=== PATIENT | female | born 1935 | race Caucasian/White ===

== ENCOUNTER 2018-06-06 06:37 | Inpatient (IN) | payer MEDICARE, OTHER, SELFPAY ==
[2018-06-06] VITALS (20 sets, daily range): BP systolic 93–164; BP diastolic 52–101; PULSE 87–115; RESP 10–24; TEMP 36.5–37.9; O2SAT 84–98; BMI 22.6
--- NOTE | 2018-06-06 | DI.RAD.S_ITS ---
PROCEDURE: XR PELVIS 1-2V INDICATIONS: s/p hip surgery TECHNIQUE: Single view(s) of the pelvis acquired. COMPARISON: None. FINDINGS: Bones: No fractures or dislocations. No suspicious bony lesions. Expected postoperative alignment of left hip arthroplasty. Overlying postsurgical soft tissue changes and skin ben. Pelvic ben project in the right pelvis. Mild right hip joint degeneration. IMPRESSION: Expected postoperative appearance of left hip arthroplasty. Dictated by: Gurinder Lopez M.D. on 06/07/2018 at 7:47 Approved by: Gurinder Lopez M.D. on 06/07/2018 at 7:48
--- NOTE | 2018-06-06 | DI.RAD.S_ITS ---
PROCEDURE: XR CHEST 1V INDICATIONS: Chect tube placement TECHNIQUE: One view of the chest was acquired. COMPARISON: [facility], CR, XR CHEST 1V, 06/06/2018, 21:50. FINDINGS: Surgical changes and devices: Left basilar thoracostomy tube is redemonstrated. Lungs and pleura: There is partial interval reexpansion of the left lung. A large pneumothorax persists. Mediastinum: Mediastinal contours appear normal. Heart size is normal. Bones and chest wall: No suspicious bony lesions. Overlying soft tissues appear unremarkable. IMPRESSION: Partial reexpansion of the left lung with thoracostomy tube in place. Dictated by: Adore Benz M.D. on 06/07/2018 at 8:24 Approved by: Adore Benz M.D. on 06/07/2018 at 8:25
--- NOTE | 2018-06-06 | DI.RAD.S_ITS ---
PROCEDURE: XR CHEST 1V INDICATIONS: Low O2 saturation s/p surgery TECHNIQUE: One view of the chest was acquired. COMPARISON: None. FINDINGS: Surgical changes and devices: None. Lungs and pleura: There is a normal appearance to the right lung parenchyma but there is a large left pneumothorax, deviating the left lung to the perihilar region of the left hemithorax. No pleural effusions. Mediastinum: Mediastinal contours appear normal. Heart size is normal. Bones and chest wall: No suspicious bony lesions. Overlying soft tissues appear unremarkable. IMPRESSION: Normal appearing right lung. No mediastinal shift from left to right but there is a large left pneumothorax collapsing the large majority of the left lung. Emergency room and hospitalist staff are aware of these findings. Dictated by: Tj Avendano M.D. on 06/06/2018 at 22:03 Approved by: Tj Avendano M.D. on 06/06/2018 at 22:05
--- NOTE | 2018-06-06 06:41 | DI.RAD.S_ITS ---
PROCEDURE: XR HIP W PEL IF DONE LT 2V INDICATIONS: fall, pain TECHNIQUE: 2 views of the hip were acquired. COMPARISON: None. FINDINGS: Bones: There is a transverse subcapital femoral neck fracture involving the proximal left femur with mild impaction and foreshortening of the distal fracture fragment. The femoral head appears to be well-seated in the acetabulum. The right hip appears intact. No suspicious bony lesions. The visualized pelvic ring appears intact. Soft tissues: No suspicious soft tissue calcifications or masses. Multiple surgical clips are noted in the right pelvis. IMPRESSION: Transverse subcapital left femoral neck fracture. Dictated by: Ben Riley M.D. on 06/06/2018 at 8:26 Approved by: Ben Riley M.D. on 06/06/2018 at 8:28
--- NOTE | 2018-06-06 07:00 | ED.LOWEXIN ---
HPI - Extremity Injury (Lower) General Chief Complaint: Extremity Injury, Lower Stated Complaint: GLF Time Seen by Provider: 06/06/18 06:41 Source: patient Mode of arrival: EMS Limitations: no limitations History of Present Illness HPI Narrative: Patient is an 83-year-old female not on anticoagulation here for evaluation of left hip pain. Patient states that last evening she got up out of bed to go to the bathroom when she tripped and fell. States that afterwards she had pain in her left hip. She was able to take a few steps however was extremely uncomfortable. She did take some Tylenol this morning. She did not hit her head. There was no loss of consciousness. She thinks that she hit her right arm but has no pain in her right arm now. She was unable to get back into bed after the event. Related Data Home Medications Medication Instructions Recorded Confirmed Calcium Carbonate/Vitamin D 1 cap PO AMINS #0 12/20/11 (#CALCIUM/VITAMIN D) Vit B Complex/Vit C/Vit E/Zn #0 12/20/11 (#ZINC B.E.C.) Previous Rx's Medication Instructions Recorded amoxicillin 500 mg PO TID #30 tab 05/07/17 Allergies Allergy/AdvReac Type Severity Reaction Status Date / Time No Known Drug Allergies Allergy Verified 06/06/18 06:52 Review of Systems Constitutional Denies chills, Denies fever(s), Denies lethargy and Denies weakness Cardiovascular Denies chest pain and Denies dyspnea Respiratory Denies dyspnea Gastrointestinal Gastrointestinal: Denies abdominal pain Genitourinary Denies dysuria Musculoskeletal Comments: Left hip pain Integumentary/Breasts Denies lesions and Denies rash Neurologic Denies weakness Comments: Some tingling to the left lower extremity compared to the right Hematologic/Lymphatic Comments: Not on anticoagulation PFSH Medical History Healthy adult (Acute) Surgical History No pertinent past surgical history (Acute) Social History Smoking Status: Never smoker Social History Smoking Status: Never smoker Exam Initial Vital Signs Initial Vital Signs: Vital Signs Temperature 98.5 F 06/06/18 06:43 Pulse Rate 99 H 06/06/18 06:43 Respiratory Rate 22 06/06/18 06:43 Blood Pressure 135/101 H 06/06/18 06:43 Pulse Oximetry 86 L 06/06/18 06:43 Const General: cooperative, well developed, well groomed and No acute distress Orientation: alert, awake and oriented x3 HENMT Head: normal to inspection and normocephalic Resp Effort & Inspection: normal respiratory effort Auscultation: clear to auscultation bilaterally Cardio Rate: regular rate Rhythm: regular rhythm Pulses: radial pulses present and dorsalis pedis present bilaterally GI Inspection: non-distended Palpation: soft Skin Lesions: no lesions Rashes: no rashes Neuro General: alert, awake and oriented x3 Cognition: normal cognition Speech: speech normal Motor: muscle tone normal throughout Sensory Exam: other (Some subjective decrease to sensation to the left foot compared to the righ) Extrem General: capillary refill normal Other: Patient with tenderness to palpation around the left hemipelvis. Left upper extremity right upper extremity and right lower extremity unremarkable. Psych Appearance: grossly normal and well kempt Course Orders Ordered: ED Orders 06/06/18 06:15 Basic Metabolic Panel Stat Complete Blood Count AUTO DIFF Stat Partial Thromboplastin Time Stat Prothrombin Time INR Stat 06/06/18 06:41 XR hip w pel if done LT 2V Stat 06/06/18 07:28 Type and Screen Stat Discontinued Medications Morphine Sulfate (Morphine) 2 mg IV NOW ONE Stop: 06/06/18 07:35 Vital Signs - 8 hr 06/06/18 06:43 Temperature 98.5 F Pulse Rate 99 H Respiratory Rate 22 Blood Pressure 135/101 H Pulse Oximetry 86 L MDM - Extremity Injury (Lower) Lab Data Result diagrams: 06/06/18 06:15 06/06/18 06:15 Imaging Data X-ray left hip: Attestation: I personally reviewed and interpreted this imaging study as follows: My impression: Left femoral neck fracture, minimally displaced MDM Narrative Medical decision making narrative: Healthy, not on anticoagulation, did not hit her head did not lose any consciousness. Suspect mechanical fall. Does have a left femoral neck fracture. Discussed the case with Dr. Patton with Orthopedics who states that she will require surgery and he will come and see her. Discussed the case with Dr. Canas with Internal Medicine who will admit the patient. Discussed the admission with the patient. She expressed understanding and agreement plan. Patient's labs pending at the time of admission. Discharge Plan Departure Patient Disposition: Admitted As Inpatient Clinical Impression: Fracture of femoral neck, left, closed Qualifiers: Encounter type: initial encounter Qualified Code(s): S72.002A - Fracture of unspecified part of neck of left femur, initial encounter for closed fracture
[2018-06-06 07:42] LABS: Prothrombin Time 11.1 SECONDS (10.1-12.7)
[2018-06-06 07:45] LABS: PTT Partial Thromboplastin Tim 26 SECONDS (26.4-36.2)
[2018-06-06 07:46] LABS: Blood Urea Nitrogen 26 mg/dL (7-17); Calcium 9.9 mg/dL (8.4-10.2); Carbon Dioxide 22 mmol/L (22-32); Chloride 104 mmol/L (98-107); Estimated Glomerular Filt Rate 53.1 mL/min (>60); Glucose 193 mg/dL (80-110); HEMOLYSIS < 15 (0-50); Potassium 3.7 mmol/L (3.4-5.1); Sodium 137 mmol/L (137-145)
[2018-06-06] MEDS: MORPHINE 4 MG/ML INJ 2 MG IV (07:48)
[2018-06-06 07:59] LABS: Add Manual Diff / Slide Review NO; Basophils Absolute Auto 0 /uL (0-100); Basophils Percent Auto 0.2 % (0-2); Eosinophils Absolute Auto 0 /uL (0-450); Eosinophils Percent Auto 0.2 % (2-4); Hemoglobin 11.8 g/dL (12.0-16.0); Lymphocytes Absolute Auto 700 /uL (1100-4500); Lymphocytes Percent Auto 5.3 % (25-40); Mean Corpuscular HGB Conc 32.7 % (30-36); Mean Corpuscular Hemoglobin 29.5 PG (26-34); Mean Corpuscular Volume 90.3 fL (80-100); Monocytes Absolute Auto 800 /uL (0-900); Monocytes Percent Auto 6.4 % (3-14); Neutrophils Absolute Auto 11200 /uL (1500-7000); Neutrophils Percent Auto 87.9 % (50-75); Platelet Count 347 X10^3/uL (150-400); Red Blood Cell Count 3.99 X10^6/uL (4.0-5.2); Red Cell Distribution Width 15.3 % (11.6-14.8); White Blood Cell Count 12.7 X10^3/uL (4.5-11.0)
--- NOTE | 2018-06-06 08:20 | PC.NURSE ---
Both feet are cold to the touch with pulses, left foot she states feels different than the right foot.
[2018-06-06 08:29] LABS: Bacteria Urine None Seen; WBC Urine None Seen (0-5/HPF)
[2018-06-06 08:34] LABS: Appearance Urine UA CLEAR; Bilirubin Urine UA NEGATIVE (NEGATIVE); Color Urine UA YELLOW; Glucose Urine UA NEGATIVE (Negative); Ketones Urine UA NEGATIVE (NEGATIVE); Leukocyte Esterase Urine UA NEGATIVE (NEGATIVE); Nitrite Urine UA NEGATIVE (Negative); Occult Blood Urine UA 2+ (Negative); Protein Urine UA 1+ (Negative); Specific Gravity Urine UA 1.025 (1.000-1.035); Urobilinogen Urine UA 0.2 E.U./dL (0.2)
[2018-06-06] MEDS: MORPHINE 2 MG/ML INJ IV ×3 (08:50→14:10)
[2018-06-06 08:55] LABS: Amorphous Sediment Urine 2+; RBC Urine 10-30/HPF (0-5/HPF)
[2018-06-06 08:56] LABS: Culture Indicated Urine Cult Not Indicated; Hyaline Casts Urine 5-10/LPF
--- NOTE | 2018-06-06 11:09 | PM.CN ---
History of Present Illness Date Patient Seen: 06/06/18 Time Patient Seen: 11:09 Chief complaint: GLF Reason for consult: L hip fx Requesting provider: Serge Canas Narrative: 83-year-old female with a left hip fracture. She tripped and stumbled and fell down at home. She took a few steps but the pain was too much. She came in this morning because it was getting better. When she fell she had no prodromal shortness of breath, chest pain, dizziness. When she fell she did not lose consciousness or hit her head. She did scrape her left elbow. It is not bothering her now. The left hip is sharp and stabbing with any movement although not too bad more of an ache just laying in bed. Since the fall she has had a little numbness in her left foot. [facility] Medical History Healthy adult (Acute) History of hysterectomy (Acute) Surgical History History of cholecystectomy (Acute) Social History household members: spouse Smoking Status: Never smoker alcohol intake: never Social History household members: spouse Smoking Status: Never smoker alcohol intake: never Meds Home Medications Medication Instructions Recorded Confirmed Type No Known Home Medications 06/06/18 06/06/18 History Allergies Allergy/AdvReac Type Severity Reaction Status Date / Time No Known Drug Allergies Allergy Verified 06/06/18 06:52 Review of Systems Constitutional Constitutional: Denies chills and Denies fever(s) ENT Ears, Nose, Mouth, and Throat: No dizziness Cardiovascular Cardiovascular: Denies chest pain Respiratory Respiratory: Denies cough and Denies wheezing Gastrointestinal Gastrointestinal: Denies abdominal pain Integumentary/Breasts Skin/Breast: Denies bleeding lesions Neurologic Neurologic: Denies behavioral changes and Denies dizziness Psychiatric Psychiatric: Denies behavioral changes Hematologic/Lymphatic Hematologic/Lymphatic: Denies easy bleeding Allergic/Immunologic Allergic/Immunologic: Denies wheezing Exam Vital Signs (past 8 hours): - 06/06/18 06:43 06/06/18 08:13 06/06/18 08:34 Temperature 98.5 F Pulse Rate 99 H 98 H 91 H Respiratory Rate 22 16 15 Blood Pressure 135/101 H 140/74 Blood Pressure [Left Arm] 140/74 Pulse Oximetry 86 L 94 93 06/06/18 08:58 Temperature 97.7 F Pulse Rate 104 H Respiratory Rate 18 Blood Pressure 164/90 H Blood Pressure [Left Arm] Pulse Oximetry 93 Oxygen Delivery Method Nasal Cannula Oxygen Flow Rate 3 Const Orientation: alert and oriented x3 Resp Auscultation: clear to auscultation bilaterally Cardio Rate: regular rate Rhythm: regular rhythm Extrem Other: LLE - Intact integument over the hip. Slight internal rotation. 2+ distal pulses. Slight decrease in sensation from the toes to the ankle. Easily moves ankle up and down with full strength. Objective Imaging Left hip x-ray: My impression: Displaced femoral neck fracture on the left hip Labs Result Diagrams: 06/06/18 06:43 06/06/18 06:43 Labs: Laboratory Results - last 24 hr 06/06/18 06/06/18 06/06/18 06:43 06:43 06:43 WBC 12.7 H RBC 3.99 L Hgb 11.8 L Hct 36.0 MCV 90.3 MCH 29.5 MCHC 32.7 RDW 15.3 H Plt Count 347 Neut % (Auto) 87.9 H Lymph % (Auto) 5.3 L [place] % (Auto) 6.4 Eos % (Auto) 0.2 L Baso % (Auto) 0.2 Neut # (Auto) 08222 H Lymph # (Auto) 700 L [place] # (Auto) 800 Eos # (Auto) 0 Baso # (Auto) 0 PT 11.1 INR 1.0 APTT 26 L Sodium 137 Potassium 3.7 Chloride 104 Carbon Dioxide 22 BUN 26 H Creatinine 1.00 Estimated GFR 53.1 L BUN/Creatinine Ratio 26.0 H Glucose 193 H Calcium 9.9 Urine Color Urine Appearance Urine pH Ur Specific [place] Urine Protein Urine Glucose (UA) Urine Ketones Urine Occult Blood Urine Nitrate Urine Bilirubin Urine Urobilinogen Ur Leukocyte Esterase Urine RBC Urine WBC Amorphous Sediment Urine Bacteria Hyaline Casts Ur Culture Indicated? Blood Type Antibody Screen 06/06/18 06/06/18 06:43 08:28 WBC RBC Hgb Hct MCV MCH MCHC RDW Plt Count Neut % (Auto) Lymph % (Auto) [place] % (Auto) Eos % (Auto) Baso % (Auto) Neut # (Auto) Lymph # (Auto) [place] # (Auto) Eos # (Auto) Baso # (Auto) PT INR APTT Sodium Potassium Chloride Carbon Dioxide BUN Creatinine Estimated GFR BUN/Creatinine Ratio Glucose Calcium Urine Color Yellow Urine Appearance Clear Urine pH 5.0 Ur Specific [place] 1.025 Urine Protein 1+ H Urine Glucose (UA) Negative Urine Ketones Negative Urine Occult Blood 2+ H Urine Nitrate Negative Urine Bilirubin Negative Urine Urobilinogen 0.2 Ur Leukocyte Esterase Negative Urine RBC 10-30/hpf H Urine WBC None seen Amorphous Sediment 2+ Urine Bacteria None seen Hyaline Casts 5-10/lpf Ur Culture Indicated? Cult not indicated Blood Type A Positive Antibody Screen Negative Assessment & Plan Assessment Narrative: Left hip fracture - explained the patient that this is a displaced hip fracture which requires a hemiarthroplasty for fixation as these usually do not heal with just screws. Risks and benefits of surgery discussed including but not limited to medical risks with heart attack, stroke, DVT, PE, , infection, bleeding, scarring, nerve injury with pain numbness weakness, limp, stiffness, decrease in ambulatory status, dislocation, need for further surgery. She understands and appropriate consents were obtained. We also discussed expected postoperative course and probable need for rehab afterwards. I also discussed her care with Dr. Canas. We will plan on taking her to the operating room this afternoon once in operating Room opens up.
--- NOTE | 2018-06-06 11:17 | PM.HP.1 ---
History of Present Illness Date Patient Seen: 06/06/18 Time Patient Seen: 11:00 Chief complaint: GLF Narrative: Patient is an 83-year-old female with history of osteoporosis, otherwise in good health, lives at home with , transported to ED after ground level fall. She fell this morning after she had gotten out of bed. She states that she was in a begum to get to the bathroom and fell at the doorway exit to the hallway. She was not dizzy and did not pass out. Denies hitting her head. She was unable to move after the fall due to pain in the left hip. X-ray showed a transverse subcapital left femoral neck fracture. Dr. Leonel Patton was consulted for orthopedic surgery. Patient states she has had mild cold symptoms last few days but no cough or fever or diarrhea. She has previously been diagnosed with osteoporosis. Patient History Medical History Healthy adult (Acute) History of hysterectomy (Chronic) Osteoporosis (Chronic) Surgical History History of cholecystectomy (Chronic) Social History household members: spouse Smoking Status: Never smoker alcohol intake: never Family & Social History Social History: household members spouse Prior Living Arrangements House Safety & Behavioral: Feels Safe in Current Yes Environment Been Physically Hurt or No Threatened By a Person Suicidal Ideation Description None Suicide Plan Description No Plan Tobacco & Substance use: Smoking Status Never smoker alcohol intake never Substance Use Type does not use Meds Home Medications Medication Instructions Recorded Confirmed Type No Known Home Medications 06/06/18 06/06/18 History Allergies Allergy/AdvReac Type Severity Reaction Status Date / Time No Known Drug Allergies Allergy Verified 06/06/18 06:52 Review of Systems Review of Systems All systems reviewed & are unremarkable except as noted in HPI and below Exam Vital Signs (past 8 hours): - 06/06/18 06:43 06/06/18 08:13 06/06/18 08:34 Temperature 98.5 F Pulse Rate 99 H 98 H 91 H Respiratory Rate 22 16 15 Blood Pressure 135/101 H 140/74 Blood Pressure [Left Arm] 140/74 Pulse Oximetry 86 L 94 93 06/06/18 08:58 Temperature 97.7 F Pulse Rate 104 H Respiratory Rate 18 Blood Pressure 164/90 H Blood Pressure [Left Arm] Pulse Oximetry 93 Oxygen Delivery Method Nasal Cannula Oxygen Flow Rate 3 Narrative Exam Narrative: GENERAL: Alert very pleasant elderly female in mild discomfort. HEAD: Atraumatic. Normocephalic. EYES: Pupils equal, round and reactive. Extraocular motions intact. No scleral icterus. No injection or drainage. OROPHARYNX: moist mucosa NECK: Trachea midline. No JVD or lymphadenopathy. CARDIOVASCULAR: Normal S1 and S2, tachycardic with regular rhythm, no murmurs RESPIRATORY: Clear to auscultation bilaterally. GASTROINTESTINAL: Abdomen nondistended, soft, non-tender. No hepato-splenomegaly, or palpable masses. EXTREMITIES: No pretibial edema. Tenderness at the left anterior hip noted. Dorsalis pedis 2+ bilaterally. Light touch sensation intact bilaterally. NEUROLOGICAL: Alert, well oriented, speech is intact, normal bilateral upper and lower extremity strength SKIN: warm, dry, no bruising Objective Labs Result Diagrams: 06/06/18 06:43 06/06/18 06:43 Labs: Laboratory Results - last 24 hr 06/06/18 06/06/18 06/06/18 06:43 06:43 06:43 WBC 12.7 H RBC 3.99 L Hgb 11.8 L Hct 36.0 MCV 90.3 MCH 29.5 MCHC 32.7 RDW 15.3 H Plt Count 347 Neut % (Auto) 87.9 H Lymph % (Auto) 5.3 L [place] % (Auto) 6.4 Eos % (Auto) 0.2 L Baso % (Auto) 0.2 Neut # (Auto) 13270 H Lymph # (Auto) 700 L [place] # (Auto) 800 Eos # (Auto) 0 Baso # (Auto) 0 PT 11.1 INR 1.0 APTT 26 L Sodium 137 Potassium 3.7 Chloride 104 Carbon Dioxide 22 BUN 26 H Creatinine 1.00 Estimated GFR 53.1 L BUN/Creatinine Ratio 26.0 H Glucose 193 H Calcium 9.9 Urine Color Urine Appearance Urine pH Ur Specific [place] Urine Protein Urine Glucose (UA) Urine Ketones Urine Occult Blood Urine Nitrate Urine Bilirubin Urine Urobilinogen Ur Leukocyte Esterase Urine RBC Urine WBC Amorphous Sediment Urine Bacteria Hyaline Casts Ur Culture Indicated? Blood Type Antibody Screen 06/06/18 06/06/18 06:43 08:28 WBC RBC Hgb Hct MCV MCH MCHC RDW Plt Count Neut % (Auto) Lymph % (Auto) [place] % (Auto) Eos % (Auto) Baso % (Auto) Neut # (Auto) Lymph # (Auto) [place] # (Auto) Eos # (Auto) Baso # (Auto) PT INR APTT Sodium Potassium Chloride Carbon Dioxide BUN Creatinine Estimated GFR BUN/Creatinine Ratio Glucose Calcium Urine Color Yellow Urine Appearance Clear Urine pH 5.0 Ur Specific [place] 1.025 Urine Protein 1+ H Urine Glucose (UA) Negative Urine Ketones Negative Urine Occult Blood 2+ H Urine Nitrate Negative Urine Bilirubin Negative Urine Urobilinogen 0.2 Ur Leukocyte Esterase Negative Urine RBC 10-30/hpf H Urine WBC None seen Amorphous Sediment 2+ Urine Bacteria None seen Hyaline Casts 5-10/lpf Ur Culture Indicated? Cult not indicated Blood Type A Positive Antibody Screen Negative Assessment & Plan Plan: This is an 83-year-old female with osteoporosis admitted due to left hip fracture after ground level fall. 1. Left hip fracture, secondary to osteoporosis, occurring after ground level fall. -patient otherwise healthy and low risk for surgical repair. -normal saline 100 cc/hour -sequential compression stocking -morphine 1-2 mg IV q.2 hours as needed -Elizabeth catheter placed in ED 2. Osteoporosis, chronic. -check vitamin-D 25 hydroxy level -patient agreeable to starting on weekly Fosamax at time of discharge Quality VTE Deep Vein Thrombosis/Pulmonary Embolism Present on Admission: No
--- NOTE | 2018-06-06 11:24 | P.HP_ITS ---
History of Present Illness Date Patient Seen: 06/06/18 Time Patient Seen: 11:00 Chief complaint: GLF Narrative: Patient is an 83-year-old female with history of osteoporosis, otherwise in good health, lives at home with , transported to ED after ground level fall. She fell this morning after she had gotten out of bed. She states that she was in a begum to get to the bathroom and fell at the doorway exit to the hallway. She was not dizzy and did not pass out. Denies hitting her head. She was unable to move after the fall due to pain in the left hip. X-ray showed a transverse subcapital left femoral neck fracture. Dr. Leonel Patton was consulted for orthopedic surgery. Patient states she has had mild cold symptoms last few days but no cough or fever or diarrhea. She has previously been diagnosed with osteoporosis. Patient History Medical History Healthy adult (Acute) History of hysterectomy (Chronic) Osteoporosis (Chronic) Surgical History History of cholecystectomy (Chronic) Social History household members: spouse Smoking Status: Never smoker alcohol intake: never Family & Social History Social History: household members spouse Prior Living Arrangements House Safety & Behavioral: Feels Safe in Current Yes Environment Been Physically Hurt or No Threatened By a Person Suicidal Ideation Description None Suicide Plan Description No Plan Tobacco & Substance use: Smoking Status Never smoker alcohol intake never Substance Use Type does not use Meds Home Medications Medication Instructions Recorded Confirmed Type No Known Home Medications 06/06/18 06/06/18 History Allergies Allergy/AdvReac Type Severity Reaction Status Date / Time No Known Drug Allergies Allergy Verified 06/06/18 06:52 Review of Systems Review of Systems All systems reviewed & are unremarkable except as noted in HPI and below Exam Vital Signs (past 8 hours): - 06/06/18 06:43 06/06/18 08:13 06/06/18 08:34 Temperature 98.5 F Pulse Rate 99 H 98 H 91 H Respiratory Rate 22 16 15 Blood Pressure 135/101 H 140/74 Blood Pressure [Left Arm] 140/74 Pulse Oximetry 86 L 94 93 06/06/18 08:58 Temperature 97.7 F Pulse Rate 104 H Respiratory Rate 18 Blood Pressure 164/90 H Blood Pressure [Left Arm] Pulse Oximetry 93 Oxygen Delivery Method Nasal Cannula Oxygen Flow Rate 3 Narrative Exam Narrative: GENERAL: Alert very pleasant elderly female in mild discomfort. HEAD: Atraumatic. Normocephalic. EYES: Pupils equal, round and reactive. Extraocular motions intact. No scleral icterus. No injection or drainage. OROPHARYNX: moist mucosa NECK: Trachea midline. No JVD or lymphadenopathy. CARDIOVASCULAR: Normal S1 and S2, tachycardic with regular rhythm, no murmurs RESPIRATORY: Clear to auscultation bilaterally. GASTROINTESTINAL: Abdomen nondistended, soft, non-tender. No hepato- splenomegaly, or palpable masses. EXTREMITIES: No pretibial edema. Tenderness at the left anterior hip noted. Dorsalis pedis 2+ bilaterally. Light touch sensation intact bilaterally. NEUROLOGICAL: Alert, well oriented, speech is intact, normal bilateral upper and lower extremity strength SKIN: warm, dry, no bruising Objective Labs Result Diagrams: 06/06/18 06:43 06/06/18 06:43 Labs: Laboratory Results - last 24 hr 06/06/18 06/06/18 06/06/18 06:43 06:43 06:43 WBC 12.7 H RBC 3.99 L Hgb 11.8 L Hct 36.0 MCV 90.3 MCH 29.5 MCHC 32.7 RDW 15.3 H Plt Count 347 Neut % (Auto) 87.9 H Lymph % (Auto) 5.[address] [place] % (Auto) 6.4 Eos % (Auto) 0.2 L Baso % (Auto) 0.2 Neut # (Auto) 59252 H Lymph # (Auto) [address] [place] [place] # (Auto) 800 Eos # (Auto) 0 Baso # (Auto) 0 PT 11.1 INR 1.0 APTT 26 L Sodium 137 Potassium 3.7 Chloride 104 Carbon Dioxide 22 BUN 26 H Creatinine 1.00 Estimated GFR 53.1 L BUN/Creatinine Ratio 26.0 H Glucose 193 H Calcium 9.9 Urine Color Urine Appearance Urine pH Ur Specific [place] Urine Protein Urine Glucose (UA) Urine Ketones Urine Occult Blood Urine Nitrate Urine Bilirubin Urine Urobilinogen Ur Leukocyte Esterase Urine RBC Urine WBC Amorphous Sediment Urine Bacteria Hyaline Casts Ur Culture Indicated? Blood Type Antibody Screen 06/06/18 06/06/18 06:43 08:28 WBC RBC Hgb Hct MCV MCH MCHC RDW Plt Count Neut % (Auto) Lymph % (Auto) [place] % (Auto) Eos % (Auto) Baso % (Auto) Neut # (Auto) Lymph # (Auto) [place] # (Auto) Eos # (Auto) Baso # (Auto) PT INR APTT Sodium Potassium Chloride Carbon Dioxide BUN Creatinine Estimated GFR BUN/Creatinine Ratio Glucose Calcium Urine Color Yellow Urine Appearance Clear Urine pH 5.0 Ur Specific [place] 1.025 Urine Protein 1+ H Urine Glucose (UA) Negative Urine Ketones Negative Urine Occult Blood 2+ H Urine Nitrate Negative Urine Bilirubin Negative Urine Urobilinogen 0.2 Ur Leukocyte Esterase Negative Urine RBC 10-30/hpf H Urine WBC None seen Amorphous Sediment 2+ Urine Bacteria None seen Hyaline Casts 5-10/lpf Ur Culture Indicated? Cult not indicated Blood Type A Positive Antibody Screen Negative Assessment & Plan Plan: This is an 83-year-old female with osteoporosis admitted due to left hip fracture after ground level fall. 1. Left hip fracture, secondary to osteoporosis, occurring after ground level fall. -patient otherwise healthy and low risk for surgical repair. -normal saline 100 cc/hour -sequential compression stocking -morphine 1-2 mg IV q.2 hours as needed -Elizabeth catheter placed in ED 2. Osteoporosis, chronic. -check vitamin-D 25 hydroxy level -patient agreeable to starting on weekly Fosamax at time of discharge Quality VTE Deep Vein Thrombosis/Pulmonary Embolism Present on Admission: No
[2018-06-06] MEDS: SODIUM CHLORIDE 0.9% 1,000 ML 100 ML IV (11:34)
[2018-06-06 12:14] LABS: Vitamin D 25 Hydroxy (D3) 41.6 ng/mL (30.0-100.0)
[2018-06-06 12:55] LABS: Hemoglobin A1C% w Est Avg Glu 5.7 % (4.0-6.0)
--- NOTE | 2018-06-06 13:15 | PC.ADMIT ---
Admission Note: Patient arrived from ER via stretcher at 0840. Transferred via slider board 3 person assist. Reporting pain 7/10 to left hip - notified Dr. Canas and orders received for morphine which was administered with good effect. On 3L oxygen NC with oxygen sats 93-94%. Pulses intact to BLEs, pt does report mild tingling to left foot. NPO for surgery this afternoon. , Edgard, and son, Vickie, at bedside and updated on pt plan. Pt oriented to room and to call light/bed/tv controls. Bed alarm on for safety and call light within reach. The patient,Melissa Aleman,83 y/o, was given written information regarding hospital policies, unit procedures and contact persons. Patient's smoking status: Never smoker. Vital Signs - 8 hr 06/06/18 06:43 06/06/18 08:13 06/06/18 08:34 Temperature 98.5 F Pulse Rate 99 H 98 H 91 H Respiratory Rate 22 16 15 Blood Pressure 135/101 H 140/74 Blood Pressure [Left Arm] 140/74 Pulse Oximetry 86 L 94 93 06/06/18 08:58 06/06/18 11:54 06/06/18 12:52 Temperature 97.7 F 99.3 F Pulse Rate 104 H 107 H Respiratory Rate 18 16 Blood Pressure 164/90 H 138/82 Blood Pressure [Left Arm] Pulse Oximetry 93 94 94
--- NOTE | 2018-06-06 19:12 | PM.PREOP ---
Pre-operative Note Interval Note History & Physical reviewed/Exam performed by Physician: Yes Changes to H&P: No
[2018-06-06] MEDS: LACTATED RINGERS 1,000 ML 42 ML IV (19:13)
--- NOTE | 2018-06-06 19:14 | P.OP_ITS ---
Operative Date/Time/Diagnoses Date of procedure: 06/06/18 Time of procedure: 21:23 Pre-op diagnosis: Left displaced femoral neck fracture Post-op diagnosis: same Procedure & Clinicians Procedure: Left hip hemiarthroplasty Same procedure as scheduled: Yes Indications: [age] year old female with a displaced left femoral neck fracture it was felt that she would benefit from surgical intervention. Risks and benefits of surgery were discussed and appropriate consents were obtained. Surgeon: Leonel Patton Quality Control Technician: Zoe Sarkar Anesthesia Type: General Operative Notes Findings: none Closure Type: primary Specimen(s): none sent Prosthetic devices, grafts, tissues, transplants, or devices: [employer] Synergy size 11 stem, +0 sleeve, 45mm head Applied: catheter Estimated Blood Loss (mL): 30 Procedure in detail: Patient brought to the operating room and intubated on the table. They were then rolled over to the lateral decubitus position with the well marked left hip up. Time-out was performed. Preoperative antibiotics were given. The left leg and hip were prepped and draped in standard sterile fashion. A 20 cm incision was made just posterior to the greater trochanter along the pro ximal femur and then curving posteriorly to the buttocks. We used Bovie to come down to the fascia. The fascia was nicked and elevated up and split proximally and distally. We bluntly spread through the gluteal muscles until we had good exposure. The leg was internally rotated and the fragments of the external rotators were identified. These were tagged and cut and retracted. The hip capsule was then exposed. This was already torn through but we extended this as a H shaped incision. The fracture and the neck and head and acetabulum were exposed. The femoral guide was used to make the 1st neck cut 1 cm proximal to the lesser trochanter. A corkscrew was then placed into the femoral head and the head was removed. The head was measured. The acetabulum was cleared out and the head was trialed. A lap was placed into the acetabulum. We then used a box osteotome with 20? of version to make our starting cut into the femur. The lateralizer was used and then we used sequentially larger broache s. When there was a good fit we trialed our components. A distal femoral plug was placed. The femur was then copiously irrigated. Cement was injected under pressure and then our stem was placed. Once the cement was hardened we again trialed. The acetabulum was washed out.The neck and head were impacted on and then the hip was reduced. This was placed through range of motion with 90 degrees of flexion, 20 degrees of abduction, and 30 degrees of internal rotation with no subluxation. The wound was then again irrigated. The capsule was closed. The external rotators were reapproximated. A drain was placed. The fascia was closed. The superficial and skin were closed. The patient was then rolled over into the supine position. An abduction brace was placed. They were transferred to the stretcher and brought to the recovery room with no complications. Complications: none Condition: stable Disposition: PACU Plan for aftercare: Inpatient. Up with physical therapy. Posterior hip precautions. Weight bear as tolerated.
--- NOTE | 2018-06-06 19:24 | SUR.HOLD ---
Pt brought over from [facility] by chelo Ghotra, Sotero Danielle and Pooja spoke with pt, son at bedside, awaiting surgery.
[2018-06-06] MEDS: CEFAZOLIN 2 GM/100 ML FROZ.PIGGY IV (19:33)
--- NOTE | 2018-06-06 19:43 | PC.NURSE ---
jace note pt able to wiggle toes of left foot. Pulses strong to feet. Pt reports some tingling to left foot. Pt to OR at 19:00.
--- NOTE | 2018-06-06 20:24 | SUR.OPER ---
Lateral on padded OR bed. Gel axillary roll. Arms secured on padded armboard with pillow supporting top arm. Padded hip positioner braces x4 - anterior and posterior chest and pelvis. Additional gel pad used anterior pelvis. Gel pad under bottom leg from knee to foot and secured with tape over sheet.
[2018-06-06] MEDS: BUPIVACAINE 0.25% W/ EPI VIAL 50 ML INJ (20:35)
[2018-06-06] MEDS: BUPIVACAINE LIPOSOME 266 MG/20 ML VIAL INJ (20:38)
[2018-06-06] MEDS: SODIUM CHLORIDE 0.9% 1,000 ML, GENTAMICIN 80 MG IRR (20:39)
[2018-06-06] MEDS: SODIUM CHLORIDE IRRIG SOLUTION 250 ML, EPINEPHrine 1 MG IRR (20:40)
[2018-06-06] MEDS: HYDROMORPHONE 2 MG INJ IV (21:50)
--- NOTE | 2018-06-06 22:35 | P.PN_ITS ---
Subjective Date Patient Seen: 06/06/18 Time Patient Seen: 22:31 Interval history: The patient had low oxygen saturation on arrival to the recovery room at 78%. A chest x-ray was obtained which showed a pneumothorax. Unclear etiology as she only had an LMA and never had positive pressure. A chest tube was placed by Dr. Stahl from the emergency room and saturation restored to the high 90s. Exam Vital Signs (past 8 hours): - 06/06/18 16:00 06/06/18 19:15 06/06/18 21:38 Temperature 100.2 F H 98.9 F 98.8 F Pulse Rate 108 H 111 H 100 H Respiratory Rate 20 20 24 Blood Pressure 160/86 H 158/92 H 93/52 L Pulse Oximetry 94 91 87 L 06/06/18 21:43 06/06/18 21:48 06/06/18 21:58 Temperature 98 F 98.8 F 99 F Pulse Rate 87 105 H 114 H Respiratory Rate 24 24 23 Blood Pressure 104/52 L 105/52 L 121/65 Pulse Oximetry 87 L 88 L 84 L Oxygen Delivery Method Non -Rebreather Oxygen Flow Rate 15 Objective Imaging AP pelvis: My impression: Stable placement of the left hip hemiarthroplasty Labs Result Diagrams: 06/06/18 06:43 06/06/18 06:43 Labs: Laboratory Results - last 24 hr 06/06/18 06/06/18 06/06/18 06:43 06:43 06:43 WBC 12.7 H RBC 3.99 L Hgb 11.8 L Hct 36.0 MCV 90.3 MCH 29.5 MCHC 32.7 RDW 15.3 H Plt Count 347 Neut % (Auto) 87.9 H Lymph % (Auto) 5.3 L [place] % (Auto) 6.4 Eos % (Auto) 0.2 L Baso % (Auto) 0.2 Neut # (Auto) 07699 H Lymph # (Auto) 700 L [place] # (Auto) 800 Eos # (Auto) 0 Baso # (Auto) 0 PT 11.1 INR 1.0 APTT 26 L Sodium 137 Potassium 3.7 Chloride 104 Carbon Dioxide 22 BUN 26 H Creatinine 1.00 Estimated GFR 53.1 L BUN/Creatinine Ratio 26.0 H Glucose 193 H Hemoglobin A1c Calcium 9.9 25-OH Vitamin D Total Urine Color Urine Appearance Urine pH Ur Specific [place] Urine Protein Urine Glucose (UA) Urine Ketones Urine Occult Blood Urine Nitrate Urine Bilirubin Urine Urobilinogen Ur Leukocyte Esterase Urine RBC Urine WBC Amorphous Sediment Urine Bacteria Hyaline Casts Ur Culture Indicated? Nasal Screen MRSA (PCR) Blood Type Antibody Screen 06/06/18 06/06/18 06/06/18 06:43 06:43 06:43 WBC RBC Hgb Hct MCV MCH MCHC RDW Plt Count Neut % (Auto) Lymph % (Auto) [place] % (Auto) Eos % (Auto) Baso % (Auto) Neut # (Auto) Lymph # (Auto) [place] # (Auto) Eos # (Auto) Baso # (Auto) PT INR APTT Sodium Potassium Chloride Carbon Dioxide BUN Creatinine Estimated GFR BUN/Creatinine Ratio Glucose Hemoglobin A1c 5.7 Calcium 25-OH Vitamin D Total 41.6 Urine Color Urine Appearance Urine pH Ur Specific [place] Urine Protein Urine Glucose (UA) Urine Ketones Urine Occult Blood Urine Nitrate Urine Bilirubin Urine Urobilinogen Ur Leukocyte Esterase Urine RBC Urine WBC Amorphous Sediment Urine Bacteria Hyaline Casts Ur Culture Indicated? Nasal Screen MRSA (PCR) Blood Type A Positive Antibody Screen Negative 06/06/18 06/06/18 08:28 10:15 WBC RBC Hgb Hct MCV MCH MCHC RDW Plt Count Neut % (Auto) Lymph % (Auto) [place] % (Auto) Eos % (Auto) Baso % (Auto) Neut # (Auto) Lymph # (Auto) [place] # (Auto) Eos # (Auto) Baso # (Auto) PT INR APTT Sodium Potassium Chloride Carbon Dioxide BUN Creatinine Estimated GFR BUN/Creatinine Ratio Glucose Hemoglobin A1c Calcium 25-OH Vitamin D Total Urine Color Yellow Urine Appearance Clear Urine pH 5.0 Ur Specific [place] 1.025 Urine Protein 1+ H Urine Glucose (UA) Negative Urine Ketones Negative Urine Occult Blood 2+ H Urine Nitrate Negative Urine Bilirubin Negative Urine Urobilinogen 0.2 Ur Leukocyte Esterase Negative Urine RBC 10-30/hpf H Urine WBC None seen Amorphous Sediment 2+ Urine Bacteria None seen Hyaline Casts 5-10/lpf Ur Culture Indicated? Cult not indicated Nasal Screen MRSA (PCR) Negative for mrsa Blood Type Antibody Screen Assessment & Plan Post-op Postoperative Procedures Operation Date: 06/06/18 17:30 Actual Procedures Side Surgeon p Hip Hemiarthroplasty Left Leonel Patton MD She will be transferred back to the ICU tonight. Hospitalist and Dr Donaldson both informed. Attempts have been made to contact family but no one answered. Quality VTE Deep Vein Thrombosis/Pulmonary Embolism Present on Admission: No
--- NOTE | 2018-06-06 22:52 | SUR.PHASEI ---
left PACU and will continue carte in ICU until next shift
--- NOTE | 2018-06-06 23:11 | SUR.PHASEI ---
9201 pt in icu rm 101 continue phase II until staff arive to care for pt in ICU. son at bedside. Dr Danielle anesthesia explained pt status to son
[2018-06-06] MEDS: LACTATED RINGERS 1,000 ML 125 ML IV (23:30)
--- NOTE | 2018-06-06 23:30 | PM.EVENT ---
Date Patient Seen: 06/06/18 Time Patient Seen: 23:30 Patient is an 83-year-old female s/p GLF. Radiography showed displaced left femoral neck fracture. Patient was taken to the OR for hemiarthroplasty. Intraoperative blood loss of 30 mils. In PACU developed hypoxia with SpO2 of 78%.. Chest x-ray revealed a large left pneumothorax. Etiology unclear. Chest tube was placed by ED physician. To ICU postop Developed postop complications of pneumothorax, chest tube placed in the PACU with improved SpO2 Patient seen in the ICU SpO2 89-91% on 3L of O2, will place her on a simple mask for the remainder of the night, goal SpO2 > 95% Chest tube to water seal, will place to LIS -20 cm Patient is somnolent, however she does awaken, follows commands Oriented to year, place, not able to tell me reason for hospital admission Reports tolerable pain level, a time evaluation notes 5/10 No dyspnea or tachypnea, no crepitus at CT site, Right lung field clear Left lung field diminished Will add IS Minimize use of ALTERATIONS MANAGER depressing medications, consider analgesics for pain control Monitor neuro status
[2018-06-07] VITALS (12 sets, daily range): BP systolic 87–136; BP diastolic 43–68; PULSE 83–103; RESP 13–24; TEMP 36.7–37.7; O2SAT 93–100
[2018-06-07] MEDS: CEFAZOLIN 2 GM/100 ML FROZ.PIGGY IV ×2 (00:20→07:57)
--- NOTE | 2018-06-07 05:16 | ED.CONSULT ---
ED Provider Consult/Code Note General Date Patient Seen: 06/06/18 Time Patient Seen: 21:55 Reason for Admission: GLF Events leading to Consult/Code: Anesthesia requested my presence in the PACU concerned for probable spontaneous pneumothorax. Patient is just got out of surgery for left hip operation. She is noted to be hypoxic 86% on a non-rebreather and tachycardic 120's-130's. X-ray reviewed by myself does confirm a complete pneumothorax on left side. Cardiac Rhythm: Sinus tachycardia Respiratory Auscultation: diminished lung sounds Care Provided Description of care provided: Insertion of Test Tube: A time-out was completed verifying correct patient, procedure and site. Patient was positioned, prepped and draped in usual sterile fashion. The skin was prepped in the usual fashion with ChloraPrep. 1% Lidocaine was used to anesthetize the area. After local anesthesia was achieved, a skin incision was made 2-3 cm below the fifth intercostal space in the mid axillary line. A Vickie clamp was inserted to spread the subcutaneous tissue, and passed over the superior aspect of the fifth rib into the pleural space. A 28 [place] chest tube was inserted. The chest tube was inserted through the created tract, and threaded into the pleural space. The tube was secured to the chest wall with sutures and connected to the pleura-vac device. The patient tolerated the procedure well. There were no complications. Estimated blood loss was 5 cc. A chest x-ray was ordered to determine tube placement and lung expansion. Are reviewed chest x-ray myself. There does seem to be some lung expansion though persistent pneumothorax. Outcome Outcome: Surgery was consulted by anesthesia and will be managing chest tube on the floor. Chest tube was placed emergently for hypoxia and tachycardia. Patient tolerated procedure well. There were no signs of tension pneumothorax patient's blood pressure was stable. She did receive some Versed and Dilaudid for pain control.
--- NOTE | 2018-06-07 05:22 | ER_ITS ---
ED Provider Consult/Code Note General Date Patient Seen: 06/06/18 Time Patient Seen: 21:55 Reason for Admission: GLF Events leading to Consult/Code: Anesthesia requested my presence in the PACU concerned for probable spontaneous pneumothorax. Patient is just got out of surgery for left hip operation. She is noted to be hypoxic 86% on a non- rebreather and tachycardic 120's-130's. X-ray reviewed by myself does confirm a complete pneumothorax on left side. Cardiac Rhythm: Sinus tachycardia Respiratory Auscultation: diminished lung sounds Care Provided Description of care provided: Insertion of Test Tube: A time-out was completed verifying correct patient, procedure and site. Patient was positioned, prepped and draped in usual sterile fashion. The skin was prepped in the usual fashion with ChloraPrep. 1% Lidocaine was used to anesthetize the area. After local anesthesia was achieved, a skin incision was made 2-3 cm below the fifth intercostal space in the mid axillary line. A Vickie clamp was inserted to spread the subcutaneous tissue, and passed over the superior aspect of the fifth rib into the pleural space. A 28 [place] chest tube was inserted. The chest tube was inserted through the created tract, and threaded into the pleural space. The tube was secured to the chest wall with sutures and connected to the pleura-vac device. The patient tolerated the procedure well. There were no complications. Estimated blood loss was 5 cc. A chest x-ray was ordered to determine tube placement and lung expansion. Are reviewed chest x-ray myself. There does seem to be some lung expansion though persistent pneumothorax. Outcome Outcome: Surgery was consulted by anesthesia and will be managing chest tube on the floor. Chest tube was placed emergently for hypoxia and tachycardia. Patient tolerated procedure well. There were no signs of tension pneumothorax patient's blood pressure was stable. She did receive some Versed and Dilaudid for pain control.
[2018-06-07] MEDS: hydrOXYzine pamoate 25 MG CAPSULE PO (05:24)
[2018-06-07] MEDS: OXYCODONE IR 5 MG TABLET PO ×3 (05:25→22:42)
--- NOTE | 2018-06-07 06:00 | DI.RAD.S_ITS ---
PROCEDURE: XR CHEST 1V INDICATIONS: pneumothorax TECHNIQUE: One view of the chest was acquired. COMPARISON: [facility], CR, XR CHEST 1V, 06/06/2018, 22:23. FINDINGS: Surgical changes and devices: A left basilar thoracostomy tube is redemonstrated. Lungs and pleura: There is increased interval reexpansion of the left lung with a small pneumothorax now remaining. Mediastinum: Mediastinal contours appear normal. Heart size is normal. Bones and chest wall: No suspicious bony lesions. Overlying soft tissues appear unremarkable. IMPRESSION: Continued reexpansion of the left lung with small residual pneumothorax. Dictated by: Adore Benz M.D. on 06/07/2018 at 8:25 Approved by: Adore Benz M.D. on 06/07/2018 at 8:25
[2018-06-07 06:09] LABS: Hemoglobin 9.9 g/dL (12.0-16.0)
--- NOTE | 2018-06-07 06:54 | PC.NURSE ---
Pt was placed on 2L NC initially after simple mask and could not maintain O2 sat >90% place back on mask at 5L with sats up to 100% and weaned to 5L then 4L NC now at 3L NC with sat holding 96% when asleep. Left lung decreased, right clear, c/o pain Left chest not left leg. Some nausea after H2O this am, med with vistaril and 5mg oxycodone for fair pain relief as she was again sleeping soundly until family arrived and started talking to her. CT had 60ml of serosang drainage, and 100ml out of hemovac.
--- NOTE | 2018-06-07 07:27 | P.PN_ITS ---
Subjective Date Patient Seen: 06/07/18 Time Patient Seen: 07:27 Interval history: Her hip is not bothering her much. Most of her pain is in her chest wall. Exam Vital Signs (past 8 hours): - 06/06/18 23:30 06/07/18 00:04 06/07/18 01:00 Temperature 98.5 F 98.5 F 98.5 F Pulse Rate 105 H 103 H 98 H Respiratory Rate 10 L 13 13 Blood Pressure 117/60 114/60 109/61 Pulse Oximetry 94 96 98 06/07/18 02:00 06/07/18 04:00 Temperature 98.6 F 98.9 F Pulse Rate 97 H 95 H Respiratory Rate 14 14 Blood Pressure 115/64 136/64 Pulse Oximetry 99 100 Oxygen Delivery Method Simple Mask Oxygen Flow Rate 3 Const Orientation: alert and oriented x3 Extrem Other: Dressing clean dry intact. 100 mL output in drain. Easily wiggles toes. 2+ distal pulses 60 mL output from chest tube Objective Labs Result Diagrams: 06/07/18 05:10 06/06/18 06:43 Labs: Laboratory Results - last 24 hr 06/06/18 06/06/18 06/06/18 06:43 06:43 06:43 WBC 12.7 H RBC 3.99 L Hgb 11.8 L Hct 36.0 MCV 90.3 MCH 29.5 MCHC 32.7 RDW 15.3 H Plt Count 347 Neut % (Auto) 87.9 H Lymph % (Auto) 5.3 L [place] % (Auto) 6.4 Eos % (Auto) 0.2 L Baso % (Auto) 0.2 Neut # (Auto) 22553 H Lymph # (Auto) 700 L [place] # (Auto) 800 Eos # (Auto) 0 Baso # (Auto) 0 PT 11.1 INR 1.0 APTT 26 L Sodium 137 Potassium 3.7 Chloride 104 Carbon Dioxide 22 BUN 26 H Creatinine 1.00 Estimated GFR 53.1 L BUN/Creatinine Ratio 26.0 H Glucose 193 H Hemoglobin A1c Calcium 9.9 25-OH Vitamin D Total Urine Color Urine Appearance Urine pH Ur Specific [place] Urine Protein Urine Glucose (UA) Urine Ketones Urine Occult Blood Urine Nitrate Urine Bilirubin Urine Urobilinogen Ur Leukocyte Esterase Urine RBC Urine WBC Amorphous Sediment Urine Bacteria Hyaline Casts Ur Culture Indicated? Nasal Screen MRSA (PCR) Blood Type Antibody Screen 06/06/18 06/06/18 06/06/18 06:43 06:43 06:43 WBC RBC Hgb Hct MCV MCH MCHC RDW Plt Count Neut % (Auto) Lymph % (Auto) [place] % (Auto) Eos % (Auto) Baso % (Auto) Neut # (Auto) Lymph # (Auto) [place] # (Auto) Eos # (Auto) Baso # (Auto) PT INR APTT Sodium Potassium Chloride Carbon Dioxide BUN Creatinine Estimated GFR BUN/Creatinine Ratio Glucose Hemoglobin A1c 5.7 Calcium 25-OH Vitamin D Total 41.6 Urine Color Urine Appearance Urine pH Ur Specific Morrill Urine Protein Urine Glucose (UA) Urine Ketones Urine Occult Blood Urine Nitrate Urine Bilirubin Urine Urobilinogen Ur Leukocyte Esterase Urine RBC Urine WBC Amorphous Sediment Urine Bacteria Hyaline Casts Ur Culture Indicated? Nasal Screen MRSA (PCR) Blood Type A Positive Antibody Screen Negative 06/06/18 06/06/18 06/07/18 08:28 10:15 05:10 WBC RBC Hgb 9.9 L Hct 29.0 L MCV MCH MCHC RDW Plt Count Neut % (Auto) Lymph % (Auto) [place] % (Auto) Eos % (Auto) Baso % (Auto) Neut # (Auto) Lymph # (Auto) [place] # (Auto) Eos # (Auto) Baso # (Auto) PT INR APTT Sodium Potassium Chloride Carbon Dioxide BUN Creatinine Estimated GFR BUN/Creatinine Ratio Glucose Hemoglobin A1c Calcium 25-OH Vitamin D Total Urine Color Yellow Urine Appearance Clear Urine pH 5.0 Ur Specific [place]rill 1.025 Urine Protein 1+ H Urine Glucose (UA) Negative Urine Ketones Negative Urine Occult Blood 2+ H Urine Nitrate Negative Urine Bilirubin Negative Urine Urobilinogen 0.2 Ur Leukocyte Esterase Negative Urine RBC 10-30/hpf H Urine WBC None seen Amorphous Sediment 2+ Urine Bacteria None seen Hyaline Casts 5-10/lpf Ur Culture Indicated? Cult not indicated Nasal Screen MRSA (PCR) Negative for mrsa Blood Type Antibody Screen Assessment & Plan Post-op Postoperative Procedures Operation Date: 06/06/18 17:30 Actual Procedures Side Surgeon p Hip Hemiarthroplasty Left Leonel Patton MD She is doing well from the perspective of her hip. Mobilize with therapy. Can get up to a chair today but can't do much more therapy until the chest tube is out. Defer further treatment on that to Dr Donaldson. Quality VTE Deep Vein Thrombosis/Pulmonary Embolism Present on Admission: No
[2018-06-07] MEDS: LACTATED RINGERS 1,000 ML 125 ML IV ×2 (07:58→14:45)
[2018-06-07] MEDS: DOCUSATE 100 MG CAPSULE PO ×2 (08:58→22:27)
[2018-06-07] MEDS: ACETAMINOPHEN 325 MG TABLET 975 MG PO ×3 (08:58→22:27)
[2018-06-07] MEDS: ENOXAPARIN 30 MG/0.3 ML SYRINGE SUBCUT (08:59)
[2018-06-07] MEDS: ASPIRIN EC 81 MG TABLET PO ×2 (08:59→22:27)
--- NOTE | 2018-06-07 11:09 | PM.PN.1 ---
Subjective Date Patient Seen: 06/07/18 Interval history: Patient is status post chest tube placement on 06/06/2018 due to large left pneumothorax following left hip fracture hemiarthroplasty repair. Etiology of pneumothorax is unclear, probably due to a bleb, and not directly related to the surgery or fracture. Anesthesia was performed with LMA and patient was not intubated. There is no rib fracture from the fall. Follow-up chest x-ray this a.m. shows continued re-expansion of the left lung with small residual pneumothorax. Patient is reporting 8/10 pain in the chest tube site and 2/10 pain in the left hip. Denies nausea or vomiting. Exam Vital Signs (past 8 hours): - 06/07/18 04:00 06/07/18 08:00 06/07/18 10:28 Temperature 98.9 F 98.1 F 99.8 F H Pulse Rate 95 H 101 H Respiratory Rate 14 21 Blood Pressure 136/64 132/68 105/58 L Pulse Oximetry 100 96 Oxygen Delivery Method Nasal Cannula Oxygen Flow Rate 2 Narrative Exam Narrative: GENERAL: Alert pleasant female, breathing nonlabored, cooperative and talking HEENT: Head normocephalic, atraumatic. Mucous membranes moist. CHEST: Clear to auscultation bilaterally. Left chest tube noted. CARDIAC: Mildly tachycardic with regular rhythm ABDOMEN: Nondistended, soft, nontender EXTREMITIES: no edema except moderate edema left thigh status post hip fracture. No difficulty wiggling toes and distal sensation intact. NEUROLOGICAL: Appears well oriented, nonfocal SKIN: Warm, dry, no petechiae, no rash Objective Labs Result Diagrams: 06/07/18 05:10 06/06/18 06:43 Labs: Laboratory Results - last 24 hr 06/06/18 06/06/18 06/06/18 06:43 06:43 10:15 Hgb Hct Hemoglobin A1c 5.7 25-OH Vitamin D Total 41.6 Nasal Screen MRSA (PCR) Negative for mrsa 06/07/18 05:10 Hgb 9.9 L Hct 29.0 L Hemoglobin A1c 25-OH Vitamin D Total Nasal Screen MRSA (PCR) Assessment & Plan Plan Narrative: This is an 83-year-old female with osteoporosis admitted status post ground level fall resulting in left hip fracture. Developed likely unrelated spontaneous large left pneumothorax postop. 1. Left hip fracture, secondary to osteoporosis, occurring after ground level fall. -status post left hemiarthroplasty on 06/06/[address] Leonel Patton -continue oxycodone 5-10 mg q.3 hours as needed -enoxaparin 30 mg subcu daily ordered by Ortho for DVT prophylaxis -PT evaluate and treat 2. Left lung pneumothorax -likely spontaneous pneumothorax associated with bleb, was noted postop in the PACU -status post chest tube placement 06/06/2018 -chest x-ray to 8:19 a.m. shows continued re-expansion of left lung with a small residual pneumothorax -Dr. Donaldson managing the chest tube -oxycodone 5-10 mg q.3 hours as needed for chest tube discomfort 3. Osteoporosis, chronic -vitamin D 25 hydroxy level 41.6, normal -patient agreeable to starting on weekly Fosamax at time of discharge 4. Blood loss anemia due to hip fracture -postop hemoglobin 9.9, hematocrit 29.0 on 06/07/2018 -transfusion not indicated at this time Quality VTE Deep Vein Thrombosis/Pulmonary Embolism Present on Admission: No
[2018-06-07] MEDS: OXYCODONE IR 5 MG TABLET 10 MG PO (12:00)
--- NOTE | 2018-06-07 12:35 | CM.DANOTE ---
Discharge Planning/Care Management DCP: assessment: Case received, EMR reviewed and met with pt, her Guero, her son Vickie/Gabriela Corey: [phone] and Vickie's partner Daisy/Deepika: [phone]. Introduced self and role. Pt is an 83 year old female who admitted yesterday to care of hospitalist team. Payer: Medicare. Family report there is a Medicare supplement and Daisy will bring is the card and present it to Admitting. ([facility] will need this information by d/c) Pt had a fall at home and had surgery yesterday to repair same. Has a chest tube now for a pneumothorax noted post surgery. PLF: independent in community and provided supportive care for spouse Guero. Conversation focused on 1: pt's rehab need when she is ready for a d/c from the hospital: Plan now: [facility], pending acceptance. (anticipated. April is reviewing.) Pt readily agrees she will need this. 2: concerns about Guero. plan now is for Vickie to stay with him to provide prn assist and to set up home caregiver agency staff to stay with pt. (Resources provided). Guero is still driving according to family although his PCP Dr. Huerta had advised him not to. Guero is at this point not certain he will accept help at home but Vickie and Daisy will continue to coax him to that and pt herself is encouraging this. Encouraged Guero to consider how important it is for him to be healthy and well when his returns home and to accept help to that end. Update: [facility]/April has reviewed. [facility] can accept pt Sunday or Sunday of next week. If not ready by then it will be on a day to day basis, [facility] caseload dependent. CM Discharge Assessment Start: 06/07/18 12:19 Freq: Status: Active Protocol: Document 06/07/18 12:19 ITV (Rec: 06/07/18 12:35 ITV [email or web address]) Discharge Planning Assessment Advance Directives? Yes Advance Directives on File No History Provided By Patient Family Member Medical Record Prior Living Arrangements House Household Members spouse Independent with ADL's Yes Is patient alert and oriented? Yes Caregiver for Another Yes: supportive care of Guero/family working on options for care Patient/Family Preference [facility] Facility Barriers to Discharge No Discharge Plan [facility] Facility Transportation Arrangement anticipate w/c van Referrals Initiated [facility] Additional Comment [facility] is reviewing/ anticipates acceptance but not finalized yet If patient plan is SNF: Has [facility]SR been will be before d/c completed? Inpatient Status as of 06/06/18 Comment confirmed by FLY Cameron Medicare Choice List Provided Yes SNF/ Preference [facility] Has Agency SNF been contacted Yes Whiteboard Updated in Patient Room with Yes name and ext. # of Welfare Case Worker Review Status In Process Next Review Type Continued Stay Review
--- NOTE | 2018-06-07 12:37 | PT.IIE ---
Current Diagnoses Age-related osteoporosis with current pathological fracture, left femur, initial encounter for fracture (06/06/18) Surgery Performed Operation Date: 06/06/18 17:30 Actual Procedures p Hip Hemiarthroplasty(Left) - Leonel Patton MD Surgical History (Last Updated 06/06/18 @ 11:20 by Serge Canas MD) History of cholecystectomy (Chronic) Medical History (Last Updated 06/06/18 @ 11:21 by Serge Canas MD) Healthy adult (Acute) History of hysterectomy (Chronic) Osteoporosis (Chronic) Physical Therapy Inpatient Evaluation/Re-Eval M1 PT/OT-IP Prior Functional Status Start: 06/07/18 12:01 Freq: NEEDED Status: Active Protocol: Document 06/07/18 11:00 (Rec: 06/07/18 12:36 [email or web address]) Medical Review Prior Functional Status Medical History Reviewed Yes Diet/Fluid Consistency Regular Communication No communication deficits noted Mobility and Gait Pt was independent at home and community without using AD. Pt rode her recumbent bike 30 mins a day and went for a mile walk with her dog after. Pt states she needed support from railing during stair climbing . Pt also drives. Activities of Daily Living and IADL's Pt was independent for all ADLs and IADLs without using AD. Pt sometimes took care of her when he needed assistance. Social History Household Members spouse Living Arrangements House Number of Floors (Floors) Two Floors Number of Stairs To Enter/Railing? 1 MITALI without rails, 7steps with R rail to landing and another 6 steps with L rail. Home Environment Walk in Shower Home Equipment Grab Bars In Shower Employment Status Retired Additional Social History Comment Pt lives with her in a 2 story home with daylight basement in [place]. Pt and her family states pt was very independent for all ADLs and IADLs and able to be a CG as needed for her . Pt does not have any AD and house safety measures. Pt's son at bedside today states that they will get whatever her mom needs such as walker and home safety features. Patient is status post chest tube placement on 06/06/2018 due to large left pneumothorax following left hip fracture hemiarthroplasty repair. Etiology of pneumothorax is unclear. M2 PT-IP Current Condition Start: 06/07/18 12:01 Freq: NEEDED Status: Active Protocol: Document 06/07/18 11:00 (Rec: 06/07/18 12:36 [email or web address]) Physical Therapy Current Condition Current Condition Evaluation Date 06/07/18 Treatment Diagnosis L pneumothroax, left hip fracture hemiarthroplasty repair, muscle weakness Onset Date 06/06/18 Precautions Posterior Hip Precautions No Hip Flexion > 90 degrees No Hip Internal Rotation No Hip Adduction Weight Bearing Status Weight Bearing Status Weight Bear as Tolerated M3 PT-IP Subjective Start: 06/07/18 12:01 Freq: NEEDED Status: Active Protocol: Document 06/07/18 11:00 (Rec: 06/07/18 12:36 [email or web address]) Subjective Physical Therapy Visit Type Type Initial Evaluation Visit Start Time 11:00 Visit Stop Time 11:50 Total Visit Minutes 50 Notes Pt's , son and daughter at bedside today. Pt had chest tube and hip abduction pillow in place, 2L O2 NC, L hip hemovac. IE with assist from RN and SOLE POLISHER. MD requested to get pt to bedside chair. Number of AQUARIUM TANK ATTENDANT Visits 0 Physical Therapy Visit Comments Patient Comments I feel very weak and im not sure if i could get up. Patient is reporting 8/10 pain in the chest tube site and 2/ 10 pain in the left hip. Patient Goals To return home with her Therapy Pain Assessment Pain When Pain Assessed During Mobility Pain Present Pain Present Pain Reported Location L chest tube region Intensity 8 Scale Used Numeric (1 - 10) Description Acute Pain Management Techniques Re-positioning Left Hip Intensity 2 Scale Used Numeric (1 - 10) Description Acute Pain Management Techniques Apply Cold Modification of Treatment Timing of Activity with Medications M4 PT-IP Mobility and Gait Start: 06/07/18 12:01 Freq: NEEDED Status: Active Protocol: Document 06/07/18 11:00 (Rec: 06/07/18 12:36 [email or web address]) PT-Bed Mobility Assessment Supine to Sit Supine to Sit Maximum Assistance 2 Person Assistance Head of Bed Elevated Bedrails Scooting Scooting to Edge of Bed Maximum Assistance PT-Transfer Assessment Comments Mobility Comments Pt's BP in supine = 90/45 HR95 96% 2L O2 NC BP sitting EOB = 104/54 SpO2 93% 4L O2 NC Pt was supine in bed upon asssessment. Pillow is placed under her armpit for pain compression during mobility. Pt required to break down supine to sit EOB into 3 times due to severe pain from her L chest tube region. Pt required max A x 2 for supine to sit from elevated head of bed, followed by pivoting toward EOB and scooting toward EOB. [address] underneath her feet to maintain contact due to elevated bed. Did not attempt to stand up due to significant weakness on B LE L>R. 4 pillows were placed behind pt' s back for back support after. Recommended nursing staff and family to sit EOB until pt finishes her lunch. Pt BP increased to 122/54 HR 110 RR 28 after sitting EOB possibly due to increase in pain. Gait Assessment Comments Gait Comments did not attempt due to weakness Stair Climbing Assessment Comments Stair Climbing Comments did not attempt due to weakness PT-Balance Assessment Sitting Balance and Reactions Static Sitting Balance Ability Fair Dynamic Sitting Balance Ability Poor M5 PT-IP Objective Assessments Start: 06/07/18 12:01 Freq: NEEDED Status: Active Protocol: Document 06/07/18 11:00 (Rec: 06/07/18 12:36 [email or web address]) Orientation Orientation/Cognition Level of Alertness Alert Orientation Name Age Birthday Month Date Year Day of Week Place Situation Language Function Ability No Deficits Noted Safety Awareness Decreased Safety Awareness Memory Description No Deficits Noted Gross Range of Motion Upper Extremity ROM Assessment Within Functional Limits Lower Extremity ROM Assessment Left Impaired Strength Upper Extremity Strength Assessment Within Functional Limits Lower Extremity Strength Assessment Bilaterally Impaired Comments Strength Comments L LE 2/5 grossly R LE 3+/5 grossly Coordination Assessment Gross Coordination Gross Coordination WNL Sensation Assessment Sensation Gross Sensation WNL Muscle Tone Muscle Tone WNL Yes M6 PT-IP Treatment Start: 06/07/18 12:01 Freq: NEEDED Status: Active Protocol: Document 06/07/18 11:00 (Rec: 06/07/18 12:36 [email or web address]) Physical Therapy Treatment Exercises Exercises Ankle Pumps Gluteal Sets Quad Sets Heel Slides Education Education Provided Precautions Weight Bearing Status Post-Op Packet Safety M7 PT-IP Assessment and Plan Start: 06/07/18 12:01 Freq: NEEDED Status: Active Protocol: Document 06/07/18 11:00 (Rec: 06/07/18 12:36 [email or web address]) PT Summary Assessment and Plan Potential Rehabilitation Potential Good Status of Condition at Evaluation Evolving Summary Impairments Pain ROM Strength Balance Bed Mobility Transfers Gait Activity Tolerance Assessment Summary Pt is a very pleasant 83yo female admitted to due to GLF, which resulting a transverse subcapital L femoral neck fx. Patient is status post chest tube placement on 06/06/2018 due to large left pneumothorax following left hip fracture hemiarthroplasty repair. Etiology of pneumothorax is unclear per EMR. Pt demonstrated significant weakness and c/o severe pain from her chest tube during mobility upon assessment. Pt required max A x 2 for bed mobility and lines & tubes management. Pt did not get to bedside chair due to B LE weakness and respiratory distress. She was helped to sit EOB with towels under her feet and pillows behind her back to maintain sitting position for an hour or two. At this point, pt's major limitation is her condition of chest tube placement, pneumothorax which gives pt's severe during mobility. Pt will not be able to tolerate therapy service twice a day until this medical condition to be resolved. Recommend d/c SNF at this point due to her significant decline in mobility and strength for ADLs and IADLs. Goals Bed Mobility Goal Standby Assistance Transfer Goal Standby Assistance Gait Goal Standby Assistance Gait Distance 50 Days to Meet Goals 10 Frequency of Treatment Frequency Of Treatment Once a Day Treatment Plan Physical Therapy Treatment Plan Bed Mobility Training Transfer Training Gait Training Therapeutic Exercise Post Op Education Discharge Planning Hot or Cold Pack Other Recommendations and Next Treatment review precautions Focus check VSS Recommendations To Nursing Amount of Assist Needed 3 or More Person Assist Discharge Recommendations PT Discharge Recommendations SNF Rehab Equipment Needed for Home Before FWW, w/c ,BSC, shower chair, Discharge raised toilet seat, grab bar in toilet
--- NOTE | 2018-06-07 15:00 | PC.NURSE ---
uop 225ml. Ortho office called and message left with parachute/combatant diver officer.
[2018-06-07] MEDS: SODIUM CHLORIDE 0.9% 1,000 ML 500 ML IV (15:49)
--- NOTE | 2018-06-07 18:29 | P.CONS_ITS ---
History of Present Illness Date Patient Seen: 06/07/18 Time Patient Seen: 13:40 Chief complaint: GLF Reason for consult: Pneumothorax Requesting provider: Benji Danielle Narrative: The patient is woman who had a fractured hip that was treated s urgically. In the recovery room she was noted to be hypoxic and with decreased breath sounds. X-rays were performed and she was found to have a large pneumothorax which was treated by the ER physician with placement of a chest tube. I was asked to follow her during her hospitalization. Patient complains of pain in the area of the chest tube site. [facility] Medical History Healthy adult (Acute) History of hysterectomy (Chronic) Osteoporosis (Chronic) Surgical History History of cholecystectomy (Chronic) Social History household members: spouse Smoking Status: Never smoker alcohol intake: never Social History household members: spouse Smoking Status: Never smoker alcohol intake: never Meds Home Medications Medication Instructions Recorded Confirmed Type No Known Home Medications 06/06/18 06/06/18 History Allergies Allergy/AdvReac Type Severity Reaction Status Date / Time No Known Drug Allergies Allergy Verified 06/06/18 06:52 Review of Systems Review of Systems It is hard to take a breath right now. It causes her to cough and she has pain when she coughs. She is resisting coughing. No mid sternal chest pain. Shortness of breath improved after placement of the chest tube. Did not have a cough preop. Exam Vital Signs (past 8 hours): - 06/07/18 10:28 06/07/18 12:25 06/07/18 14:00 Temperature 99.8 F H 99.9 F H Blood Pressure 105/58 L Pulse Oximetry 98 Oxygen Delivery Method Nasal Cannula Oxygen Flow Rate 5 Narrative Exam Narrative: No apparent distress. Her lungs are clear anteriorly. Decreased air movement in the bases. Really could stand to take deeper breaths. Dressings are dry and intact. Heart regular rate and rhythm no murmur gallop. Abdomen is soft nontender without mass. There is no air fluctuation with breathing. There is no air leak. Objective Imaging Chest x-ray: My impression: Recovery room x-ray shows lung collapse. Upload. Placement of left-sided chest tube lung is nearly re-expanded. Early it the holes may be fairly close to the chest wall. It is difficult to tell from the x-ray how much tube is actually in. X-ray from today reveals there is still small pneumothorax. Labs Result Diagrams: 06/07/18 05:10 06/06/18 06:43 Labs: Laboratory Results - last 24 hr 06/07/18 05:10 Hgb 9.9 L Hct 29.0 L Assessment & Plan Assessment Narrative: Patient postop with a spontaneous pneumothorax. It does not appear to be related to positive pressure ventilation as the patient was not on the ventilator. She may have Valsalva had postop with a cough which triggered a collapse due to a bleb in a week and part of the lung. Plan Narrative: Will place to water seal.. The suction. Chest x-ray will be ordered for the morning. If lung is re-expanded and no air leak consider pulling the tube or at least clamping it. Family was informed of the nature of lung collapses and what normally happens. I explained that this is a day-to-day decision making process. In my experience it is unlikely that she would need an operation but if she did it often is a very limited 1 to remove blebs on the surface of the lung.
--- NOTE | 2018-06-07 18:58 | PC.NURSE ---
Addendum to chart: At 0800 on 06/06/[address] Elias regarding the patient's low O2 saturation. I explained that when I removed her from the 3LNC of O2, her oxygen saturation would dip to the mid 80's. I explained that her lung sounds were clear when I auscultated and that she had recently had a cold but did not have fevers or a cough. Patient denies any rib pain from fall. I asked the doctor if he would like a chest xray on the patient. He reports he will defer this to the admitting hospitalist if they would like a chest xray. I reported all of this to the RN in Acute Care to whom I gave report.
[2018-06-08] VITALS (11 sets, daily range): BP systolic 107–128; BP diastolic 47–68; PULSE 82–103; RESP 16–22; TEMP 36.9–37.7; O2SAT 94–99
[2018-06-08] MEDS: LACTATED RINGERS 1,000 ML 125 ML IV (00:52)
[2018-06-08] MEDS: OXYCODONE IR 5 MG TABLET PO (03:27)
--- NOTE | 2018-06-08 06:00 | DI.RAD.S_ITS ---
PROCEDURE: XR CHEST 1V INDICATIONS: pneumothorax TECHNIQUE: One view of the chest was acquired. COMPARISON: [facility], CR, XR CHEST 1V, 06/07/2018, 5:39. FINDINGS: Surgical changes and devices: Left chest tube is present at the left base. It is noted that it is overlying the pleural edge with likely partially external to the lung. Lungs and pleura: Retrocardiac opacity and minimal left effusion is present. Previous pneumothorax is not clearly identified. Increased vascularity consistent with edema is noted. Mediastinum: Mediastinal contours appear normal. Heart size is normal. Bones and chest wall: No suspicious bony lesions. Overlying soft tissues appear unremarkable. IMPRESSION: Left chest tube as above, felt to be at likely at least partially outside the pleural space. No visualized residual pneumothorax. Dictated by: Yoon Curiel M.D. on 06/08/2018 at 16:10 Approved by: Yoon Curiel M.D. on 06/08/2018 at 16:12
--- NOTE | 2018-06-08 07:40 | P.PN_ITS ---
Subjective Interval history: This morning when seen she has some ongoing pain secondary to chest tube. Patient is status post chest tube placement on 06/06/2018 due to large left pneumothorax following left hip fracture hemiarthroplasty repair. Etiology of pneumothorax is unclear, probably due to a bleb, and not directly related to the surgery or fracture. Anesthesia was performed with LMA and patient was not intubated. There is no rib fracture from the fall. . Exam Vital Signs (past 8 hours): - 06/08/18 00:11 06/08/18 04:00 06/08/18 07:29 Temperature 99.1 F 99.0 F 99.8 F H Pulse Rate 103 H 93 H 95 H Respiratory Rate 22 18 20 Blood Pressure 107/47 L 128/58 L 124/64 Pulse Oximetry 94 95 96 Oxygen Delivery Method Nasal Cannula Oxygen Flow Rate 2 Narrative Exam Narrative: GENERAL: Alert pleasant female, breathing nonlabored, cooperati ve and talking HEENT: Head normocephalic, atraumatic. Mucous membranes moist. CHEST: Clear to auscultation bilaterally. Left chest tube noted. CARDIAC: Mildly tachycardic with regular rhythm ABDOMEN: Nondistended, soft, nontender EXTREMITIES: no edema except moderate edema left thigh status post hip fracture. Drainage present on dressing. No difficulty wiggling toes and distal sensation intact. NEUROLOGICAL: Appears well oriented, nonfocal SKIN: Warm, dry, no petechiae, no rash Objective Labs Result Diagrams: 06/07/18 05:10 06/06/18 06:43 Assessment & Plan Assessment Narrative: This is an 83-year-old female with osteoporosis admitted status post ground level fall resulting in left hip fracture. Developed likely unrelated spontaneous large left pneumothorax postop. 1. Left hip fracture, secondary to osteoporosis, occurring after ground level fall. -status post left hemiarthroplasty on 06/06/[address] Leonel Patton -continue oxycodone 5-10 mg q.3 hours as needed -enoxaparin 30 mg subcu daily ordered by Ortho for DVT prophylaxis -PT evaluate and treat 2. Left lung pneumothorax -likely spontaneous pneumothorax associated with bleb, was noted postop in the PACU -status post chest tube placement 06/06/2018 -chest x-ray done this morning and report pending -Dr. Donaldson managing the chest tube -oxycodone 5-10 mg q.3 hours as needed for chest tube discomfort 3. Osteoporosis, chronic -vitamin D 25 hydroxy level 41.6, normal -patient agreeable to starting on weekly Fosamax at time of discharge 4. Blood loss anemia due to hip fracture -postop hemoglobin 9.9, hematocrit 29.0 on 06/07/2018. No CBC today -CBC in a.m. -transfusion not indicated at this time Quality VTE Deep Vein Thrombosis/Pulmonary Embolism Present on Admission: No
--- NOTE | 2018-06-08 07:45 | PM.PNPO.1 ---
Subjective Date Patient Seen: 06/08/18 Time Patient Seen: 07:45 Interval history: She is doing well. Still very uncomfortable from the chest tube. Exam Vital Signs (past 8 hours): - 06/08/18 00:11 06/08/18 04:00 06/08/18 07:29 Temperature 99.1 F 99.0 F 99.8 F H Pulse Rate 103 H 93 H 95 H Respiratory Rate 22 18 20 Blood Pressure 107/47 L 128/58 L 124/64 Pulse Oximetry 94 95 96 Oxygen Delivery Method Nasal Cannula Oxygen Flow Rate 2 Const Orientation: alert and oriented x3 Extrem Other: Mild drainage on dressing. Soft calf, easily wiggles toes 2+ distal pulse. Drain output 50/30/25 Objective Labs Result Diagrams: 06/07/18 05:10 06/06/18 06:43 Assessment & Plan Post-op Postoperative Procedures Operation Date: 06/06/18 17:30 Actual Procedures Side Surgeon p Hip Hemiarthroplasty Left Leonel Patton MD Stable from an orthopedic standpoint with respect to her hip. The drain can be removed today. Mobilize at least up to a chair while she still has the chest tube. When the chest tube was removed, she can do more active physical therapy. Quality VTE Deep Vein Thrombosis/Pulmonary Embolism Present on Admission: No
[2018-06-08] MEDS: OXYCODONE IR 5 MG TABLET 10 MG PO ×2 (07:58→11:52)
[2018-06-08] MEDS: ACETAMINOPHEN 325 MG TABLET 975 MG PO ×3 (09:14→20:52)
[2018-06-08] MEDS: ASPIRIN EC 81 MG TABLET PO ×2 (09:14→20:52)
[2018-06-08] MEDS: ENOXAPARIN 30 MG/0.3 ML SYRINGE SUBCUT (09:14)
[2018-06-08] MEDS: DOCUSATE 100 MG CAPSULE PO ×2 (09:15→20:52)
--- NOTE | 2018-06-08 10:07 | PT.IPTN ---
Current Diagnoses Age-related osteoporosis with current pathological fracture, left femur, initial encounter for fracture (06/06/18) Surgery Performed Operation Date: 06/06/18 17:30 Actual Procedures p Hip Hemiarthroplasty(Left) - Leonel Patton MD Physical Therapy Treatment Note M2 PT-IP Current Condition Start: 06/07/18 12:01 Freq: NEEDED Status: Active Protocol: Document 06/07/18 11:00 (Rec: 06/07/18 12:36 [id number]) Physical Therapy Current Condition Current Condition Evaluation Date 06/07/18 Treatment Diagnosis L pneumothroax, left hip fracture hemiarthroplasty repair, muscle weakness Onset Date 06/06/18 Precautions Posterior Hip Precautions No Hip Flexion > 90 degrees No Hip Internal Rotation No Hip Adduction Weight Bearing Status Weight Bearing Status Weight Bear as Tolerated M3 PT-IP Subjective Start: 06/07/18 12:01 Freq: NEEDED Status: Active Protocol: Document 06/08/18 10:07 RCC (Rec: 06/08/18 12:04 [facility] [id number]) Subjective Physical Therapy Visit Type Type Treatment Note Visit Start Time 10:07 Visit Stop Time 10:39 Total Visit Minutes 32 Notes family present during session Number of ENTERPRISE MOBILITY ARCHITECT Visits 0 Physical Therapy Visit Comments Patient Comments pt apprehensive about standing , but willing to try. Therapy Pain Assessment Pain When Pain Assessed During Mobility Pain Present Pain Present Pain Reported M4 PT-IP Mobility and Gait Start: 06/07/18 12:01 Freq: NEEDED Status: Active Protocol: Document 06/08/18 10:07 RCC (Rec: 06/08/18 12:04 RCC [id number]) PT-Bed Mobility Assessment Sit to Supine Sit to Supine Maximum Assistance 2 Person Assistance Scooting Scooting to Edge of Bed Maximum Assistance PT-Transfer Assessment Sit to and From Stand Sit to and from Stand Moderate Assistance 2 Person Assistance Equipment Transfer Assistive Device Gait Belt Orthotic/Prosthetic Devices or Brace: Yes Comments Mobility Comments pt sitting on EOB with pillow support. Scooted forward toward EOB slowly, assistance with sitting up from posterior with PARACHUTE PANEL JOINER. Blocking BLEs, pt stood for ~30 sec, max VC/ coaxing to remain standing d/t L chest tube region pain (RN and PT on each side of pt). Returned to supine in bed with student RN and PARACHUTE PANEL JOINER assisting pt BP 119/58 prior to standing M5 PT-IP Objective Assessments Start: 06/07/18 12:01 Freq: NEEDED Status: Active Protocol: Document 06/07/18 11:00 HH (Rec: 06/07/18 12:36 [email or web address]) Orientation Orientation/Cognition Level of Alertness Alert Orientation Name Age Birthday Month Date Year Day of Week Place Situation Language Function Ability No Deficits Noted Safety Awareness Decreased Safety Awareness Memory Description No Deficits Noted Gross Range of Motion Upper Extremity ROM Assessment Within Functional Limits Lower Extremity ROM Assessment Left Impaired Strength Upper Extremity Strength Assessment Within Functional Limits Lower Extremity Strength Assessment Bilaterally Impaired Comments Strength Comments L LE 2/5 grossly R LE 3+/5 grossly Coordination Assessment Gross Coordination Gross Coordination WNL Sensation Assessment Sensation Gross Sensation WNL Muscle Tone Muscle Tone WNL Yes M6 PT-IP Treatment Start: 06/07/18 12:01 Freq: NEEDED Status: Active Protocol: Document 06/08/18 10:07 RCC (Rec: 06/08/18 12:04 [facility] [id number]) Physical Therapy Treatment Education Education Provided Precautions Post-Op Packet Safety Other Treatments Other Treatment Performed taped L hip precautions to wall in room. M7 PT-IP Assessment and Plan Start: 06/07/18 12:01 Freq: NEEDED Status: Active Protocol: Document 06/08/18 10:07 RCC (Rec: 06/08/18 12:04 [facility] [id number]) PT Summary Assessment and Plan Summary Assessment Summary Pt able to stand for ~30 sec with Mod A x2 and max cuing/ coaxing to remain standing. L chest tube region most limiting factor with mobility at this point, and requires continuous cuing for precautions of the L hip. No dizziness or lightheadedness with standing, but not safe for forward or lateral stepping as of this date. Pt will greatly benefit from SNF rehabilitation upon d/c. Goals Bed Mobility Goal Standby Assistance Transfer Goal Standby Assistance Gait Goal Standby Assistance Gait Distance 50 Days to Meet Goals 10 Frequency of Treatment Frequency Of Treatment Once a Day Treatment Plan Other Recommendations and Next Treatment progress standing, transfers Focus if able. L hip posterior precautions, post op exercises . Recommendations To Nursing Amount of Assist Needed 3 or More Person Assist Discharge Recommendations PT Discharge Recommendations SNF Rehab Equipment Needed for Home Before FWW, w/c ,BSC, shower chair, Discharge raised toilet seat, grab bar in toilet
--- NOTE | 2018-06-08 11:09 | PC.NURSE ---
Addendum entered by Lilli Enciso R.N. 06/08/18 14:16: chest tube drsg reinforcement saturated and all removed to tube site. new adaptic applied with 4x4 and abd pads. tube secured. pt tolerated well. pt up to bed side with multiple pillows supporting her back. left lateral foot puffy and bruised. with sitting and on 2L/NC O2, sat 89-91%. O2 increased to 4L with sat 93% Original Note: pt sat at side of bed for breakfast. reports left chest/side pain more than hip. B/L TEDS on. left hip drsg marked with shadow drainage. left chest tube drsg saturated with pink tinged serous drainage. Dr. Sim notified. Lungs diminished. pt desats to 76% when going from laying position to sitting position in bed with legs dangling. recovers within few minutes when O2 increased to 5L/NC. pt states extreme pain at left chest when attempting to stand with PT. Dr. Sim notified of this too.
--- NOTE | 2018-06-08 17:43 | PC.NURSE ---
1700 - Pt awakened for meal time. Assist to sit in high rodriguez's. Discussed pain, activity, deep breath and bowel medications. Pt verbalized understanding. Supportive family at bedside. Call light in reach.
[2018-06-09] VITALS (12 sets, daily range): BP systolic 114–137; BP diastolic 51–69; PULSE 84–110; RESP 14–18; TEMP 36.8–37.9; O2SAT 85–97
--- NOTE | 2018-06-09 | DI.RAD.S_ITS ---
PROCEDURE: XR CHEST 1V INDICATIONS: removed chest tube TECHNIQUE: One view of the chest was acquired. COMPARISON: [facility], CR, XR CHEST 1V, 06/09/2018, 5:18. [facility], CR, XR CHEST 1V, 06/08/2018, 5:00. FINDINGS: Surgical changes and devices: None. Lungs and pleura: Lungs are clear on the right and shows continued improvement in appearance on the left after left pleural drain removal.. No pleural effusions or pneumothorax. Mediastinum: Mediastinal contours appear normal. Heart size is normal. Bones and chest wall: No suspicious bony lesions. Overlying soft tissues appear unremarkable. IMPRESSION: No pneumothorax after left chest tube removal. Minimal linear stranding remains at the left lower lobe. Dictated by: Tj Avendano M.D. on 06/09/2018 at 12:28 Approved by: Tj Avendano M.D. on 06/09/2018 at 12:30
[2018-06-09] MEDS: OXYCODONE IR 5 MG TABLET PO ×3 (02:41→12:26)
[2018-06-09 04:33] LABS: Add Manual Diff / Slide Review NO; Basophils Absolute Auto 0 /uL (0-100); Basophils Percent Auto 0.4 % (0-2); Eosinophils Absolute Auto 200 /uL (0-450); Hematocrit 25.4 % (36-46); Hemoglobin 8.5 g/dL (12.0-16.0); Lymphocytes Absolute Auto 1300 /uL (1100-4500); Lymphocytes Percent Auto 22.6 % (25-40); Mean Corpuscular HGB Conc 33.5 % (30-36); Mean Corpuscular Hemoglobin 30.1 PG (26-34); Mean Corpuscular Volume 89.7 fL (80-100); Monocytes Absolute Auto 600 /uL (0-900); Monocytes Percent Auto 9.2 % (3-14); Neutrophils Absolute Auto 3900 /uL (1500-7000); Neutrophils Percent Auto 64.8 % (50-75); Platelet Count 203 X10^3/uL (150-400); Red Blood Cell Count 2.83 X10^6/uL (4.0-5.2); Red Cell Distribution Width 15.6 % (11.6-14.8)
[2018-06-09 04:42] LABS: BUN Creatinine Ratio 13.8 (6-22); Blood Urea Nitrogen 11 mg/dL (7-17); Calcium 7.7 mg/dL (8.4-10.2); Carbon Dioxide 26 mmol/L (22-32); Chloride 103 mmol/L (98-107); Estimated Glomerular Filt Rate > 60.0 mL/min (>60); Glucose 88 mg/dL (80-110); HEMOLYSIS < 15 (0-50); Potassium 3.4 mmol/L (3.4-5.1); Sodium 135 mmol/L (137-145)
--- NOTE | 2018-06-09 06:00 | DI.RAD.S_ITS ---
PROCEDURE: XR CHEST 1V INDICATIONS: pneumothorax TECHNIQUE: One view of the chest was acquired. COMPARISON: [facility], CR, XR CHEST 1V, 06/08/2018, 5:00. FINDINGS: Surgical changes and devices: Unchanged position of the left chest tube, which may be at least partially outside the pleural space as previously discussed. No residual pneumothorax identified. There is minimal left chest wall gas Lungs and pleura: No new focal consolidation. Retrocardiac mild scarring/atelectasis No acute consolidation. Scattered subsegmental atelectasis and/or scarring Mediastinum: Mediastinal contours appear normal. Heart size is normal. Bones and chest wall: No suspicious bony lesions. Overlying soft tissues appear unremarkable. IMPRESSION: Overall, stable examination since yesterday As detailed above Dictated by: Gurinder Lopez M.D. on 06/09/2018 at 8:23 Approved by: Gurinder Lopez M.D. on 06/09/2018 at 8:25
--- NOTE | 2018-06-09 07:11 | P.PN_ITS ---
Subjective Interval history: Patient is an 83-year-old female with history of osteoporosis, otherwise in good health presented to ED after ground level fall. She fell after she had gotten out of bed rushing to the bathroom. Denied palpitations, lightheadedness, presyncope or syncope or hitting her head. She was unable to move after the fall due to pain in the left hip. X-ray showed a transverse subcapital left femoral neck fracture. Dr. Leonel Patton was consulted and she was taken to the OR 06/06/2018 and had a left hip bari arthroplasty. Immediate postop in the PACU she had decreased O2 sat of 70% and chest x-ray was done. It revealed a large left pneumothorax. Chest tube was placed by ED physician. Dr. Sonny Donaldson of surgery consulted for management of chest tube Etiology of pneumothorax is unclear, probably due to a bleb, and not directly related to the surgery or fracture. Anesthesia was performed with LMA and patient was not intubated. There is no rib fracture from the fall. Her chest x-rays revealed re-expansion of her lung and drainage from her chest to decreased significantly to the point where it was felt her chest tube could be removed today. Surgery will see and removed chest tube Exam Vital Signs (past 8 hours): - 06/09/18 00:10 06/09/18 04:09 Temperature 98.3 F 99.1 F Pulse Rate 88 88 Respiratory Rate 16 16 Blood Pressure 136/63 114/51 L Pulse Oximetry 97 95 Oxygen Delivery Method Nasal Cannula Oxygen Flow Rate 4 Narrative Exam Narrative: GENERAL: Alert pleasant female, breathing nonlabored, cooperative and talking HEENT: Head normocephalic, atraumatic. Mucous membranes moist. CHEST: Clear to auscultation bilaterally. Left chest tube in place. CARDIAC: Regular rhythm S1-S2 normal no murmurs rubs ABDOMEN: Nondistended, soft, nontender EXTREMITIES: no edema except moderate edema left thigh status post hip fracture. . NEUROLOGICAL: Appears well oriented, nonfocal SKIN: Warm, dry, no petechiae, no rash Objective Labs Result Diagrams: 06/09/18 04:04 06/09/18 04:04 Labs: Laboratory Results - last 24 hr 06/09/18 06/09/18 04:04 04:04 WBC 6.0 RBC 2.83 L Hgb 8.5 L Hct 25.4 L MCV 89.7 MCH 30.1 MCHC 33.5 RDW 15.6 H Plt Count 203 Neut % (Auto) 64.8 Lymph % (Auto) 22.6 L [place] % (Auto) 9.2 Eos % (Auto) 3.0 Baso % (Auto) 0.4 Neut # (Auto) 3900 Lymph # (Auto) 1300 [place] # (Auto) 600 Eos # (Auto) 200 Baso # (Auto) 0 Sodium 135 L Potassium 3.4 Chloride 103 Carbon Dioxide 26 BUN 11 Creatinine 0.80 Estimated GFR > 60.0 BUN/Creatinine Ratio 13.8 Glucose 88 D Calcium 7.7 L Quality VTE Deep Vein Thrombosis/Pulmonary Embolism Present on Admission: No
[2018-06-09] MEDS: ACETAMINOPHEN 325 MG TABLET 975 MG PO ×2 (07:53→21:50)
[2018-06-09] MEDS: ASPIRIN EC 81 MG TABLET PO (09:41)
[2018-06-09] MEDS: DOCUSATE 100 MG CAPSULE PO (09:41)
[2018-06-09] MEDS: ENOXAPARIN 30 MG/0.3 ML SYRINGE SUBCUT (12:27)
--- NOTE | 2018-06-09 13:27 | PC.NURSE ---
chest tube dc'd per Dr. taylor. pt tolerated well. up in chair with 2 person SBA with pt using walker. pt transfered to room 205. posterior lungs coarse rhonchi b/L
--- NOTE | 2018-06-09 13:35 | PT.IPTN ---
Current Diagnoses Age-related osteoporosis with current pathological fracture, left femur, initial encounter for fracture (06/06/18) Surgery Performed Operation Date: 06/06/18 17:30 Actual Procedures p Hip Hemiarthroplasty(Left) - Leonel Patton MD Physical Therapy Treatment Note M2 PT-IP Current Condition Start: 06/07/18 12:01 Freq: NEEDED Status: Active Protocol: Document 06/07/18 11:00 HH (Rec: 06/07/18 12:36 [id number]) Physical Therapy Current Condition Current Condition Evaluation Date 06/07/18 Treatment Diagnosis L pneumothroax, left hip fracture hemiarthroplasty repair, muscle weakness Onset Date 06/06/18 Precautions Posterior Hip Precautions No Hip Flexion > 90 degrees No Hip Internal Rotation No Hip Adduction Weight Bearing Status Weight Bearing Status Weight Bear as Tolerated M3 PT-IP Subjective Start: 06/07/18 12:01 Freq: NEEDED Status: Active Protocol: Document 06/09/18 13:35 GGD (Rec: 06/09/18 15:28 GGD [email or web address]) Subjective Physical Therapy Visit Type Type Treatment Note Visit Start Time 12:55 Visit Stop Time 13:35 Total Visit Minutes 40 Number of GOLF CLUB WEIGHER Visits 1 Physical Therapy Visit Comments Patient Comments PT willing to work with therapy. Therapy Pain Assessment Pain When Pain Assessed During Mobility Pain Present Pain Present Pain Reported M4 PT-IP Mobility and Gait Start: 06/07/18 12:01 Freq: NEEDED Status: Active Protocol: Document 06/09/18 13:35 GGD (Rec: 06/09/18 15:28 GGD [id number]) PT-Transfer Assessment Sit to and From Stand Sit to and from Stand Minimal Assistance 1 Person Assistance Use of Upper Extremities Equipment Transfer Assistive Device Gait Belt Front Wheeled Walker Orthotic/Prosthetic Devices or Brace: Yes Transfers Transfer Destination Chair Wheelchair Transfer Ability Level of Assist Minimal Assistance 1 Person Assistance Use of Upper Extremities Gait Assessment Gait Gait Assistance Required: Minimum Assistance 1 Person Assist Distance (Feet) 12 Able to Maintain Weight Bearing Status Yes During Gait Assistive Devices Assistive Device Gait Belt Front Wheeled Walker Orthotic/Prosthetic Devices or Brace: No Gait Deviations General Gait Pattern Antalgic Decreased Stride Length Decreased Feet Clearance Step-to Gait Factors Limiting Gait Function Factors Limiting Gait Function Decreased Activity Tolerance Decreased Strength Limited Range of Motion Pain Poor Balance Comments Gait Comments Pt needed min t. cues for left LE advancement. M5 PT-IP Objective Assessments Start: 06/07/18 12:01 Freq: NEEDED Status: Active Protocol: Document 06/07/18 11:00 HH (Rec: 06/07/18 12:36 [id number]) Orientation Orientation/Cognition Level of Alertness Alert Orientation Name Age Birthday Month Date Year Day of Week Place Situation Language Function Ability No Deficits Noted Safety Awareness Decreased Safety Awareness Memory Description No Deficits Noted Gross Range of Motion Upper Extremity ROM Assessment Within Functional Limits Lower Extremity ROM Assessment Left Impaired Strength Upper Extremity Strength Assessment Within Functional Limits Lower Extremity Strength Assessment Bilaterally Impaired Comments Strength Comments L LE 2/5 grossly R LE 3+/5 grossly Coordination Assessment Gross Coordination Gross Coordination WNL Sensation Assessment Sensation Gross Sensation WNL Muscle Tone Muscle Tone WNL Yes M6 PT-IP Treatment Start: 06/07/18 12:01 Freq: NEEDED Status: Active Protocol: Document 06/09/18 13:35 GGD (Rec: 06/09/18 15:28 GGD [email or web address]) Physical Therapy Treatment Exercises Exercises Ankle Pumps Gluteal Sets Seated Knee Flexion/Extension Education Education Provided Precautions M7 PT-IP Assessment and Plan Start: 06/07/18 12:01 Freq: NEEDED Status: Active Protocol: Document 06/09/18 13:35 GGD (Rec: 06/09/18 15:28 GGD [email or web address]) PT Summary Assessment and Plan Summary Assessment Summary Pt able to progress mobility. She was able to ambulate with FWW and min a and cues. She need min A for sit to stand. Pt would benefit from SNF before return home. Frequency of Treatment Frequency Of Treatment Once a Day Treatment Plan Physical Therapy Treatment Plan Bed Mobility Training Transfer Training Gait Training Therapeutic Exercise Post Op Education Discharge Planning Hot or Cold Pack Other Recommendations and Next Treatment bed mobility and gait. Focus Recommendations To Nursing Amount of Assist Needed 2 Person Assist Discharge Recommendations PT Discharge Recommendations SNF Rehab
--- NOTE | 2018-06-09 15:29 | P.PN_ITS ---
Subjective Date Patient Seen: 06/09/18 Time Patient Seen: 14:00 Interval history: Patient is doing well she is actually up with physical therapy as I see her today walking with a walker. States her hip is sore around the incision site but otherwise feels well. She is getting ready to move up stairs to the regular floor out of the ICU today. Exam Vital Signs (past 8 hours): - 06/09/18 07:36 06/09/18 07:59 06/09/18 10:15 Temperature 98.5 F Pulse Rate 85 Respiratory Rate 16 Blood Pressure 124/62 Pulse Oximetry 96 94 92 06/09/18 12:02 06/09/18 13:30 Temperature 98.6 F Pulse Rate 84 95 H Respiratory Rate 14 18 Blood Pressure 118/57 L 120/58 L Pulse Oximetry 96 92 Oxygen Delivery Method Room Air Oxygen Flow Rate 0 Narrative Exam Narrative: General: Alert oriented female in no acute distress walking with physical therapy using a walker Respiratory exam: Unlabored Cardiovascular exam: Regular rate and rhythm Musculoskeletal exam: Currently ambulating with the walker. A dressing on the hip does demonstrate some drainage on the Aquacel dressing this may be changed as needed. Demonstrates active dorsiflexion plantar flexion. Mild tenderness around the incision site as can be expected. Compartments soft. Calf is soft. Objective Labs Result Diagrams: 06/09/18 04:04 06/09/18 04:04 Labs: Laboratory Results - last 24 hr 06/09/18 06/09/18 04:04 04:04 WBC 6.0 RBC 2.83 L Hgb 8.5 L Hct 25.4 L MCV 89.7 MCH 30.1 MCHC 33.5 RDW 15.6 H Plt Count 203 Neut % (Auto) 64.8 Lymph % (Auto) 22.6 L [place] % (Auto) 9.2 Eos % (Auto) 3.0 Baso % (Auto) 0.4 Neut # (Auto) 3900 Lymph # (Auto) 1300 [place] # (Auto) 600 Eos # (Auto) 200 Baso # (Auto) 0 Sodium 135 L Potassium 3.4 Chloride 103 Carbon Dioxide 26 BUN 11 Creatinine 0.80 Estimated GFR > 60.0 BUN/Creatinine Ratio 13.8 Glucose 88 D Calcium 7.7 L Assessment & Plan Post-op Postoperative Procedures Operation Date: 06/06/18 17:30 Actual Procedures Side Surgeon p Hip Hemiarthroplasty Left Leonel Patton MD Continue to mobilize as tolerated. Weightbear as tolerated. Continue to work with physical therapy. Nursing team mentions some bruising on the patient's foot. patient is ambulating now, and denies foot pain to me, but if this continues to be a concern, will evaluate further on the floor as appropriate. Lovenox for DVT prophylaxis. Quality VTE Deep Vein Thrombosis/Pulmonary Embolism Present on Admission: No
--- NOTE | 2018-06-09 15:41 | CM.DPC ---
DCP: continued: pt moving this afternoon to room 205. Plan: remains [facility] in next couple of days. (see prior DCP note. ) DCP team will continue to follow
--- NOTE | 2018-06-09 17:43 | PC.NURSE ---
Addendum entered by Brea Frank R.N. 06/09/18 20:59: Pt has had relatively uneventful evening. Tele shows NSR per ICU staff. Denies discomfort, Resting quietly throughout evening. Stable post op course. Call light w/in reach, bed alarm on for pt safety. Continue w/plan of care. Original Note: Pt sitting in chair. Denies discomfort at this time. Assisted to BSC Dsg on left hip w/large amount old shadow drainage noted Dsg to chest tube site CDI. Lungs course, SpO2 95% RA. HL to LFA intact/patent. Call light w/in reach, chair alarm on for pt safety.
[2018-06-10] VITALS (11 sets, daily range): BP systolic 127–134; BP diastolic 61–71; PULSE 79–100; RESP 18–20; TEMP 36.3–37.5; O2SAT 85–97
[2018-06-10] MEDS: OXYCODONE IR 5 MG TABLET PO ×4 (05:26→16:41)
--- NOTE | 2018-06-10 07:33 | PM.PNPO.1 ---
Subjective Date Patient Seen: 06/10/18 Time Patient Seen: 07:33 Interval history: POD #4 left hip hemiarthroplasty with Dr. Patton for a displaced left femoral neck fracture. Patient's pain is well controlled. Her dressing has shadow drainage and will be changed today. She has been ambulating with PT. She is aware of her posterior hip precautions. Following surgery, the patient had low oxygen saturation on arrival to the recovery room at 78%. A chest x-ray was obtained which showed a pneumothorax. A chest tube was placed by Dr. Stahl from the emergency room and saturation restored to the high 90s. Exam Vital Signs (past 8 hours): - 06/09/18 23:55 06/10/18 00:00 06/10/18 05:20 Temperature 99.5 F 98.0 F Pulse Rate 100 H 96 H Respiratory Rate 18 20 Blood Pressure 131/66 129/61 Pulse Oximetry 93 93 95 06/10/18 07:00 Temperature 98.7 F Pulse Rate 92 H Respiratory Rate 18 Blood Pressure 129/71 Pulse Oximetry 94 Oxygen Delivery Method Nasal Cannula Oxygen Flow Rate 2 Narrative Exam Narrative: Patient lying in bed in NAD. She is alert and oriented X3. Left hip dressing has shadow drainage and will need to be changed today. Calves are soft, compressible, and nontender bilaterally. She is able to actively dorsiflex and plantarflex. Objective Labs Result Diagrams: 06/09/18 04:04 06/09/18 04:04 Assessment & Plan Post-op (1) Fracture of femoral neck, left, closed: Qualifiers: Encounter type: initial encounter Fracture healing: Qualified Code(s): S72.002A - Fracture of unspecified part of neck of left femur, initial encounter for closed fracture Current Visit: Yes Status: Acute (2) S/P hip hemiarthroplasty: Current Visit: Yes Status: Acute Postoperative Procedures Operation Date: 06/06/18 17:30 Actual Procedures Side Surgeon p Hip Hemiarthroplasty Left Leonel Patton MD POD #4 left hip hemiarthroplasty with Dr. Patton. Continue PT and posterior hip precautions. Lovenox for DVT prophylaxis. Nursing changed dressing and reports no active drainage or incision concerns. Discharge by hospitalist team once medically stable. Quality VTE Deep Vein Thrombosis/Pulmonary Embolism Present on Admission: No
[2018-06-10] MEDS: ACETAMINOPHEN 325 MG TABLET 975 MG PO ×3 (08:25→20:45)
[2018-06-10] MEDS: ENOXAPARIN 30 MG/0.3 ML SYRINGE SUBCUT (08:26)
[2018-06-10] MEDS: DOCUSATE 100 MG CAPSULE PO ×2 (08:26→20:46)
[2018-06-10] MEDS: POLYETHYLENE GLYCOL 3350 17 GM POWD.PACK PO (08:26)
[2018-06-10] MEDS: ASPIRIN EC 81 MG TABLET PO ×2 (08:26→20:45)
[2018-06-10] MEDS: SODIUM CHLORIDE 0.9% FLUSH 10 ML IV ×2 (09:55→20:46)
--- NOTE | 2018-06-10 10:00 | PT.IPTN ---
Current Diagnoses Age-related osteoporosis with current pathological fracture, left femur, initial encounter for fracture (06/06/18) Surgery Performed Operation Date: 06/06/18 17:30 Actual Procedures p Hip Hemiarthroplasty(Left) - Leonel Patton MD Physical Therapy Treatment Note M2 PT-IP Current Condition Start: 06/07/18 12:01 Freq: NEEDED Status: Active Protocol: Document 06/07/18 11:00 HH (Rec: 06/07/18 12:36 [id number]) Physical Therapy Current Condition Current Condition Evaluation Date 06/07/18 Treatment Diagnosis L pneumothroax, left hip fracture hemiarthroplasty repair, muscle weakness Onset Date 06/06/18 Precautions Posterior Hip Precautions No Hip Flexion > 90 degrees No Hip Internal Rotation No Hip Adduction Weight Bearing Status Weight Bearing Status Weight Bear as Tolerated M3 PT-IP Subjective Start: 06/07/18 12:01 Freq: NEEDED Status: Active Protocol: Document 06/10/18 10:00 RS (Rec: 06/10/18 11:01 RS [id number]) Subjective Physical Therapy Visit Type Type Treatment Note Visit Start Time 09:10 Visit Stop Time 10:00 Total Visit Minutes 50 Physical Therapy Visit Comments Patient Comments Pt reports having difficulty moving LLE, wants to improve on it. Therapy Pain Assessment Pain When Pain Assessed During Mobility Pain Present Pain Present Pain Reported M4 PT-IP Mobility and Gait Start: 06/07/18 12:01 Freq: NEEDED Status: Active Protocol: Document 06/10/18 10:00 RS (Rec: 06/10/18 11:01 RS [id number]) PT-Bed Mobility Assessment Sit to Supine Sit to Supine Maximum Assistance 2 Person Assistance PT-Transfer Assessment Sit to and From Stand Sit to and from Stand Contact Guard Assistance Minimal Assistance 1 Person Assistance Use of Upper Extremities Equipment Transfer Assistive Device Gait Belt Front Wheeled Walker Transfers Transfer Destination Bed Bedside Commode Transfer Technique Stand Step Pivot Transfer Ability Level of Assist Contact Guard Assistance 1 Person Assistance Use of Upper Extremities Comments Mobility Comments Pt began session already sitting on BSC, able to stand up with min A and sit back down with CGA, cues for LLE position. Gait Assessment Gait Gait Assistance Required: Contact Guard Assist 1 Person Assist Distance (Feet) 15 Able to Maintain Weight Bearing Status Yes During Gait Assistive Devices Assistive Device Gait Belt Front Wheeled Walker Gait Deviations General Gait Pattern Antalgic Decreased Stride Length Decreased Feet Clearance Flexed Trunk Step-to Gait Factors Limiting Gait Function Factors Limiting Gait Function Decreased Activity Tolerance Decreased Strength Limited Range of Motion Pain Poor Balance Comments Gait Comments Pt needing initial verbal cues and demonstration for each step of gait cycle but ended walking activity without any additional cues. Pt steady on feet but quite slow, taking at least 7 minutes to walk the 15 feet. Stair Climbing Assessment Comments Stair Climbing Comments did not attempt due to weakness PT-Balance Assessment Sitting Balance and Reactions Static Sitting Balance Ability Good Dynamic Sitting Balance Ability Fair Standing Balance and Reactions Static Standing Balance Ability Fair Dynamic Standing Balance Ability Poor M5 PT-IP Objective Assessments Start: 06/07/18 12:01 Freq: NEEDED Status: Active Protocol: Document 06/07/18 11:00 HH (Rec: 06/07/18 12:36 [id number]) Orientation Orientation/Cognition Level of Alertness Alert Orientation Name Age Birthday Month Date Year Day of Week Place Situation Language Function Ability No Deficits Noted Safety Awareness Decreased Safety Awareness Memory Description No Deficits Noted Gross Range of Motion Upper Extremity ROM Assessment Within Functional Limits Lower Extremity ROM Assessment Left Impaired Strength Upper Extremity Strength Assessment Within Functional Limits Lower Extremity Strength Assessment Bilaterally Impaired Comments Strength Comments L LE 2/5 grossly R LE 3+/5 grossly Coordination Assessment Gross Coordination Gross Coordination WNL Sensation Assessment Sensation Gross Sensation WNL Muscle Tone Muscle Tone WNL Yes M6 PT-IP Treatment Start: 06/07/18 12:01 Freq: NEEDED Status: Active Protocol: Document 06/09/18 13:35 GGD (Rec: 06/09/18 15:28 GGD [id number]) Physical Therapy Treatment Exercises Exercises Ankle Pumps Gluteal Sets Seated Knee Flexion/Extension Education Education Provided Precautions M7 PT-IP Assessment and Plan Start: 06/07/18 12:01 Freq: NEEDED Status: Active Protocol: Document 06/10/18 10:00 RS (Rec: 06/10/18 11:01 RS [id number]) PT Summary Assessment and Plan Potential Rehabilitation Potential Good Status of Condition at Evaluation Evolving Summary Impairments Pain ROM Strength Balance Bed Mobility Transfers Gait Activity Tolerance Progress Towards Goals Progressing Toward Goals Assessment Summary Pt able to mobilize with less assist and walk slightly further than previous session, however, pt still far below reported functional baseline. Continue to recommend pt transition to SNF rehab once medically ready. Goals Bed Mobility Goal Standby Assistance Transfer Goal Standby Assistance Gait Goal Standby Assistance Gait Distance 50 Days to Meet Goals 7 Frequency of Treatment Frequency Of Treatment Once a Day Treatment Plan Physical Therapy Treatment Plan Bed Mobility Training Transfer Training Gait Training Therapeutic Exercise Post Op Education Discharge Planning Hot or Cold Pack Other Recommendations and Next Treatment bed mobility and gait. Focus Recommendations To Nursing Amount of Assist Needed 2 Person Assist Discharge Recommendations PT Discharge Recommendations SNF Rehab
--- NOTE | 2018-06-10 10:53 | CM.DPC ---
Addendum entered by Destinee Shoemaker R.N. 06/10/18 14:59: Patient's son, Vickie just called. Stated that he had just came back from visiting [facility], stated, it looked pretty rough. Asked to have referral sent to another facility in [facility], was ok with [facility]. He also asked about bringing patient home. Stated that home health may be an option, but would need to discuss with physical therapy team as well. He stated, he may want home health for her, but to go ahead and send information to [facility]. Went ahead and updated Adebayo at [facility], and faxed clinical notes. Let son know that we would discuss case tomorrow at rounds, to see if home health may be an option. Also, would depend on care needs in the home. Let him know that they would only come in a couple times a week. Original Note: DCP Cont: Checked in with patient, , Guero at bedside, as well as son, Vickie. Answered some questions for patient, for she was concerned about her belongings going over to [facility] upon discharge. Let her know that the facility would also pick her up, son was pleased about this. Plan is for [facility], for short term before going home. There has been discussion looking at previous note, about having caregivers come in to assist , which he has been reluctant to do. Called April and [facility] to confirm that they did receive information on patient, which they have. Will continue to update her on status. P: Patient is to go to [facility] when she is ready to be discharged. Destinee Shoemaker RN/[employer] Defense Control Officer
--- NOTE | 2018-06-10 12:10 | PN_ITS ---
DATE OF SERVICE: 06/09/2018 SUBJECTIVE: Patient is resting comfortably. She had a spontaneous left pneumothorax after hip replacement during surgery. She's had a left tube thoracostomy in place. Now this is day 4. Serial x-rays have shown immediate expansion of her left lung to full expansion. Yesterday's x-ray was fully expanded as well as today. There is no air leak. There is minimal fluid drainage, 10-12 cc the last 24 hours. IMPRESSION: I removed the chest tube today and put an air-tight dressing in place, ordered another chest x-ray to be done in a few hours. The patient is very comfortable and she has excellent breath sounds. She will now be able to ambulate as part of her physical therapy for her hip replacement. AshBritneyMelissa - Nel/stephanie doc#: [id number]/job#: [id number] dd: 06/09/2018 10:56:00 dt: 06/10/2018 12:06:00 DICTATING /COPIES TO: Sal Sim MD COPIES MNE: EDNA
[2018-06-10] MEDS: IBUPROFEN 600 MG TABLET PO (14:50)
--- NOTE | 2018-06-10 16:48 | PM.PN.1 ---
Subjective Date Patient Seen: 06/10/18 Interval history: Chart reviewed patient seen and examined. She reports some constipation. She also has pain at the site where the chest tube was removed. She is somewhat concerned about whether she is ready to move to the senior living. Her IV narcotics have since been discontinued. The patient has no other complaints. Exam Vital Signs (past 8 hours): - 06/10/18 11:08 06/10/18 15:56 Temperature 97.6 F 97.6 F Pulse Rate 80 79 Respiratory Rate 18 18 Blood Pressure 127/61 134/70 Pulse Oximetry 97 97 Oxygen Delivery Method Nasal Cannula Oxygen Flow Rate 2 Narrative Exam Narrative: Pleasant female resting comfortably in no obvious distress Lungs: Decreased breath left basilar crackles Cardiac exam: Regular rate rhythm normal S1 and S2 with a 2/6 systolic ejection murmur Abdomen: Soft nontender nondistended without hepatosplenomegaly Extremities: The left hip has a bandage in place, no erythema or warmth left chest wall with bandage in place at the site of chest tube placement. Objective Labs Result Diagrams: 06/09/18 04:04 06/09/18 04:04 Assessment & Plan Assessment Narrative: Postop day 3 status post left hip hemiarthroplasty Ground level fall, resulting in a left hip fracture, present on admission, acute Osteoporosis, chronic Constipation, acute Blood loss anemia, acute Pneumothorax, not present on admission, now resolved Plan Narrative: Will place the patient on an aggressive bowel program. Will continue treatment for osteoporosis. Patient's hemoglobin hematocrit is stable and will monitor this closely. Anticipate discharge to the senior care facility tomorrow. Quality VTE Deep Vein Thrombosis/Pulmonary Embolism Present on Admission: No
--- NOTE | 2018-06-10 16:51 | P.PN_ITS ---
Subjective Date Patient Seen: 06/10/18 Interval history: Chart reviewed patient seen and examined. She reports some constipation. She also has pain at the site where the chest tube was removed. She is somewhat concerned about whether she is ready to move to the snf. Her IV narcotics have since been discontinued. The patient has no other complaints. Exam Vital Signs (past 8 hours): - 06/10/18 11:08 06/10/18 15:56 Temperature 97.6 F 97.6 F Pulse Rate 80 79 Respiratory Rate 18 18 Blood Pressure 127/61 134/70 Pulse Oximetry 97 97 Oxygen Delivery Method Nasal Cannula Oxygen Flow Rate 2 Narrative Exam Narrative: Pleasant female resting comfortably in no obvious distress Lungs: Decreased breath left basilar crackles Cardiac exam: Regular rate rhythm normal S1 and S2 with a 2/6 systolic ejection murmur Abdomen: Soft nontender nondistended without hepatosplenomegaly Extremities: The left hip has a bandage in place, no erythema or warmth left chest wall with bandage in place at the site of chest tube placement. Objective Labs Result Diagrams: 06/09/18 04:04 06/09/18 04:04 Assessment & Plan Assessment Narrative: Postop day 3 status post left hip hemiarthroplasty Ground level fall, resulting in a left hip fracture, present on admission, acute Osteoporosis, chronic Constipation, acute Blood loss anemia, acute Pneumothorax, not present on admission, now resolved Plan Narrative: Will place the patient on an aggressive bowel program. Will continue treatment for osteoporosis. Patient's hemoglobin hematocrit is stable and will monitor this closely. Anticipate discharge to the retirement facility tomorrow. Quality VTE Deep Vein Thrombosis/Pulmonary Embolism Present on Admission: No
--- NOTE | 2018-06-10 18:40 | PC.NURSE ---
Addendum entered by Brea Frank R.N. 06/10/18 22:10: Pt condition remains essentially unchanged. Denies discomfort at this time. Suppository given this evening, thus far no results. Call light w/in reach, bed alarm on for pt safety. Continue w/plan of care. Original Note: Pt resting quietly. Med at 1630 w/oxycodone w/good relief. MD in to see, order to D/C tele and HL received Dsg left hip w/ small amount shadow drainage Old chest tube site dsg CDI. Refuses any intervention to encourage BM. Assisted to BSC w/o incidence. Call light w/in reach, bed alarm on for pt safety.
[2018-06-10] MEDS: BISACODYL 10 MG SUPP PR (20:49)
[2018-06-11] VITALS (16 sets, daily range): BP systolic 127–147; BP diastolic 61–83; PULSE 80–96; RESP 15–18; TEMP 36.5–37.2; O2SAT 91–98
--- NOTE | 2018-06-11 07:29 | PM.PNPO.1 ---
Subjective Date Patient Seen: 06/11/18 Time Patient Seen: 07:29 Interval history: Pain [id number]. No fever chills. Exam Vital Signs (past 8 hours): - 06/11/18 01:15 06/11/18 04:38 Temperature 97.8 F 97.7 F Pulse Rate 80 81 Respiratory Rate 18 18 Blood Pressure 144/74 H 139/72 Pulse Oximetry 98 97 Oxygen Delivery Method Nasal Cannula Oxygen Flow Rate 2 Narrative Exam Narrative: Pleasant 83-year-old female resting comfortably in bed in no apparent distress. Left hip dressing is moist and intact. Left leg is warm and dry. Motor function is intact distally. Sensation grossly intact to light touch. Objective Labs Result Diagrams: 06/09/18 04:04 06/09/18 04:04 Assessment & Plan Post-op Postoperative Procedures Operation Date: 06/06/18 17:30 Actual Procedures Side Surgeon p Hip Hemiarthroplasty Left Leonel Patton MD Postop day 5 status post left hip hemiarthroplasty by Dr. Patton. Mobilize with physical therapy. Weightbearing as tolerated. Posterior hip precautions. Lovenox for DVT prophylaxis. Follow up in [facility] in 10-14 days. Discharge per hospitalist once patient medically stable. Quality VTE Deep Vein Thrombosis/Pulmonary Embolism Present on Admission: No
--- NOTE | 2018-06-11 07:33 | P.PN_ITS ---
Subjective Date Patient Seen: 06/11/18 Time Patient Seen: 07:29 Interval history: Pain [id number]. No fever chills. Exam Vital Signs (past 8 hours): - 06/11/18 01:15 06/11/18 04:38 Temperature 97.8 F 97.7 F Pulse Rate 80 81 Respiratory Rate 18 18 Blood Pressure 144/74 H 139/72 Pulse Oximetry 98 97 Oxygen Delivery Method Nasal Cannula Oxygen Flow Rate 2 Narrative Exam Narrative: Pleasant 83-year-old female resting comfortably in bed in no apparent distress. Left hip dressing is moist and intact. Left leg is warm and dry. Motor function is intact distally. Sensation grossly intact to light touch. Objective Labs Result Diagrams: 06/09/18 04:04 06/09/18 04:04 Assessment & Plan Post-op Postoperative Procedures Operation Date: 06/06/18 17:30 Actual Procedures Side Surgeon p Hip Hemiarthroplasty Left Leonel Patton MD Postop day 5 status post left hip hemiarthroplasty by Dr. Patton. Mobilize with physical therapy. Weightbearing as tolerated. Posterior hip precautions. Lovenox for DVT prophylaxis. Follow up in [facility] in 10-14 days. Discharge per hospitalist once patient medically stable. Quality VTE Deep Vein Thrombosis/Pulmonary Embolism Present on Admission: No
--- NOTE | 2018-06-11 08:02 | PN_ITS ---
DATE OF SERVICE: 06/08/2018 SUBJECTIVE: The patient has had a total knee, developed spontaneous pneumothorax, and had a left tube thoracostomy placed, I believe on 06/06/2018. Looking at her x-rays, in series, she had about a 30% or 40% pneumothorax, which has completely resolved on today's x-ray. Chest tube remains n place. It is barely, in the chest, but it is within the pleural space. She is comfortable. There is no air leaking. Her lung appears to be sealed, but we will let that sit 1 more day. She is 83, and we will let her chest tube stay on water seal. She is fairly comfortable with this. OBJECTIVE: On exam, she does have some diminished sounds on the left, but her x- ray shows the lung is fully expanded. There is minimal chest tube drainage, just a few milliliters overnight, but no bleeding. PLAN: We will see her x-ray again tomorrow, and perhaps remove her chest tube tomorrow. Tomorrow will be day 4. Other issues are addressed by the hospitalist and Orthopedic Surgery. Melissa Aleman - /mary/javier doc#: [id number]/job#: [id number] dd: 06/08/2018 07:33:00 dt: 06/10/2018 11:50:00 DICTATING /COPIES TO: Sal Sim MD COPIES MNE: EDNA
--- NOTE | 2018-06-11 08:06 | P.PN_ITS ---
Subjective Date Patient Seen: 06/11/18 Time Patient Seen: 08:05 Interval history: Patient is doing better. Now it is just too doubt it is much easier to breathe. She has been up and moving with physical therapy. Hip only hurts when she is up and walking on it Exam Vital Signs (past 8 hours): - 06/11/18 01:15 06/11/18 04:38 Temperature 97.8 F 97.7 F Pulse Rate 80 81 Respiratory Rate 18 18 Blood Pressure 144/74 H 139/72 Pulse Oximetry 98 97 Oxygen Delivery Method Nasal Cannula Oxygen Flow Rate 2 Const Orientation: alert and oriented x3 Extrem Other: Mild drainage on dressing. Soft calf 1+ distal pulse. Objective Labs Result Diagrams: 06/09/18 04:04 06/09/18 04:04 Assessment & Plan Post-op Postoperative Procedures Operation Date: 06/06/18 17:30 Actual Procedures Side Surgeon p Hip Hemiarthroplasty Left Leonel Patton MD mobilizing with physical therapy. Transfer to retirement when katelyn ropriate. Quality VTE Deep Vein Thrombosis/Pulmonary Embolism Present on Admission: No
--- NOTE | 2018-06-11 09:40 | PT.IPTN ---
Current Diagnoses Age-related osteoporosis with current pathological fracture, left femur, initial encounter for fracture (06/06/18) Fracture of unspecified part of neck of left femur, initial encounter for closed fracture (06/06/18) Presence of unspecified artificial hip joint (06/06/18) Surgery Performed Operation Date: 06/06/18 17:30 Actual Procedures p Hip Hemiarthroplasty(Left) - Leonel Patton MD Physical Therapy Treatment Note M2 PT-IP Current Condition Start: 06/07/18 12:01 Freq: NEEDED Status: Active Protocol: Document 06/07/18 11:00 HH (Rec: 06/07/18 12:36 [email or web address]) Physical Therapy Current Condition Current Condition Evaluation Date 06/07/18 Treatment Diagnosis L pneumothroax, left hip fracture hemiarthroplasty repair, muscle weakness Onset Date 06/06/18 Precautions Posterior Hip Precautions No Hip Flexion > 90 degrees No Hip Internal Rotation No Hip Adduction Weight Bearing Status Weight Bearing Status Weight Bear as Tolerated M3 PT-IP Subjective Start: 06/07/18 12:01 Freq: NEEDED Status: Active Protocol: Document 06/11/18 09:40 AB (Rec: 06/11/18 12:15 AB [id number]) Subjective Physical Therapy Visit Type Type Treatment Note Visit Start Time 09:40 Visit Stop Time 10:02 Total Visit Minutes 22 Number of CUSTOMS VERIFIER Visits 0 Physical Therapy Visit Comments Patient Comments pt agreeable to do PT Therapy Pain Assessment Pain When Pain Assessed At Rest Pain Present Pain Present Pain Reported Location L chest tube region Pain Behaviors Guarding Pain Management Techniques Apply Cold Re-positioning Timing of Activity with Medications Left Hip Intensity 2 Scale Used increased to 4/10 with mobility M4 PT-IP Mobility and Gait Start: 06/07/18 12:01 Freq: NEEDED Status: Active Protocol: Document 06/11/18 09:40 AB (Rec: 06/11/18 12:15 AB [id number]) PT-Transfer Assessment Sit to and From Stand Sit to and from Stand Minimal Assistance 1 Person Assistance Use of Upper Extremities Equipment Transfer Assistive Device Gait Belt Front Wheeled Walker Orthotic/Prosthetic Devices or Brace: No Transfers Transfer Destination Chair Transfer Technique pt ambulated to the chair using FWW Transfer Ability Level of Assist Moderate Assistance 1 Person Assistance Use of Upper Extremities Comments Mobility Comments pt found sitting on EOB with son and spouse present. pt agreed to do PT. pt completed sit to stand min A and cues to maintain hip precautions. attempted ambulation but pt was only able to walk ~ 5 ft and has to sit down. instructed with backing up and for safety for descending to chair. positioned pt on chair . call light and table placed within reach. M5 PT-IP Objective Assessments Start: 06/07/18 12:01 Freq: NEEDED Status: Active Protocol: Document 06/07/18 11:00 (Rec: 06/07/18 12:36 [email or web address]) Orientation Orientation/Cognition Level of Alertness Alert Orientation Name Age Birthday Month Date Year Day of Week Place Situation Language Function Ability No Deficits Noted Safety Awareness Decreased Safety Awareness Memory Description No Deficits Noted Gross Range of Motion Upper Extremity ROM Assessment Within Functional Limits Lower Extremity ROM Assessment Left Impaired Strength Upper Extremity Strength Assessment Within Functional Limits Lower Extremity Strength Assessment Bilaterally Impaired Comments Strength Comments L LE 2/5 grossly R LE 3+/5 grossly Coordination Assessment Gross Coordination Gross Coordination WNL Sensation Assessment Sensation Gross Sensation WNL Muscle Tone Muscle Tone WNL Yes M6 PT-IP Treatment Start: 06/07/18 12:01 Freq: NEEDED Status: Active Protocol: Document 06/11/18 09:40 AB (Rec: 06/11/18 12:15 AB [id number]) Physical Therapy Treatment Education Education Provided Precautions Safety Other Treatments Other Treatment Performed reviewed hip precautions with pt and pt can only recall 2/3 precautions and needs cues during mobility to maintain hip precautions M7 PT-IP Assessment and Plan Start: 06/07/18 12:01 Freq: NEEDED Status: Active Protocol: Document 06/11/18 09:40 AB (Rec: 06/11/18 12:15 AB [id number]) PT Summary Assessment and Plan Summary Impairments Pain ROM Strength Balance Coordination Sensation Tone Cognition Bed Mobility Transfers Gait Activity Tolerance Progress Towards Goals Slow Progress due to Pain Slow Progress due to Activity Tolerance Assessment Summary pt requiring one person assist with mobility and unable to tolerate much activity today. pt was only able to ambulate ~ 5 ft. pt will require SNF rehab to improve strength and mobility prior to d/c home. Goals Bed Mobility Goal Standby Assistance Transfer Goal Standby Assistance Gait Goal Standby Assistance Gait Distance 50 Days to Meet Goals 10 Frequency of Treatment Frequency Of Treatment Twice a Day Treatment Plan Physical Therapy Treatment Plan Bed Mobility Training Transfer Training Gait Training Therapeutic Exercise Post Op Education Discharge Planning Hot or Cold Pack Other Recommendations and Next Treatment bed mobility and gait. Focus Recommendations To Nursing Amount of Assist Needed 1 Person Assist Discharge Recommendations PT Discharge Recommendations SNF Rehab Equipment Needed for Home Before FWW, w/c ,BSC, shower chair, Discharge raised toilet seat, grab bar in toilet
[2018-06-11] MEDS: OXYCODONE IR 5 MG TABLET PO (09:59)
[2018-06-11] MEDS: SODIUM CHLORIDE 0.9% FLUSH 10 ML IV (10:00)
[2018-06-11] MEDS: ACETAMINOPHEN 325 MG TABLET 975 MG PO ×3 (10:00→20:21)
[2018-06-11] MEDS: ASPIRIN EC 81 MG TABLET PO ×2 (10:00→20:16)
[2018-06-11] MEDS: ENOXAPARIN 30 MG/0.3 ML SYRINGE SUBCUT (10:01)
[2018-06-11] MEDS: IBUPROFEN 600 MG TABLET PO (10:01)
--- NOTE | 2018-06-11 12:33 | CM.DPC ---
Addendum entered by Destinee Shoemaker R.N. 06/11/18 12:57: Son stated that he made a decision for his [facility] to [facility]. He stated that he wants to dispute discharge tomorrow, and wants her to be here for a couple more days. Let him know that he may need to pay for services, if she is medically ready, and he stated, he understands. Left April at [facility] a message, and will refax face sheet, for originally, he did not want her to go to [facility] Original Note: DCP Cont: Had lengthy conversation with patient's son, Vickie, including patient and . Originally, son did not want [facility], she stated, it appeared dirty. Had already sent [facility] referral notes, and now son states, he read the reviews of [facility], and does not want them. He stated that he is pondering two choices. One is [facility], and the other is home with private caregivers. Son had multiple questions. He wanted to know if she did go to [facility], how long she would be there, and if she went, who would set her up with home health. Let son know that her length of stay would depend upon how she does with the physical therapy team. Also let him know that there are social workers for discharge planning there, and would help with the process of ordering home health if she needed it. Discussed home health and private caregivers. Let him know that the cost can be a minimum of 20.00 per hour. He is also seeking caregiver for patient's , Guero. Encouraged him to call agencies and let him know that he is seeking caregiving needs for patient and as well. Have already consulted with physical therapy who stated that long term may be in her best benefit, for she is a one to two person transfer, and she needs someone at home to assist her. Had discussed patient in rounds, and hospitalist was planning on discharging her today, depending on where she was going. Let son Vickie know that patient is medically ready for discharge, and son stated, I will dispute this. He stated, I haven't decided where she is going to go, and have not gotten in touch with any agencies to find out about caregiving. Notified Dr. Neumann of son's request. She stated that she would put off discharge today, but will plan on tomorrow, so this can give son time to do research. If son and patient refuse discharge tomorrow, will have to repeal. P: DCP to continue to follow, plan is for either [facility] or home with home health and caregivers. Destinee Shoemaker RN/Retort Setter
--- NOTE | 2018-06-11 14:35 | PT.IPTN ---
Current Diagnoses Age-related osteoporosis with current pathological fracture, left femur, initial encounter for fracture (06/06/18) Fracture of unspecified part of neck of left femur, initial encounter for closed fracture (06/06/18) Presence of unspecified artificial hip joint (06/06/18) Surgery Performed Operation Date: 06/06/18 17:30 Actual Procedures p Hip Hemiarthroplasty(Left) - Leonel Patton MD Physical Therapy Treatment Note M2 PT-IP Current Condition Start: 06/07/18 12:01 Freq: NEEDED Status: Active Protocol: Document 06/07/18 11:00 HH (Rec: 06/07/18 12:36 [email or web address]) Physical Therapy Current Condition Current Condition Evaluation Date 06/07/18 Treatment Diagnosis L pneumothroax, left hip fracture hemiarthroplasty repair, muscle weakness Onset Date 06/06/18 Precautions Posterior Hip Precautions No Hip Flexion > 90 degrees No Hip Internal Rotation No Hip Adduction Weight Bearing Status Weight Bearing Status Weight Bear as Tolerated M3 PT-IP Subjective Start: 06/07/18 12:01 Freq: NEEDED Status: Active Protocol: Document 06/11/18 14:35 AB (Rec: 06/11/18 16:20 AB [id number]) Subjective Physical Therapy Visit Type Type Treatment Note Visit Start Time 14:35 Visit Stop Time 15:10 Total Visit Minutes 35 Number of [employer] Visits 0 Physical Therapy Visit Comments Patient Comments pt agreeable to do PT Therapy Pain Assessment Pain When Pain Assessed At Rest Pain Present Pain Present Pain Reported Location L chest tube region Intensity 3 Scale Used Numeric (1 - 10) Pain Management Techniques Apply Cold Re-positioning Timing of Activity with Medications M4 PT-IP Mobility and Gait Start: 06/07/18 12:01 Freq: NEEDED Status: Active Protocol: Document 06/11/18 14:35 AB (Rec: 06/11/18 16:20 AB [id number]) PT-Bed Mobility Assessment Sit to Supine Sit to Supine Moderate Assistance 1 Person Assistance PT-Transfer Assessment Sit to and From Stand Sit to and from Stand Minimal Assistance Equipment Transfer Assistive Device Gait Belt Front Wheeled Walker Gait Assessment Gait Gait Assistance Required: Minimum Assistance Distance (Feet) 20 Able to Maintain Weight Bearing Status Yes During Gait Assistive Devices Assistive Device Gait Belt Front Wheeled Walker Orthotic/Prosthetic Devices or Brace: No Gait Deviations General Gait Pattern Antalgic Decreased Feet Clearance Factors Limiting Gait Function Factors Limiting Gait Function Decreased Activity Tolerance Decreased Strength Limited Range of Motion Pain Poor Balance Poor Safety Awareness Comments Gait Comments pt ambulated in room ~ 20 ft using FWW min A and then requested to use the bedside commode. positioned bedside commode and pt was able to maintain standing bal/kelly using FWW for support min A while assisted with hygiene care and pants management. pt completed sit <>stand x 3 reps min A for toileting with seated rest breaks. pt then transferred from bedside commode to the tbed min A and cues. M5 PT-IP Objective Assessments Start: 06/07/18 12:01 Freq: NEEDED Status: Active Protocol: Document 06/07/18 11:00 HH (Rec: 06/07/18 12:36 HH [id number]) Orientation Orientation/Cognition Level of Alertness Alert Orientation Name Age Birthday Month Date Year Day of Week Place Situation Language Function Ability No Deficits Noted Safety Awareness Decreased Safety Awareness Memory Description No Deficits Noted Gross Range of Motion Upper Extremity ROM Assessment Within Functional Limits Lower Extremity ROM Assessment Left Impaired Strength Upper Extremity Strength Assessment Within Functional Limits Lower Extremity Strength Assessment Bilaterally Impaired Comments Strength Comments L LE 2/5 grossly R LE 3+/5 grossly Coordination Assessment Gross Coordination Gross Coordination WNL Sensation Assessment Sensation Gross Sensation WNL Muscle Tone Muscle Tone WNL Yes M6 PT-IP Treatment Start: 06/07/18 12:01 Freq: NEEDED Status: Active Protocol: Document 06/11/18 14:35 AB (Rec: 06/11/18 16:20 AB [id number]) Physical Therapy Treatment Education Education Provided Precautions Weight Bearing Status Safety M7 PT-IP Assessment and Plan Start: 06/07/18 12:01 Freq: NEEDED Status: Active Protocol: Document 06/11/18 14:35 AB (Rec: 06/11/18 16:20 AB [id number]) PT Summary Assessment and Plan Potential Rehabilitation Potential Good Summary Impairments Pain ROM Strength Balance Coordination Sensation Tone Cognition Bed Mobility Transfers Gait Activity Tolerance Progress Towards Goals Slow Progress due to Activity Tolerance Assessment Summary pt progressing slowly with mobility. requiring one person assist with transfers and ambulation using FWW. pt will benefit from SNF rehab to improve strength and mobility . Goals Bed Mobility Goal Standby Assistance Transfer Goal Standby Assistance Gait Goal Standby Assistance Gait Distance 50 Days to Meet Goals 10 Frequency of Treatment Frequency Of Treatment Twice a Day Treatment Plan Physical Therapy Treatment Plan Bed Mobility Training Transfer Training Gait Training Therapeutic Exercise Post Op Education Discharge Planning Hot or Cold Pack Other Recommendations and Next Treatment bed mobility and gait. Focus Recommendations To Nursing Amount of Assist Needed 1 Person Assist Discharge Recommendations PT Discharge Recommendations SNF Rehab Equipment Needed for Home Before FWW, w/c ,BSC, shower chair, Discharge raised toilet seat, grab bar in toilet
--- NOTE | 2018-06-11 17:31 | PM.PN.1 ---
Subjective Date Patient Seen: 06/11/18 Interval history: Patient reports pain at 5/7 in intensity with movement. However at rest her pain is well controlled. She has had a BM today. She has no further shortness of breath. Chest tube has been out and oxygenation has improved. Patient reports she will be going to [facility] at discharge. Exam Vital Signs (past 8 hours): - 06/11/18 10:56 06/11/18 11:04 06/11/18 11:19 Temperature Pulse Rate Respiratory Rate Blood Pressure Pulse Oximetry 96 93 94 06/11/18 12:02 06/11/18 13:10 06/11/18 13:32 Temperature 97.9 F Pulse Rate 95 H Respiratory Rate 18 Blood Pressure 147/83 H Pulse Oximetry 94 93 93 06/11/18 14:37 06/11/18 17:05 Temperature 98.5 F Pulse Rate 84 Respiratory Rate 16 Blood Pressure 129/65 Pulse Oximetry 91 97 Oxygen Delivery Method Room Air Oxygen Flow Rate 0 Narrative Exam Narrative: Ill appearing female resting comfortably Lungs: Decreased breath sounds on the crackles noted on the left base Cardiac exam: Regular rate and rhythm normal S1-S2 Abdomen: Soft Nontender nondistended Extremities: Left hip dressing in Objective Labs Result Diagrams: 06/09/18 04:04 06/09/18 04:04 Assessment & Plan Assessment Narrative: 1. Postop day 4. Left hip hemiarthroplasty 2. Ground level fall 3. Osteoporosis 4. Constipation, resolved 5. Blood loss anemia 6. Pneumothorax now resolved Plan Narrative: [facility] Quality VTE Deep Vein Thrombosis/Pulmonary Embolism Present on Admission: No
--- NOTE | 2018-06-11 17:34 | P.PN_ITS ---
Subjective Date Patient Seen: 06/11/18 Interval history: Patient reports pain at 5/7 in intensity with movement. H owever at rest her pain is well controlled. She has had a BM today. She has no further shortness of breath. Chest tube has been out and oxygenation has improved. Patient reports she will be going to [facility] at discharge. Exam Vital Signs (past 8 hours): - 06/11/18 10:56 06/11/18 11:04 06/11/18 11:19 Temperature Pulse Rate Respiratory Rate Blood Pressure Pulse Oximetry 96 93 94 06/11/18 12:02 06/11/18 13:10 06/11/18 13:32 Temperature 97.9 F Pulse Rate 95 H Respiratory Rate 18 Blood Pressure 147/83 H Pulse Oximetry 94 93 93 06/11/18 14:37 06/11/18 17:05 Temperature 98.5 F Pulse Rate 84 Respiratory Rate 16 Blood Pressure 129/65 Pulse Oximetry 91 97 Oxygen Delivery Method Room Air Oxygen Flow Rate 0 Narrative Exam Narrative: Ill appearing female resting comfortably Lungs: Decreased breath sounds on the crackles noted on the left base Cardiac exam: Regular rate and rhythm normal S1-S2 Abdomen: Soft Nontender nondistended Extremities: Left hip dressing in Objective Labs Result Diagrams: 06/09/18 04:04 06/09/18 04:04 Assessment & Plan Assessment Narrative: 1. Postop day 4. Left hip hemiarthroplasty 2. Ground level fall 3. Osteoporosis 4. Constipation, resolved 5. Blood loss anemia 6. Pneumothorax now resolved Plan Narrative: [facility]. Quality VTE Deep Vein Thrombosis/Pulmonary Embolism Present on Admission: No
--- NOTE | 2018-06-11 18:23 | PC.NURSE ---
Addendum entered by Brea Frank R.N. 06/11/18 21:37: Pt resting quietly throughout evening. Denies any discomfort. SpO2 94% RA while awake, after resting x 30 minutes decreases to 89% Placed on 1L )@ for noc. Relatively uneventful evening. Call light w/in reach, bwed alrm on for pt safety. Continue w/plan of care. Original Note: Pt resting at intervals this afternoon. Lungs slightly course at based. SpO1 94% RA. Dsg on left side CDI, left hip aquacell CDI. Two person assist to BSC Denies discomfort at this tie. Call light w/in reach, bed alarm on for pt safety.
--- NOTE | 2018-06-12 | DI.RAD.S_ITS ---
PROCEDURE: XR CHEST 1V INDICATIONS: cough, pneumonia TECHNIQUE: One view of the chest was acquired. COMPARISON: [facility], CR, XR CHEST 1V, 06/09/2018, 12:02. FINDINGS: Surgical changes and devices: None. Lungs and pleura: Mild atelectasis is identified at the right lung base. Blunting of left costophrenic angle is similar to the previous exam with mild irregularity at the left diaphragm. Mediastinum: Mediastinal contours appear normal. Heart size is normal. There is aortic atherosclerosis. Bones and chest wall: No suspicious bony lesions. Overlying soft tissues appear unremarkable. IMPRESSION: Mild basilar atelectasis and/or scarring. No definite pneumonia. Dictated by: Rangel Ayoub M.D. on 06/12/2018 at 15:07 Approved by: Rangel Ayoub M.D. on 06/12/2018 at 15:08
[2018-06-12] MEDS: IBUPROFEN 600 MG TABLET PO ×4 (00:56→21:42)
[2018-06-12 04:00] VITALS: BP 121/77; PULSE 84; RESP 18; TEMP 36.5; O2SAT 96
[2018-06-12 07:59] VITALS: O2SAT 96
[2018-06-12 08:00] VITALS: BP 136/76; PULSE 93; RESP 18; TEMP 36.5; O2SAT 92
[2018-06-12 08:03] VITALS: O2SAT 93
--- NOTE | 2018-06-12 08:05 | P.PN_ITS ---
Subjective Date Patient Seen: 06/12/18 Time Patient Seen: 08:03 Interval history: Hospital day 7, postop day 6 following left femoral neck fracture with hemiarthroplasty by Dr. Patton and a left chest tube placement for pneumothorax. Patient is recovering well. Breathing doing well. Does have some discomfort to her left chest wall from the chest tube placement. Has been working with physical therapy. Patient scheduled go to [facility] for further care. Exam Vital Signs (past 8 hours): - 06/12/18 04:00 06/12/18 07:59 Temperature 97.7 F Pulse Rate 84 Respiratory Rate 18 Blood Pressure 121/77 Pulse Oximetry 96 96 Fraction of Inspired Oxygen 24 Oxygen Delivery Method Room Air Oxygen Flow Rate 1 Narrative Exam Narrative: Alert, oriented no acute distress resting in bed. Legs. Aquacel dressing to left hip is dry without drainage or inflammation. No calf pain or swelling. Pulses symmetrical. Objective Labs Result Diagrams: 06/09/18 04:04 06/09/18 04:04 Assessment & Plan Post-op Postoperative Procedures Operation Date: 06/06/18 17:30 Actual Procedures Side Surgeon p Hip Hemiarthroplasty Left Leonel Patton MD Plan: Patient is orthopedically stable. May be discharged to [facility] when cleared by hospitalist. Patient will need postop visit at [facility] office 2 weeks postop for dressing change and x-ray. Quality VTE Deep Vein Thrombosis/Pulmonary Embolism Present on Admission: No
[2018-06-12] MEDS: ACETAMINOPHEN 325 MG TABLET 975 MG PO ×3 (08:41→21:41)
[2018-06-12] MEDS: ASPIRIN EC 81 MG TABLET PO ×2 (08:41→21:41)
--- NOTE | 2018-06-12 09:49 | PC.NURSE ---
Day Shift- Left flank old chest tube site dressing removed for saturation with sero-sang drainage and leaking under dressing. Area cleansed with NS, Bulky Sterile gauze applied and secured with tape. Pt tolerated well, tender when removing tape. OOB with 1PA slowly, pt using walker, needs assist getting LLE back into bed, able to indep shift hips in bed. Precautions in place, Pillow between legs. Family, both Son teddy and Edgard stated they want pt to be discharged on Sunday, not today, Teddy states having a meeting with CM at 0900 today. Pt's pain management plan is to have scheduled Tylenol and prn Ibuprofen and ice pain. Pain 7/10 to left flank with ice pack per pt request and 1/10 upon rest to left hip. High fall risk precautions in place, bed alarm on. Pt able to make needs known using call light.
[2018-06-12] MEDS: ENOXAPARIN 30 MG/0.3 ML SYRINGE SUBCUT (09:56)
--- NOTE | 2018-06-12 11:00 | PT.IPTN ---
Current Diagnoses Age-related osteoporosis with current pathological fracture, left femur, initial encounter for fracture (06/06/18) Fracture of unspecified part of neck of left femur, initial encounter for closed fracture (06/06/18) Presence of unspecified artificial hip joint (06/06/18) Surgery Performed Operation Date: 06/06/18 17:30 Actual Procedures p Hip Hemiarthroplasty(Left) - Leonel Patton MD Physical Therapy Treatment Note M2 PT-IP Current Condition Start: 06/07/18 12:01 Freq: NEEDED Status: Active Protocol: Document 06/07/18 11:00 HH (Rec: 06/07/18 12:36 [email or web address]) Physical Therapy Current Condition Current Condition Evaluation Date 06/07/18 Treatment Diagnosis L pneumothroax, left hip fracture hemiarthroplasty repair, muscle weakness Onset Date 06/06/18 Precautions Posterior Hip Precautions No Hip Flexion > 90 degrees No Hip Internal Rotation No Hip Adduction Weight Bearing Status Weight Bearing Status Weight Bear as Tolerated M3 PT-IP Subjective Start: 06/07/18 12:01 Freq: NEEDED Status: Active Protocol: Document 06/12/18 11:00 GGD (Rec: 06/12/18 12:38 [email or web address] [id number]) Subjective Physical Therapy Visit Type Type Treatment Note Visit Start Time 10:35 Visit Stop Time 11:00 Total Visit Minutes 25 Number of PROCUREMENT COST COORDINATOR Visits 1 Physical Therapy Visit Comments Patient Comments Pt willing to work with therapy. Therapy Pain Assessment Pain When Pain Assessed At Rest Pain Present Pain Present Pain Reported M4 PT-IP Mobility and Gait Start: 06/07/18 12:01 Freq: NEEDED Status: Active Protocol: Document 06/12/18 11:00 GGD (Rec: 06/12/18 12:38 GGD [id number]) PT-Bed Mobility Assessment Supine to Sit Supine to Sit Minimal Assistance 1 Person Assistance PT-Transfer Assessment Sit to and From Stand Sit to and from Stand Contact Guard Assistance Use of Upper Extremities Equipment Transfer Assistive Device Gait Belt Front Wheeled Walker Transfers Transfer Destination Chair Transfer Ability Level of Assist Contact Guard Assistance 1 Person Assistance Use of Upper Extremities Gait Assessment Gait Gait Assistance Required: Contact Guard Assist Distance (Feet) 30 Able to Maintain Weight Bearing Status Yes During Gait Assistive Devices Assistive Device Gait Belt Front Wheeled Walker Orthotic/Prosthetic Devices or Brace: No Gait Deviations General Gait Pattern Antalgic Decreased Feet Clearance Factors Limiting Gait Function Factors Limiting Gait Function Decreased Activity Tolerance Decreased Strength Limited Range of Motion Pain Poor Balance Poor Safety Awareness M5 PT-IP Objective Assessments Start: 06/07/18 12:01 Freq: NEEDED Status: Active Protocol: Document 06/07/18 11:00 HH (Rec: 06/07/18 12:36 HH [email or web address]) Orientation Orientation/Cognition Level of Alertness Alert Orientation Name Age Birthday Month Date Year Day of Week Place Situation Language Function Ability No Deficits Noted Safety Awareness Decreased Safety Awareness Memory Description No Deficits Noted Gross Range of Motion Upper Extremity ROM Assessment Within Functional Limits Lower Extremity ROM Assessment Left Impaired Strength Upper Extremity Strength Assessment Within Functional Limits Lower Extremity Strength Assessment Bilaterally Impaired Comments Strength Comments L LE 2/5 grossly R LE 3+/5 grossly Coordination Assessment Gross Coordination Gross Coordination WNL Sensation Assessment Sensation Gross Sensation WNL Muscle Tone Muscle Tone WNL Yes M6 PT-IP Treatment Start: 06/07/18 12:01 Freq: NEEDED Status: Active Protocol: Document 06/12/18 11:00 GGD (Rec: 06/12/18 12:38 GGD [id number]) Physical Therapy Treatment Education Education Provided Precautions M7 PT-IP Assessment and Plan Start: 06/07/18 12:01 Freq: NEEDED Status: Active Protocol: Document 06/12/18 11:00 GGD (Rec: 06/12/18 12:38 GGD [id number]) PT Summary Assessment and Plan Summary Assessment Summary Pt is progressing slowly with mobility. She need assist with bed mobility and cues for hip precautions. She was able to progress gait distance. She would benefit from SNF for improvement in functional mobility. Frequency of Treatment Frequency Of Treatment Twice a Day Treatment Plan Physical Therapy Treatment Plan Bed Mobility Training Transfer Training Gait Training Therapeutic Exercise Post Op Education Discharge Planning Hot or Cold Pack Other Recommendations and Next Treatment bed mobility and gait. Focus Recommendations To Nursing Amount of Assist Needed 1 Person Assist Discharge Recommendations PT Discharge Recommendations SNF Rehab
--- NOTE | 2018-06-12 14:48 | PT.IPTN ---
Current Diagnoses Age-related osteoporosis with current pathological fracture, left femur, initial encounter for fracture (06/06/18) Fracture of unspecified part of neck of left femur, initial encounter for closed fracture (06/06/18) Presence of unspecified artificial hip joint (06/06/18) Surgery Performed Operation Date: 06/06/18 17:30 Actual Procedures p Hip Hemiarthroplasty(Left) - Leonel Patton MD Physical Therapy Treatment Note M2 PT-IP Current Condition Start: 06/07/18 12:01 Freq: NEEDED Status: Active Protocol: Document 06/07/18 11:00 HH (Rec: 06/07/18 12:36 [email or web address]) Physical Therapy Current Condition Current Condition Evaluation Date 06/07/18 Treatment Diagnosis L pneumothroax, left hip fracture hemiarthroplasty repair, muscle weakness Onset Date 06/06/18 Precautions Posterior Hip Precautions No Hip Flexion > 90 degrees No Hip Internal Rotation No Hip Adduction Weight Bearing Status Weight Bearing Status Weight Bear as Tolerated M3 PT-IP Subjective Start: 06/07/18 12:01 Freq: NEEDED Status: Active Protocol: Document 06/12/18 14:42 GGD (Rec: 06/12/18 14:48 GGD [email or web address]) Subjective Physical Therapy Visit Type Type Treatment Note Visit Start Time 14:15 Visit Stop Time 14:40 Total Visit Minutes 25 Number of DOLL WIGS HACKLER Visits 2 Physical Therapy Visit Comments Patient Comments Pt states she would like to go back to bed. Therapy Pain Assessment Pain When Pain Assessed At Rest Pain Present Pain Present Pain Reported M4 PT-IP Mobility and Gait Start: 06/07/18 12:01 Freq: NEEDED Status: Active Protocol: Document 06/12/18 14:42 GGD (Rec: 06/12/18 14:48 GGD [email or web address]) PT-Transfer Assessment Sit to and From Stand Sit to and from Stand Contact Guard Assistance Use of Upper Extremities Equipment Transfer Assistive Device Gait Belt Front Wheeled Walker Transfers Transfer Destination Bedside Commode Transfer Ability Level of Assist Contact Guard Assistance 1 Person Assistance Use of Upper Extremities Gait Assessment Gait Gait Assistance Required: Contact Guard Assist Distance (Feet) 50 Able to Maintain Weight Bearing Status Yes During Gait Assistive Devices Assistive Device Gait Belt Front Wheeled Walker Orthotic/Prosthetic Devices or Brace: No Gait Deviations General Gait Pattern Antalgic Decreased Feet Clearance Factors Limiting Gait Function Factors Limiting Gait Function Decreased Activity Tolerance Decreased Strength Limited Range of Motion Pain Poor Balance Poor Safety Awareness M5 PT-IP Objective Assessments Start: 06/07/18 12:01 Freq: NEEDED Status: Active Protocol: Document 06/07/18 11:00 HH (Rec: 06/07/18 12:36 [email or web address]) Orientation Orientation/Cognition Level of Alertness Alert Orientation Name Age Birthday Month Date Year Day of Week Place Situation Language Function Ability No Deficits Noted Safety Awareness Decreased Safety Awareness Memory Description No Deficits Noted Gross Range of Motion Upper Extremity ROM Assessment Within Functional Limits Lower Extremity ROM Assessment Left Impaired Strength Upper Extremity Strength Assessment Within Functional Limits Lower Extremity Strength Assessment Bilaterally Impaired Comments Strength Comments L LE 2/5 grossly R LE 3+/5 grossly Coordination Assessment Gross Coordination Gross Coordination WNL Sensation Assessment Sensation Gross Sensation WNL Muscle Tone Muscle Tone WNL Yes M6 PT-IP Treatment Start: 06/07/18 12:01 Freq: NEEDED Status: Active Protocol: Document 06/12/18 14:42 GGD (Rec: 06/12/18 14:48 GGD [email or web address]) Physical Therapy Treatment Education Education Provided Precautions M7 PT-IP Assessment and Plan Start: 06/07/18 12:01 Freq: NEEDED Status: Active Protocol: Document 06/12/18 14:42 GGD (Rec: 06/12/18 14:48 GGD [email or web address]) PT Summary Assessment and Plan Summary Assessment Summary Pt improving slowly. She able to gait distance. She needed min cues for gait pattern. Pt would benefit from SNF for improvement in functional mobility. Frequency of Treatment Frequency Of Treatment Twice a Day Treatment Plan Physical Therapy Treatment Plan Bed Mobility Training Transfer Training Gait Training Therapeutic Exercise Post Op Education Discharge Planning Hot or Cold Pack Other Recommendations and Next Treatment bed mobility and gait. Focus Recommendations To Nursing Amount of Assist Needed 1 Person Assist Discharge Recommendations PT Discharge Recommendations SNF Rehab
--- NOTE | 2018-06-12 15:38 | PM.PN.1 ---
Subjective Date Patient Seen: 06/12/18 Interval history: Patient reports hip pain has improved. She complains of pain over the left chest wall where her chest tube was placed. She has a thick wet cough today. She previously has been unable to cough anything up. She has no shortness of breath she has no other complaints. Exam Vital Signs (past 8 hours): - 06/12/18 07:59 06/12/18 08:00 06/12/18 08:03 Temperature 97.7 F Pulse Rate 93 H Respiratory Rate 18 Blood Pressure 136/76 Pulse Oximetry 96 92 93 Fraction of Inspired Oxygen 21 Oxygen Delivery Method Room Air Oxygen Flow Rate 0 Narrative Exam Narrative: Elderly ill-appearing female Lungs: Decreased breath sounds with scattered crackles in the left base Cardiac exam: Regular rate rhythm normal S1 and S2 with a 2/6 systolic ejection Abdomen: Soft nontender nondistended without hepatosplenomegaly Extremities: 2+ edema Objective Labs Result Diagrams: 06/09/18 04:04 06/09/18 04:04 Assessment & Plan Assessment & Plan narrative: 1. Ground level fall 2. Left femoral neck fracture status post hemiarthroplasty 3. Osteoporosis 4. Blood-loss anemia 5. Pneumothorax Plan given patient's cough and prevalence influenza here in the hospital will obtain a sputum culture and respiratory panel. Will repeat chest x-ray to rule out pneumonia. Will follow up on CBC and laboratory studies. Will check iron studies as well. Will start the patient on vitamin D calcium and bisphosphonate. [facility] Quality VTE Deep Vein Thrombosis/Pulmonary Embolism Present on Admission: No
[2018-06-12 16:29] VITALS: BP 148/76; PULSE 79; RESP 16; TEMP 36.4; O2SAT 96
[2018-06-12] MEDS: CALCIUM CARBONATE 500 MG TAB PO ×2 (17:36→21:40)
[2018-06-12] MEDS: CHOLECALCIFEROL (VITAMIN D3) 1,000 UNIT TABLET 1000 UNIT PO (17:36)
[2018-06-12 18:11] LABS: HEMOLYSIS 19 (0-50); Iron 46 ug/dL (37-170)
[2018-06-12 18:21] LABS: Percent Iron Saturation 32 % (15-50); Total Iron Binding Capacity 146 ug/dL (265-497); Transferrin 88 mg/dL (206-381)
[2018-06-12 20:23] LABS: Adenovirus Not Detected (Not Detect); Bordetella pertussis Not Detected (Not Detect); Chlamydophila pneumoniae Not Detected (Not Detect); Coronavirus 229E Not Detected (Not Detect); Coronavirus HKU1 Not Detected (Not Detect); Coronavirus NL 63 Not Detected (Not Detect); Coronavirus OC43 Not Detected (Not Detect); Human Metapneumovirus Not Detected (Not Detect); Human Rhinovirus/Enterovirus Not Detected (Not Detect); Influenza A Not Detected (Not Detect); Influenza B Not Detected (Not Detect); Mycoplasma pneumoniae Not Detected (Not Detect); Parainfluenza Virus 1 Not Detected (Not Detect); Parainfluenza Virus 2 Not Detected (Not Detect); Parainfluenza Virus 3 Not Detected (Not Detect); Parainfluenza Virus 4 Not Detected (Not Detect); Respiratory Syncytial Virus Detected (Not Detect)
[2018-06-12 20:37] VITALS: BP 132/71; PULSE 85; RESP 16; TEMP 36.7; O2SAT 93
[2018-06-12] MEDS: DOCUSATE 100 MG CAPSULE PO (21:41)
--- NOTE | 2018-06-12 21:53 | PC.NURSE ---
initiate droplet precautions for RSV and patient education Let patient know about positive results for RSV from respiratory swab. Educated patient on the signs and symptoms of the virus, how it is spread, and how to prevent the spread. Let the patient know that she will be in isolation precautions and that visitors will be wearing masks and possibly gloves or gowns. Patient asked how this will affect discharge planning and we informed her that it will need to be re-evaluated 06/13.
[2018-06-13] MEDS: OXYCODONE IR 5 MG TABLET PO (00:17)
[2018-06-13 00:28] VITALS: BP 142/68; PULSE 79; RESP 18; TEMP 36.5; O2SAT 94
[2018-06-13 06:12] VITALS: BP 138/59; PULSE 81; RESP 14; TEMP 36.6; O2SAT 94
[2018-06-13 06:24] LABS: Alanine Aminotransferase 134 IU/L (9-52); Albumin 2.9 g/dL (3.5-5.0); Albumin Globulin Ratio 0.9 (1.0-2.8); Alkaline Phosphatase 102 U/L (38-126); Aspartate Aminotransferase 154 IU/L (14-36); BUN Creatinine Ratio 18.6 (6-22); Bilirubin Total 0.4 mg/dL (0.2-1.3); Blood Urea Nitrogen 13 mg/dL (7-17); Calcium 8.4 mg/dL (8.4-10.2); Carbon Dioxide 29 mmol/L (22-32); Chloride 99 mmol/L (98-107); Estimated Glomerular Filt Rate > 60.0 mL/min (>60); Globulin 3.1 g/dL (1.7-4.1); Glucose 111 mg/dL (80-110); HEMOLYSIS < 15 (0-50); Potassium 3.6 mmol/L (3.4-5.1); Sodium 135 mmol/L (137-145)
[2018-06-13 06:25] LABS: Hemoglobin 9.4 g/dL (12.0-16.0); Mean Corpuscular HGB Conc 34.6 % (30-36); Mean Corpuscular Hemoglobin 30.4 PG (26-34); Mean Corpuscular Volume 87.8 fL (80-100); Platelet Count 482 X10^3/uL (150-400); Red Blood Cell Count 3.08 X10^6/uL (4.0-5.2); Red Cell Distribution Width 15.3 % (11.6-14.8); White Blood Cell Count 8.1 X10^3/uL (4.5-11.0)
[2018-06-13 06:34] LABS: B Type Natriuretic Peptide < 100 (<100)
[2018-06-13 06:35] LABS: Add Manual Diff / Slide Review YES
[2018-06-13 06:38] LABS: Neutrophils Absolute Manual 4293 /uL (3000-5900); Poikilocytosis 1+; Total Cells Counted 100
--- NOTE | 2018-06-13 08:52 | CM.DPC ---
Addendum entered by Anna Marie Jha LPN 06/13/18 14:49: Dr. Neumann agrees to see pt and Vickie but says it may be much later this afternoon. Vickie is updated, will remain in room. Continues to say I would think she could stay in the hospital until she is recovered from this RSV as she probably got the virus here. P: check in again tomorrow and continue to follow. Original Note: Addendum entered by Anna Marie Jha LPN 06/13/18 14:31: Juliet has called back. She states that they could only accommodate pt if she had a private room and they do not have one nor do they anticipate being able to provide one. She confirms that pt is no longer accepted at [facility] and another option for d/c will be needed. Dr. Neumann was updated andd requested that Vickie be updated. Called his cell and found that he had just arrived to pt's room. Went over above. Vickie says he needs further information from Dr. Neumann as she told us she should recover from this in about a week and we do not wish to have my mother out of town. Discussed need for a snf option that can provide a pvt room but he wishes first to discuss the medical issues with Dr. Neumann. Vickie says at this time they do not wish to consider any other option except snf rehab...Dr. Neumann is alerted and hope to have her speak with pt and family, gathered in the room, when she is available. She will not be on as hospitalist tomorrow. Original Note: Addendum entered by Anna Marie Jha LPN 06/13/18 11:37: Received a call just now from Juliet/ [facility] (non clinical). She said they had no further information re ? acceptance and needed to know more. She was unsure if DNS Johana was aware and said she would find out. Requested that Johana call Dr. Neumann to discuss and questions or concerns re the diagnosis and gave her Dr. Neumann's direct line. uJliet ageed to same and said she would get back to us as soon as she had more information. Original Note: DCP: continued: Pt now with RSV and on droplet precautions. Spoke with her son and her ,both were aware and son notes my mother is getting discouraged. Called [facility] and spoke with Riki/on admission cell phone. Updated him and he will discuss this morning with DNS Johana to see how this may impact their ability to accept pt. P: discuss in Team Rounds
[2018-06-13 09:00] VITALS: BP 150/82; PULSE 98; RESP 18; TEMP 36.5; O2SAT 94
--- NOTE | 2018-06-13 09:24 | PM.PNPO.1 ---
Subjective Date Patient Seen: 06/13/18 Time Patient Seen: 09:24 Interval history: Hospital day 8, postop day 7 following left femoral neck fracture with hemiarthroplasty and postoperative pneumothorax. Complaining of pain mostly to her left chest wall where the chest tube was at. She was seen by Dr. Neumann, hospitalist yesterday noted have cough. She did have chest x-ray done and respiratory panel which was positive for RSV. She is currently on isolation mask. Hip pain has been improving. She has been up out of bed and ambulating. Plan is for her to go to [facility] for further rehab possibly today. Exam Vital Signs (past 8 hours): - 06/13/18 06:12 Temperature 98 F Pulse Rate 81 Respiratory Rate 14 Blood Pressure 138/59 L Pulse Oximetry 94 Fraction of Inspired Oxygen 21 Oxygen Delivery Method Room Air Oxygen Flow Rate 0 Narrative Exam Narrative: Alert, oriented no acute distress resting in bed. Legs. Aquacel dressing to left hip is dry without drainage or inflammation. No calf pain or swelling. Pulses symmetrical. Objective Labs Result Diagrams: 06/13/18 05:56 06/13/18 05:56 Labs: Laboratory Results - last 24 hr 06/12/18 06/12/18 06/13/18 17:20 18:30 05:56 WBC 8.1 RBC 3.08 L Hgb 9.4 L Hct 27.0 L MCV 87.8 MCH 30.4 MCHC 34.6 RDW 15.3 H Plt Count 482 H Neut % (Auto) Not Reportable Lymph % (Auto) Not Reportable [place] % (Auto) Not Reportable Eos % (Auto) Not Reportable Baso % (Auto) Not Reportable Lymph # (Auto) Not Reportable [place] # (Auto) Not Reportable Baso # (Auto) Not Reportable Total Counted 100 Seg Neutrophils % 50.0 Band Neutrophils % 3.0 Lymphocytes % (Manual) 33.0 Monocytes % (Manual) 12.0 H Eosinophils % (Manual) 2.0 Neutrophils # (Manual) 4293 RBC Morphology See below Poikilocytosis 1+ H Sodium Potassium Chloride Carbon Dioxide BUN Creatinine Estimated GFR BUN/Creatinine Ratio Glucose Calcium Iron 46 TIBC 146 L % Saturation 32 Transferrin 88 L Total Bilirubin AST ALT Alkaline Phosphatase B-Natriuretic Peptide < 100 Total Protein Albumin Globulin Albumin/Globulin Ratio Chlamy pneumoniae PCR Not detected Adenovirus (PCR) Not detected B.parapertussis DNA PCR Not detected Coronavirus OC43 (PCR) Not detected Coronavirus HKU1 (PCR) Not detected Coronavirus 229E (PCR) Not detected Coronavirus NL63 (PCR) Not detected Human Metapneumovir PCR Not detected Influenza Type A (PCR) Not detected Influenza Type B (PCR) Not detected M. pneumoniae (PCR) Not detected Parainfluenza 1 (PCR) Not detected Parainfluenza 2 (PCR) Not detected Parainfluenza 3 (PCR) Not detected Parainfluenza 4 (PCR) Not detected RSV (PCR) Detected H Entero/Rhino (PCR) Not detected 06/13/18 05:56 WBC RBC Hgb Hct MCV MCH MCHC RDW Plt Count Neut % (Auto) Lymph % (Auto) [place] % (Auto) Eos % (Auto) Baso % (Auto) Lymph # (Auto) [place] # (Auto) Baso # (Auto) Total Counted Seg Neutrophils % Band Neutrophils % Lymphocytes % (Manual) Monocytes % (Manual) Eosinophils % (Manual) Neutrophils # (Manual) RBC Morphology Poikilocytosis Sodium 135 L Potassium 3.6 Chloride 99 Carbon Dioxide 29 BUN 13 Creatinine 0.70 Estimated GFR > 60.0 BUN/Creatinine Ratio 18.6 Glucose 111 H Calcium 8.4 Iron TIBC % Saturation Transferrin Total Bilirubin 0.4 AST 154 H ALT 134 H Alkaline Phosphatase 102 B-Natriuretic Peptide Total Protein 6.0 L Albumin 2.9 L Globulin 3.1 Albumin/Globulin Ratio 0.9 L Chlamy pneumoniae PCR Adenovirus (PCR) B.parapertussis DNA PCR Coronavirus OC43 (PCR) Coronavirus HKU1 (PCR) Coronavirus 229E (PCR) Coronavirus NL63 (PCR) Human Metapneumovir PCR Influenza Type A (PCR) Influenza Type B (PCR) M. pneumoniae (PCR) Parainfluenza 1 (PCR) Parainfluenza 2 (PCR) Parainfluenza 3 (PCR) Parainfluenza 4 (PCR) RSV (PCR) Entero/Rhino (PCR) Assessment & Plan Post-op Postoperative Procedures Operation Date: 06/06/18 17:30 Actual Procedures Side Surgeon p Hip Hemiarthroplasty Left Leonel Patton MD Plan: Patient is orthopedically stable. May be discharged to [facility] when cleared by hospitalist. Patient will need postop visit at [facility], office in [place] at 14 days postop. Quality VTE Deep Vein Thrombosis/Pulmonary Embolism Present on Admission: No
[2018-06-13] MEDS: ALENDRONATE 70 MG TABLET PO (10:41)
[2018-06-13] MEDS: ACETAMINOPHEN 325 MG TABLET 975 MG PO ×3 (10:41→21:08)
[2018-06-13] MEDS: ASPIRIN EC 81 MG TABLET PO ×2 (10:41→21:09)
[2018-06-13] MEDS: DOCUSATE 100 MG CAPSULE PO (10:42)
[2018-06-13] MEDS: CHOLECALCIFEROL (VITAMIN D3) 1,000 UNIT TABLET 1000 UNIT PO (10:42)
[2018-06-13] MEDS: ENOXAPARIN 30 MG/0.3 ML SYRINGE SUBCUT (10:43)
[2018-06-13] MEDS: IBUPROFEN 600 MG TABLET PO ×2 (10:43→21:09)
--- NOTE | 2018-06-13 11:37 | PC.NURSE ---
Addendum entered by Azalea Barrientos R.N. 06/13/18 16:03: Dressing performed by KEE Tony and reported to this RN. Left hip aquacel dressing removed for saturated amount of sero-sang drainage. Incision had no S/S of infection with no active drainage. New aquacel dressing applied. pt had small soft BM on BSC. Original Note: Addendum entered by Azalea Barrientos R.N. 06/13/18 12:19: 4 PIV attempts made with no success, Spoke with jesus Mena to not give Iron infusion at this time. Original Note: Day Shift- Pt had small soft brown BM on BSC. Pt did take her scheduled Colace this AM. OOB with 1PA using gait belt and FWW, slow movements. Left flank dressing of old chest tube site removed for saturated serous fluid. Incision pink/flesh, no S/S of infection. No active drainage. Dressing change performed by Abbi Villafana administrative nursing supervisor with this RN's supervision. Area cleansed with, sterile gauze applied with Telfa dressing over, pt tolerated fair/good. Pt had tenderness with the tape removal. High fall risk precautions in place, pt uses call light appropriately, bed/chair alarm used. Pt in droplet precautions for RSV, educated pt's Edgard and Son Vickie on Isolation precautions, wearing mask and hand hygiene.
--- NOTE | 2018-06-13 11:50 | PT.IPTN ---
Current Diagnoses Age-related osteoporosis with current pathological fracture, left femur, initial encounter for fracture (06/06/18) Fracture of unspecified part of neck of left femur, initial encounter for closed fracture (06/06/18) Presence of unspecified artificial hip joint (06/06/18) Surgery Performed Operation Date: 06/06/18 17:30 Actual Procedures p Hip Hemiarthroplasty(Left) - Leonel Patton MD Physical Therapy Treatment Note M2 PT-IP Current Condition Start: 06/07/18 12:01 Freq: NEEDED Status: Active Protocol: Document 06/07/18 11:00 HH (Rec: 06/07/18 12:36 [id number]) Physical Therapy Current Condition Current Condition Evaluation Date 06/07/18 Treatment Diagnosis L pneumothroax, left hip fracture hemiarthroplasty repair, muscle weakness Onset Date 06/06/18 Precautions Posterior Hip Precautions No Hip Flexion > 90 degrees No Hip Internal Rotation No Hip Adduction Weight Bearing Status Weight Bearing Status Weight Bear as Tolerated M3 PT-IP Subjective Start: 06/07/18 12:01 Freq: NEEDED Status: Active Protocol: Document 06/13/18 11:50 GGD (Rec: 06/13/18 12:05 GGD [email or web address]) Subjective Physical Therapy Visit Type Type Treatment Note Visit Start Time 11:50 Visit Stop Time 11:25 Total Visit Minutes 25 Number of VP STRATEGIC PLANNING Visits 3 Physical Therapy Visit Comments Patient Comments Pt states she would like to go back to bed. Therapy Pain Assessment Pain When Pain Assessed At Rest Pain Present Pain Present Pain Reported M4 PT-IP Mobility and Gait Start: 06/07/18 12:01 Freq: NEEDED Status: Active Protocol: Document 06/13/18 11:50 GGD (Rec: 06/13/18 12:05 GGD [email or web address]) PT-Bed Mobility Assessment Sit to Supine Sit to Supine Minimal Assistance 1 Person Assistance Bedrails Scooting Scooting to Edge of Bed Standby Assistance PT-Transfer Assessment Sit to and From Stand Sit to and from Stand Contact Guard Assistance Use of Upper Extremities Equipment Transfer Assistive Device Gait Belt Front Wheeled Walker Transfers Transfer Destination Bed Transfer Ability Level of Assist Contact Guard Assistance 1 Person Assistance Use of Upper Extremities Gait Assessment Gait Gait Assistance Required: Contact Guard Assist Distance (Feet) 75 Able to Maintain Weight Bearing Status Yes During Gait Assistive Devices Assistive Device Gait Belt Front Wheeled Walker Orthotic/Prosthetic Devices or Brace: No Gait Deviations General Gait Pattern Antalgic Decreased Feet Clearance Factors Limiting Gait Function Factors Limiting Gait Function Decreased Activity Tolerance Decreased Strength Limited Range of Motion Pain Poor Balance Poor Safety Awareness M5 PT-IP Objective Assessments Start: 06/07/18 12:01 Freq: NEEDED Status: Active Protocol: Document 06/07/18 11:00 HH (Rec: 06/07/18 12:36 [email or web address]) Orientation Orientation/Cognition Level of Alertness Alert Orientation Name Age Birthday Month Date Year Day of Week Place Situation Language Function Ability No Deficits Noted Safety Awareness Decreased Safety Awareness Memory Description No Deficits Noted Gross Range of Motion Upper Extremity ROM Assessment Within Functional Limits Lower Extremity ROM Assessment Left Impaired Strength Upper Extremity Strength Assessment Within Functional Limits Lower Extremity Strength Assessment Bilaterally Impaired Comments Strength Comments L LE 2/5 grossly R LE 3+/5 grossly Coordination Assessment Gross Coordination Gross Coordination WNL Sensation Assessment Sensation Gross Sensation WNL Muscle Tone Muscle Tone WNL Yes M6 PT-IP Treatment Start: 06/07/18 12:01 Freq: NEEDED Status: Active Protocol: Document 06/13/18 11:50 GGD (Rec: 06/13/18 12:05 GGD [email or web address]) Physical Therapy Treatment Education Education Provided Precautions M7 PT-IP Assessment and Plan Start: 06/07/18 12:01 Freq: NEEDED Status: Active Protocol: Document 06/13/18 11:50 GGD (Rec: 06/13/18 12:05 GGD [email or web address]) PT Summary Assessment and Plan Summary Assessment Summary Pt improving with mobility. She was able to progress her gait distance. She needed less assist with bed mobility. She would benefit from SNF to improved functional mobility. Frequency of Treatment Frequency Of Treatment Twice a Day Treatment Plan Physical Therapy Treatment Plan Bed Mobility Training Transfer Training Gait Training Therapeutic Exercise Post Op Education Discharge Planning Hot or Cold Pack Other Recommendations and Next Treatment bed mobility and gait. Focus Recommendations To Nursing Amount of Assist Needed 1 Person Assist Discharge Recommendations PT Discharge Recommendations SNF Rehab
--- NOTE | 2018-06-13 13:05 | PM.PN.1 ---
Subjective Date Patient Seen: 06/13/18 Interval history: The patient continues to have pain over her pneumothorax site with movement. She also has left hip pain with movement. Yesterday she had significant cough. Respiratory panel was obtained and was positive for RSV. She has had no fever chills. It she denies any shortness of breath. Plans were in place for the patient to be transferred to a long-term facility however given diagnosis of RSV bronchitis they are unable to put her in isolation. Exam Vital Signs (past 8 hours): - 06/13/18 06:12 06/13/18 09:00 Temperature 98 F 97.7 F Pulse Rate 81 98 H Respiratory Rate 14 18 Blood Pressure 138/59 L 150/82 H Pulse Oximetry 94 94 Fraction of Inspired Oxygen 21 Oxygen Delivery Method Room Air Oxygen Flow Rate 0 Narrative Exam Narrative: Pleasant elderly female in no obvious distress Lungs: Decreased breath sounds with crackles in the left base. Chest wall with wound in place Cardiac exam: Regular rate and rhythm normal S1-S2 with a 2/6 Systolic ejection murmur Abdomen soft nontender nondistended Extremities: On left hip with bandage in place, and a mild 1 to 2+ edema in the left lower ext a no edema on the right Objective Labs Result Diagrams: 06/13/18 05:56 06/13/18 05:56 Labs: Laboratory Results - last 24 hr 06/12/18 06/12/18 06/13/18 17:20 18:30 05:56 WBC 8.1 RBC 3.08 L Hgb 9.4 L Hct 27.0 L MCV 87.8 MCH 30.4 MCHC 34.6 RDW 15.3 H Plt Count 482 H Neut % (Auto) Not Reportable Lymph % (Auto) Not Reportable Mccreary % (Auto) Not Reportable Eos % (Auto) Not Reportable Baso % (Auto) Not Reportable Lymph # (Auto) Not Reportable Mccreary # (Auto) Not Reportable Baso # (Auto) Not Reportable Total Counted 100 Seg Neutrophils % 50.0 Band Neutrophils % 3.0 Lymphocytes % (Manual) 33.0 Monocytes % (Manual) 12.0 H Eosinophils % (Manual) 2.0 Neutrophils # (Manual) 4293 RBC Morphology See below Poikilocytosis 1+ H Sodium Potassium Chloride Carbon Dioxide BUN Creatinine Estimated GFR BUN/Creatinine Ratio Glucose Calcium Iron 46 TIBC 146 L % Saturation 32 Transferrin 88 L Total Bilirubin AST ALT Alkaline Phosphatase B-Natriuretic Peptide < 100 Total Protein Albumin Globulin Albumin/Globulin Ratio Chlamy pneumoniae PCR Not detected Adenovirus (PCR) Not detected B.parapertussis DNA PCR Not detected Coronavirus OC43 (PCR) Not detected Coronavirus HKU1 (PCR) Not detected Coronavirus 229E (PCR) Not detected Coronavirus NL63 (PCR) Not detected Human Metapneumovir PCR Not detected Influenza Type A (PCR) Not detected Influenza Type B (PCR) Not detected M. pneumoniae (PCR) Not detected Parainfluenza 1 (PCR) Not detected Parainfluenza 2 (PCR) Not detected Parainfluenza 3 (PCR) Not detected Parainfluenza 4 (PCR) Not detected RSV (PCR) Detected H Entero/Rhino (PCR) Not detected 06/13/18 05:56 WBC RBC Hgb Hct MCV MCH MCHC RDW Plt Count Neut % (Auto) Lymph % (Auto) Mccreary % (Auto) Eos % (Auto) Baso % (Auto) Lymph # (Auto) Mccreary # (Auto) Baso # (Auto) Total Counted Seg Neutrophils % Band Neutrophils % Lymphocytes % (Manual) Monocytes % (Manual) Eosinophils % (Manual) Neutrophils # (Manual) RBC Morphology Poikilocytosis Sodium 135 L Potassium 3.6 Chloride 99 Carbon Dioxide 29 BUN 13 Creatinine 0.70 Estimated GFR > 60.0 BUN/Creatinine Ratio 18.6 Glucose 111 H Calcium 8.4 Iron TIBC % Saturation Transferrin Total Bilirubin 0.4 AST 154 H ALT 134 H Alkaline Phosphatase 102 B-Natriuretic Peptide Total Protein 6.0 L Albumin 2.9 L Globulin 3.1 Albumin/Globulin Ratio 0.9 L Chlamy pneumoniae PCR Adenovirus (PCR) B.parapertussis DNA PCR Coronavirus OC43 (PCR) Coronavirus HKU1 (PCR) Coronavirus 229E (PCR) Coronavirus NL63 (PCR) Human Metapneumovir PCR Influenza Type A (PCR) Influenza Type B (PCR) M. pneumoniae (PCR) Parainfluenza 1 (PCR) Parainfluenza 2 (PCR) Parainfluenza 3 (PCR) Parainfluenza 4 (PCR) RSV (PCR) Entero/Rhino (PCR) Assessment & Plan Assessment & Plan narrative: 1. Ground level fall 2. Left femoral neck fracture status post hemiarthroplasty 3. Osteoporosis 4. Acute blood loss anemia 5. Pneumothorax 6. RSV bronchitis Plan will start oral iron given the anemia. Will continue her on her osteoporosis treatment. Will await placement at a long-term unit for ongoing rehabilitation. Quality VTE Deep Vein Thrombosis/Pulmonary Embolism Present on Admission: No
[2018-06-13] MEDS: FERROUS SULFATE 325 MG TABLET PO (14:22)
--- NOTE | 2018-06-13 14:32 | PT.IPTN ---
Current Diagnoses Age-related osteoporosis with current pathological fracture, left femur, initial encounter for fracture (06/06/18) Fracture of unspecified part of neck of left femur, initial encounter for closed fracture (06/06/18) Presence of unspecified artificial hip joint (06/06/18) Surgery Performed Operation Date: 06/06/18 17:30 Actual Procedures p Hip Hemiarthroplasty(Left) - Leonel Patton MD Physical Therapy Treatment Note M2 PT-IP Current Condition Start: 06/07/18 12:01 Freq: NEEDED Status: Active Protocol: Document 06/07/18 11:00 HH (Rec: 06/07/18 12:36 [email or web address]) Physical Therapy Current Condition Current Condition Evaluation Date 06/07/18 Treatment Diagnosis L pneumothroax, left hip fracture hemiarthroplasty repair, muscle weakness Onset Date 06/06/18 Precautions Posterior Hip Precautions No Hip Flexion > 90 degrees No Hip Internal Rotation No Hip Adduction Weight Bearing Status Weight Bearing Status Weight Bear as Tolerated M3 PT-IP Subjective Start: 06/07/18 12:01 Freq: NEEDED Status: Active Protocol: Document 06/13/18 14:27 GGD (Rec: 06/13/18 14:32 GGD [email or web address]) Subjective Physical Therapy Visit Type Type Treatment Note Visit Start Time 13:40 Visit Stop Time 14:20 Total Visit Minutes 40 Number of SHIPPING TECHNICIAN Visits 4 Physical Therapy Visit Comments Patient Comments Pt willing to work with therapy. Therapy Pain Assessment Pain When Pain Assessed At Rest Pain Present Pain Present Pain Reported M4 PT-IP Mobility and Gait Start: 06/07/18 12:01 Freq: NEEDED Status: Active Protocol: Document 06/13/18 14:27 GGD (Rec: 06/13/18 14:32 GGD [email or web address]) PT-Bed Mobility Assessment Rolling Type of Rolling Roll to Left Supine to Sit Supine to Sit Contact Guard Assistance 1 Person Assistance Sit to Supine Sit to Supine Contact Guard Assistance 1 Person Assistance Scooting Scooting to Edge of Bed Standby Assistance PT-Transfer Assessment Sit to and From Stand Sit to and from Stand Contact Guard Assistance Use of Upper Extremities Equipment Transfer Assistive Device Gait Belt Front Wheeled Walker Transfers Transfer Destination Bed Bedside Commode Transfer Ability Level of Assist Contact Guard Assistance 1 Person Assistance Use of Upper Extremities Gait Assessment Gait Gait Assistance Required: Contact Guard Assist Distance (Feet) 160 Able to Maintain Weight Bearing Status Yes During Gait Assistive Devices Assistive Device Gait Belt Front Wheeled Walker Orthotic/Prosthetic Devices or Brace: No Gait Deviations General Gait Pattern Antalgic Decreased Feet Clearance Factors Limiting Gait Function Factors Limiting Gait Function Decreased Activity Tolerance Decreased Strength Limited Range of Motion Pain Poor Balance Poor Safety Awareness Comments Gait Comments Pt min cues for step through gait pattern. M5 PT-IP Objective Assessments Start: 06/07/18 12:01 Freq: NEEDED Status: Active Protocol: Document 06/07/18 11:00 HH (Rec: 06/07/18 12:36 HH [email or web address]) Orientation Orientation/Cognition Level of Alertness Alert Orientation Name Age Birthday Month Date Year Day of Week Place Situation Language Function Ability No Deficits Noted Safety Awareness Decreased Safety Awareness Memory Description No Deficits Noted Gross Range of Motion Upper Extremity ROM Assessment Within Functional Limits Lower Extremity ROM Assessment Left Impaired Strength Upper Extremity Strength Assessment Within Functional Limits Lower Extremity Strength Assessment Bilaterally Impaired Comments Strength Comments L LE 2/5 grossly R LE 3+/5 grossly Coordination Assessment Gross Coordination Gross Coordination WNL Sensation Assessment Sensation Gross Sensation WNL Muscle Tone Muscle Tone WNL Yes M6 PT-IP Treatment Start: 06/07/18 12:01 Freq: NEEDED Status: Active Protocol: Document 06/13/18 14:27 GGD (Rec: 06/13/18 14:32 GGD [email or web address]) Physical Therapy Treatment Education Education Provided Precautions M7 PT-IP Assessment and Plan Start: 06/07/18 12:01 Freq: NEEDED Status: Active Protocol: Document 06/13/18 14:27 GGD (Rec: 06/13/18 14:32 GGD [email or web address]) PT Summary Assessment and Plan Summary Assessment Summary Pt improving with gait distance and pattern. She need less assist for bed mobility to the left. She did need cues with all mobility. Frequency of Treatment Frequency Of Treatment Twice a Day Treatment Plan Physical Therapy Treatment Plan Bed Mobility Training Transfer Training Gait Training Therapeutic Exercise Post Op Education Discharge Planning Hot or Cold Pack Other Recommendations and Next Treatment bed mobility and gait. Focus Recommendations To Nursing Amount of Assist Needed 1 Person Assist Discharge Recommendations PT Discharge Recommendations SNF Rehab Other Discharge Recommendations Home with HH if pt continues to progress.
--- NOTE | 2018-06-13 15:02 | PM.CHAP ---
visit with patient at her request. she said I thought you could listen to some family dynamics, but we got it straightened out. Spoke briefly with her Edgard and their adult son. She requested prayer. Patient expressed anxiety and said the prayer helped. WYATT
[2018-06-13 16:41] VITALS: BP 149/83; PULSE 84; RESP 19; TEMP 36.4; O2SAT 95
[2018-06-13 20:15] VITALS: BP 126/52; PULSE 95; RESP 16; TEMP 36.6; O2SAT 93
[2018-06-13 22:21] LABS: Respiratory Syncytial Virus Positive
--- NOTE | 2018-06-14 | DI.US.S_ITS ---
PROCEDURE: US ABDOMEN COMPLETE INDICATIONS: ELEVATED LFT TECHNIQUE: Real-time scanning was performed of the abdominal and retroperitoneal organs, with image documentation. COMPARISON: [facility], CT, ABDOMEN/PELVIS WITH CONTRAST, 12/20/2011, 14:33. FINDINGS: Liver: Liver is normal in size and homogeneous in echotexture. Multiple small hepatic cysts are noted. Largest cyst is in the inferior aspect of the right lobe liver measuring 1.2 x 0.8 x 1.3 cm. Gallbladder: Gallbladder is surgically absent. Biliary ducts: Intrahepatic bile ducts are non-dilated. Extrahepatic bile duct caliber measures 6.0 mm. Normal is 6-7 mm or less in diameter, or 10 mm or less post-cholecystectomy. Pancreas: Visualized portions of the pancreas are sonographically normal. Spleen: Spleen is normal in size and homogeneous in echotexture. Kidneys: Kidneys are normal in size and echotexture. Right kidney measures 10.1 cm long; left kidney measures 10.4 cm long. 1.6 cm in diameter cyst noted in the superior the right kidney. 4.4 cm cyst in the super pole of the left kidney. No hydronephrosis or nephrolithiasis. There is a 1.5 x 1.1 x 1.5 cm hypoechoic solid-appearing lesion in superior pole of the right kidney. Aorta: Visualized aorta is normal in caliber at less than 3 cm. Iliacs: Obscured by bowel gas and cannot be evaluated. IVC: Intrahepatic inferior vena cava is patent. Miscellaneous: No free abdominal fluid. IMPRESSION: 1. Hepatic cysts. Liver otherwise has a normal sonographic appearance. 2. Bilateral renal cysts. 3. 1.5 x 1.1 x 1.5 cm hypoechoic, solid-appearing lesion in the superior pole the right kidney. Recommend dedicated renal protocol CT scan with and without contrast for definitive characterization and to exclude malignancy such as renal cell carcinoma. Dictated by: Jaclyn Conklin MD, PhD on 06/14/2018 at 15:20 Approved by: Jaclyn Conklin MD, PhD on 06/14/2018 at 15:27
[2018-06-14 04:00] VITALS: BP 154/81; PULSE 93; RESP 18; TEMP 36.8; O2SAT 93
[2018-06-14 08:00] VITALS: BP 144/81; PULSE 86; RESP 18; TEMP 36.6; O2SAT 95
[2018-06-14] MEDS: OXYCODONE IR 5 MG TABLET PO (08:42)
[2018-06-14] MEDS: ENOXAPARIN 30 MG/0.3 ML SYRINGE SUBCUT (08:45)
[2018-06-14] MEDS: DOCUSATE 100 MG CAPSULE PO ×2 (08:46→22:05)
[2018-06-14] MEDS: FERROUS SULFATE 325 MG TABLET PO (08:46)
[2018-06-14] MEDS: CHOLECALCIFEROL (VITAMIN D3) 1,000 UNIT TABLET 1000 UNIT PO (08:46)
[2018-06-14] MEDS: CALCIUM CARBONATE 500 MG TAB PO ×2 (08:46→22:06)
[2018-06-14] MEDS: ASPIRIN EC 81 MG TABLET PO ×2 (08:46→22:06)
[2018-06-14] MEDS: ACETAMINOPHEN 325 MG TABLET 975 MG PO (08:46)
--- NOTE | 2018-06-14 09:38 | PT.IPTN ---
Current Diagnoses Age-related osteoporosis with current pathological fracture, left femur, initial encounter for fracture (06/06/18) Fracture of unspecified part of neck of left femur, initial encounter for closed fracture (06/06/18) Presence of unspecified artificial hip joint (06/06/18) Surgery Performed Operation Date: 06/06/18 17:30 Actual Procedures p Hip Hemiarthroplasty(Left) - Leonel Patton MD Physical Therapy Treatment Note M2 PT-IP Current Condition Start: 06/07/18 12:01 Freq: NEEDED Status: Active Protocol: Document 06/07/18 11:00 HH (Rec: 06/07/18 12:36 HH [email or web address]) Physical Therapy Current Condition Current Condition Evaluation Date 06/07/18 Treatment Diagnosis L pneumothroax, left hip fracture hemiarthroplasty repair, muscle weakness Onset Date 06/06/18 Precautions Posterior Hip Precautions No Hip Flexion > 90 degrees No Hip Internal Rotation No Hip Adduction Weight Bearing Status Weight Bearing Status Weight Bear as Tolerated M3 PT-IP Subjective Start: 06/07/18 12:01 Freq: NEEDED Status: Active Protocol: Document 06/14/18 09:38 AB (Rec: 06/14/18 12:07 AB [email or web address]) Subjective Physical Therapy Visit Type Type Treatment Note Visit Start Time 09:38 Visit Stop Time 10:12 Total Visit Minutes 30 Number of PHYSICIAN ASSISTANT CERTIFIED Visits 0 Physical Therapy Visit Comments Patient Comments pt agreeable to do PT Therapy Pain Assessment Pain When Pain Assessed At Rest Pain Present Pain Present Pain Reported Location L chest tube region Scale Used pain scale not stated M4 PT-IP Mobility and Gait Start: 06/07/18 12:01 Freq: NEEDED Status: Active Protocol: Document 06/14/18 09:38 AB (Rec: 06/14/18 12:07 AB [email or web address]) PT-Bed Mobility Assessment Supine to Sit Supine to Sit Minimal Assistance Sit to Supine Sit to Supine Minimal Assistance PT-Transfer Assessment Sit to and From Stand Sit to and from Stand Contact Guard Assistance Use of Upper Extremities Equipment Transfer Assistive Device Gait Belt Front Wheeled Walker Orthotic/Prosthetic Devices or Brace: No Transfers Transfer Technique pt ambulated to the bed using FWW Transfer Ability Level of Assist Contact Guard Assistance Comments Mobility Comments pt completed sit <>stand x 3 reps with cues for techniques and safety to maintain L hip precautions. pt ambulated towards the bed using FWW ~ 12 ft CGA. presents with antalgic gait and increase use of UE for assist. completed bed mobility sit<>supine x 2 sets requiring min A and max cues for techniques. pt with difficulty moving LLE out of bed and elevating up into the bed. pt agreed to sit on chair and ambulated back to chair using FWW ~ 12 ft CGA. set pt on chair. alarm on. call light and table placed within reach. Gait Assessment Comments Gait Comments pls refer to mobility section for details M5 PT-IP Objective Assessments Start: 06/07/18 12:01 Freq: NEEDED Status: Active Protocol: Document 06/07/18 11:00 HH (Rec: 06/07/18 12:36 HH [email or web address]) Orientation Orientation/Cognition Level of Alertness Alert Orientation Name Age Birthday Month Date Year Day of Week Place Situation Language Function Ability No Deficits Noted Safety Awareness Decreased Safety Awareness Memory Description No Deficits Noted Gross Range of Motion Upper Extremity ROM Assessment Within Functional Limits Lower Extremity ROM Assessment Left Impaired Strength Upper Extremity Strength Assessment Within Functional Limits Lower Extremity Strength Assessment Bilaterally Impaired Comments Strength Comments L LE 2/5 grossly R LE 3+/5 grossly Coordination Assessment Gross Coordination Gross Coordination WNL Sensation Assessment Sensation Gross Sensation WNL Muscle Tone Muscle Tone WNL Yes M6 PT-IP Treatment Start: 06/07/18 12:01 Freq: NEEDED Status: Active Protocol: Document 06/14/18 09:38 AB (Rec: 06/14/18 12:07 AB [email or web address]) Physical Therapy Treatment Education Education Provided Precautions Weight Bearing Status Safety M7 PT-IP Assessment and Plan Start: 06/07/18 12:01 Freq: NEEDED Status: Active Protocol: Document 06/14/18 09:38 AB (Rec: 06/14/18 12:07 AB [email or web address]) PT Summary Assessment and Plan Potential Rehabilitation Potential Good Summary Impairments Pain ROM Strength Balance Coordination Sensation Tone Cognition Bed Mobility Transfers Gait Activity Tolerance Progress Towards Goals Progressing Toward Goals Assessment Summary pt requiring CGA to min A with mobility and continues to present with decrease activity tolerance affecting independence. pt will require SNF rehab to improve overall strength and independence prior to d/c home. Goals Bed Mobility Goal Standby Assistance Transfer Goal Standby Assistance Gait Goal Standby Assistance Gait Distance 50 Days to Meet Goals 10 Frequency of Treatment Frequency Of Treatment Twice a Day Recommendations To Nursing Amount of Assist Needed 1 Person Assist Discharge Recommendations PT Discharge Recommendations SNF Rehab Other Discharge Recommendations Home with if pt continues to progress.
--- NOTE | 2018-06-14 11:13 | P.PN_ITS ---
Subjective Date Patient Seen: 06/14/18 Time Patient Seen: 11:12 Interval history: Hospital day 9, postop day 8 following left femoral neck fracture with hemiarthroplasty by Dr. Patton. Patient also had a postoperative pneumothorax. She was diagnosed with RSV 2 days ago. She is weight-bearing as tolerated to the left leg. Patient was to have been transferred to [facility] yesterday. My understanding is that because of her RSV they did not have a single bedroom available for isolation and therefore would not accept the patient. She does complain of pain mostly to her left chest wall where her chest tube was placed. Exam Vital Signs (past 8 hours): - 06/14/18 04:00 06/14/18 08:00 Temperature 98.2 F 97.8 F Pulse Rate 93 H 86 Respiratory Rate 18 18 Blood Pressure 154/81 H 144/81 H Pulse Oximetry 93 95 Fraction of Inspired Oxygen 21 Oxygen Delivery Method Room Air Oxygen Flow Rate 0 Narrative Exam Narrative: Alert, oriented no acute distress resting in bed. Legs. Aquacel dressing to the left hip is dry without drainage or inflammation. No calf pain or swelling. Pulses symmetrical. Objective Labs Result Diagrams: 06/13/18 05:56 06/13/18 05:56 Labs: Laboratory Results - last 24 hr 06/13/18 21:00 RSV (PCR) Positive H Assessment & Plan Post-op Postoperative Procedures Operation Date: 06/06/18 17:30 Actual Procedures Side Surgeon p Hip Hemiarthroplasty Left Leonel Patton MD plan: Status post left hip fracture with hemiarthroplasty orthopedically stable. Patient is awaiting transfer to SNF pending bed available. Discharge pending clearance by hospitalist. Quality VTE Deep Vein Thrombosis/Pulmonary Embolism Present on Admission: No
[2018-06-14 11:24] LABS: Alanine Aminotransferase 108 IU/L (9-52); Albumin 2.9 g/dL (3.5-5.0); Albumin Globulin Ratio 1.1 (1.0-2.8); Alkaline Phosphatase 97 U/L (38-126); Aspartate Aminotransferase 79 IU/L (14-36); Bilirubin Total 0.3 mg/dL (0.2-1.3); Bilirubin Unconjugated 0.2 mg/dL (0.0-1.1); Globulin 2.7 g/dL (1.7-4.1); HEMOLYSIS < 15 (0-50); Total Protein 5.6 g/dL (6.3-8.2)
--- NOTE | 2018-06-14 13:18 | PM.PN.1 ---
Subjective Date Patient Seen: 06/14/18 Interval history: She is seen today to follow up her RS the respiratory infection, newly elevated liver enzymes and left hip fracture rehab. She has no history of alcohol use, prior hepatitis or known liver disease. Exam Vital Signs (past 8 hours): - 06/14/18 08:00 Temperature 97.8 F Pulse Rate 86 Respiratory Rate 18 Blood Pressure 144/81 H Pulse Oximetry 95 Fraction of Inspired Oxygen 21 Oxygen Delivery Method Room Air Oxygen Flow Rate 0 Narrative Exam Narrative: She is alert and oriented x3. Her son is visiting and their interactions are very supportive. Heart is regular rate and rhythm without murmur Lungs are clear to auscultation bilaterally Abdomen is soft, bowel sounds positive, nontender, no organomegaly. Extremities have no ankle edema. Objective Labs Result Diagrams: 06/13/18 05:56 06/13/18 05:56 Labs: Laboratory Results - last 24 hr 06/13/18 06/14/18 21:00 11:05 Total Bilirubin 0.3 Conjugated Bilirubin 0.0 Unconjugated Bilirubin 0.2 AST 79 H ALT 108 H Alkaline Phosphatase 97 Total Protein 5.6 L Albumin 2.9 L Globulin 2.7 Albumin/Globulin Ratio 1.1 RSV (PCR) Positive H Assessment & Plan Assessment & Plan narrative: 1. Ground level fall -now receiving physical therapy. 2. Left femoral neck fracture status post hemiarthroplasty -being followed by Orthopedics. 3. Osteoporosis -continue Fosamax 4. Acute blood loss anemia -she received IV iron, and is now on oral iron. Vitamin-C will be added. -the last hemoglobin was 9.4 yesterday. 5. Pneumothorax - resolved 6. RSV bronchitis - a special room, by herself at the retirement facility has been arranged for tomorrow. 7. Elevated Liver Enzymes -these are repeated today and have fallen. An ultrasound of the liver will be ordered. Liver function tests will be repeated in the morning. -no cause is immediately evident. This is discussed with the patient and her son. Continue oral iron given the anemia. Will continue her on her osteoporosis treatment. Will await placement at a retirement unit for ongoing rehabilitation tomorrow. Quality VTE Deep Vein Thrombosis/Pulmonary Embolism Present on Admission: No
[2018-06-14] MEDS: IBUPROFEN 600 MG TABLET PO (14:45)
--- NOTE | 2018-06-14 15:24 | PT.IPTN ---
Current Diagnoses Age-related osteoporosis with current pathological fracture, left femur, initial encounter for fracture (06/06/18) Fracture of unspecified part of neck of left femur, initial encounter for closed fracture (06/06/18) Presence of unspecified artificial hip joint (06/06/18) Surgery Performed Operation Date: 06/06/18 17:30 Actual Procedures p Hip Hemiarthroplasty(Left) - Leonel Patton MD Physical Therapy Treatment Note M2 PT-IP Current Condition Start: 06/07/18 12:01 Freq: NEEDED Status: Active Protocol: Document 06/07/18 11:00 (Rec: 06/07/18 12:36 [id number]) Physical Therapy Current Condition Current Condition Evaluation Date 06/07/18 Treatment Diagnosis L pneumothroax, left hip fracture hemiarthroplasty repair, muscle weakness Onset Date 06/06/18 Precautions Posterior Hip Precautions No Hip Flexion > 90 degrees No Hip Internal Rotation No Hip Adduction Weight Bearing Status Weight Bearing Status Weight Bear as Tolerated M3 PT-IP Subjective Start: 06/07/18 12:01 Freq: NEEDED Status: Active Protocol: Document 06/14/18 15:11 SA (Rec: 06/14/18 15:24 [id number]) Subjective Physical Therapy Visit Type Type Treatment Note Visit Start Time 14:43 Visit Stop Time 15:08 Total Visit Minutes 25 Number of FAMILY SOCIOLOGIST Visits 1 Physical Therapy Visit Comments Patient Comments Pt was napping but agreeable to PT. Therapy Pain Assessment Pain When Pain Assessed At Rest Pain Present Pain Present Pain Reported Location Left Hip Intensity 3 Scale Used Numeric (1 - 10) Pain Management Techniques Apply Cold Modification of Treatment Timing of Activity with Medications M4 PT-IP Mobility and Gait Start: 06/07/18 12:01 Freq: NEEDED Status: Active Protocol: Document 06/14/18 15:11 SA (Rec: 06/14/18 15:24 [id number]) PT-Bed Mobility Assessment Rolling Type of Rolling Roll to Right Level of Assist Contact Guard Assistance 1 Person Assistance Supine to Sit Supine to Sit Contact Guard Assistance Sit to Supine Sit to Supine Minimal Assistance Scooting Scooting to Edge of Bed Standby Assistance Scooting Up and Down in Bed Minimal Assistance PT-Transfer Assessment Sit to and From Stand Sit to and from Stand Contact Guard Assistance Use of Upper Extremities Equipment Transfer Assistive Device Gait Belt Front Wheeled Walker Orthotic/Prosthetic Devices or Brace: No Transfers Transfer Destination Bed Toilet Transfer Technique Stand Step Pivot Transfer Ability Level of Assist Contact Guard Assistance Use of Upper Extremities Comments Mobility Comments Pt completed stand pivot tx on /off toilet with FWW/grab bar, able to stand at sink to wash hands and able to move from supine>sit with CGA but required Min A to clear LLE over EOB for sit to supine. Gait Assessment Gait Gait Assistance Required: Contact Guard Assist Distance (Feet) 50 Able to Maintain Weight Bearing Status Yes During Gait Assistive Devices Assistive Device Gait Belt Front Wheeled Walker Orthotic/Prosthetic Devices or Brace: No Gait Deviations General Gait Pattern Antalgic Decreased Feet Clearance Factors Limiting Gait Function Factors Limiting Gait Function Decreased Activity Tolerance Decreased Strength Limited Range of Motion Pain Poor Balance Poor Safety Awareness Comments Gait Comments Pt with slow, gaurded, antalgic gait. VCs for upright posture and step through gait pattern. Completed ambulation in room in tight spaces and with frequent turns. M5 PT-IP Objective Assessments Start: 06/07/18 12:01 Freq: NEEDED Status: Active Protocol: Document 06/07/18 11:00 (Rec: 06/07/18 12:36 [id number]) Orientation Orientation/Cognition Level of Alertness Alert Orientation Name Age Birthday Month Date Year Day of Week Place Situation Language Function Ability No Deficits Noted Safety Awareness Decreased Safety Awareness Memory Description No Deficits Noted Gross Range of Motion Upper Extremity ROM Assessment Within Functional Limits Lower Extremity ROM Assessment Left Impaired Strength Upper Extremity Strength Assessment Within Functional Limits Lower Extremity Strength Assessment Bilaterally Impaired Comments Strength Comments L LE 2/5 grossly R LE 3+/5 grossly Coordination Assessment Gross Coordination Gross Coordination WNL Sensation Assessment Sensation Gross Sensation WNL Muscle Tone Muscle Tone WNL Yes M6 PT-IP Treatment Start: 06/07/18 12:01 Freq: NEEDED Status: Active Protocol: Document 06/14/18 15:11 SA (Rec: 06/14/18 15:24 [id number]) Physical Therapy Treatment Exercises Exercises Ankle Pumps Gluteal Sets Heel Slides Education Education Provided Precautions Weight Bearing Status Safety M7 PT-IP Assessment and Plan Start: 06/07/18 12:01 Freq: NEEDED Status: Active Protocol: Document 06/14/18 15:11 SA (Rec: 06/14/18 15:24 [id number]) PT Summary Assessment and Plan Summary Assessment Summary Pt with decreased activity tolerance and CGA-min A with most mobilities, needs reminders for hip precautions. 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 Frequency of Treatment Frequency Of Treatment Twice a Day Recommendations To Nursing Amount of Assist Needed 1 Person Assist Discharge Recommendations PT Discharge Recommendations SNF Rehab
[2018-06-14 16:04] VITALS: BP 138/74; PULSE 82; RESP 15; TEMP 36.9; O2SAT 94
[2018-06-14 19:54] VITALS: BP 142/65; PULSE 74; RESP 18; TEMP 37; O2SAT 93
--- NOTE | 2018-06-15 | DI.RAD.S_ITS ---
PROCEDURE: XR CHEST 2V INDICATIONS: empyema TECHNIQUE: 2 views of the chest were acquired. COMPARISON: [facility], CR, XR CHEST 1V, 06/12/2018, 15:47. FINDINGS: Surgical changes and devices: Lungs and pleura: Mild persistent bibasilar atelectatic changes.Lungs are otherwise none clear. Very small bilateral effusions versus posterior pleural tethering. Mediastinum: Mediastinal contours are normal. Heart size is normal. Bones and chest wall: No suspicious bony abnormalities. Soft tissues appear unremarkable. IMPRESSION: Persistent bibasilar atelectatic changes and very small effusions, less apparent compared to the prior study. Dictated by: Heather Stephenson M.D. on 06/15/2018 at 13:59 Approved by: Heather Stephenson M.D. on 06/15/2018 at 14:09
[2018-06-15 00:41] VITALS: BP 135/64; PULSE 86; RESP 16; TEMP 36.7; O2SAT 96
[2018-06-15 05:42] VITALS: BP 150/72; PULSE 84; RESP 18; TEMP 36.7; O2SAT 95
[2018-06-15 06:26] LABS: Alanine Aminotransferase 110 IU/L (9-52); Albumin 2.8 g/dL (3.5-5.0); Alkaline Phosphatase 103 U/L (38-126); Aspartate Aminotransferase 80 IU/L (14-36); BUN Creatinine Ratio 14.3 (6-22); Bilirubin Total 0.4 mg/dL (0.2-1.3); Blood Urea Nitrogen 10 mg/dL (7-17); Calcium 8.3 mg/dL (8.4-10.2); Carbon Dioxide 27 mmol/L (22-32); Chloride 103 mmol/L (98-107); Estimated Glomerular Filt Rate > 60.0 mL/min (>60); Globulin 2.8 g/dL (1.7-4.1); Glucose 106 mg/dL (80-110); HEMOLYSIS < 15 (0-50); Potassium 3.4 mmol/L (3.4-5.1); Sodium 137 mmol/L (137-145); Total Protein 5.6 g/dL (6.3-8.2)
[2018-06-15 08:00] VITALS: BP 144/77; PULSE 87; RESP 18; TEMP 36.9; O2SAT 94
--- NOTE | 2018-06-15 08:52 | P.DS_ITS ---
History of Present Illness Date Patient Seen: 06/15/18 Time Patient Seen: 08:48 Chief complaint: GLF Narrative: The history and physical are contained in the chart previously completed note. Please refer to that note for this information. Discharge Providers Date of admission: 06/06/18 08:49 Consults: 06/06/18 23:16 Consult to Discharge Planning Routine Comment: Consult to Physical Therapy Evaluate & Treat Comment: Physician Instructions: post op ANGELO protocol Consult to Respiratory Therapy Evaluate & Treat Comment: Physician Instructions: Evaluate and treat 06/07/18 11:21 Consult to Physician Routine Comment: Consulting Provider: Sonny Donaldson Reason for consultation: pneumothorax Has provider been notified: Yes Discharge provider: Zach Whitney MD Discharge Date: 06/15/18 Summary Discharge Diagnosis: 1. Left hip femoral neck fracture 2. Postoperative pneumothorax 3. Acute post hemorrhagic anemia 4. RSV pneumonia Hospital Course: The patient was admitted to the hospital on June 06, 2018 with a left femoral neck fracture. She underwent a left hip hemiarthroplasty by Dr. Leonel Patton. Her postoperative course was quite complicated with a postoperative pneumothorax requiring the placement of a chest tube and eventually the development of RSV pneumonia. These complications slowed her response to physical therapy. On postoperative day 9 and she is felt to be stable for transfer to [facility] facility provided a private room can be obtained due to her droplet isolation. Status at Discharge Cognitive/behavioral status at discharge: Baseline Functional status at discharge: uses cane/walker Overall status at discharge: patient is progressing back to baseline Time Spent with Patient Less than 30 minutes Exam Vital Signs (past 8 hours): - 06/15/18 05:42 Temperature 98.0 F Pulse Rate 84 Respiratory Rate 18 Blood Pressure 150/72 H Pulse Oximetry 95 Fraction of Inspired Oxygen 21 Oxygen Delivery Method Room Air Oxygen Flow Rate 0 Narrative Exam Narrative: Left hip wound is dressed with minimal drainage on the bandage. Calf is soft. Length and rotation of the left lower extremity appear appropriate. Light touch and motion are intact in the left lower extremity. Objective Labs Result Diagrams: 06/13/18 05:56 06/15/18 05:47 Labs: Laboratory Results - last 24 hr 06/14/18 06/15/18 11:05 05:47 Sodium 137 Potassium 3.4 Chloride 103 Carbon Dioxide 27 BUN 10 Creatinine 0.70 Estimated GFR > 60.0 BUN/Creatinine Ratio 14.3 Glucose 106 Calcium 8.3 L Total Bilirubin 0.3 0.4 Conjugated Bilirubin 0.0 Unconjugated Bilirubin 0.2 AST 79 H 80 H ALT 108 H 110 H Alkaline Phosphatase 97 103 Total Protein 5.6 L 5.6 L Albumin 2.9 L 2.8 L Globulin 2.7 2.8 Albumin/Globulin Ratio 1.1 1.0 Discharge Plan Discharge Plan Patient Disposition: SNF Transfer to: [facility] Under care of provider: Mourning Transportation: Wheelchair I certify the postop hospital [facility] care is medically necessary on a continuing basis for any conditions for which he/ she received care during this hospitalization.: Yes The receiving facility has agreed to accept transfer and provide medical treatment.: Yes Discharge Med Rec/Prescriptions Prescriptions: New acetaminophen 325 mg Tablet 975 mg PO TID Qty: 60 RF: 0 polyethylene glycol 3350 17 gram Powder In Packet 17 gm PO DAILY PRN (Reason: Constipation) Qty: 30 RF: 0 hydrocodone-acetaminophen 5-325 mg Tablet 2 tab PO Q4HR PRN (Reason: Pain, Severe (7-10)) Qty: 40 RF: 0 alendronate 70 mg Tablet 70 mg PO Th@0730 Qty: 10 RF: 0 aspirin 81 mg Tablet,Delayed Release (Dr/Ec) 81 mg PO BID Qty: 90 RF: 0 ascorbic acid (vitamin C) [Vitamin C] 500 mg Tablet 500 mg PO DAILY Qty: 30 RF: 0 bisacodyl 10 mg Suppository 10 mg [place] DAILY PRN (Reason: Constipation) Qty: 30 RF: 0 calcium carbonate 200 mg calcium (500 mg) Tablet,Chewable 500 mg PO BID Qty: 60 RF: 0 docusate sodium 100 mg Capsule 100 mg PO BID Qty: 30 RF: 0 ibuprofen 600 mg Tablet 600 mg PO Q6HR PRN (Reason: Pain, Mild (1-3)) Qty: 60 RF: 0 hydroxyzine pamoate 25 mg Capsule 25 mg PO Q6HR PRN (Reason: Spasms) Qty: 30 RF: 0 enoxaparin [Lovenox] 30 mg/0.3 mL Syringe 30 mg subcut DAILY Qty: 2 RF: 0 cholecalciferol (vitamin D3) [Vitamin D3] 1,000 unit Tablet 1,000 unit PO DAILY Qty: 30 RF: 0 Follow up/Referrals: Zach Whitney MD [Physician] - 1 Week (Follow up with Dr. Leonel Patton at my office) Discharge Health Status Brief summary of current health status: Healthy at baseline. Developed RSV pneumonia in postoperative period. Multidrug resistant organism: No MDRO Precautions: Droplet Provider Discharge Instructions Diet: Diet as Tolerated and Regular Liquid consistency: Normal/Thin Food texture: Regular Activity: Posterior hip precautions for the left hip. She may weight bear as tolerated. Cold/Heat Therapy: Ice to the left hip for 15 min every hour as needed for pain relief. Skin/Wound/Dressing Care Report to your healthcare provider any signs of infection, such as:: chills, fever, night sweats, increased pain, unusual drainage and unusual redness Dressing: Leave the dressing intact until her follow-up at [facility]. Special Rehabilitation Services Reason for rehabilitation: Post-operative therapy Rehab type: Physical therapy and Occupational therapy Restrictions to mobility: Posterior hip precautions. Visit Report/Discharge Packet Instructions: DI for Respiratory Syncytial Virus -- Adults, DI for Hip Replacement, How to Prevent Falls, DI for Open Reduction Internal Fixation Surgery, DI for Postoperative Pain Stand Alone Forms: Surgery Discharge Visit Report Forms: Stroke Signs & Symptoms Discharge Data Attending Provider: Serge Canas Admit Date/Time: 06/06/18 08:49 Quality VTE Deep Vein Thrombosis/Pulmonary Embolism Present on Admission: No
--- NOTE | 2018-06-15 10:28 | P.PN_ITS ---
Subjective Date Patient Seen: 06/15/18 Time Patient Seen: 10:46 Interval history: She was seen today to follow-up the left hip fracture, a left pneumothorax, the elevated liver enzymes, the RSV bronchitis and a newly noted right renal mass. Please refer to her discharge summary prepared by Orthopedics today. She will be going to the local care home facility for further rehabilitation. The liver ultrasound shows hepatic cysts. On the ultrasound there is a 1.5 x 1.5 cm right renal mass. This is discussed with her and with her son with recommendations to follow-up ultrasound in a month or so for interval assessment. The liver enzymes are stable from yesterday with the AST dropping from 154 down to 80 and ALT dropping from 134 down to 110. The etiology for this elevation remains unclear. Just before discharge she was noted to have a copious amount of serous drainage from the left chest tube incision site. When I evaluated it was now dry and there was no fluid draining or signs of seroma/abscess. A chest x-ray was done ruling out any empyema as the source. Exam Vital Signs (past 8 hours): - 06/15/18 05:42 06/15/18 08:00 Temperature 98.0 F 98.4 F Pulse Rate 84 87 Respiratory Rate 18 18 Blood Pressure 150/72 H 144/77 H Pulse Oximetry 95 94 Fraction of Inspired Oxygen 21 Oxygen Delivery Method Room Air Oxygen Flow Rate 0 Narrative Exam Narrative: She is alert and oriented x3. She is in no apparent distress. She remains somewhat weak. Heart is regular rate and rhythm without murmur. Lungs are clear to auscultation bilaterally. Extremities no ankle edema. Left chest wall chest tube site is almost closed/healing without further serous drainage or signs of abscess/redness/tenderness. Objective Labs Result Diagrams: 06/13/18 05:56 06/15/18 05:47 Labs: Laboratory Results - last 24 hr 06/14/18 06/15/18 11:05 05:47 Sodium 137 Potassium 3.4 Chloride 103 Carbon Dioxide 27 BUN 10 Creatinine 0.70 Estimated GFR > 60.0 BUN/Creatinine Ratio 14.3 Glucose 106 Calcium 8.3 L Total Bilirubin 0.3 0.4 Conjugated Bilirubin 0.0 Unconjugated Bilirubin 0.2 AST 79 H 80 H ALT 108 H 110 H Alkaline Phosphatase 97 103 Total Protein 5.6 L 5.6 L Albumin 2.9 L 2.8 L Globulin 2.7 2.8 Albumin/Globulin Ratio 1.1 1.0 Assessment & Plan Assessment & Plan narrative: 1. Ground level fall -now transitioning to physical therapy and occupational therapy at the [facility]. 2. Left femoral neck fracture status post hemiarthroplasty -being followed by Orthopedics, now as an outpatient. 3. Osteoporosis -continue Fosamax 4. Acute blood loss anemia -she received IV iron, and is now on oral iron. Vitamin-C has been added. -the last hemoglobin was 9.4. That will need to be followed at the [facility]. 5. Pneumothorax - resolved, with events noted above, of a probable seroma spontaneously draining into the dressing, now on exam with no residual and with a chest x-ray showing no signs of empyema or other lung abscess/infection. 6. RSV bronchitis - a special room, by herself at the [facility] has been arranged until symptoms resolve. 7. Elevated Liver Enzymes -these are repeated today and have fallen. An ultrasound of the liver shows hepatic cysts. Liver function tests will need to be followed at the [facility] soon. -no cause is immediately evident. This is discussed with the patient and her son. 8. Right Renal Mass - discussed with the patient and with her son. Advised that follow-up with Dr. Huerta or with Dr. Wolfe at the [facility] for interval ultrasound re-evaluation would be in her best interest. Quality VTE Deep Vein Thrombosis/Pulmonary Embolism Present on Admission: No
[2018-06-15] MEDS: IBUPROFEN 600 MG TABLET PO (10:32)
[2018-06-15] MEDS: ENOXAPARIN 30 MG/0.3 ML SYRINGE SUBCUT (10:32)
[2018-06-15] MEDS: ASCORBIC ACID 500 MG TABLET PO (10:33)
[2018-06-15] MEDS: CALCIUM CARBONATE 500 MG TAB PO (10:33)
[2018-06-15] MEDS: CHOLECALCIFEROL (VITAMIN D3) 1,000 UNIT TABLET 1000 UNIT PO (10:34)
[2018-06-15] MEDS: ASPIRIN EC 81 MG TABLET PO (10:34)
[2018-06-15] MEDS: FERROUS SULFATE 325 MG TABLET PO (10:34)
[2018-06-15] MEDS: ACETAMINOPHEN 325 MG TABLET 975 MG PO (10:35)
[2018-06-15] MEDS: DOCUSATE 100 MG CAPSULE PO (10:35)
--- NOTE | 2018-06-15 12:11 | PM.CHAP ---
spoke with Melissa today. She is very concerned about her , Edgard's pneumonia. He comes to visit her. visit.
--- NOTE | 2018-06-15 13:04 | PT.IPTN ---
Current Diagnoses Age-related osteoporosis with current pathological fracture, left femur, initial encounter for fracture (06/06/18) Fracture of unspecified part of neck of left femur, initial encounter for closed fracture (06/06/18) Presence of unspecified artificial hip joint (06/06/18) Surgery Performed Operation Date: 06/06/18 17:30 Actual Procedures p Hip Hemiarthroplasty(Left) - Leonel Patton MD Physical Therapy Treatment Note M2 PT-IP Current Condition Start: 06/07/18 12:01 Freq: NEEDED Status: Active Protocol: Document 06/07/18 11:00 HH (Rec: 06/07/18 12:36 [id number]) Physical Therapy Current Condition Current Condition Evaluation Date 06/07/18 Treatment Diagnosis L pneumothroax, left hip fracture hemiarthroplasty repair, muscle weakness Onset Date 06/06/18 Precautions Posterior Hip Precautions No Hip Flexion > 90 degrees No Hip Internal Rotation No Hip Adduction Weight Bearing Status Weight Bearing Status Weight Bear as Tolerated M3 PT-IP Subjective Start: 06/07/18 12:01 Freq: NEEDED Status: Active Protocol: Document 06/15/18 10:50 CLB (Rec: 06/15/18 13:04 CLB [id number]) Subjective Physical Therapy Visit Type Type Treatment Note Visit Start Time 10:50 Visit Stop Time 11:20 Total Visit Minutes 30 Number of HOT PATCHER Visits 2 Physical Therapy Visit Comments Patient Comments Pt agreeable to do PT. Therapy Pain Assessment Pain When Pain Assessed During Mobility Pain Present Pain Present Pain Reported Location Left Hip Intensity 3 Scale Used Numeric (1 - 10) Pain Management Techniques Apply Cold Modification of Treatment Timing of Activity with Medications M4 PT-IP Mobility and Gait Start: 06/07/18 12:01 Freq: NEEDED Status: Active Protocol: Document 06/15/18 10:50 CLB (Rec: 06/15/18 13:04 CLB [id number]) PT-Bed Mobility Assessment Scooting Scooting to Edge of Bed Standby Assistance PT-Transfer Assessment Sit to and From Stand Sit to and from Stand Contact Guard Assistance Use of Upper Extremities Equipment Transfer Assistive Device Gait Belt Front Wheeled Walker Orthotic/Prosthetic Devices or Brace: No Transfers Transfer Destination Chair Toilet Transfer Technique Stand Step Pivot Transfer Ability Level of Assist Contact Guard Assistance Use of Upper Extremities Comments Mobility Comments Pt requires CGA during sit<> stand from chair and toilet. Gait Assessment Gait Gait Assistance Required: Contact Guard Assist Distance (Feet) 50 Able to Maintain Weight Bearing Status Yes During Gait Assistive Devices Assistive Device Gait Belt Front Wheeled Walker Orthotic/Prosthetic Devices or Brace: No Gait Deviations General Gait Pattern Antalgic Decreased Feet Clearance Factors Limiting Gait Function Factors Limiting Gait Function Decreased Activity Tolerance Decreased Strength Limited Range of Motion Pain Poor Balance Poor Safety Awareness Comments Gait Comments Pt reports increased pain with mobility. Pt continues to ambulate slowly needing increased time. M5 PT-IP Objective Assessments Start: 06/07/18 12:01 Freq: NEEDED Status: Active Protocol: Document 06/07/18 11:00 HH (Rec: 06/07/18 12:36 HH [id number]) Orientation Orientation/Cognition Level of Alertness Alert Orientation Name Age Birthday Month Date Year Day of Week Place Situation Language Function Ability No Deficits Noted Safety Awareness Decreased Safety Awareness Memory Description No Deficits Noted Gross Range of Motion Upper Extremity ROM Assessment Within Functional Limits Lower Extremity ROM Assessment Left Impaired Strength Upper Extremity Strength Assessment Within Functional Limits Lower Extremity Strength Assessment Bilaterally Impaired Comments Strength Comments L LE 2/5 grossly R LE 3+/5 grossly Coordination Assessment Gross Coordination Gross Coordination WNL Sensation Assessment Sensation Gross Sensation WNL Muscle Tone Muscle Tone WNL Yes M6 PT-IP Treatment Start: 06/07/18 12:01 Freq: NEEDED Status: Active Protocol: Document 06/15/18 10:50 CLB (Rec: 06/15/18 13:04 CLB [id number]) Physical Therapy Treatment Exercises Exercises Ankle Pumps Gluteal Sets Quad Sets Education Education Provided Precautions Weight Bearing Status Safety M7 PT-IP Assessment and Plan Start: 06/07/18 12:01 Freq: NEEDED Status: Active Protocol: Document 06/15/18 10:50 CLB (Rec: 06/15/18 13:04 CLB [id number]) PT Summary Assessment and Plan Summary Assessment Summary Pt continues to have decreased activity tolerance ambulating in room, pt then sat during bandage change then ambulated to toilet. Pts bedding on chair and gown was damp due to moisture coming from bandage on upper left back area. RN notified and bandage was changed. Assisted with bedding and gown change as well as breif donning/doffing. Goals Bed Mobility Goal Standby Assistance Transfer Goal Standby Assistance Gait Goal Standby Assistance Gait Distance 50 Days to Meet Goals 10 Frequency of Treatment Frequency Of Treatment Twice a Day Treatment Plan Other Recommendations and Next Treatment bed mobility and gait. Focus Recommendations To Nursing Amount of Assist Needed 1 Person Assist Discharge Recommendations PT Discharge Recommendations SNF Rehab
--- NOTE | 2018-06-15 16:28 | PC.NURSE ---
Discharge: Saturated dressing to lt chest, Dr. Angelo made aware and he came and saw pt prior to d/c. Pt feels ready to d/c to facility today. She is following her precautions for hip. Understands sxs she should call for with post pneumothorax. Dressing to old pneumothorax site changed x2. Aquacel was replaced to hip and is now intact. Report called to Pamela at [facility] and we reviewed hospital course and different areas pt has been through. Questions answered. Pt d/c to [facility].
== END 2018-06-15 14:15 | DRG 470 ==
LOC: ED 08:48 → ICU 09:58 → AC 06-09 13:45 → ICU 04-28 15:45
PROVIDERS: Family Medicine; Internal Medicine; Orthopaedic Surgery; Admitting Provider Internal Medicine; Emergency Provider Emergency Medicine; Visit Provider Internal Medicine
PROC: 0SRS0JZ Replacement of Left Hip Joint, Femoral Surface with Synthetic Substitute, Open Approach (ICD-10-PCS; CPT 27125; principal; 2018-06-06 17:30)
DX: M80.052A Age-related osteoporosis with current pathological fracture, left femur, initial encounter for fracture (principal); J95.811 Postprocedural pneumothorax; D62 Acute posthemorrhagic anemia; J20.5 Acute bronchitis due to respiratory syncytial virus; W18.30XA Fall on same level, unspecified, initial encounter; Y92.009 Unspecified place in unspecified non-institutional (private) residence as the place of occurrence of the external cause; R00.0 Tachycardia, unspecified
CPT/HCPCS: 36415; 51701; 71045; 71046; 72170; 73502; 76700; 80048; 80053; 80076; 81001; 81015; 82306; 83036; 83540; 83550; 83880; 85014; 85018; 85025; 85610; 85730; 86850; 86900; 86901; 87633; 87634; 87797; 94760; 94762; 96374; 97116; 97163; 97530; 99231; 99232; 99283; 99284; C1776; C9290; J0171; J0690; J1170; J1650; J2270; J2405; J2704; J3010

== ENCOUNTER → 2018-06-19 08:21 | Outpatient (REF) | payer SELFPAY ==
[2018-06-06 08:55] VITALS: BMI 22.6
[2018-06-19 17:03] LABS: Respiratory Syncytial Virus Negative
== END ==
LOC: LAB 08:21
PROVIDERS: Visit Provider Hospitalist
DX: J21.0 Acute bronchiolitis due to respiratory syncytial virus (principal)
CPT/HCPCS: 87634

== ENCOUNTER → 2018-07-03 10:01 | Outpatient (CLI) | payer MEDICARE, OTHER, SELFPAY ==
[2018-06-06 08:55] VITALS: BMI 22.6
--- NOTE | 2018-07-03 | DI.US.S_ITS ---
PROCEDURE: US RENAL COMPLETE INDICATIONS: FOLLOW-UP SOLID MASS ON RIGHT KIDNEY TECHNIQUE: Real-time scanning was performed of the kidneys and bladder, with image documentation. COMPARISON: [facility], US, US ABDOMEN COMPLETE, 06/14/2018, 11:16. FINDINGS: Kidneys: Kidneys are normal in size. Right kidney measures 10.2 cm long; left kidney measures 9.7 cm long. Right renal cortical thickness is 1.6 cm; left renal cortical thickness is 1.5 cm. Renal cortical echotexture is normal. No hydronephrosis or nephrolithiasis. Again seen is a cyst at the upper right anterior cortex without significant [employer] time. Again noted at the upper cortex of the right kidney also is a subtle masslike structure measuring 1.4 x 0.9 x 1.3 cm, and more inferiorly no cystic or solid mass is found. At the left kidney there is a 4.4 cm maximal dimension renal cortical cyst.. Bladder: Pre-void bladder volume is 377 mL. Post-void residual is 35 mL. Pre-void images demonstrate no intraluminal masses or stones. On pre-void images, neither ureteral jets are noted with color Doppler interrogation. (Of note, ureteral jets may not be detectable in up to 25% of cases due to insufficient differences in specific gravity between ureteral and bladder urine). Miscellaneous: No free pelvic fluid. IMPRESSION: The prior ultrasound from 06/14/[address] scan without and with contrast 4 more accurate assessment of the upper pole ovoid structure that possibly could represent a solid mass. This also could represent a proteinaceous cyst. If sonographic followup is chosen for this patient in the suspicious structure at the upper cortex of the right kidney should be assessed initially by six-month followup and a subsequent 6 month followup study. If no change then yearly followup for 3 additional years is recommended. As noted above the suspicious structure process and has not grown over the prior month. Dictated by: Tj Avendano M.D. on 07/03/2018 at 12:03 Approved by: Tj Avendano M.D. on 07/03/2018 at 12:12
== END ==
PROVIDERS: Visit Provider Student in an Organized Health Care Education/Training Program
DX: N28.89 Other specified disorders of kidney and ureter (principal); N28.1 Cyst of kidney, acquired
CPT/HCPCS: 76770

== ENCOUNTER → 2018-07-10 10:49 | Outpatient (CLI) | payer MEDICARE, OTHER, SELFPAY ==
[2018-06-06 08:55] VITALS: BMI 22.6
[2018-07-10 12:19] LABS: BUN Creatinine Ratio 18.8 (6-22); Blood Urea Nitrogen 15 mg/dL (7-17); Calcium 10.1 mg/dL (8.4-10.2); Carbon Dioxide 27 mmol/L (22-32); Chloride 100 mmol/L (98-107); Estimated Glomerular Filt Rate > 60.0 mL/min (>60); Glucose 98 mg/dL (80-110); HEMOLYSIS < 15 (0-50); Potassium 4.8 mmol/L (3.4-5.1); Sodium 136 mmol/L (137-145)
== END ==
PROVIDERS: Visit Provider Internal Medicine
DX: N28.89 Other specified disorders of kidney and ureter (principal)
CPT/HCPCS: 36415; 80048

== ENCOUNTER → 2018-07-12 12:56 | Outpatient (CLI) | payer MEDICARE, OTHER, SELFPAY ==
[2018-06-06 08:55] VITALS: BMI 22.6
--- NOTE | 2018-07-12 | DI.CT.S_ITS ---
PROCEDURE: CT ABDOMEN WO/W CON INDICATIONS: Renal mass found on US TECHNIQUE: Optional 5 mm thick noncontrast images acquired from the diaphragm to the iliac crests. After the administration of intravenous contrast, 5 mm thick images again acquired from the diaphragm to the iliac crests in the arterial and urographic phases. 5 mm thick coronal and sagittal reformats were then acquired. For radiation dose reduction, the following was used: automated exposure control, adjustment of mA and/or kV according to patient size. COMPARISON: [facility], CT, ABDOMEN/PELVIS WITH CONTRAST, 12/20/2011, 14:33. [facility], US, US ABDOMEN COMPLETE, 06/14/2018, 11:16. [facility], US, US RENAL COMPLETE, 07/03/2018, 10:33. FINDINGS: Image quality: Excellent. Lung bases: Lung bases are clear. Heart size is normal. Genitourinary: There is a 1.3 cm diameter round hypodense nodule in the superior pole of the right kidney consistent with a simple renal cyst. This correlates with the ultrasound finding of a hypoechoic, non-vascular lesion. There multiple other low density nodules in the kidneys bilaterally, also compatible with cysts. Other solid organs: Liver is normal in size and enhancement. A couple of indeterminate hepatic hypodensities are present in the posterior segment of the right hepatic lobe, most likely cysts. Gallbladder is surgically absent. Biliary system is non dilated. Pancreas enhances normally. Spleen is normal in size and enhancement. No adrenal nodules. Peritoneum and bowel: Unenhanced bowel loops are normal in wall thickness and caliber. No free fluid or air. Nodes and vessels: No retroperitoneal or mesenteric adenopathy by size criteria. Aorta and inferior vena cava are normal in caliber. Bones: No suspicious bony lesions. Moderate vertebral body compression fracture at T11. Mild scoliosis. Degenerative changes noted in lumbar spine. Miscellaneous: No ventral hernias. IMPRESSION: 1. A 1.3 cm diameter round hypodense nodule in the superior pole the right kidney is compatible with a cyst. This correlates with the hypoechoic non-vascular disease seen on ultrasound. 2. Multiple renal cysts bilaterally and possibly hepatic cysts. 3. Moderate compression fracture of T11. Dictated by: Bindu Quinteros M.D. on 07/12/2018 at 16:28 Approved by: Bindu Quinteros M.D. on 07/12/2018 at 17:47
== END ==
PROVIDERS: Visit Provider Student in an Organized Health Care Education/Training Program
DX: N28.89 Other specified disorders of kidney and ureter (principal); N28.1 Cyst of kidney, acquired; M48.54XA Collapsed vertebra, not elsewhere classified, thoracic region, initial encounter for fracture; Z90.49 Acquired absence of other specified parts of digestive tract
CPT/HCPCS: 74170; Q9967

== ENCOUNTER → 2018-07-19 10:25 | Outpatient (CLI) | payer MEDICARE, OTHER, SELFPAY ==
[2018-06-06 08:55] VITALS: BMI 22.6
[2018-07-19 11:15] LABS: Add Manual Diff / Slide Review NO; Basophils Absolute Auto 100 /uL (0-100); Basophils Percent Auto 1.1 % (0-2); Eosinophils Absolute Auto 300 /uL (0-450); Eosinophils Percent Auto 3.6 % (2-4); Hematocrit 34.8 % (36-46); Hemoglobin 11.4 g/dL (12.0-16.0); Lymphocytes Absolute Auto 2000 /uL (1100-4500); Lymphocytes Percent Auto 27.9 % (25-40); Mean Corpuscular HGB Conc 32.8 % (30-36); Mean Corpuscular Hemoglobin 29.7 PG (26-34); Mean Corpuscular Volume 90.5 fL (80-100); Monocytes Absolute Auto 600 /uL (0-900); Monocytes Percent Auto 8.9 % (3-14); Neutrophils Absolute Auto 4100 /uL (1500-7000); Neutrophils Percent Auto 58.5 % (50-75); Platelet Count 487 X10^3/uL (150-400); Red Blood Cell Count 3.84 X10^6/uL (4.0-5.2); Red Cell Distribution Width 16.4 % (11.6-14.8); White Blood Cell Count 7.1 X10^3/uL (4.5-11.0)
[2018-07-19 11:28] LABS: Alanine Aminotransferase 22 IU/L (9-52); Albumin 4.2 g/dL (3.5-5.0); Albumin Globulin Ratio 1.3 (1.0-2.8); Alkaline Phosphatase 97 U/L (38-126); Aspartate Aminotransferase 17 IU/L (14-36); BUN Creatinine Ratio 18.6 (6-22); Bilirubin Total 0.4 mg/dL (0.2-1.3); Blood Urea Nitrogen 13 mg/dL (7-17); Calcium 9.5 mg/dL (8.4-10.2); Carbon Dioxide 26 mmol/L (22-32); Chloride 102 mmol/L (98-107); Estimated Glomerular Filt Rate > 60.0 mL/min (>60); Globulin 3.2 g/dL (1.7-4.1); Glucose 94 mg/dL (80-110); HEMOLYSIS < 15 (0-50); Potassium 4.7 mmol/L (3.4-5.1); Sodium 138 mmol/L (137-145); Total Protein 7.4 g/dL (6.3-8.2)
[2018-07-19 12:34] LABS: HEMOLYSIS < 15 (0-50); Iron 81 ug/dL (37-170)
[2018-07-19 12:45] LABS: Percent Iron Saturation 39 % (15-50); Total Iron Binding Capacity 208 ug/dL (265-497); Transferrin 158 mg/dL (206-381)
== END ==
PROVIDERS: PCP Internal Medicine; Visit Provider Internal Medicine
DX: N28.89 Other specified disorders of kidney and ureter (principal); D64.9 Anemia, unspecified; R74.0 Nonspecific elevation of levels of transaminase and lactic acid dehydrogenase [LDH]
CPT/HCPCS: 36415; 80053; 83540; 83550; 85025

== ENCOUNTER → 2018-07-26 09:33 | Outpatient (CLI) | payer MEDICARE, OTHER, SELFPAY ==
[2018-06-06 08:55] VITALS: BMI 22.6
--- NOTE | 2018-07-26 | DI.RAD.S_ITS ---
This blank DEXA report has been sent in error by the PACS system. The correct and complete report will be forthcoming in 1-2 days. Thank you for your patience and understanding. Dictated by: Corey Jain M.D. on 07/26/2018 at 12:35 Approved by: Corey Jain M.D. on 07/26/2018 at 12:38
== END ==
PROVIDERS: PCP Internal Medicine; Visit Provider Internal Medicine
DX: M81.0 Age-related osteoporosis without current pathological fracture (principal); Z78.0 Asymptomatic menopausal state; Z90.722 Acquired absence of ovaries, bilateral
CPT/HCPCS: 77080

== ENCOUNTER → 2018-10-15 07:54 | Outpatient (CLI) | payer MEDICARE, OTHER, SELFPAY ==
[2018-06-06 08:55] VITALS: BMI 22.6
[2018-10-15 08:45] LABS: Add Manual Diff / Slide Review NO; Basophils Absolute Auto 100 /uL (0-100); Basophils Percent Auto 1.1 % (0-2); Eosinophils Absolute Auto 400 /uL (0-450); Hematocrit 36.9 % (36-46); Hemoglobin 12.3 g/dL (12.0-16.0); Lymphocytes Absolute Auto 2100 /uL (1100-4500); Lymphocytes Percent Auto 35.9 % (25-40); Mean Corpuscular HGB Conc 33.4 % (30-36); Mean Corpuscular Hemoglobin 29.2 PG (26-34); Mean Corpuscular Volume 87.6 fL (80-100); Monocytes Absolute Auto 400 /uL (0-900); Monocytes Percent Auto 7.5 % (3-14); Neutrophils Absolute Auto 2800 /uL (1500-7000); Neutrophils Percent Auto 48.5 % (50-75); Platelet Count 405 X10^3/uL (150-400); Red Blood Cell Count 4.21 X10^6/uL (4.0-5.2); Red Cell Distribution Width 15.7 % (11.6-14.8); White Blood Cell Count 5.8 X10^3/uL (4.5-11.0)
[2018-10-15 09:36] LABS: Alanine Aminotransferase 9 IU/L (9-52); Albumin 3.9 g/dL (3.5-5.0); Albumin Globulin Ratio 1.3 (1.0-2.8); Alkaline Phosphatase 66 U/L (38-126); Aspartate Aminotransferase 18 IU/L (14-36); BUN Creatinine Ratio 16.3 (6-22); Bilirubin Total 0.4 mg/dL (0.2-1.3); Blood Urea Nitrogen 13 mg/dL (7-17); Calcium 9.7 mg/dL (8.4-10.2); Carbon Dioxide 28 mmol/L (22-32); Chloride 102 mmol/L (98-107); Estimated Glomerular Filt Rate > 60.0 mL/min (>60); Glucose 94 mg/dL (80-110); HEMOLYSIS < 15 (0-50); Potassium 4.3 mmol/L (3.4-5.1); Sodium 136 mmol/L (137-145); Total Protein 6.9 g/dL (6.3-8.2)
== END ==
PROVIDERS: PCP Internal Medicine; Visit Provider Internal Medicine
DX: M15.0 Primary generalized (osteo)arthritis (principal); D64.9 Anemia, unspecified; R74.0 Nonspecific elevation of levels of transaminase and lactic acid dehydrogenase [LDH]; E64.9 Sequelae of unspecified nutritional deficiency
CPT/HCPCS: 36415; 80053; 85025

== ENCOUNTER 2018-12-03 10:30 | Outpatient (RCR) | payer MEDICARE, OTHER, SELFPAY ==
[2018-06-06 08:55] VITALS: BMI 22.6
--- NOTE | 2018-07-30 15:40 | PT.OIE ---
Current Diagnoses Pain in left hip (08/02/18) Muscle weakness (generalized) (08/02/18) Other abnormalities of gait and mobility (08/02/18) Presence of unspecified artificial hip joint (08/02/18) Past Medical History (Last Reviewed 06/07/18 @ 18:23 by Sonny Donaldson MD) Healthy adult (Acute) History of hysterectomy (Chronic) Osteoporosis (Chronic) Past Surgical History (Last Reviewed 06/07/18 @ 18:23 by Sonny Donaldson MD) History of cholecystectomy (Chronic) Provider Visit Care Team Role Provider Type Nacho Huerta MD Primary Care Provider Physician Specialty: Internal Medicine Address: [address] [place] [address], [id number] Email: Leonel Patton MD Attending Provider Physician Specialty: Orthopedic Surgery Address: [address] [place] [address], [id number] Email: [email or web address] [facility] Initial Evaluation PT-OP-A Visit Information Start: 07/30/18 08:10 Freq: Status: Active Protocol: Document 07/30/18 12:49 LRN (Rec: 07/30/18 17:34 LRN [id number]) Out-Patient Physical Therapy Visit Information Visit Information Visit Type Initial Evaluation Visit Start Time 12:49 Visit Stop Time 13:38 Total Visit Minutes 49 Visit Number 1 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 Osteoporosis PT-OP-B Current Condition Start: 07/30/18 08:10 Freq: Status: Active Protocol: Document 07/30/18 12:49 LRN (Rec: 07/30/18 17:34 LRN [id number]) Current Condition History of Current Condition Onset Date Partial L posterior hip replacement 06/06/18 Current Complaints Difficulty walking level and stairs, using 4WW, not able to exercise. History of Current Condition Pt reports falling suffering a fractured hip, with partial replacement on 06/06/18. States she was in the hospital 9.5 days due to a collapsed lung. She then developed a viral pneumonia. She spent 5 days in rehab at [facility] and had Home Health for 1 month until 07/25/18. She will be having assist from [employer] [place] for her transportation, personal hygiene and laundry needs. She states she has been cleared of any hip precautions following her 6 week follow up MD visit. She is currently being monitored for a cyst on the R kidney. Treatment Goals Patient/Caregiver Goals Pt goal is to be able to walk without her 4WW and ambulate stairs with a normal gait. She would like to be able to garden this year but understands this might be a difficult and somewhat unrealistic goal to achieve. Prior Functional Status Baseline Function- ADL's Independent Baseline Function- Mobility Independent Baseline Function- Gait Walked 1/2 hour daily. Able to ambulate stairs with a normal gait. Baseline Function- Recreation/Hobbies Gardening Baseline Function- Other Could exercised 1/2 hour on stationary bike or treadmill. Current Functional Impairments (Reported) Functional Limitations- ADL's SBA for showers. Moves very slow and cautiously with transfers due to fear of falling. Functional Limitations- Mobility/Gait Walks with a 4WW or sometimes in the home with SPC because of fear of falling. Stairs: step to gait with 2 railings. Functional Limitations- Recreation/ Not able to garden Hobbies Personal Factors Other Personal Factors That May Effect > 65 yrs old Therapy/Recovery Has 92 year old . Osteoporosis Has 2 flights of stairs in home. Has need of [employer] for transportation and home needs. PT-OP-C Subjective Start: 07/30/18 08:10 Freq: Status: Active Protocol: Document 07/30/18 12:49 LRN (Rec: 07/30/18 17:34 LRN [id number]) OP-PT Subjective Patient Comments Patient Comments States at her last MD (6 wk follow up) her hip precautions were lifted. Patient Questionnaires Lower Extremity Functional Scale LEFS Score 24 LEFS Impairment 60 to 79% Impaired (Score 17- 31) OP-PT Pain Assessment Pain Assessment Grid Paper Pain Assessment Grid Completed Yes Location Left Hip Pain Location Details Anterior L hip Intensity 2 Scale Used Numeric (1 - 10) PT-OP-D Balance Start: 07/30/18 12:50 Freq: Status: Active Protocol: Document 07/30/18 12:49 LRN (Rec: 07/30/18 17:34 LRN [id number]) OP-PT Balance Assessment Sitting Balance Static Sitting Balance Ability Normal Dynamic Sitting Balance Ability Good Standing Balance Static Standing Balance Ability Good Dynamic Standing Balance Ability Poor Balance Tests Single Limb Standing Single Limb- Right 0 Single Limb- Left 0 Tinetti Balance Assessment Sitting Balance Sitting Balance Steady, safe Arising from Chair Ability to Arise Able, uses arms to help Standing Balance Immediate Standing Balance Steady with support Standing Balance Steady, wide stance Nudged Response Begins to fall Standing with Eyes Closed Unsteady Turning Step Pattern Turning 360 Degrees Discontinuous steps Stability Turning 360 Degrees Unsteady, grabs/staggers Sitting Down Sitting Down Uses arms or unsteady Gait and Step Initiation of Gait No hesitancy Right Foot Step Length Does not pass stance ft. Right Foot Step Height Does not clear floor Left Foot Step Length Does not pass stance foot Left Foot Step Height Does not clear floor Step Description Step Symmetry Step length appears equal Gait Description Path Description Straight Trunk Description Marked sway or uses aide Walking Stance Heels apart Scoring and Interpretation Tinetti Composite Score (points) 9 Lopez Fall Scale Copyright Permission Jessica WILHELM, Jessica RM, Francia SJ. Development of a scale to identify the fall- prone patient. Can J Aging 1989;8;366-7. Ramo Lopez (2009). Preventing patient falls. (2nd ed). [place]: St. PT-OP-F Manual Assessment Start: 07/30/18 08:10 Freq: Status: Active Protocol: Document 07/30/18 12:49 LRN (Rec: 07/30/18 17:34 LRN [id number]) Manual Assessments Soft Tissue Assessment Soft Tissue Mobility Assessment Anterior L hip: No palpable pain. Pain with active hip flex, AB. PT-OP-G Mobility & Gait Start: 07/30/18 08:10 Freq: Status: Active Protocol: Document 07/30/18 12:49 LRN (Rec: 07/30/18 17:34 LRN [id number]) OP Mobility Evaluation Transfers Sit to Stand SBA Bed to Chair Transfers Pt able to independently transfer onto plinth table moving slowly and with difficulty. OP Gait Assessment Gait Gait Assistance Required: Independent Able to Maintain Weight Bearing Status Yes During Gait Assistive Devices Assistive Device 4 Wheeled Walker Orthotic/Prosthetic Devices or Brace: No Gait Deviations General Gait Pattern Decreased Stride Length Decreased Feet Clearance Flexed Trunk Narrow Based Gait Factors Limiting Gait Function Factors Limiting Gait Function Decreased Strength Pain Poor Balance PT-OP-H Neuro Start: 07/30/18 12:50 Freq: Status: Active Protocol: Document 07/30/18 12:49 LRN (Rec: 07/30/18 17:34 LRN [id number]) Sensation Evaluation Location Details Right Lower Extremity Light Touch Intact/Normal Left Lower Extremity Light Touch Intact/Normal PT-OP-K Range of Motion Start: 07/30/18 08:10 Freq: Status: Active Protocol: Document 07/30/18 12:49 LRN (Rec: 07/30/18 17:34 LRN [id number]) Hip Goniometric Range of Motion Hip Measured in Degrees Left Testing Position Supine Hip ROM Limitations Hip ROM Limitations Soft Tissue Tightness Muscle Weakness Pain Comments Pt had minimal to no active mobility of L hip for flex, AB , ext. in supine Knee Goniometric Range of Motion Knee Measured in Degrees Right Knee ROM WFL Yes Left Knee ROM WFL Yes Ankle and Foot Goniometric Range of Motion Ankle and Foot Measured in Degrees Right Active Dorsiflexion with Knee Extended 2 Plantarflexion 45 Left Active Plantarflexion 18 Ankle and Foot ROM Limitations ROM Limitations Soft Tissue Tightness Muscle Weakness Comments L ankle active DF: Lacks 3 deg's to neutral. PT-OP-M Strength Start: 07/30/18 08:10 Freq: Status: Active Protocol: Document 07/30/18 12:49 LRN (Rec: 07/30/18 17:34 LRN [id number]) Hip Strength Hip Manual Muscle Testing Right Flexion (L2) 4+ Good+ Extension (S1) 3- Fair- Abduction 3 Fair Left Flexion (L2) 1 Trace Extension (S1) 1 Trace Abduction 1 Trace Knee Strength Knee Manual Muscle Testing Right Flexion (S2) 5 Normal Extension (L3) 5 Normal Left Flexion (S2) 5 Normal Extension (L3) 5 Normal Ankle/Foot Strength Ankle and Foot Manual Muscle Testing Right Reason Not Measured WFL Left Plantarflexion (S1) 5 Normal Inversion 4 Good Eversion (S1) 3+ Fair+ Comments Ankle PF is 5/5 within available range. PT-OP-Q Treatments Start: 07/30/18 08:10 Freq: Status: Active Protocol: Document 07/30/18 12:49 LRN (Rec: 07/30/18 17:34 LRN [id number]) Therapeutic Exercises Supine Exercises Heel slides Supine Exercise Name Assisted with belt Side left Reps/Minutes 8x Comments Pt to push with straightening and assist with flexing the knee Bridging Supine Exercise Name Indep Bridging Reps/Minutes 3x Hip AB Supine Exercise Name Assisted AB Side left Reps/Minutes 5x SLR Supine Exercise Name Assisted SLR Side left Reps/Minutes 10x Self-Care/Home Management Treatment Education Patient Education Home Exercise Program Activities Self-Care/Home Management Activities Reviewed ex's issued at [facility]. Pt I/S to begin ex's given while in the hospital and to continue HEP issued from [facility]. PT-OP-T Assessment and Plan Start: 07/30/18 08:10 Freq: Status: Active Protocol: Document 07/30/18 12:49 LRN (Rec: 07/30/18 17:34 LRN [id number]) Physical Therapy Assessment Rehab Potential Rehabilitation Potential Good Evaluation Complexity Number of Personal Factors/Comorbidities 3 or More Number of Body Systems Impaired 4 or More Clinical Presentation at Evaluation Evolving Impairments Impairments Balance Functional Mobility Gait Pain Posture ROM Strength Other Concerns Fall Risk Yes Age Related Concerns Impact on family Barriers to Rehabilitation > 65 yrs old Pt has extreme fear of falling Osteoporosis Pt has [employer] helping with transportation Goals Decreased balance Impairment Tinetti Balance score of 7/16 indicating pt at risk of falling. Snf Goal (LTG) Pt will achieve a Tinetti Balance score of at least 12 of 16 with a gait score of 12 indicating pt is at low risk of falling. LTG Duration 10/22/18 Decreased L hip strength Impairment Pt unable to lift L leg independently making transfers difficult Short Term Goal (STG) Pt will be able to lift her L LE independently to be able to transfer off/on the plinth table without assist. STG Duration 08/16/18 Decreased active L hip mobility Impairment Pt lacks L hip AB mobility for painfree transfers Short Term Goal (STG) Pt will improve active L hip AB mobility for painfree transfers off/on plinth tables . STG Duration 08/23/18 Decreased ankle mobility Impairment Pt lacks functional ankle DF mobility for gait Short Term Goal (STG) Improve ankle active DF with pt able to demonstrate normal gait mechanics without the use of an assistive device. STG Duration 08/23/18 Gait Impairment Pt requires use of assistive device for gait [employer] Specialist Goal (LTG) Pt will be independent with a normal gait without an assistive device. LTG Duration 10/22/18 HEP Impairment Pt lacks appropriate self care HEP [employer]ist Goal (LTG) Pt will be independent with a self care HEP. LTG Duration 10/22/18 Assessment Summary Assessment Pt is s/p partial L posterior hip replacement on 06/06/18. She has limited active hip mobility and strength as expected. She has weakness in the ankles and decreased standing balance ability, putting the pt at a higher risk of falling. She is using a 4WW at this time for safety with gait and can navigate stairs with a step to gait using 2 railings. The pt is extremely fearful of falling and is very cautious with mobility. She is having anterior hip pain with supine ex's probably due to poor joint mechanics from muscle imbalance. The pt will benefit from skilled physical therapy for her L partial hip replacement rehabilitation to improve strength, mobility, and safety with gait. She will have an independent HEP at the time of discharge to help her achieve at a later date the ability to garden if not this year, then next year. Physical Therapy Plan Frequency and Duration Frequency of Treatment 2x/Week Plan of Care Start Date 07/30/18 Plan of Care End Date 10/22/18 Therapeutic Interventions Therapeutic Interventions Balance Training Gait Training Home Exercise Program Manual Therapy Neuromuscular Re-education Patient/Caregiver Education Self-Care/Home Management Soft Tissue Mobilization Taping Therapeutic Activities Therapeutic Exercises Modalities Cold Pack/Ice Massage Hot Packs Next Visit Focus/Plan Next Note Type Treatment Note Next Visit Plan Continue with L partial hip replacement rehab. Although pt has had her hip precautions lifted we will continue to follow until the pt can make greater gains in hip strength for stability at the hip. Start with review of HEP issued from hospital and progress as pt tolerates. Further assessment of the L anterior hip pain may be needed to minimize pain with exercise. Assess TUG and ADKINS, collect ABC score. Standing L hip strengthening ex's if pt unable to tolerate supine ex's. End with cryotherapy to the L hip.
--- NOTE | 2018-08-02 16:04 | PT.OTN ---
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 Osteoporosis PT-OP-B Current Condition Start: 07/30/18 08:10 Freq: Status: Active Protocol: Document 07/30/18 12:49 LRN (Rec: 07/30/18 17:34 LRN [id number]) Current Condition History of Current Condition Onset Date Partial L posterior hip replacement 06/06/18 Current Complaints Difficulty walking level and stairs, using 4WW, not able to exercise. History of Current Condition Pt reports falling suffering a fractured hip, with partial replacement on 06/06/18. States she was in the hospital 9.5 days due to a collapsed lung. She then developed a viral pneumonia. She spent 5 days in rehab at [facility] and had Home Health for 1 month until 07/25/18. She will be having assist from [facility] [place] for her transportation, personal hygiene and laundry needs. She states she has been cleared of any hip precautions following her 6 week follow up MD visit. She is currently being monitored for a cyst on the R kidney. Treatment Goals Patient/Caregiver Goals Pt goal is to be able to walk without her 4WW and ambulate stairs with a normal gait. She would like to be able to garden this year but understands this might be a difficult and somewhat unrealistic goal to achieve. Prior Functional Status Baseline Function- ADL's Independent Baseline Function- Mobility Independent Baseline Function- Gait Walked 1/2 hour daily. Able to ambulate stairs with a normal gait. Baseline Function- Recreation/Hobbies Gardening Baseline Function- Other Could exercised 1/2 hour on stationary bike or treadmill. Current Functional Impairments (Reported) Functional Limitations- ADL's SBA for showers. Moves very slow and cautiously with transfers due to fear of falling. Functional Limitations- Mobility/Gait Walks with a 4WW or sometimes in the home with SPC because of fear of falling. Stairs: step to gait with 2 railings. Functional Limitations- Recreation/ Not able to garden Hobbies Personal Factors Other Personal Factors That May Effect > 65 yrs old Therapy/Recovery Has 92 year old . Osteoporosis Has 2 flights of stairs in home. Has need of [facility] [place] for transportation and home needs. PT-OP-C Subjective Start: 07/30/18 08:10 Freq: Status: Active Protocol: Document 08/02/18 12:50 LRN (Rec: 08/02/18 16:03 LRN [id number]) OP-PT Subjective Patient Comments Patient Comments States she has been doing her HEP given in hospital. States she is not having the L groin pain that she did while at PT last session.s PT-OP-D Balance Start: 07/30/18 12:50 Freq: Status: Active Protocol: Document 07/30/18 12:49 LRN (Rec: 07/30/18 17:34 LRN [id number]) OP-PT Balance Assessment Sitting Balance Static Sitting Balance Ability Normal Dynamic Sitting Balance Ability Good Standing Balance Static Standing Balance Ability Good Dynamic Standing Balance Ability Poor Balance Tests Single Limb Standing Single Limb- Right 0 Single Limb- Left 0 Tinetti Balance Assessment Sitting Balance Sitting Balance Steady, safe Arising from Chair Ability to Arise Able, uses arms to help Standing Balance Immediate Standing Balance Steady with support Standing Balance Steady, wide stance Nudged Response Begins to fall Standing with Eyes Closed Unsteady Turning Step Pattern Turning 360 Degrees Discontinuous steps Stability Turning 360 Degrees Unsteady, grabs/staggers Sitting Down Sitting Down Uses arms or unsteady Gait and Step Initiation of Gait No hesitancy Right Foot Step Length Does not pass stance ft. Right Foot Step Height Does not clear floor Left Foot Step Length Does not pass stance foot Left Foot Step Height Does not clear floor Step Description Step Symmetry Step length appears equal Gait Description Path Description Straight Trunk Description Marked sway or uses aide Walking Stance Heels apart Scoring and Interpretation Tinetti Composite Score (points) 9 Lopez Fall Scale Copyright Permission Jessica WILHELM, Jessica RM, Francia SJ. Development of a scale to identify the fall- prone patient. Can J Aging 1989;8;366-7. Ramo Lopez (2009). Preventing patient falls. (2nd ed). [place]: St. PT-OP-F Manual Assessment Start: 07/30/18 08:10 Freq: Status: Active Protocol: Document 07/30/18 12:49 LRN (Rec: 07/30/18 17:34 LRN [id number]) Manual Assessments Soft Tissue Assessment Soft Tissue Mobility Assessment Anterior L hip: No palpable pain. Pain with active hip flex, AB. PT-OP-G Mobility & Gait Start: 07/30/18 08:10 Freq: Status: Active Protocol: Document 07/30/18 12:49 LRN (Rec: 07/30/18 17:34 LRN [id number]) OP Mobility Evaluation Transfers Sit to Stand SBA Bed to Chair Transfers Pt able to independently transfer onto plinth table moving slowly and with difficulty. OP Gait Assessment Gait Gait Assistance Required: Independent Able to Maintain Weight Bearing Status Yes During Gait Assistive Devices Assistive Device 4 Wheeled Walker Orthotic/Prosthetic Devices or Brace: No Gait Deviations General Gait Pattern Decreased Stride Length Decreased Feet Clearance Flexed Trunk Narrow Based Gait Factors Limiting Gait Function Factors Limiting Gait Function Decreased Strength Pain Poor Balance PT-OP-H Neuro Start: 07/30/18 12:50 Freq: Status: Active Protocol: Document 07/30/18 12:49 LRN (Rec: 07/30/18 17:34 LRN [id number]) Sensation Evaluation Location Details Right Lower Extremity Light Touch Intact/Normal Left Lower Extremity Light Touch Intact/Normal PT-OP-K Range of Motion Start: 07/30/18 08:10 Freq: Status: Active Protocol: Document 07/30/18 12:49 LRN (Rec: 07/30/18 17:34 LRN [id number]) Hip Goniometric Range of Motion Hip Measured in Degrees Left Testing Position Supine Hip ROM Limitations Hip ROM Limitations Soft Tissue Tightness Muscle Weakness Pain Comments Pt had minimal to no active mobility of L hip for flex, AB , ext. in supine Knee Goniometric Range of Motion Knee Measured in Degrees Right Knee ROM WFL Yes Left Knee ROM WFL Yes Ankle and Foot Goniometric Range of Motion Ankle and Foot Measured in Degrees Right Active Dorsiflexion with Knee Extended 2 Plantarflexion 45 Left Active Plantarflexion 18 Ankle and Foot ROM Limitations ROM Limitations Soft Tissue Tightness Muscle Weakness Comments L ankle active DF: Lacks 3 deg's to neutral. PT-OP-M Strength Start: 07/30/18 08:10 Freq: Status: Active Protocol: Document 07/30/18 12:49 LRN (Rec: 07/30/18 17:34 LRN [id number]) Hip Strength Hip Manual Muscle Testing Right Flexion (L2) 4+ Good+ Extension (S1) 3- Fair- Abduction 3 Fair Left Flexion (L2) 1 Trace Extension (S1) 1 Trace Abduction 1 Trace Knee Strength Knee Manual Muscle Testing Right Flexion (S2) 5 Normal Extension (L3) 5 Normal Left Flexion (S2) 5 Normal Extension (L3) 5 Normal Ankle/Foot Strength Ankle and Foot Manual Muscle Testing Right Reason Not Measured WFL Left Plantarflexion (S1) 5 Normal Inversion 4 Good Eversion (S1) 3+ Fair+ Comments Ankle PF is 5/5 within available range. PT-OP-Q Treatments Start: 07/30/18 08:10 Freq: Status: Active Protocol: Document 08/02/18 12:50 LRN (Rec: 08/02/18 16:03 LRN [id number]) Therapeutic Exercises Supine Exercises Quad strengthening Supine Exercise Name Srinivasan SAQ over bolster Side bilateral Reps/Minutes 15x Heel slides Supine Exercise Name With and without assist Side left Reps/Minutes 10 x each Bridging Supine Exercise Name Indep Bridging Reps/Minutes 30 x 2 Hip AB Supine Exercise Name Assisted AB Side left Reps/Minutes 15x SLR Supine Exercise Name Self assisted SLR with belt Side left Reps/Minutes 10x Sidelying Exercises Clamshell Side left Reps/Minutes 10x Sitting Exercises Sit to Stand Sitting Exercise Name Sit to Stand from high surface Reps/Minutes 10x Gait Training Gait Activity Gait mechanics Description Weight shifting and equal step length training Device Used 4WW & Cane Level of Assistance CGA Surface Level Comments TU sec's. Self-Care/Home Management Treatment Education Patient Education Home Exercise Program Activities Self-Care/Home Management Activities Pt issued and reviewed HEP: Hip AB in supine & sidelie, SLR, & sit to stand. PT-OP-R Modalities Start: 07/30/18 08:10 Freq: Status: Active Protocol: Document 08/02/18 12:50 LRN (Rec: 08/02/18 16:03 LRN [id number]) Hot Pack/Cold Pack Treatment Cold Pack Location L anterior & lateral hip. Patient Position Supine Treatment Duration (minutes) 10 Patient Tolerance Good PT-OP-T Assessment and Plan Start: 07/30/18 08:10 Freq: Status: Active Protocol: Document 08/02/18 12:50 LRN (Rec: 08/02/18 16:03 LRN [id number]) Physical Therapy Assessment Progress Towards Goals Progress Towards Goals Progressing Toward Goals Progress Comments Pt able to perform an independent heels slide with pain after 10 reps. Assessment Summary Assessment Pt is s/p partial L posterior hip replacement on 06/06/18. Her active L hip AB & flexion mobility is limited by pain and weakness. Strengthening of the ankles was not addressed. Pt has much fear of falling. She is using a 4WW but was able to walk with a SPC as long as she could be held onto due to her fear of falling. Physical Therapy Plan Frequency and Duration Frequency of Treatment 2x/Week Plan of Care Start Date 07/30/18 Plan of Care End Date 10/22/18 Next Visit Focus/Plan Next Note Type Treatment Note Next Visit Plan Assess ADKINS. Start standing L hip strengthening ex's if pt tolerates. Continue with L partial hip replacement rehab. Maintain posterior hip precautions until the pt can make greater gains in hip strength for stability at the hip. End with cryotherapy to the L hip.
--- NOTE | 2018-08-06 15:57 | PT.OTN ---
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 Osteoporosis PT-OP-B Current Condition Start: 07/30/18 08:10 Freq: Status: Active Protocol: Document 07/30/18 12:49 LRN (Rec: 07/30/18 17:34 LRN [id number]) Current Condition History of Current Condition Onset Date Partial L posterior hip replacement 06/06/18 Current Complaints Difficulty walking level and stairs, using 4WW, not able to exercise. History of Current Condition Pt reports falling suffering a fractured hip, with partial replacement on 06/06/18. States she was in the hospital 9.5 days due to a collapsed lung. She then developed a viral pneumonia. She spent 5 days in rehab at [facility] [place] and had Home Health for 1 month until 07/25/18. She will be having assist from [facility] [place] for her transportation, personal hygiene and laundry needs. She states she has been cleared of any hip precautions following her 6 week follow up MD visit. She is currently being monitored for a cyst on the R kidney. Treatment Goals Patient/Caregiver Goals Pt goal is to be able to walk without her 4WW and ambulate stairs with a normal gait. She would like to be able to garden this year but understands this might be a difficult and somewhat unrealistic goal to achieve. Prior Functional Status Baseline Function- ADL's Independent Baseline Function- Mobility Independent Baseline Function- Gait Walked 1/2 hour daily. Able to ambulate stairs with a normal gait. Baseline Function- Recreation/Hobbies Gardening Baseline Function- Other Could exercised 1/2 hour on stationary bike or treadmill. Current Functional Impairments (Reported) Functional Limitations- ADL's SBA for showers. Moves very slow and cautiously with transfers due to fear of falling. Functional Limitations- Mobility/Gait Walks with a 4WW or sometimes in the home with SPC because of fear of falling. Stairs: step to gait with 2 railings. Functional Limitations- Recreation/ Not able to garden Hobbies Personal Factors Other Personal Factors That May Effect > 66 yrs old Therapy/Recovery Has 92 year old . Osteoporosis Has 2 flights of stairs in home. Has need of [facility] [place] for transportation and home needs. PT-OP-C Subjective Start: 07/30/18 08:10 Freq: Status: Active Protocol: Document 08/06/18 15:15 DCW (Rec: 08/06/18 15:57 DCW [id number]) OP-PT Subjective Patient Comments Patient Comments Pt reports she has been having difficulty with her supine hip abduction, but admits she has been trying to do it with her leg lifted up in the air. PT-OP-D Balance Start: 07/30/18 12:50 Freq: Status: Active Protocol: Document 07/30/18 12:49 LRN (Rec: 07/30/18 17:34 LRN [id number]) OP-PT Balance Assessment Sitting Balance Static Sitting Balance Ability Normal Dynamic Sitting Balance Ability Good Standing Balance Static Standing Balance Ability Good Dynamic Standing Balance Ability Poor Balance Tests Single Limb Standing Single Limb- Right 0 Single Limb- Left 0 Tinetti Balance Assessment Sitting Balance Sitting Balance Steady, safe Arising from Chair Ability to Arise Able, uses arms to help Standing Balance Immediate Standing Balance Steady with support Standing Balance Steady, wide stance Nudged Response Begins to fall Standing with Eyes Closed Unsteady Turning Step Pattern Turning 360 Degrees Discontinuous steps Stability Turning 360 Degrees Unsteady, grabs/staggers Sitting Down Sitting Down Uses arms or unsteady Gait and Step Initiation of Gait No hesitancy Right Foot Step Length Does not pass stance ft. Right Foot Step Height Does not clear floor Left Foot Step Length Does not pass stance foot Left Foot Step Height Does not clear floor Step Description Step Symmetry Step length appears equal Gait Description Path Description Straight Trunk Description Marked sway or uses aide Walking Stance Heels apart Scoring and Interpretation Tinetti Composite Score (points) 9 Lopez Fall Scale Copyright Permission Jessica JM, Jessica RM, Francia SJ. Development of a scale to identify the fall- prone patient. Can J Aging 1989;8;366-7. Ramo Lopez (2009). Preventing patient falls. (2nd ed). [place]: St. PT-OP-F Manual Assessment Start: 07/30/18 08:10 Freq: Status: Active Protocol: Document 07/30/18 12:49 LRN (Rec: 07/30/18 17:34 LRN [id number]) Manual Assessments Soft Tissue Assessment Soft Tissue Mobility Assessment Anterior L hip: No palpable pain. Pain with active hip flex, AB. PT-OP-G Mobility & Gait Start: 07/30/18 08:10 Freq: Status: Active Protocol: Document 07/30/18 12:49 LRN (Rec: 07/30/18 17:34 LRN [id number]) OP Mobility Evaluation Transfers Sit to Stand SBA Bed to Chair Transfers Pt able to independently transfer onto plinth table moving slowly and with difficulty. OP Gait Assessment Gait Gait Assistance Required: Independent Able to Maintain Weight Bearing Status Yes During Gait Assistive Devices Assistive Device 4 Wheeled Walker Orthotic/Prosthetic Devices or Brace: No Gait Deviations General Gait Pattern Decreased Stride Length Decreased Feet Clearance Flexed Trunk Narrow Based Gait Factors Limiting Gait Function Factors Limiting Gait Function Decreased Strength Pain Poor Balance PT-OP-H Neuro Start: 07/30/18 12:50 Freq: Status: Active Protocol: Document 07/30/18 12:49 LRN (Rec: 07/30/18 17:34 LRN [id number]) Sensation Evaluation Location Details Right Lower Extremity Light Touch Intact/Normal Left Lower Extremity Light Touch Intact/Normal PT-OP-K Range of Motion Start: 07/30/18 08:10 Freq: Status: Active Protocol: Document 07/30/18 12:49 LRN (Rec: 07/30/18 17:34 LRN [id number]) Hip Goniometric Range of Motion Hip Measured in Degrees Left Testing Position Supine Hip ROM Limitations Hip ROM Limitations Soft Tissue Tightness Muscle Weakness Pain Comments Pt had minimal to no active mobility of L hip for flex, AB , ext. in supine Knee Goniometric Range of Motion Knee Measured in Degrees Right Knee ROM WFL Yes Left Knee ROM WFL Yes Ankle and Foot Goniometric Range of Motion Ankle and Foot Measured in Degrees Right Active Dorsiflexion with Knee Extended 2 Plantarflexion 45 Left Active Plantarflexion 18 Ankle and Foot ROM Limitations ROM Limitations Soft Tissue Tightness Muscle Weakness Comments L ankle active DF: Lacks 3 deg's to neutral. PT-OP-M Strength Start: 07/30/18 08:10 Freq: Status: Active Protocol: Document 07/30/18 12:49 LRN (Rec: 07/30/18 17:34 LRN [id number]) Hip Strength Hip Manual Muscle Testing Right Flexion (L2) 4+ Good+ Extension (S1) 3- Fair- Abduction 3 Fair Left Flexion (L2) 1 Trace Extension (S1) 1 Trace Abduction 1 Trace Knee Strength Knee Manual Muscle Testing Right Flexion (S2) 5 Normal Extension (L3) 5 Normal Left Flexion (S2) 5 Normal Extension (L3) 5 Normal Ankle/Foot Strength Ankle and Foot Manual Muscle Testing Right Reason Not Measured WFL Left Plantarflexion (S1) 5 Normal Inversion 4 Good Eversion (S1) 3+ Fair+ Comments Ankle PF is 5/5 within available range. PT-OP-Q Treatments Start: 07/30/18 08:10 Freq: Status: Active Protocol: Document 08/06/18 15:15 DCW (Rec: 08/06/18 15:57 DCW [id number]) Therapeutic Exercises Supine Exercises Quad strengthening Supine Exercise Name Srinivasan SAQ over bolster Side bilateral Reps/Minutes 15x Heel slides Supine Exercise Name Heel Slides Side left Reps/Minutes 10x Bridging Supine Exercise Name Indep Bridging Reps/Minutes 30 x 2 Hip AB Supine Exercise Name Abduction Side left Reps/Minutes 15x SLR Supine Exercise Name Self assisted SLR with belt Side left Reps/Minutes 10x Sidelying Exercises Hip Abduction Sidelying Exercise Name AAROM Hip Abd Comments PT assist Clamshell Side left Reps/Minutes 10x Standing Exercises Hip Adduction Standing Exercise Name Adduction Side bilateral Resistance Lv 1 Equipment Used T-band Hip Extension Standing Exercise Name Extension to neutral Side bilateral Resistance Lv 1 Equipment Used T-band PT-OP-R Modalities Start: 07/30/18 08:10 Freq: Status: Active Protocol: Document 08/02/18 12:50 LRN (Rec: 08/02/18 16:03 LRN [id number]) Hot Pack/Cold Pack Treatment Cold Pack Location L anterior & lateral hip. Patient Position Supine Treatment Duration (minutes) 10 Patient Tolerance Good PT-OP-T Assessment and Plan Start: 07/30/18 08:10 Freq: Status: Active Protocol: Document 08/06/18 15:15 DCW (Rec: 08/06/18 15:57 DCW [id number]) Physical Therapy Assessment Assessment Summary Assessment Pt required more instruction for proper performance of HEP, however was able to properly demonstrate activities by the end of her session. Pt's abduction continues to be limited by weakness and pain, however pt was willing to work through soreness. Will test pt with [place] next visit to determine falls risk. Physical Therapy Plan Frequency and Duration Frequency of Treatment 2x/Week Plan of Care Start Date 07/30/18 Plan of Care End Date 10/22/18 Therapeutic Interventions Therapeutic Interventions Balance Training Gait Training Home Exercise Program Manual Therapy Neuromuscular Re-education Patient/Caregiver Education Self-Care/Home Management Soft Tissue Mobilization Taping Therapeutic Activities Therapeutic Exercises Modalities Cold Pack/Ice Massage Hot Packs Next Visit Focus/Plan Next Note Type Treatment Note Next Visit Plan Assess LUCILLE. Start standing L hip strengthening ex's if pt tolerates. Continue with L partial hip replacement rehab. Maintain posterior hip precautions until the pt can make greater gains in hip strength for stability at the hip. End with cryotherapy to the L hip.
--- NOTE | 2018-08-08 17:52 | PT.OTN ---
Current Diagnoses Pain in left hip (08/08/18) Presence of unspecified artificial hip joint (08/08/18) Physical Therapy Treatment Note PT-OP-A Visit Information Start: 07/30/18 08:10 Freq: Status: Active Protocol: Document 08/08/18 10:30 DCW (Rec: 08/08/18 17:51 DCW [id number]) Out-Patient Physical Therapy Visit Information Visit Information Visit Type Treatment Note Visit Start Time 10:30 Visit Stop Time 11:15 Total Visit Minutes 45 Visit Number 4 Number of GEOPHYSICAL LABORATORY CHIEF Visits 0 Evaluation Information Evaluation Date 07/30/18 Precautions Precautions s/p partial L hip replacement Hx of pneumothorax - during hip replacement hospitalization. Osteoporosis PT-OP-B Current Condition Start: 07/30/18 08:10 Freq: Status: Active Protocol: Document 07/30/18 12:49 LRN (Rec: 07/30/18 17:34 LRN [id number]) Current Condition History of Current Condition Onset Date Partial L posterior hip replacement 06/06/18 Current Complaints Difficulty walking level and stairs, using 4WW, not able to exercise. History of Current Condition Pt reports falling suffering a fractured hip, with partial replacement on 06/06/18. States she was in the hospital 9.5 days due to a collapsed lung. She then developed a viral pneumonia. She spent 5 days in rehab at [facility] and had Home Health for 1 month until 07/25/18. She will be having assist from [facility] [place] for her transportation, personal hygiene and laundry needs. She states she has been cleared of any hip precautions following her 6 week follow up MD visit. She is currently being monitored for a cyst on the R kidney. Treatment Goals Patient/Caregiver Goals Pt goal is to be able to walk without her 4WW and ambulate stairs with a normal gait. She would like to be able to garden this year but understands this might be a difficult and somewhat unrealistic goal to achieve. Prior Functional Status Baseline Function- ADL's Independent Baseline Function- Mobility Independent Baseline Function- Gait Walked 1/2 hour daily. Able to ambulate stairs with a normal gait. Baseline Function- Recreation/Hobbies Gardening Baseline Function- Other Could exercised 1/2 hour on stationary bike or treadmill. Current Functional Impairments (Reported) Functional Limitations- ADL's SBA for showers. Moves very slow and cautiously with transfers due to fear of falling. Functional Limitations- Mobility/Gait Walks with a 4WW or sometimes in the home with SPC because of fear of falling. Stairs: step to gait with 2 railings. Functional Limitations- Recreation/ Not able to garden Hobbies Personal Factors Other Personal Factors That May Effect > 66 yrs old Therapy/Recovery Has 89 year old . Osteoporosis Has 2 flights of stairs in home. Has need of [facility] [place] for transportation and home needs. PT-OP-C Subjective Start: 07/30/18 08:10 Freq: Status: Active Protocol: Document 08/08/18 10:30 DCW (Rec: 08/08/18 17:51 DCW [id number]) OP-PT Subjective Patient Comments Patient Comments You really worked me hard last time, but I feel pretty good. PT-OP-D Balance Start: 07/30/18 12:50 Freq: Status: Active Protocol: Document 07/30/18 12:49 LRN (Rec: 07/30/18 17:34 LRN [id number]) OP-PT Balance Assessment Sitting Balance Static Sitting Balance Ability Normal Dynamic Sitting Balance Ability Good Standing Balance Static Standing Balance Ability Good Dynamic Standing Balance Ability Poor Balance Tests Single Limb Standing Single Limb- Right 0 Single Limb- Left 0 Tinetti Balance Assessment Sitting Balance Sitting Balance Steady, safe Arising from Chair Ability to Arise Able, uses arms to help Standing Balance Immediate Standing Balance Steady with support Standing Balance Steady, wide stance Nudged Response Begins to fall Standing with Eyes Closed Unsteady Turning Step Pattern Turning 360 Degrees Discontinuous steps Stability Turning 360 Degrees Unsteady, grabs/staggers Sitting Down Sitting Down Uses arms or unsteady Gait and Step Initiation of Gait No hesitancy Right Foot Step Length Does not pass stance ft. Right Foot Step Height Does not clear floor Left Foot Step Length Does not pass stance foot Left Foot Step Height Does not clear floor Step Description Step Symmetry Step length appears equal Gait Description Path Description Straight Trunk Description Marked sway or uses aide Walking Stance Heels apart Scoring and Interpretation Tinetti Composite Score (points) 9 Lopez Fall Scale Copyright Permission Jessica WILHELM, Jessica RM, Francia SJ. Development of a scale to identify the fall- prone patient. Can J Aging 1989;8;366-7. Ramo Lopez (2009). Preventing patient falls. (2nd ed). [place]: St. PT-OP-F Manual Assessment Start: 07/30/18 08:10 Freq: Status: Active Protocol: Document 07/30/18 12:49 LRN (Rec: 07/30/18 17:34 LRN [id number]) Manual Assessments Soft Tissue Assessment Soft Tissue Mobility Assessment Anterior L hip: No palpable pain. Pain with active hip flex, AB. PT-OP-G Mobility & Gait Start: 07/30/18 08:10 Freq: Status: Active Protocol: Document 07/30/18 12:49 LRN (Rec: 07/30/18 17:34 LRN [id number]) OP Mobility Evaluation Transfers Sit to Stand SBA Bed to Chair Transfers Pt able to independently transfer onto plinth table moving slowly and with difficulty. OP Gait Assessment Gait Gait Assistance Required: Independent Able to Maintain Weight Bearing Status Yes During Gait Assistive Devices Assistive Device 4 Wheeled Walker Orthotic/Prosthetic Devices or Brace: No Gait Deviations General Gait Pattern Decreased Stride Length Decreased Feet Clearance Flexed Trunk Narrow Based Gait Factors Limiting Gait Function Factors Limiting Gait Function Decreased Strength Pain Poor Balance PT-OP-H Neuro Start: 07/30/18 12:50 Freq: Status: Active Protocol: Document 07/30/18 12:49 LRN (Rec: 07/30/18 17:34 LRN [id number]) Sensation Evaluation Location Details Right Lower Extremity Light Touch Intact/Normal Left Lower Extremity Light Touch Intact/Normal PT-OP-K Range of Motion Start: 07/30/18 08:10 Freq: Status: Active Protocol: Document 07/30/18 12:49 LRN (Rec: 07/30/18 17:34 LRN [id number]) Hip Goniometric Range of Motion Hip Measured in Degrees Left Testing Position Supine Hip ROM Limitations Hip ROM Limitations Soft Tissue Tightness Muscle Weakness Pain Comments Pt had minimal to no active mobility of L hip for flex, AB , ext. in supine Knee Goniometric Range of Motion Knee Measured in Degrees Right Knee ROM WFL Yes Left Knee ROM WFL Yes Ankle and Foot Goniometric Range of Motion Ankle and Foot Measured in Degrees Right Active Dorsiflexion with Knee Extended 2 Plantarflexion 45 Left Active Plantarflexion 18 Ankle and Foot ROM Limitations ROM Limitations Soft Tissue Tightness Muscle Weakness Comments L ankle active DF: Lacks 3 deg's to neutral. PT-OP-M Strength Start: 07/30/18 08:10 Freq: Status: Active Protocol: Document 07/30/18 12:49 LRN (Rec: 07/30/18 17:34 LRN [id number]) Hip Strength Hip Manual Muscle Testing Right Flexion (L2) 4+ Good+ Extension (S1) 3- Fair- Abduction 3 Fair Left Flexion (L2) 1 Trace Extension (S1) 1 Trace Abduction 1 Trace Knee Strength Knee Manual Muscle Testing Right Flexion (S2) 5 Normal Extension (L3) 5 Normal Left Flexion (S2) 5 Normal Extension (L3) 5 Normal Ankle/Foot Strength Ankle and Foot Manual Muscle Testing Right Reason Not Measured WFL Left Plantarflexion (S1) 5 Normal Inversion 4 Good Eversion (S1) 3+ Fair+ Comments Ankle PF is 5/5 within available range. PT-OP-Q Treatments Start: 07/30/18 08:10 Freq: Status: Active Protocol: Document 08/08/18 10:30 DCW (Rec: 08/08/18 17:51 DCW [id number]) Therapeutic Exercises Supine Exercises Quad strengthening Supine Exercise Name Srinivasan SAQ over bolster Side bilateral Resistance 4# Reps/Minutes 15x Heel slides Supine Exercise Name Heel Slides Side left Reps/Minutes 10x Hip AB Supine Exercise Name Abduction Side left Reps/Minutes 15x SLR Supine Exercise Name SLR Side left Reps/Minutes 10x Sidelying Exercises Hip Abduction Sidelying Exercise Name Hip Abd Reps/Minutes x10 Clamshell Side left Reps/Minutes 10x Standing Exercises Hip Adduction Standing Exercise Name Adduction Side bilateral Resistance Lv 1 Equipment Used T-band Hip Extension Standing Exercise Name Extension to neutral Side bilateral Resistance Lv 1 Equipment Used T-band Gait Training Gait Activity Gait mechanics Description Sequencing and weight shift Device Used Quad cane and /s AD Level of Assistance SBA, verbal cues for sequencing Surface Level PT-OP-R Modalities Start: 07/30/18 08:10 Freq: Status: Active Protocol: Document 08/02/18 12:50 LRN (Rec: 08/02/18 16:03 LRN [id number]) Hot Pack/Cold Pack Treatment Cold Pack Location L anterior & lateral hip. Patient Position Supine Treatment Duration (minutes) 10 Patient Tolerance Good PT-OP-T Assessment and Plan Start: 07/30/18 08:10 Freq: Status: Active Protocol: Document 08/08/18 10:30 DCW (Rec: 08/08/18 17:51 DCW [id number]) Physical Therapy Assessment Impairments Impairments Balance Functional Mobility Gait Pain Posture ROM Strength Goals Decreased balance Impairment Tinetti Balance score of 7/16 indicating pt at risk of falling. Senior Living Goal (LTG) Pt will achieve a Tinetti Balance score of at least 12 of 16 with a gait score of 12 indicating pt is at low risk of falling. LTG Duration 10/22/18 Decreased L hip strength Impairment Pt unable to lift L leg independently making transfers difficult Short Term Goal (STG) Pt will be able to lift her L LE independently to be able to transfer off/on the plinth table without assist. STG Duration 08/16/18 Decreased active L hip mobility Impairment Pt lacks L hip AB mobility for painfree transfers Short Term Goal (STG) Pt will improve active L hip AB mobility for painfree transfers off/on plinth tables . STG Duration 08/23/18 Decreased ankle mobility Impairment Pt lacks functional ankle DF mobility for gait Short Term Goal (STG) Improve ankle active DF with pt able to demonstrate normal gait mechanics without the use of an assistive device. STG Duration 08/23/18 Gait Impairment Pt requires use of assistive device for gait Electronic Science Teacher Goal (LTG) Pt will be independent with a normal gait without an assistive device. LTG Duration 10/22/18 HEP Impairment Pt lacks appropriate self care HEP Electronic Science Teacher Goal (LTG) Pt will be independent with a self care HEP. LTG Duration 10/22/18 Assessment Summary Assessment Pt required repeated verbal cues for sequencing with a cane, and she struggled with her arm swing and foot placement, and her gait speed was slowed due to too much time focused on thinking about what she was doing. Pt was then instructed to ambulate without an assistive device, which went much better, with minimal antalgia. Pt did display minor stumbling and imbalance, and so was instructed to continue using 4WW, however pt will likely do well to just progress from 4WW to no assistive device. Physical Therapy Plan Frequency and Duration Frequency of Treatment 2x/Week Plan of Care Start Date 07/30/18 Plan of Care End Date 10/22/18 Therapeutic Interventions Therapeutic Interventions Balance Training Gait Training Home Exercise Program Manual Therapy Neuromuscular Re-education Patient/Caregiver Education Self-Care/Home Management Soft Tissue Mobilization Taping Therapeutic Activities Therapeutic Exercises Modalities Cold Pack/Ice Massage Hot Packs Next Visit Focus/Plan Next Note Type Treatment Note Next Visit Plan Continue with L partial hip replacement rehab. Maintain posterior hip precautions until the pt can make greater gains in hip strength for stability at the hip. Continued gait training to decrease reliance on assistive device.
--- NOTE | 2018-08-12 16:33 | PT.OTN ---
Current Diagnoses Pain in left hip (08/12/18) Presence of unspecified artificial hip joint (08/12/18) Physical Therapy Treatment Note PT-OP-A Visit Information Start: 07/30/18 08:10 Freq: Status: Active Protocol: Document 08/12/18 12:46 LRN (Rec: 08/12/18 13:34 LRN [id number]) Out-Patient Physical Therapy Visit Information Visit Information Visit Type Treatment Note Visit Start Time 12:46 Visit Stop Time 13:32 Total Visit Minutes 46 Visit Number 5 Number of RESIDENTIAL CAREGIVER Visits 0 Evaluation Information Evaluation Date 07/30/18 Precautions Precautions s/p partial L hip replacement Hx of pneumothorax - during hip replacement hospitalization. Osteoporosis PT-OP-B Current Condition Start: 07/30/18 08:10 Freq: Status: Active Protocol: Document 07/30/18 12:49 LRN (Rec: 07/30/18 17:34 LRN [id number]) Current Condition History of Current Condition Onset Date Partial L posterior hip replacement 06/06/18 Current Complaints Difficulty walking level and stairs, using 4WW, not able to exercise. History of Current Condition Pt reports falling suffering a fractured hip, with partial replacement on 06/06/18. States she was in the hospital 9.5 days due to a collapsed lung. She then developed a viral pneumonia. She spent 5 days in rehab at [facility] and had Home Health for 1 month until 07/25/18. She will be having assist from [facility] [place] for her transportation, personal hygiene and laundry needs. She states she has been cleared of any hip precautions following her 6 week follow up MD visit. She is currently being monitored for a cyst on the R kidney. Treatment Goals Patient/Caregiver Goals Pt goal is to be able to walk without her 4WW and ambulate stairs with a normal gait. She would like to be able to garden this year but understands this might be a difficult and somewhat unrealistic goal to achieve. Prior Functional Status Baseline Function- ADL's Independent Baseline Function- Mobility Independent Baseline Function- Gait Walked 1/2 hour daily. Able to ambulate stairs with a normal gait. Baseline Function- Recreation/Hobbies Gardening Baseline Function- Other Could exercised 1/2 hour on stationary bike or treadmill. Current Functional Impairments (Reported) Functional Limitations- ADL's SBA for showers. Moves very slow and cautiously with transfers due to fear of falling. Functional Limitations- Mobility/Gait Walks with a 4WW or sometimes in the home with SPC because of fear of falling. Stairs: step to gait with 2 railings. Functional Limitations- Recreation/ Not able to garden Hobbies Personal Factors Other Personal Factors That May Effect > 66 yrs old Therapy/Recovery Has 89 year old . Osteoporosis Has 2 flights of stairs in home. Has need of [facility] [place] for transportation and home needs. PT-OP-C Subjective Start: 07/30/18 08:10 Freq: Status: Active Protocol: Document 08/12/18 12:46 LRN (Rec: 08/12/18 16:21 LRN [id number]) OP-PT Subjective Patient Comments Patient Comments Walking in home with FWW, not at counter where she can hang on if needed. Pt afraid of falling. Patient Questionnaires ABC- Activity Specific Balance Confidence Scale ABC Score 55.625 ABC Functional Impairment 40 to <60% Impaired (Score 41- 60) PT-OP-D Balance Start: 07/30/18 12:50 Freq: Status: Active Protocol: Document 07/30/18 12:49 LRN (Rec: 07/30/18 17:34 LRN [id number]) OP-PT Balance Assessment Sitting Balance Static Sitting Balance Ability Normal Dynamic Sitting Balance Ability Good Standing Balance Static Standing Balance Ability Good Dynamic Standing Balance Ability Poor Balance Tests Single Limb Standing Single Limb- Right 0 Single Limb- Left 0 Tinetti Balance Assessment Sitting Balance Sitting Balance Steady, safe Arising from Chair Ability to Arise Able, uses arms to help Standing Balance Immediate Standing Balance Steady with support Standing Balance Steady, wide stance Nudged Response Begins to fall Standing with Eyes Closed Unsteady Turning Step Pattern Turning 360 Degrees Discontinuous steps Stability Turning 360 Degrees Unsteady, grabs/staggers Sitting Down Sitting Down Uses arms or unsteady Gait and Step Initiation of Gait No hesitancy Right Foot Step Length Does not pass stance ft. Right Foot Step Height Does not clear floor Left Foot Step Length Does not pass stance foot Left Foot Step Height Does not clear floor Step Description Step Symmetry Step length appears equal Gait Description Path Description Straight Trunk Description Marked sway or uses aide Walking Stance Heels apart Scoring and Interpretation Tinetti Composite Score (points) 9 Lopez Fall Scale Copyright Permission Jessica JM, Jessica HOWARD, Francia SJ. Development of a scale to identify the fall- prone patient. Can J Aging 1989;8;366-7. Ramo Lopez (2009). Preventing patient falls. (2nd ed). [place]: St. PT-OP-F Manual Assessment Start: 07/30/18 08:10 Freq: Status: Active Protocol: Document 07/30/18 12:49 LRN (Rec: 07/30/18 17:34 LRN [id number]) Manual Assessments Soft Tissue Assessment Soft Tissue Mobility Assessment Anterior L hip: No palpable pain. Pain with active hip flex, AB. PT-OP-G Mobility & Gait Start: 07/30/18 08:10 Freq: Status: Active Protocol: Document 07/30/18 12:49 LRN (Rec: 07/30/18 17:34 LRN [id number]) OP Mobility Evaluation Transfers Sit to Stand SBA Bed to Chair Transfers Pt able to independently transfer onto plinth table moving slowly and with difficulty. OP Gait Assessment Gait Gait Assistance Required: Independent Able to Maintain Weight Bearing Status Yes During Gait Assistive Devices Assistive Device 4 Wheeled Walker Orthotic/Prosthetic Devices or Brace: No Gait Deviations General Gait Pattern Decreased Stride Length Decreased Feet Clearance Flexed Trunk Narrow Based Gait Factors Limiting Gait Function Factors Limiting Gait Function Decreased Strength Pain Poor Balance PT-OP-H Neuro Start: 07/30/18 12:50 Freq: Status: Active Protocol: Document 07/30/18 12:49 LRN (Rec: 07/30/18 17:34 LRN [id number]) Sensation Evaluation Location Details Right Lower Extremity Light Touch Intact/Normal Left Lower Extremity Light Touch Intact/Normal PT-OP-K Range of Motion Start: 07/30/18 08:10 Freq: Status: Active Protocol: Document 07/30/18 12:49 LRN (Rec: 07/30/18 17:34 LRN [id number]) Hip Goniometric Range of Motion Hip Measured in Degrees Left Testing Position Supine Hip ROM Limitations Hip ROM Limitations Soft Tissue Tightness Muscle Weakness Pain Comments Pt had minimal to no active mobility of L hip for flex, AB , ext. in supine Knee Goniometric Range of Motion Knee Measured in Degrees Right Knee ROM WFL Yes Left Knee ROM WFL Yes Ankle and Foot Goniometric Range of Motion Ankle and Foot Measured in Degrees Right Active Dorsiflexion with Knee Extended 2 Plantarflexion 45 Left Active Plantarflexion 18 Ankle and Foot ROM Limitations ROM Limitations Soft Tissue Tightness Muscle Weakness Comments L ankle active DF: Lacks 3 deg's to neutral. PT-OP-M Strength Start: 07/30/18 08:10 Freq: Status: Active Protocol: Document 07/30/18 12:49 LRN (Rec: 07/30/18 17:34 LRN [id number]) Hip Strength Hip Manual Muscle Testing Right Flexion (L2) 4+ Good+ Extension (S1) 3- Fair- Abduction 3 Fair Left Flexion (L2) 1 Trace Extension (S1) 1 Trace Abduction 1 Trace Knee Strength Knee Manual Muscle Testing Right Flexion (S2) 5 Normal Extension (L3) 5 Normal Left Flexion (S2) 5 Normal Extension (L3) 5 Normal Ankle/Foot Strength Ankle and Foot Manual Muscle Testing Right Reason Not Measured WFL Left Plantarflexion (S1) 5 Normal Inversion 4 Good Eversion (S1) 3+ Fair+ Comments Ankle PF is 5/5 within available range. PT-OP-Q Treatments Start: 07/30/18 08:10 Freq: Status: Active Protocol: Document 08/12/18 12:46 LRN (Rec: 08/12/18 13:34 LRN [id number]) Therapeutic Exercises Supine Exercises L hip AB Supine Exercise Name L hip AB Equipment Used Gait Belt Reps/Minutes 3' Comments MWM of Femoral head compression and AD Quad strengthening Supine Exercise Name Srinivasan SAQ over bolster Side bilateral Resistance 5# Reps/Minutes 10x3 Heel slides Supine Exercise Name Heel Slides Side left Reps/Minutes 15x Bridging Supine Exercise Name Indep Bridging Reps/Minutes 30 x 2 Hip AB Supine Exercise Name Abduction Side left Reps/Minutes 15x Comments Pt needed MWM (compression/IR) assist for lessening of anterior thigh pain. Sidelying Exercises Core stabilization Sidelying Exercise Name Manual cuing at L ASIS for stabilizin in sidelie Side right Hip Abduction Sidelying Exercise Name Hip Abd Reps/Minutes 15x Clamshell Side left Reps/Minutes 15 x Comments Extra time taken for training of proper form with ex and for core stab Sitting Exercises Sit to Stand Sitting Exercise Name Sit to Stand from high surface Reps/Minutes 10x Comments Seat height 19 inches Gait Training Gait Activity Gait mechanics Description Sequencing, walking with natural arm swing, then with AD Device Used SPC Level of Assistance SBA with Gait Belt contact Surface Level Distance/Duration 15' Treatment Focus Normal gait mechanics and arm swing with SPC Comments Once pt became comfortable with gait without an AD near the single bar, pt was able to walk comfortable with a SPC and gait belt on for SBA in open areas. PT-OP-R Modalities Start: 07/30/18 08:10 Freq: Status: Active Protocol: Document 08/02/18 12:50 LRN (Rec: 08/02/18 16:03 LRN [id number]) Hot Pack/Cold Pack Treatment Cold Pack Location L anterior & lateral hip. Patient Position Supine Treatment Duration (minutes) 10 Patient Tolerance Good PT-OP-T Assessment and Plan Start: 07/30/18 08:10 Freq: Status: Active Protocol: Document 08/12/18 12:46 LRN (Rec: 08/12/18 16:21 LRN [id number]) Physical Therapy Assessment Assessment Summary Assessment After much gait training the pt was able to walk smoothly and safely with a SPC. The pt 's fear of falling will hinder her progression to gait without an assistive device. L hip weakness is present with L anterior upper thigh pain on lifting of leg when doing hip AB. Physical Therapy Plan Frequency and Duration Frequency of Treatment 2x/Week Plan of Care Start Date 07/30/18 Plan of Care End Date 10/22/18 Next Visit Focus/Plan Next Note Type Treatment Note Next Visit Plan Continue with L partial hip replacement rehab. Maintain posterior hip precautions until the pt can make greater gains in hip strength for stability at the hip. Continued gait training to decrease reliance on assistive device. Add training/ education on core stab with ex 's.
--- NOTE | 2018-08-16 09:54 | PT.OTN ---
Current Diagnoses Pain in left hip (08/16/18) Presence of unspecified artificial hip joint (08/16/18) Physical Therapy Treatment Note PT-OP-A Visit Information Start: 07/30/18 08:10 Freq: Status: Active Protocol: Document 08/16/18 09:43 SA (Rec: 08/16/18 09:54 SA [email or web address]) Out-Patient Physical Therapy Visit Information Visit Information Visit Type Treatment Note Visit Start Time 09:00 Visit Stop Time 09:49 Total Visit Minutes 49 Visit Number 6 Number of INVESTMENT BANKING [employer]IATE Visits 1 PT-OP-B Current Condition Start: 07/30/18 08:10 Freq: Status: Active Protocol: Document 07/30/18 12:49 LRN (Rec: 07/30/18 17:34 LRN [id number]) Current Condition History of Current Condition Onset Date Partial L posterior hip replacement 06/06/18 Current Complaints Difficulty walking level and stairs, using 4WW, not able to exercise. History of Current Condition Pt reports falling suffering a fractured hip, with partial replacement on 06/06/18. States she was in the hospital 9.5 days due to a collapsed lung. She then developed a viral pneumonia. She spent 5 days in rehab at [facility] ([place]) and had Home Health for 1 month until 07/25/18. She will be having assist from [employer] for her transportation, personal hygiene and laundry needs. She states she has been cleared of any hip precautions following her 6 week follow up MD visit. She is currently being monitored for a cyst on the R kidney. Treatment Goals Patient/Caregiver Goals Pt goal is to be able to walk without her 4WW and ambulate stairs with a normal gait. She would like to be able to garden this year but understands this might be a difficult and somewhat unrealistic goal to achieve. Prior Functional Status Baseline Function- ADL's Independent Baseline Function- Mobility Independent Baseline Function- Gait Walked 1/2 hour daily. Able to ambulate stairs with a normal gait. Baseline Function- Recreation/Hobbies Gardening Baseline Function- Other Could exercised 1/2 hour on stationary bike or treadmill. Current Functional Impairments (Reported) Functional Limitations- ADL's SBA for showers. Moves very slow and cautiously with transfers due to fear of falling. Functional Limitations- Mobility/Gait Walks with a 4WW or sometimes in the home with SPC because of fear of falling. Stairs: step to gait with 2 railings. Functional Limitations- Recreation/ Not able to garden Hobbies Personal Factors Other Personal Factors That May Effect > 65 yrs old Therapy/Recovery Has 92 year old . Osteoporosis Has 2 flights of stairs in home. Has need of [employer] [place] for transportation and home needs. PT-OP-C Subjective Start: 07/30/18 08:10 Freq: Status: Active Protocol: Document 08/16/18 09:43 SA (Rec: 08/16/18 09:54 SA [email or web address]) OP-PT Subjective Patient Comments Patient Comments Pt reports doing HEP daily and attempting walking at home with SPC for short distances. PT-OP-D Balance Start: 07/30/18 12:50 Freq: Status: Active Protocol: Document 07/30/18 12:49 LRN (Rec: 07/30/18 17:34 LRN [id number]) OP-PT Balance Assessment Sitting Balance Static Sitting Balance Ability Normal Dynamic Sitting Balance Ability Good Standing Balance Static Standing Balance Ability Good Dynamic Standing Balance Ability Poor Balance Tests Single Limb Standing Single Limb- Right 0 Single Limb- Left 0 Tinetti Balance Assessment Sitting Balance Sitting Balance Steady, safe Arising from Chair Ability to Arise Able, uses arms to help Standing Balance Immediate Standing Balance Steady with support Standing Balance Steady, wide stance Nudged Response Begins to fall Standing with Eyes Closed Unsteady Turning Step Pattern Turning 360 Degrees Discontinuous steps Stability Turning 360 Degrees Unsteady, grabs/staggers Sitting Down Sitting Down Uses arms or unsteady Gait and Step Initiation of Gait No hesitancy Right Foot Step Length Does not pass stance ft. Right Foot Step Height Does not clear floor Left Foot Step Length Does not pass stance foot Left Foot Step Height Does not clear floor Step Description Step Symmetry Step length appears equal Gait Description Path Description Straight Trunk Description Marked sway or uses aide Walking Stance Heels apart Scoring and Interpretation Tinetti Composite Score (points) 9 Lopez Fall Scale Copyright Permission Jessica WILHELM, Jessica RM, Francia SJ. Development of a scale to identify the fall- prone patient. Can J Aging 1989;8;366-7. Ramo Lopez (2009). Preventing patient falls. (2nd ed). [place]: St. PT-OP-F Manual Assessment Start: 07/30/18 08:10 Freq: Status: Active Protocol: Document 07/30/18 12:49 LRN (Rec: 07/30/18 17:34 LRN [id number]) Manual Assessments Soft Tissue Assessment Soft Tissue Mobility Assessment Anterior L hip: No palpable pain. Pain with active hip flex, AB. PT-OP-G Mobility & Gait Start: 07/30/18 08:10 Freq: Status: Active Protocol: Document 07/30/18 12:49 LRN (Rec: 07/30/18 17:34 LRN [id number]) OP Mobility Evaluation Transfers Sit to Stand SBA Bed to Chair Transfers Pt able to independently transfer onto plinth table moving slowly and with difficulty. OP Gait Assessment Gait Gait Assistance Required: Independent Able to Maintain Weight Bearing Status Yes During Gait Assistive Devices Assistive Device 4 Wheeled Walker Orthotic/Prosthetic Devices or Brace: No Gait Deviations General Gait Pattern Decreased Stride Length Decreased Feet Clearance Flexed Trunk Narrow Based Gait Factors Limiting Gait Function Factors Limiting Gait Function Decreased Strength Pain Poor Balance PT-OP-H Neuro Start: 07/30/18 12:50 Freq: Status: Active Protocol: Document 07/30/18 12:49 LRN (Rec: 07/30/18 17:34 LRN [id number]) Sensation Evaluation Location Details Right Lower Extremity Light Touch Intact/Normal Left Lower Extremity Light Touch Intact/Normal PT-OP-K Range of Motion Start: 07/30/18 08:10 Freq: Status: Active Protocol: Document 07/30/18 12:49 LRN (Rec: 07/30/18 17:34 LRN [id number]) Hip Goniometric Range of Motion Hip Measured in Degrees Left Testing Position Supine Hip ROM Limitations Hip ROM Limitations Soft Tissue Tightness Muscle Weakness Pain Comments Pt had minimal to no active mobility of L hip for flex, AB , ext. in supine Knee Goniometric Range of Motion Knee Measured in Degrees Right Knee ROM WFL Yes Left Knee ROM WFL Yes Ankle and Foot Goniometric Range of Motion Ankle and Foot Measured in Degrees Right Active Dorsiflexion with Knee Extended 2 Plantarflexion 45 Left Active Plantarflexion 18 Ankle and Foot ROM Limitations ROM Limitations Soft Tissue Tightness Muscle Weakness Comments L ankle active DF: Lacks 3 deg's to neutral. PT-OP-M Strength Start: 07/30/18 08:10 Freq: Status: Active Protocol: Document 07/30/18 12:49 LRN (Rec: 07/30/18 17:34 LRN [id number]) Hip Strength Hip Manual Muscle Testing Right Flexion (L2) 4+ Good+ Extension (S1) 3- Fair- Abduction 3 Fair Left Flexion (L2) 1 Trace Extension (S1) 1 Trace Abduction 1 Trace Knee Strength Knee Manual Muscle Testing Right Flexion (S2) 5 Normal Extension (L3) 5 Normal Left Flexion (S2) 5 Normal Extension (L3) 5 Normal Ankle/Foot Strength Ankle and Foot Manual Muscle Testing Right Reason Not Measured WFL Left Plantarflexion (S1) 5 Normal Inversion 4 Good Eversion (S1) 3+ Fair+ Comments Ankle PF is 5/5 within available range. PT-OP-Q Treatments Start: 07/30/18 08:10 Freq: Status: Active Protocol: Document 08/16/18 09:43 SA (Rec: 08/16/18 09:54 SA [email or web address]) Therapeutic Exercises Supine Exercises Quad strengthening Supine Exercise Name Srinivasan SAQ over bolster Side bilateral Resistance 5# Reps/Minutes 20x Bridging Supine Exercise Name Indep Bridging Reps/Minutes 10 x 5 holds SLR Supine Exercise Name SLR Side left Reps/Minutes 10x Sitting Exercises Sit to Stand Sitting Exercise Name Sit to Stand from high surface Reps/Minutes 10x Comments Seat height 19 inches Standing Exercises Hip Adduction Standing Exercise Name Adduction Side bilateral Resistance Lv 1 Equipment Used 15x Hip Extension Standing Exercise Name Extension to neutral Side bilateral Resistance Lv 1 Equipment Used T-band Reps/Minutes 15x Other Exercises Monster walk Other Exercise Name forward/backward Resistance Yellow TB Reps/Minutes 4 lengths of bar Lateral stepping with TB Side bilateral Resistance Yellow TB Reps/Minutes 4 lengths of bar Gait Training Gait Activity Stair training Level of Assistance SBA Distance/Duration Ascend/Descend Treatment Focus step to Comments progressing to step through gait pattern Gait mechanics Description Sequencing, walking with natural arm swing, then with AD Device Used SPC Level of Assistance SBA with Gait Belt contact Surface Level Distance/Duration 200 feet Treatment Focus Normal gait mechanics and arm swing with SPC Comments Pt more comfortable with SPC use, sequences well, cues for posture. PT-OP-R Modalities Start: 07/30/18 08:10 Freq: Status: Active Protocol: Document 08/16/18 09:43 SA (Rec: 08/16/18 09:54 SA [email or web address]) Hot Pack/Cold Pack Treatment Cold Pack Location L anterior & lateral hip. Patient Position Supine Treatment Duration (minutes) 10 Patient Tolerance Good PT-OP-T Assessment and Plan Start: 07/30/18 08:10 Freq: Status: Active Protocol: Document 08/16/18 09:43 SA (Rec: 08/16/18 09:54 [email or web address]) Physical Therapy Assessment Assessment Summary Assessment Pt progressing with SPC gait training and hip strengthening , some c/o minor groin pain with exercise, CP to L groin to finish for pain control. Physical Therapy Plan Next Visit Focus/Plan Next Note Type Treatment Note Next Visit Plan Continue with L partial hip replacement rehab. Maintain posterior hip precautions until the pt can make greater gains in hip strength for stability at the hip. Continued gait training to decrease reliance on assistive device. Add training/ education on core stab with ex 's.
--- NOTE | 2018-08-20 11:28 | PT.OTN ---
Current Diagnoses Pain in left hip (08/20/18) Presence of unspecified artificial hip joint (08/20/18) Physical Therapy Treatment Note PT-OP-A Visit Information Start: 07/30/18 08:10 Freq: Status: Active Protocol: Document 08/20/18 11:20 SA (Rec: 08/20/18 11:28 SA [email or web address]) Out-Patient Physical Therapy Visit Information Visit Information Visit Type Treatment Note Visit Start Time 09:45 Visit Stop Time 10:32 Total Visit Minutes 47 Visit Number 7 Number of ARCHITECTURE INTERN Visits 2 PT-OP-B Current Condition Start: 07/30/18 08:10 Freq: Status: Active Protocol: Document 07/30/18 12:49 LRN (Rec: 07/30/18 17:34 LRN [id number]) Current Condition History of Current Condition Onset Date Partial L posterior hip replacement 06/06/18 Current Complaints Difficulty walking level and stairs, using 4WW, not able to exercise. History of Current Condition Pt reports falling suffering a fractured hip, with partial replacement on 06/06/18. States she was in the hospital 9.5 days due to a collapsed lung. She then developed a viral pneumonia. She spent 5 days in rehab at [facility] and had Home Health for 1 month until 07/25/18. She will be having assist from [employer] for her transportation, personal hygiene and laundry needs. She states she has been cleared of any hip precautions following her 6 week follow up MD visit. She is currently being monitored for a cyst on the R kidney. Treatment Goals Patient/Caregiver Goals Pt goal is to be able to walk without her 4WW and ambulate stairs with a normal gait. She would like to be able to garden this year but understands this might be a difficult and somewhat unrealistic goal to achieve. Prior Functional Status Baseline Function- ADL's Independent Baseline Function- Mobility Independent Baseline Function- Gait Walked 1/2 hour daily. Able to ambulate stairs with a normal gait. Baseline Function- Recreation/Hobbies Gardening Baseline Function- Other Could exercised 1/2 hour on stationary bike or treadmill. Current Functional Impairments (Reported) Functional Limitations- ADL's SBA for showers. Moves very slow and cautiously with transfers due to fear of falling. Functional Limitations- Mobility/Gait Walks with a 4WW or sometimes in the home with SPC because of fear of falling. Stairs: step to gait with 2 railings. Functional Limitations- Recreation/ Not able to garden Hobbies Personal Factors Other Personal Factors That May Effect > 66 yrs old Therapy/Recovery Has 92 year old . Osteoporosis Has 2 flights of stairs in home. Has need of [employer] [place] for transportation and home needs. PT-OP-C Subjective Start: 07/30/18 08:10 Freq: Status: Active Protocol: Document 08/20/18 11:20 SA (Rec: 08/20/18 11:28 SA [email or web address]) OP-PT Subjective Patient Comments Patient Comments Pt presents in clinic with 4WW , states she has been walking in the home with in AD. Groin pain persists but is fairly mild. PT-OP-D Balance Start: 07/30/18 12:50 Freq: Status: Active Protocol: Document 07/30/18 12:49 LRN (Rec: 07/30/18 17:34 LRN [id number]) OP-PT Balance Assessment Sitting Balance Static Sitting Balance Ability Normal Dynamic Sitting Balance Ability Good Standing Balance Static Standing Balance Ability Good Dynamic Standing Balance Ability Poor Balance Tests Single Limb Standing Single Limb- Right 0 Single Limb- Left 0 Tinetti Balance Assessment Sitting Balance Sitting Balance Steady, safe Arising from Chair Ability to Arise Able, uses arms to help Standing Balance Immediate Standing Balance Steady with support Standing Balance Steady, wide stance Nudged Response Begins to fall Standing with Eyes Closed Unsteady Turning Step Pattern Turning 360 Degrees Discontinuous steps Stability Turning 360 Degrees Unsteady, grabs/staggers Sitting Down Sitting Down Uses arms or unsteady Gait and Step Initiation of Gait No hesitancy Right Foot Step Length Does not pass stance ft. Right Foot Step Height Does not clear floor Left Foot Step Length Does not pass stance foot Left Foot Step Height Does not clear floor Step Description Step Symmetry Step length appears equal Gait Description Path Description Straight Trunk Description Marked sway or uses aide Walking Stance Heels apart Scoring and Interpretation Tinetti Composite Score (points) 9 Lopez Fall Scale Copyright Permission Jessica WILHELM, Jessica RM, Francia SJ. Development of a scale to identify the fall- prone patient. Can J Aging 1989;8;366-7. Ramo Lopez (2009). Preventing patient falls. (2nd ed). [place]: St. PT-OP-F Manual Assessment Start: 07/30/18 08:10 Freq: Status: Active Protocol: Document 07/30/18 12:49 LRN (Rec: 07/30/18 17:34 LRN [id number]) Manual Assessments Soft Tissue Assessment Soft Tissue Mobility Assessment Anterior L hip: No palpable pain. Pain with active hip flex, AB. PT-OP-G Mobility & Gait Start: 07/30/18 08:10 Freq: Status: Active Protocol: Document 07/30/18 12:49 LRN (Rec: 07/30/18 17:34 LRN [id number]) OP Mobility Evaluation Transfers Sit to Stand SBA Bed to Chair Transfers Pt able to independently transfer onto plinth table moving slowly and with difficulty. OP Gait Assessment Gait Gait Assistance Required: Independent Able to Maintain Weight Bearing Status Yes During Gait Assistive Devices Assistive Device 4 Wheeled Walker Orthotic/Prosthetic Devices or Brace: No Gait Deviations General Gait Pattern Decreased Stride Length Decreased Feet Clearance Flexed Trunk Narrow Based Gait Factors Limiting Gait Function Factors Limiting Gait Function Decreased Strength Pain Poor Balance PT-OP-H Neuro Start: 07/30/18 12:50 Freq: Status: Active Protocol: Document 07/30/18 12:49 LRN (Rec: 07/30/18 17:34 LRN [id number]) Sensation Evaluation Location Details Right Lower Extremity Light Touch Intact/Normal Left Lower Extremity Light Touch Intact/Normal PT-OP-K Range of Motion Start: 07/30/18 08:10 Freq: Status: Active Protocol: Document 07/30/18 12:49 LRN (Rec: 07/30/18 17:34 LRN [id number]) Hip Goniometric Range of Motion Hip Measured in Degrees Left Testing Position Supine Hip ROM Limitations Hip ROM Limitations Soft Tissue Tightness Muscle Weakness Pain Comments Pt had minimal to no active mobility of L hip for flex, AB , ext. in supine Knee Goniometric Range of Motion Knee Measured in Degrees Right Knee ROM WFL Yes Left Knee ROM WFL Yes Ankle and Foot Goniometric Range of Motion Ankle and Foot Measured in Degrees Right Active Dorsiflexion with Knee Extended 2 Plantarflexion 45 Left Active Plantarflexion 18 Ankle and Foot ROM Limitations ROM Limitations Soft Tissue Tightness Muscle Weakness Comments L ankle active DF: Lacks 3 deg's to neutral. PT-OP-M Strength Start: 07/30/18 08:10 Freq: Status: Active Protocol: Document 07/30/18 12:49 LRN (Rec: 07/30/18 17:34 LRN [id number]) Hip Strength Hip Manual Muscle Testing Right Flexion (L2) 4+ Good+ Extension (S1) 3- Fair- Abduction 3 Fair Left Flexion (L2) 1 Trace Extension (S1) 1 Trace Abduction 1 Trace Knee Strength Knee Manual Muscle Testing Right Flexion (S2) 5 Normal Extension (L3) 5 Normal Left Flexion (S2) 5 Normal Extension (L3) 5 Normal Ankle/Foot Strength Ankle and Foot Manual Muscle Testing Right Reason Not Measured WFL Left Plantarflexion (S1) 5 Normal Inversion 4 Good Eversion (S1) 3+ Fair+ Comments Ankle PF is 5/5 within available range. PT-OP-Q Treatments Start: 07/30/18 08:10 Freq: Status: Active Protocol: Document 08/20/18 11:20 SA (Rec: 08/20/18 11:28 SA [email or web address]) Therapeutic Exercises Supine Exercises Quad strengthening Supine Exercise Name Srinivasan SAQ over bolster Side bilateral Resistance 5# Reps/Minutes 20x Bridging Supine Exercise Name Indep Bridging Reps/Minutes 10 x 5 holds SLR Supine Exercise Name SLR Side left Reps/Minutes 10 x with difficulty Sidelying Exercises Clamshell Side left Equipment Used 2# Reps/Minutes 15 x Standing Exercises Hip Adduction Standing Exercise Name Adduction Side bilateral Resistance Lv 1 Equipment Used 15x Hip Extension Standing Exercise Name Extension to neutral Side bilateral Resistance Yellow TB Reps/Minutes 15x Other Exercises Monster walk Other Exercise Name forward/backward Resistance Yellow TB Reps/Minutes 4 lengths of bar Lateral stepping with TB Side bilateral Resistance Yellow TB Reps/Minutes 4 lengths of bar Gait Training Gait Activity Stair training Level of Assistance SBA Distance/Duration Ascend/Descend Treatment Focus step through Comments Cues for core engagement Gait mechanics Description Sequencing, walking with natural arm swing, then with AD Device Used SPC Level of Assistance SBA with Gait Belt contact Surface Level Distance/Duration 200 feet Treatment Focus Normal gait mechanics and arm swing with SPC Comments Pt more comfortable with SPC use, sequences well, cues for posture. PT-OP-R Modalities Start: 07/30/18 08:10 Freq: Status: Active Protocol: Document 08/20/18 11:20 SA (Rec: 08/20/18 11:28 SA [email or web address]) Hot Pack/Cold Pack Treatment Cold Pack Location L anterior & lateral hip. Patient Position Supine Treatment Duration (minutes) 10 Patient Tolerance Good PT-OP-T Assessment and Plan Start: 07/30/18 08:10 Freq: Status: Active Protocol: Document 08/20/18 11:20 SA (Rec: 08/20/18 11:28 [email or web address]) Physical Therapy Assessment Assessment Summary Assessment Encouraged patient to progress to using SPC vs 4WW, she plans to use SPC for next visit in clinic. Pt demonstrates good safety and sequencing with SPC ambulation . Physical Therapy Plan Next Visit Focus/Plan Next Note Type Treatment Note Next Visit Plan Continue to progress gait training with SPC, LE strengthening and stair climb.
--- NOTE | 2018-08-22 15:05 | PT.OTN ---
Current Diagnoses Pain in left hip (08/22/18) Presence of unspecified artificial hip joint (08/22/18) Physical Therapy Treatment Note PT-OP-A Visit Information Start: 07/30/18 08:10 Freq: Status: Active Protocol: Document 08/22/18 12:33 LRN (Rec: 08/22/18 13:33 LRN [id number]) Out-Patient Physical Therapy Visit Information Visit Information Visit Type Treatment Note Visit Start Time 12:33 Visit Stop Time 13:23 Total Visit Minutes 50 Visit Number 8 Number of MEDIA MONITOR Visits 0 Evaluation Information Evaluation Date 07/30/18 Precautions Precautions s/p partial L hip replacement Hx of pneumothorax - during hip replacement hospitalization. Osteoporosis PT-OP-B Current Condition Start: 07/30/18 08:10 Freq: Status: Active Protocol: Document 07/30/18 12:49 LRN (Rec: 07/30/18 17:34 LRN [id number]) Current Condition History of Current Condition Onset Date Partial L posterior hip replacement 06/06/18 Current Complaints Difficulty walking level and stairs, using 4WW, not able to exercise. History of Current Condition Pt reports falling suffering a fractured hip, with partial replacement on 06/06/18. States she was in the hospital 9.5 days due to a collapsed lung. She then developed a viral pneumonia. She spent 5 days in rehab at [facility] and had Home Health for 1 month until 07/25/18. She will be having assist from [facility] for her transportation, personal hygiene and laundry needs. She states she has been cleared of any hip precautions following her 6 week follow up MD visit. She is currently being monitored for a cyst on the R kidney. Treatment Goals Patient/Caregiver Goals Pt goal is to be able to walk without her 4WW and ambulate stairs with a normal gait. She would like to be able to garden this year but understands this might be a difficult and somewhat unrealistic goal to achieve. Prior Functional Status Baseline Function- ADL's Independent Baseline Function- Mobility Independent Baseline Function- Gait Walked 1/2 hour daily. Able to ambulate stairs with a normal gait. Baseline Function- Recreation/Hobbies Gardening Baseline Function- Other Could exercised 1/2 hour on stationary bike or treadmill. Current Functional Impairments (Reported) Functional Limitations- ADL's SBA for showers. Moves very slow and cautiously with transfers due to fear of falling. Functional Limitations- Mobility/Gait Walks with a 4WW or sometimes in the home with SPC because of fear of falling. Stairs: step to gait with 2 railings. Functional Limitations- Recreation/ Not able to garden Hobbies Personal Factors Other Personal Factors That May Effect > 65 yrs old Therapy/Recovery Has 92 year old . Osteoporosis Has 2 flights of stairs in home. Has need of [facility] [place] for transportation and home needs. PT-OP-C Subjective Start: 07/30/18 08:10 Freq: Status: Active Protocol: Document 08/22/18 12:33 LRN (Rec: 08/22/18 13:33 LRN [id number]) OP-PT Subjective Patient Comments Patient Comments States she was supposed to walk in without the walker, but did not feel comfortable doing it. PT-OP-D Balance Start: 07/30/18 12:50 Freq: Status: Active Protocol: Document 07/30/18 12:49 LRN (Rec: 07/30/18 17:34 LRN [id number]) OP-PT Balance Assessment Sitting Balance Static Sitting Balance Ability Normal Dynamic Sitting Balance Ability Good Standing Balance Static Standing Balance Ability Good Dynamic Standing Balance Ability Poor Balance Tests Single Limb Standing Single Limb- Right 0 Single Limb- Left 0 Tinetti Balance Assessment Sitting Balance Sitting Balance Steady, safe Arising from Chair Ability to Arise Able, uses arms to help Standing Balance Immediate Standing Balance Steady with support Standing Balance Steady, wide stance Nudged Response Begins to fall Standing with Eyes Closed Unsteady Turning Step Pattern Turning 360 Degrees Discontinuous steps Stability Turning 360 Degrees Unsteady, grabs/staggers Sitting Down Sitting Down Uses arms or unsteady Gait and Step Initiation of Gait No hesitancy Right Foot Step Length Does not pass stance ft. Right Foot Step Height Does not clear floor Left Foot Step Length Does not pass stance foot Left Foot Step Height Does not clear floor Step Description Step Symmetry Step length appears equal Gait Description Path Description Straight Trunk Description Marked sway or uses aide Walking Stance Heels apart Scoring and Interpretation Tinetti Composite Score (points) 9 Lopez Fall Scale Copyright Permission Jessica WILHELM, Jessica RM, Francia SJ. Development of a scale to identify the fall- prone patient. Can J Aging 1989;8;366-7. Ramo Lopez (2009). Preventing patient falls. (2nd ed). [place]: St. PT-OP-F Manual Assessment Start: 07/30/18 08:10 Freq: Status: Active Protocol: Document 07/30/18 12:49 LRN (Rec: 07/30/18 17:34 LRN [id number]) Manual Assessments Soft Tissue Assessment Soft Tissue Mobility Assessment Anterior L hip: No palpable pain. Pain with active hip flex, AB. PT-OP-G Mobility & Gait Start: 07/30/18 08:10 Freq: Status: Active Protocol: Document 07/30/18 12:49 LRN (Rec: 07/30/18 17:34 LRN [id number]) OP Mobility Evaluation Transfers Sit to Stand SBA Bed to Chair Transfers Pt able to independently transfer onto plinth table moving slowly and with difficulty. OP Gait Assessment Gait Gait Assistance Required: Independent Able to Maintain Weight Bearing Status Yes During Gait Assistive Devices Assistive Device 4 Wheeled Walker Orthotic/Prosthetic Devices or Brace: No Gait Deviations General Gait Pattern Decreased Stride Length Decreased Feet Clearance Flexed Trunk Narrow Based Gait Factors Limiting Gait Function Factors Limiting Gait Function Decreased Strength Pain Poor Balance PT-OP-H Neuro Start: 07/30/18 12:50 Freq: Status: Active Protocol: Document 07/30/18 12:49 LRN (Rec: 07/30/18 17:34 LRN [id number]) Sensation Evaluation Location Details Right Lower Extremity Light Touch Intact/Normal Left Lower Extremity Light Touch Intact/Normal PT-OP-K Range of Motion Start: 07/30/18 08:10 Freq: Status: Active Protocol: Document 07/30/18 12:49 LRN (Rec: 07/30/18 17:34 LRN [id number]) Hip Goniometric Range of Motion Hip Measured in Degrees Left Testing Position Supine Hip ROM Limitations Hip ROM Limitations Soft Tissue Tightness Muscle Weakness Pain Comments Pt had minimal to no active mobility of L hip for flex, AB , ext. in supine Knee Goniometric Range of Motion Knee Measured in Degrees Right Knee ROM WFL Yes Left Knee ROM WFL Yes Ankle and Foot Goniometric Range of Motion Ankle and Foot Measured in Degrees Right Active Dorsiflexion with Knee Extended 2 Plantarflexion 45 Left Active Plantarflexion 18 Ankle and Foot ROM Limitations ROM Limitations Soft Tissue Tightness Muscle Weakness Comments L ankle active DF: Lacks 3 deg's to neutral. PT-OP-M Strength Start: 07/30/18 08:10 Freq: Status: Active Protocol: Document 07/30/18 12:49 LRN (Rec: 07/30/18 17:34 LRN [id number]) Hip Strength Hip Manual Muscle Testing Right Flexion (L2) 4+ Good+ Extension (S1) 3- Fair- Abduction 3 Fair Left Flexion (L2) 1 Trace Extension (S1) 1 Trace Abduction 1 Trace Knee Strength Knee Manual Muscle Testing Right Flexion (S2) 5 Normal Extension (L3) 5 Normal Left Flexion (S2) 5 Normal Extension (L3) 5 Normal Ankle/Foot Strength Ankle and Foot Manual Muscle Testing Right Reason Not Measured WFL Left Plantarflexion (S1) 5 Normal Inversion 4 Good Eversion (S1) 3+ Fair+ Comments Ankle PF is 5/5 within available range. PT-OP-Q Treatments Start: 07/30/18 08:10 Freq: Status: Active Protocol: Document 08/22/18 12:33 LRN (Rec: 08/22/18 13:33 LRN [id number]) Therapeutic Exercises Supine Exercises BKFO Supine Exercise Name BKFO w/T-Band resist Side bilateral Resistance Lev 1 T-Band Reps/Minutes 4' Comments Training needed Quad strengthening Supine Exercise Name Srinivasan SAQ over bolster Side bilateral Resistance 5# Reps/Minutes 15 x 2 Heel slides Supine Exercise Name Heel Slides Side left Reps/Minutes 15x2 Bridging Supine Exercise Name Indep Bridging Reps/Minutes 15 x 5 holds Hip AB Supine Exercise Name Abduction w/assist Side left Reps/Minutes 10 x 3 Comments Xtra time needed for training of pure AB without hip flexion Sidelying Exercises Clamshell Side left Reps/Minutes 15 x Comments Assist given for max hip ER tolerated Sitting Exercises Sit to Stand Sitting Exercise Name Sit to Stand from high surface Reps/Minutes 10x Comments Seat height 20 inches Gait Training Gait Activity Gait mechanics Description Sequencing, walking with natural arm swing, then with AD Level of Assistance SBA with Gait Belt contact Surface Level Distance/Duration 200 feet Treatment Focus Normal gait mechanics and arm swing with SPC Comments Pt more mentally comfortable with use of an assistive device, sequences fine. Manual Therapy Treatment Soft Tissue Mobilization L hip AD & Iliopsoas Body Location L hip AD @ Pubic bone, & Ilipsoas Mobilization Type Strumming Sustained Pressure Trigger Point Release Intensity/Depth Deep Body Position Supine PT-OP-R Modalities Start: 07/30/18 08:10 Freq: Status: Active Protocol: Document 08/20/18 11:20 SA (Rec: 08/20/18 11:28 SA [id number]) Hot Pack/Cold Pack Treatment Cold Pack Location L anterior & lateral hip. Patient Position Supine Treatment Duration (minutes) 10 Patient Tolerance Good PT-OP-T Assessment and Plan Start: 07/30/18 08:10 Freq: Status: Active Protocol: Document 08/22/18 12:33 LRN (Rec: 08/22/18 13:33 LRN [id number]) Physical Therapy Assessment Assessment Summary Assessment Pt is not ready to ambulate without her walker outside of home. Pt needs to go without assistive device when in therapy to improve level of confidence in gait, and improve hip strength, especially hip AB. STM to Iliopsoas and hip AD's at groin helped relieve anterior hip pain with exercise. Physical Therapy Plan Frequency and Duration Frequency of Treatment 2x/Week Plan of Care Start Date 07/30/18 Plan of Care End Date 10/22/18 Therapeutic Interventions Therapeutic Interventions Balance Training Gait Training Home Exercise Program Manual Therapy Neuromuscular Re-education Patient/Caregiver Education Self-Care/Home Management Soft Tissue Mobilization Taping Therapeutic Activities Therapeutic Exercises Modalities Cold Pack/Ice Massage Hot Packs Next Visit Focus/Plan Next Note Type Treatment Note Next Visit Plan Continue to progress gait training without an assistive. LE strengthening and stair climb. Add Dual Dorothea hip AB/AD. End with cryotherapy.
--- NOTE | 2018-08-29 17:16 | PT.OTN ---
Current Diagnoses Pain in left hip (08/29/18) Presence of unspecified artificial hip joint (08/29/18) Physical Therapy Treatment Note PT-OP-A Visit Information Start: 07/30/18 08:10 Freq: Status: Active Protocol: Document 08/29/18 12:48 LRN (Rec: 08/29/18 13:40 LRN [id number]) Out-Patient Physical Therapy Visit Information Visit Information Visit Type Treatment Note Visit Start Time 12:45 Visit Stop Time 13:36 Total Visit Minutes 51 Visit Number 10 Number of ERGONOMIC SPECIALIST Visits 0 Evaluation Information Evaluation Date 07/30/18 Precautions Precautions s/p partial L hip replacement Hx of pneumothorax - during hip replacement hospitalization. Osteoporosis PT-OP-B Current Condition Start: 07/30/18 08:10 Freq: Status: Active Protocol: Document 07/30/18 12:49 LRN (Rec: 07/30/18 17:34 LRN [id number]) Current Condition History of Current Condition Onset Date Partial L posterior hip replacement 06/06/18 Current Complaints Difficulty walking level and stairs, using 4WW, not able to exercise. History of Current Condition Pt reports falling suffering a fractured hip, with partial replacement on 06/06/18. States she was in the hospital 9.5 days due to a collapsed lung. She then developed a viral pneumonia. She spent 5 days in rehab at [facility] and had Home Health for 1 month until 07/25/18. She will be having assist from [facility] [place] for her transportation, personal hygiene and laundry needs. She states she has been cleared of any hip precautions following her 6 week follow up MD visit. She is currently being monitored for a cyst on the R kidney. Treatment Goals Patient/Caregiver Goals Pt goal is to be able to walk without her 4WW and ambulate stairs with a normal gait. She would like to be able to garden this year but understands this might be a difficult and somewhat unrealistic goal to achieve. Prior Functional Status Baseline Function- ADL's Independent Baseline Function- Mobility Independent Baseline Function- Gait Walked 1/2 hour daily. Able to ambulate stairs with a normal gait. Baseline Function- Recreation/Hobbies Gardening Baseline Function- Other Could exercised 1/2 hour on stationary bike or treadmill. Current Functional Impairments (Reported) Functional Limitations- ADL's SBA for showers. Moves very slow and cautiously with transfers due to fear of falling. Functional Limitations- Mobility/Gait Walks with a 4WW or sometimes in the home with SPC because of fear of falling. Stairs: step to gait with 2 railings. Functional Limitations- Recreation/ Not able to garden Hobbies Personal Factors Other Personal Factors That May Effect > 65 yrs old Therapy/Recovery Has 92 year old . Osteoporosis Has 2 flights of stairs in home. Has need of [facility] [place] for transportation and home needs. PT-OP-C Subjective Start: 07/30/18 08:10 Freq: Status: Active Protocol: Document 08/29/18 12:48 LRN (Rec: 08/29/18 13:40 LRN [id number]) OP-PT Subjective Patient Comments Patient Comments States she does not feel comfortable walking, rates her ability as 40-50%. Patient Questionnaires ABC- Activity Specific Balance Confidence Scale ABC Score 53.75 ABC Functional Impairment 40 to <60% Impaired (Score 41- 60) Lower Extremity Functional Scale LEFS Score 33 LEFS Impairment 40 to 59% Impaired (Score 32- 47) PT-OP-D Balance Start: 07/30/18 12:50 Freq: Status: Active Protocol: Document 07/30/18 12:49 LRN (Rec: 07/30/18 17:34 LRN [id number]) OP-PT Balance Assessment Sitting Balance Static Sitting Balance Ability Normal Dynamic Sitting Balance Ability Good Standing Balance Static Standing Balance Ability Good Dynamic Standing Balance Ability Poor Balance Tests Single Limb Standing Single Limb- Right 0 Single Limb- Left 0 Tinetti Balance Assessment Sitting Balance Sitting Balance Steady, safe Arising from Chair Ability to Arise Able, uses arms to help Standing Balance Immediate Standing Balance Steady with support Standing Balance Steady, wide stance Nudged Response Begins to fall Standing with Eyes Closed Unsteady Turning Step Pattern Turning 360 Degrees Discontinuous steps Stability Turning 360 Degrees Unsteady, grabs/staggers Sitting Down Sitting Down Uses arms or unsteady Gait and Step Initiation of Gait No hesitancy Right Foot Step Length Does not pass stance ft. Right Foot Step Height Does not clear floor Left Foot Step Length Does not pass stance foot Left Foot Step Height Does not clear floor Step Description Step Symmetry Step length appears equal Gait Description Path Description Straight Trunk Description Marked sway or uses aide Walking Stance Heels apart Scoring and Interpretation Tinetti Composite Score (points) 9 Lopez Fall Scale Copyright Permission Jessica WILHELM, Jessica RM, Francia SJ. Development of a scale to identify the fall- prone patient. Can J Aging 1989;8;366-7. Ramo Lopez (2009). Preventing patient falls. (2nd ed). [place]: St. PT-OP-F Manual Assessment Start: 07/30/18 08:10 Freq: Status: Active Protocol: Document 07/30/18 12:49 LRN (Rec: 07/30/18 17:34 LRN [id number]) Manual Assessments Soft Tissue Assessment Soft Tissue Mobility Assessment Anterior L hip: No palpable pain. Pain with active hip flex, AB. PT-OP-G Mobility & Gait Start: 07/30/18 08:10 Freq: Status: Active Protocol: Document 07/30/18 12:49 LRN (Rec: 07/30/18 17:34 LRN [id number]) OP Mobility Evaluation Transfers Sit to Stand SBA Bed to Chair Transfers Pt able to independently transfer onto plinth table moving slowly and with difficulty. OP Gait Assessment Gait Gait Assistance Required: Independent Able to Maintain Weight Bearing Status Yes During Gait Assistive Devices Assistive Device 4 Wheeled Walker Orthotic/Prosthetic Devices or Brace: No Gait Deviations General Gait Pattern Decreased Stride Length Decreased Feet Clearance Flexed Trunk Narrow Based Gait Factors Limiting Gait Function Factors Limiting Gait Function Decreased Strength Pain Poor Balance PT-OP-H Neuro Start: 07/30/18 12:50 Freq: Status: Active Protocol: Document 07/30/18 12:49 LRN (Rec: 07/30/18 17:34 LRN [id number]) Sensation Evaluation Location Details Right Lower Extremity Light Touch Intact/Normal Left Lower Extremity Light Touch Intact/Normal PT-OP-K Range of Motion Start: 07/30/18 08:10 Freq: Status: Active Protocol: Document 08/29/18 12:48 LRN (Rec: 08/29/18 13:40 LRN [id number]) Hip Goniometric Range of Motion Hip Measured in Degrees Left Testing Position Supine Straight Leg Raise 20 Extension 0 Abduction 35 Hip ROM Limitations Hip ROM Limitations Soft Tissue Tightness Muscle Weakness Pain Comments Pt had minimal to no active mobility of L hip for flex, AB , ext. in supine PT-OP-M Strength Start: 07/30/18 08:10 Freq: Status: Active Protocol: Document 08/29/18 12:48 LRN (Rec: 08/29/18 13:40 LRN [id number]) Hip Strength Hip Manual Muscle Testing Left Flexion (L2) 2+ Poor+ Extension (S1) 1 Trace Abduction 2+ Poor+ PT-OP-Q Treatments Start: 07/30/18 08:10 Freq: Status: Active Protocol: Document 08/29/18 12:48 LRN (Rec: 08/29/18 13:40 LRN [id number]) Therapeutic Exercises Supine Exercises Bridging Supine Exercise Name Indep Bridging Reps/Minutes 20 x 1 Hip AB Supine Exercise Name Abduction Side left Reps/Minutes 10x SLR Supine Exercise Name SLR with assist lifting, not lowering Side left Reps/Minutes 10 x 2 Sidelying Exercises Core stabilization Sidelying Exercise Name Manual cuing at L ASIS for stabilizing in neutral in sidelie Comments Extra time taken for training to stabilize, and with clamshell and Hip AB Hip Abduction Sidelying Exercise Name Hip Abd Reps/Minutes 15x2 with assist Clamshell Side left Reps/Minutes 15 x Comments Assist given for max hip ER tolerated Other Exercises Gait for endurance & fear reduction Other Exercise Name Ambulation w/GB/CGA of belt tip Reps/Minutes 5' gait PT-OP-R Modalities Start: 07/30/18 08:10 Freq: Status: Active Protocol: Document 08/20/18 11:20 SA (Rec: 08/20/18 11:28 SA [id number]) Hot Pack/Cold Pack Treatment Cold Pack Location L anterior & lateral hip. Patient Position Supine Treatment Duration (minutes) 10 Patient Tolerance Good PT-OP-T Assessment and Plan Start: 07/30/18 08:10 Freq: Status: Active Protocol: Document 08/29/18 12:48 LRN (Rec: 08/29/18 13:40 LRN [id number]) Physical Therapy Assessment Rehab Potential Rehabilitation Potential Good Evaluation Complexity Number of Personal Factors/Comorbidities 3 or More Number of Body Systems Impaired 4 or More Clinical Presentation at Evaluation Evolving Impairments Impairments Balance Functional Mobility Gait Pain Posture ROM Strength Other Concerns Fall Risk Yes Age Related Concerns Impact on family Barriers to Rehabilitation > 65 yrs old Pt has extreme fear of falling Osteoporosis Pt has [facility] helping with transportation Goals Decreased balance Impairment Tinetti Balance score of 7/16 indicating pt at risk of falling. Prison Goal (LTG) Pt will achieve a Tinetti Balance score of at least 12 of 16 with a gait score of 12 indicating pt is at low risk of falling. LTG Duration 10/22/18 (08/29/18: Gait score is 10/12: Mod risk of falling) Decreased L hip strength Impairment Pt unable to lift L leg independently making transfers difficult Short Term Goal (STG) Pt will be able to lift her L LE independently to be able to transfer off/on the plinth table without assist. STG Duration 08/16/18 (08/29/18: Moves indep off/on with discomfort anterior L hip) Decreased active L hip mobility Impairment Pt lacks L hip AB mobility for painfree transfers Short Term Goal (STG) Pt will improve active L hip AB mobility for painfree transfers off/on plinth tables . STG Duration 08/23/18 (08/29/18: Moves indep off/on with discomfort anterior L hip) Decreased ankle mobility Impairment Pt lacks functional ankle DF mobility for gait Short Term Goal (STG) Improve ankle active DF with pt able to demonstrate normal gait mechanics without the use of an assistive device. STG Duration 08/23/18 (08/27/18: GOAL MET for no assist device) Gait Impairment Pt requires use of assistive device for gait [employer] Goal (LTG) Pt will be independent with a normal gait without an assistive device. LTG Duration 10/22/18 (08/27/18: Pt able to walk w/o AD, but chooses to use) HEP Impairment Pt lacks appropriate self care HEP Prison Goal (LTG) Pt will be independent with a self care HEP. LTG Duration 10/22/18 Progress Towards Goals Progress Towards Goals Slow Progress - Other Assessment Summary Assessment Pt has improved in her stability and gait. She appears stable with gait, but progression of stability and balance is being hindered by her fear of falling. She is slowly improving in this area. Per Tinetti score she is at a moderate risk of falling. The pt would benefit from continued skilled physical therapy for further strengthening, balance training, and gait training without an assistive device. Physical Therapy Plan Frequency and Duration Frequency of Treatment 2x/Week Plan of Care Start Date 07/30/18 Plan of Care End Date 10/22/18 Therapeutic Interventions Therapeutic Interventions Balance Training Gait Training Home Exercise Program Manual Therapy Neuromuscular Re-education Patient/Caregiver Education Self-Care/Home Management Soft Tissue Mobilization Taping Therapeutic Activities Therapeutic Exercises Modalities Cold Pack/Ice Massage Hot Packs Next Visit Focus/Plan Next Note Type Treatment Note Next Visit Plan Progress gait endurance without an assistive & progress LE strengthening and stair climb. Add Dual Dorothea hip AB/AD. End with cryotherapy if needed.
--- NOTE | 2018-08-29 17:43 | PT.OTN ---
Current Diagnoses Pain in left hip (08/29/18) Presence of unspecified artificial hip joint (08/29/18) Physical Therapy Treatment Note PT-OP-A Visit Information Start: 07/30/18 08:10 Freq: Status: Active Protocol: Document 08/29/18 12:48 LRN (Rec: 08/29/18 13:40 LRN [id number]) Out-Patient Physical Therapy Visit Information Visit Information Visit Type Treatment Note Visit Start Time 12:45 Visit Stop Time 13:36 Total Visit Minutes 51 Visit Number 10 Number of GAS DISTRIBUTION SUPERVISOR Visits 0 Evaluation Information Evaluation Date 07/30/18 Precautions Precautions s/p partial L hip replacement Hx of pneumothorax - during hip replacement hospitalization. Osteoporosis PT-OP-B Current Condition Start: 07/30/18 08:10 Freq: Status: Active Protocol: Document 07/30/18 12:49 LRN (Rec: 07/30/18 17:34 LRN [id number]) Current Condition History of Current Condition Onset Date Partial L posterior hip replacement 06/06/18 Current Complaints Difficulty walking level and stairs, using 4WW, not able to exercise. History of Current Condition Pt reports falling suffering a fractured hip, with partial replacement on 06/06/18. States she was in the hospital 9.5 days due to a collapsed lung. She then developed a viral pneumonia. She spent 5 days in rehab at [facility] and had Home Health for 1 month until 07/25/18. She will be having assist from [employer] for her transportation, personal hygiene and laundry needs. She states she has been cleared of any hip precautions following her 6 week follow up MD visit. She is currently being monitored for a cyst on the R kidney. Treatment Goals Patient/Caregiver Goals Pt goal is to be able to walk without her 4WW and ambulate stairs with a normal gait. She would like to be able to garden this year but understands this might be a difficult and somewhat unrealistic goal to achieve. Prior Functional Status Baseline Function- ADL's Independent Baseline Function- Mobility Independent Baseline Function- Gait Walked 1/2 hour daily. Able to ambulate stairs with a normal gait. Baseline Function- Recreation/Hobbies Gardening Baseline Function- Other Could exercised 1/2 hour on stationary bike or treadmill. Current Functional Impairments (Reported) Functional Limitations- ADL's SBA for showers. Moves very slow and cautiously with transfers due to fear of falling. Functional Limitations- Mobility/Gait Walks with a 4WW or sometimes in the home with SPC because of fear of falling. Stairs: step to gait with 2 railings. Functional Limitations- Recreation/ Not able to garden Hobbies Personal Factors Other Personal Factors That May Effect > 65 yrs old Therapy/Recovery Has 92 year old . Osteoporosis Has 2 flights of stairs in home. Has need of [employer] for transportation and home needs. PT-OP-C Subjective Start: 07/30/18 08:10 Freq: Status: Active Protocol: Document 08/29/18 12:48 LRN (Rec: 08/29/18 13:40 LRN [id number]) OP-PT Subjective Patient Comments Patient Comments States she does not feel comfortable walking, rates her ability as 40-50%. Patient Questionnaires ABC- Activity Specific Balance Confidence Scale ABC Score 53.75 ABC Functional Impairment 40 to <60% Impaired (Score 41- 60) Lower Extremity Functional Scale LEFS Score 33 LEFS Impairment 40 to 59% Impaired (Score 32- 47) PT-OP-D Balance Start: 07/30/18 12:50 Freq: Status: Active Protocol: Document 08/29/18 12:45 LRN (Rec: 08/29/18 17:42 LRN [id number]) Tinetti Balance Assessment Sitting Balance Sitting Balance Steady, safe Arising from Chair Ability to Arise Able, w/o using arms Attempts to Arise Arises on 1st attempt Standing Balance Immediate Standing Balance Steady w/o support Standing Balance Steady, wide stance Nudged Response Staggers, catches self Standing with Eyes Closed Steady Turning Step Pattern Turning 360 Degrees Continuous steps Stability Turning 360 Degrees Steady Sitting Down Sitting Down Safe, steady Gait and Step Initiation of Gait No hesitancy Right Foot Step Length Does pass stance foot Right Foot Step Height Completely clears floor Left Foot Step Length Does pass stance foot Left Foot Step Height Completely clears floor Step Description Step Symmetry Step length not equal Step Continuity Steps appear continuous Gait Description Path Description Straight Trunk Description No sway Walking Stance Heels apart Scoring and Interpretation Tinetti Composite Score (points) 24 Interpretation of Scores At risk for falls (19-24) Tinetti Impairment Rating from Composite 1 to <20% Impaired (Score 23- Score 27) PT-OP-E Functional Tests Start: 07/30/18 12:50 Freq: Status: Active Protocol: Document 08/29/18 12:45 LRN (Rec: 08/29/18 17:43 LRN [id number]) Functional Tests Timed Up and Go (TUG) Score 16 Comments one time practice TUG Impairment Rating 60 to <80% Impaired (Score 16- 17) PT-OP-F Manual Assessment Start: 07/30/18 08:10 Freq: Status: Active Protocol: Document 07/30/18 12:49 LRN (Rec: 07/30/18 17:34 LRN [id number]) Manual Assessments Soft Tissue Assessment Soft Tissue Mobility Assessment Anterior L hip: No palpable pain. Pain with active hip flex, AB. PT-OP-G Mobility & Gait Start: 07/30/18 08:10 Freq: Status: Active Protocol: Document 07/30/18 12:49 LRN (Rec: 07/30/18 17:34 LRN [id number]) OP Mobility Evaluation Transfers Sit to Stand SBA Bed to Chair Transfers Pt able to independently transfer onto plinth table moving slowly and with difficulty. OP Gait Assessment Gait Gait Assistance Required: Independent Able to Maintain Weight Bearing Status Yes During Gait Assistive Devices Assistive Device 4 Wheeled Walker Orthotic/Prosthetic Devices or Brace: No Gait Deviations General Gait Pattern Decreased Stride Length Decreased Feet Clearance Flexed Trunk Narrow Based Gait Factors Limiting Gait Function Factors Limiting Gait Function Decreased Strength Pain Poor Balance PT-OP-H Neuro Start: 07/30/18 12:50 Freq: Status: Active Protocol: Document 07/30/18 12:49 LRN (Rec: 07/30/18 17:34 LRN [id number]) Sensation Evaluation Location Details Right Lower Extremity Light Touch Intact/Normal Left Lower Extremity Light Touch Intact/Normal PT-OP-K Range of Motion Start: 07/30/18 08:10 Freq: Status: Active Protocol: Document 08/29/18 12:48 LRN (Rec: 08/29/18 13:40 LRN [id number]) Hip Goniometric Range of Motion Hip Measured in Degrees Left Testing Position Supine Straight Leg Raise 20 Extension 0 Abduction 35 Hip ROM Limitations Hip ROM Limitations Soft Tissue Tightness Muscle Weakness Pain Comments Pt had minimal to no active mobility of L hip for flex, AB , ext. in supine PT-OP-M Strength Start: 07/30/18 08:10 Freq: Status: Active Protocol: Document 08/29/18 12:48 LRN (Rec: 08/29/18 13:40 LRN [id number]) Hip Strength Hip Manual Muscle Testing Left Flexion (L2) 2+ Poor+ Extension (S1) 1 Trace Abduction 2+ Poor+ PT-OP-Q Treatments Start: 07/30/18 08:10 Freq: Status: Active Protocol: Document 08/29/18 12:48 LRN (Rec: 08/29/18 13:40 LRN [id number]) Therapeutic Exercises Supine Exercises Bridging Supine Exercise Name Indep Bridging Reps/Minutes 20 x 1 Hip AB Supine Exercise Name Abduction Side left Reps/Minutes 10x SLR Supine Exercise Name SLR with assist lifting, not lowering Side left Reps/Minutes 10 x 2 Sidelying Exercises Core stabilization Sidelying Exercise Name Manual cuing at L ASIS for stabilizing in neutral in sidelie Comments Extra time taken for training to stabilize, and with clamshell and Hip AB Hip Abduction Sidelying Exercise Name Hip Abd Reps/Minutes 15x2 with assist Clamshell Side left Reps/Minutes 15 x Comments Assist given for max hip ER tolerated Other Exercises Gait for endurance & fear reduction Other Exercise Name Ambulation w/GB/CGA of belt tip Reps/Minutes 5' gait PT-OP-R Modalities Start: 07/30/18 08:10 Freq: Status: Active Protocol: Document 08/20/18 11:20 SA (Rec: 08/20/18 11:28 SA [id number]) Hot Pack/Cold Pack Treatment Cold Pack Location L anterior & lateral hip. Patient Position Supine Treatment Duration (minutes) 10 Patient Tolerance Good PT-OP-T Assessment and Plan Start: 07/30/18 08:10 Freq: Status: Active Protocol: Document 08/29/18 12:48 LRN (Rec: 08/29/18 13:40 LRN [id number]) Physical Therapy Assessment Rehab Potential Rehabilitation Potential Good Evaluation Complexity Number of Personal Factors/Comorbidities 3 or More Number of Body Systems Impaired 4 or More Clinical Presentation at Evaluation Evolving Impairments Impairments Balance Functional Mobility Gait Pain Posture ROM Strength Other Concerns Fall Risk Yes Age Related Concerns Impact on family Barriers to Rehabilitation > 65 yrs old Pt has extreme fear of falling Osteoporosis Pt has [employer] [employer] helping with transportation Goals Decreased balance Impairment Tinetti Balance score of 7/16 indicating pt at risk of falling. [facility] Goal (LTG) Pt will achieve a Tinetti Balance score of at least 12 of 16 with a gait score of 12 indicating pt is at low risk of falling. LTG Duration 10/22/18 (08/29/18: Gait score is 10/12: Mod risk of falling) Decreased L hip strength Impairment Pt unable to lift L leg independently making transfers difficult Short Term Goal (STG) Pt will be able to lift her L LE independently to be able to transfer off/on the plinth table without assist. STG Duration 08/16/18 (08/29/18: Moves indep off/on with discomfort anterior L hip) Decreased active L hip mobility Impairment Pt lacks L hip AB mobility for painfree transfers Short Term Goal (STG) Pt will improve active L hip AB mobility for painfree transfers off/on plinth tables . STG Duration 08/23/18 (08/29/18: Moves indep off/on with discomfort anterior L hip) Decreased ankle mobility Impairment Pt lacks functional ankle DF mobility for gait Short Term Goal (STG) Improve ankle active DF with pt able to demonstrate normal gait mechanics without the use of an assistive device. STG Duration 08/23/18 (08/27/18: GOAL MET for no assist device) Gait Impairment Pt requires use of assistive device for gait [facility] Goal (LTG) Pt will be independent with a normal gait without an assistive device. LTG Duration 10/22/18 (08/27/18: Pt able to walk w/o AD, but chooses to use) HEP Impairment Pt lacks appropriate self care HEP [facility] Goal (LTG) Pt will be independent with a self care HEP. LTG Duration 10/22/18 Progress Towards Goals Progress Towards Goals Slow Progress - Other Assessment Summary Assessment Pt has improved in her stability and gait. She appears stable with gait, but progression of stability and balance is being hindered by her fear of falling. She is slowly improving in this area. Per Tinetti score she is at a moderate risk of falling. The pt would benefit from continued skilled physical therapy for further strengthening, balance training, and gait training without an assistive device. Physical Therapy Plan Frequency and Duration Frequency of Treatment 2x/Week Plan of Care Start Date 07/30/18 Plan of Care End Date 10/22/18 Therapeutic Interventions Therapeutic Interventions Balance Training Gait Training Home Exercise Program Manual Therapy Neuromuscular Re-education Patient/Caregiver Education Self-Care/Home Management Soft Tissue Mobilization Taping Therapeutic Activities Therapeutic Exercises Modalities Cold Pack/Ice Massage Hot Packs Next Visit Focus/Plan Next Note Type Treatment Note Next Visit Plan Progress gait endurance without an assistive & progress LE strengthening and stair climb. Add Dual Dorothea hip AB/AD. End with cryotherapy if needed.
--- NOTE | 2018-09-03 11:04 | PT.OTN ---
Current Diagnoses Pain in left hip (09/03/18) Presence of unspecified artificial hip joint (09/03/18) Physical Therapy Treatment Note PT-OP-A Visit Information Start: 07/30/18 08:10 Freq: Status: Active Protocol: Document 09/03/18 09:49 LRN (Rec: 09/03/18 10:49 LRN [id number]) Out-Patient Physical Therapy Visit Information Visit Information Visit Type Treatment Note Visit Start Time 09:49 Visit Stop Time 10:36 Total Visit Minutes 47 Visit Number 11 Number of EMPLOYMENT SERVICES DIRECTOR Visits 0 Evaluation Information Evaluation Date 07/30/18 Precautions Precautions s/p partial L hip replacement Hx of pneumothorax - during hip replacement hospitalization. Osteoporosis PT-OP-B Current Condition Start: 07/30/18 08:10 Freq: Status: Active Protocol: Document 07/30/18 12:49 LRN (Rec: 07/30/18 17:34 LRN [id number]) Current Condition History of Current Condition Onset Date Partial L posterior hip replacement 06/06/18 Current Complaints Difficulty walking level and stairs, using 4WW, not able to exercise. History of Current Condition Pt reports falling suffering a fractured hip, with partial replacement on 06/06/18. States she was in the hospital 9.5 days due to a collapsed lung. She then developed a viral pneumonia. She spent 5 days in rehab at [facility] and had Home Health for 1 month until 07/25/18. She will be having assist from [employer] for her transportation, personal hygiene and laundry needs. She states she has been cleared of any hip precautions following her 6 week follow up MD visit. She is currently being monitored for a cyst on the R kidney. Treatment Goals Patient/Caregiver Goals Pt goal is to be able to walk without her 4WW and ambulate stairs with a normal gait. She would like to be able to garden this year but understands this might be a difficult and somewhat unrealistic goal to achieve. Prior Functional Status Baseline Function- ADL's Independent Baseline Function- Mobility Independent Baseline Function- Gait Walked 1/2 hour daily. Able to ambulate stairs with a normal gait. Baseline Function- Recreation/Hobbies Gardening Baseline Function- Other Could exercised 1/2 hour on stationary bike or treadmill. Current Functional Impairments (Reported) Functional Limitations- ADL's SBA for showers. Moves very slow and cautiously with transfers due to fear of falling. Functional Limitations- Mobility/Gait Walks with a 4WW or sometimes in the home with SPC because of fear of falling. Stairs: step to gait with 2 railings. Functional Limitations- Recreation/ Not able to garden Hobbies Personal Factors Other Personal Factors That May Effect > 65 yrs old Therapy/Recovery Has 92 year old . Osteoporosis Has 2 flights of stairs in home. Has need of [employer] [place] for transportation and home needs. PT-OP-C Subjective Start: 07/30/18 08:10 Freq: Status: Active Protocol: Document 09/03/18 09:49 LRN (Rec: 09/03/18 10:49 LRN [id number]) OP-PT Subjective Patient Comments Patient Comments Having L anterior hip pain worse this weekend and took Tylenol today because of therapy. Trying to do 2 set of 10 reps with ex's. PT-OP-D Balance Start: 07/30/18 12:50 Freq: Status: Active Protocol: Document 08/29/18 12:45 LRN (Rec: 08/29/18 17:42 LRN [id number]) Tinetti Balance Assessment Sitting Balance Sitting Balance Steady, safe Arising from Chair Ability to Arise Able, w/o using arms Attempts to Arise Arises on 1st attempt Standing Balance Immediate Standing Balance Steady w/o support Standing Balance Steady, wide stance Nudged Response Staggers, catches self Standing with Eyes Closed Steady Turning Step Pattern Turning 360 Degrees Continuous steps Stability Turning 360 Degrees Steady Sitting Down Sitting Down Safe, steady Gait and Step Initiation of Gait No hesitancy Right Foot Step Length Does pass stance foot Right Foot Step Height Completely clears floor Left Foot Step Length Does pass stance foot Left Foot Step Height Completely clears floor Step Description Step Symmetry Step length not equal Step Continuity Steps appear continuous Gait Description Path Description Straight Trunk Description No sway Walking Stance Heels apart Scoring and Interpretation Tinetti Composite Score (points) 24 Interpretation of Scores At risk for falls (19-24) Tinetti Impairment Rating from Composite 1 to <20% Impaired (Score 23- Score 27) PT-OP-E Functional Tests Start: 07/30/18 12:50 Freq: Status: Active Protocol: Document 09/03/18 09:49 LRN (Rec: 09/03/18 10:49 LRN [id number]) Functional Tests Timed Up and Go (TUG) Score 16.3 TUG Impairment Rating 60 to <80% Impaired (Score 16- 17) Tinetti Balance and Gait Assessment Balance Score 13 Gait Score 10 Composite Score 23 Balance Score Impairment Rating 1 to <20% Impaired (Score 13- 15) Gait Score Impairment Rating 1 to <20% Impaired (Score 10- 11) Composite Score Impairment Rating 1 to <20% Impaired (Score 23- 27) PT-OP-F Manual Assessment Start: 07/30/18 08:10 Freq: Status: Active Protocol: Document 07/30/18 12:49 LRN (Rec: 07/30/18 17:34 LRN [id number]) Manual Assessments Soft Tissue Assessment Soft Tissue Mobility Assessment Anterior L hip: No palpable pain. Pain with active hip flex, AB. PT-OP-G Mobility & Gait Start: 07/30/18 08:10 Freq: Status: Active Protocol: Document 07/30/18 12:49 LRN (Rec: 07/30/18 17:34 LRN [id number]) OP Mobility Evaluation Transfers Sit to Stand SBA Bed to Chair Transfers Pt able to independently transfer onto plinth table moving slowly and with difficulty. OP Gait Assessment Gait Gait Assistance Required: Independent Able to Maintain Weight Bearing Status Yes During Gait Assistive Devices Assistive Device 4 Wheeled Walker Orthotic/Prosthetic Devices or Brace: No Gait Deviations General Gait Pattern Decreased Stride Length Decreased Feet Clearance Flexed Trunk Narrow Based Gait Factors Limiting Gait Function Factors Limiting Gait Function Decreased Strength Pain Poor Balance PT-OP-H Neuro Start: 07/30/18 12:50 Freq: Status: Active Protocol: Document 07/30/18 12:49 LRN (Rec: 07/30/18 17:34 LRN [id number]) Sensation Evaluation Location Details Right Lower Extremity Light Touch Intact/Normal Left Lower Extremity Light Touch Intact/Normal PT-OP-K Range of Motion Start: 07/30/18 08:10 Freq: Status: Active Protocol: Document 08/29/18 12:48 LRN (Rec: 08/29/18 13:40 LRN [id number]) Hip Goniometric Range of Motion Hip Measured in Degrees Left Testing Position Supine Straight Leg Raise 20 Extension 0 Abduction 35 Hip ROM Limitations Hip ROM Limitations Soft Tissue Tightness Muscle Weakness Pain Comments Pt had minimal to no active mobility of L hip for flex, AB , ext. in supine PT-OP-M Strength Start: 07/30/18 08:10 Freq: Status: Active Protocol: Document 08/29/18 12:48 LRN (Rec: 08/29/18 13:40 LRN [id number]) Hip Strength Hip Manual Muscle Testing Left Flexion (L2) 2+ Poor+ Extension (S1) 1 Trace Abduction 2+ Poor+ PT-OP-Q Treatments Start: 07/30/18 08:10 Freq: Status: Active Protocol: Document 09/03/18 09:49 LRN (Rec: 09/03/18 10:49 LRN [id number]) Gym Equipment Cable Column (Body Solid) Hip Abduction Details Hip ABD Resistance 10# Reps/Time 3x Hip Adduction Details Hip ADD Resistance 10# Reps/Time 8x3 Therapeutic Exercises Sitting Exercises Ankle DF Side left Reps/Minutes 15x2 Ankle IV Sitting Exercise Name Ankle IV Side bilateral Resistance Lev 2 T-Band Reps/Minutes 15 x 3, 15x2 Comments 3 sets Left, 2 sets right Ankle EV Sitting Exercise Name Ankle EV Side bilateral Resistance Lev 2 T-Band Reps/Minutes 15 x 2 Standing Exercises Hip Extension Standing Exercise Name Hip Extension Side left Reps/Minutes 30 x Other Exercises Gait for endurance & fear reduction Other Exercise Name Ambulation w/GB/CGA of belt tip Reps/Minutes 10' Comments 2 rest stops Gait Training Gait Activity Stair training Description Ascend/Descend training Level of Assistance SBA Distance/Duration 10' Treatment Focus Alternate stepping Comments Cues for core engagement PT-OP-R Modalities Start: 07/30/18 08:10 Freq: Status: Active Protocol: Document 08/20/18 11:20 SA (Rec: 08/20/18 11:28 SA [id number]) Hot Pack/Cold Pack Treatment Cold Pack Location L anterior & lateral hip. Patient Position Supine Treatment Duration (minutes) 10 Patient Tolerance Good PT-OP-T Assessment and Plan Start: 07/30/18 08:10 Freq: Status: Active Protocol: Document 09/03/18 09:49 LRN (Rec: 09/03/18 10:49 LRN [id number]) Physical Therapy Assessment Progress Towards Goals Progress Towards Goals Slow Progress - Other Progress Comments HEP: Slow Progress due to L anterior hip pain. Gait: Much improved per Tinetti score of 10/12. Ankle Mobility: Normal gait. Ankle ROM needs measuring. L Hip Mobility: Assist needed for hip flex and AB due to anterior hip pain. L hip strength: Progress is slow due to anterior hip pain. Balance: GOAL MET for Tinetti Balance Score. Goal Not Met for Tinetti Gait Score. Assessment Summary Assessment Pt is having L anterior hip pain with hip flex; therefore held strengthening. Pt is able to ambulate in open spaces safely, but pt is fearful of falling. Further training is needed. Physical Therapy Plan Frequency and Duration Frequency of Treatment 2x/Week Plan of Care Start Date 07/30/18 Plan of Care End Date 10/22/18 Next Visit Focus/Plan Next Note Type Treatment Note Next Visit Plan Measure ankle ROM (DF focus) mobility. Progress gait endurance without an assistive & progress LE strengthening ( hold hip flex until pain is controlled) and stair climb. End with cryotherapy if needed .
--- NOTE | 2018-09-05 15:12 | PT.OTN ---
Current Diagnoses Pain in left hip (09/05/18) Presence of unspecified artificial hip joint (09/05/18) Physical Therapy Treatment Note PT-OP-A Visit Information Start: 07/30/18 08:10 Freq: Status: Active Protocol: Document 09/05/18 12:47 LRN (Rec: 09/05/18 13:34 LRN [id number]) Out-Patient Physical Therapy Visit Information Visit Information Visit Type Treatment Note Visit Start Time 12:47 Visit Stop Time 13:30 Total Visit Minutes 43 Visit Number 12 Number of ACADEMIC DEAN Visits 0 Evaluation Information Evaluation Date 07/30/18 Precautions Precautions s/p partial L hip replacement Hx of pneumothorax - during hip replacement hospitalization. Osteoporosis PT-OP-B Current Condition Start: 07/30/18 08:10 Freq: Status: Active Protocol: Document 07/30/18 12:49 LRN (Rec: 07/30/18 17:34 LRN [id number]) Current Condition History of Current Condition Onset Date Partial L posterior hip replacement 06/06/18 Current Complaints Difficulty walking level and stairs, using 4WW, not able to exercise. History of Current Condition Pt reports falling suffering a fractured hip, with partial replacement on 06/06/18. States she was in the hospital 9.5 days due to a collapsed lung. She then developed a viral pneumonia. She spent 5 days in rehab at [facility] and had Home Health for 1 month until 07/25/18. She will be having assist from [employer] [place] for her transportation, personal hygiene and laundry needs. She states she has been cleared of any hip precautions following her 6 week follow up MD visit. She is currently being monitored for a cyst on the R kidney. Treatment Goals Patient/Caregiver Goals Pt goal is to be able to walk without her 4WW and ambulate stairs with a normal gait. She would like to be able to garden this year but understands this might be a difficult and somewhat unrealistic goal to achieve. Prior Functional Status Baseline Function- ADL's Independent Baseline Function- Mobility Independent Baseline Function- Gait Walked 1/2 hour daily. Able to ambulate stairs with a normal gait. Baseline Function- Recreation/Hobbies Gardening Baseline Function- Other Could exercised 1/2 hour on stationary bike or treadmill. Current Functional Impairments (Reported) Functional Limitations- ADL's SBA for showers. Moves very slow and cautiously with transfers due to fear of falling. Functional Limitations- Mobility/Gait Walks with a 4WW or sometimes in the home with SPC because of fear of falling. Stairs: step to gait with 2 railings. Functional Limitations- Recreation/ Not able to garden Hobbies Personal Factors Other Personal Factors That May Effect > 66 yrs old Therapy/Recovery Has 92 year old . Osteoporosis Has 2 flights of stairs in home. Has need of [employer] for transportation and home needs. PT-OP-C Subjective Start: 07/30/18 08:10 Freq: Status: Active Protocol: Document 09/05/18 12:47 LRN (Rec: 09/05/18 13:34 LRN [id number]) OP-PT Subjective Patient Comments Patient Comments States she is having trouble with pain in the L anterior hip, rated 5/10. She is not using her cane or walker in the home and is not reaching for counters as she walks in her home. She is getting more confident in her walking. PT-OP-D Balance Start: 07/30/18 12:50 Freq: Status: Active Protocol: Document 08/29/18 12:45 LRN (Rec: 08/29/18 17:42 LRN [id number]) Tinetti Balance Assessment Sitting Balance Sitting Balance Steady, safe Arising from Chair Ability to Arise Able, w/o using arms Attempts to Arise Arises on 1st attempt Standing Balance Immediate Standing Balance Steady w/o support Standing Balance Steady, wide stance Nudged Response Staggers, catches self Standing with Eyes Closed Steady Turning Step Pattern Turning 360 Degrees Continuous steps Stability Turning 360 Degrees Steady Sitting Down Sitting Down Safe, steady Gait and Step Initiation of Gait No hesitancy Right Foot Step Length Does pass stance foot Right Foot Step Height Completely clears floor Left Foot Step Length Does pass stance foot Left Foot Step Height Completely clears floor Step Description Step Symmetry Step length not equal Step Continuity Steps appear continuous Gait Description Path Description Straight Trunk Description No sway Walking Stance Heels apart Scoring and Interpretation Tinetti Composite Score (points) 24 Interpretation of Scores At risk for falls (19-24) Tinetti Impairment Rating from Composite 1 to <20% Impaired (Score 23- Score 27) PT-OP-E Functional Tests Start: 07/30/18 12:50 Freq: Status: Active Protocol: Document 09/03/18 09:49 LRN (Rec: 09/03/18 10:49 LRN [id number]) Functional Tests Timed Up and Go (TUG) Score 16.3 TUG Impairment Rating 60 to <80% Impaired (Score 16- 17) Tinetti Balance and Gait Assessment Balance Score 13 Gait Score 10 Composite Score 23 Balance Score Impairment Rating 1 to <20% Impaired (Score 13- 15) Gait Score Impairment Rating 1 to <20% Impaired (Score 10- 11) Composite Score Impairment Rating 1 to <20% Impaired (Score 23- 27) PT-OP-F Manual Assessment Start: 07/30/18 08:10 Freq: Status: Active Protocol: Document 07/30/18 12:49 LRN (Rec: 07/30/18 17:34 LRN [id number]) Manual Assessments Soft Tissue Assessment Soft Tissue Mobility Assessment Anterior L hip: No palpable pain. Pain with active hip flex, AB. PT-OP-G Mobility & Gait Start: 07/30/18 08:10 Freq: Status: Active Protocol: Document 07/30/18 12:49 LRN (Rec: 07/30/18 17:34 LRN [id number]) OP Mobility Evaluation Transfers Sit to Stand SBA Bed to Chair Transfers Pt able to independently transfer onto plinth table moving slowly and with difficulty. OP Gait Assessment Gait Gait Assistance Required: Independent Able to Maintain Weight Bearing Status Yes During Gait Assistive Devices Assistive Device 4 Wheeled Walker Orthotic/Prosthetic Devices or Brace: No Gait Deviations General Gait Pattern Decreased Stride Length Decreased Feet Clearance Flexed Trunk Narrow Based Gait Factors Limiting Gait Function Factors Limiting Gait Function Decreased Strength Pain Poor Balance PT-OP-H Neuro Start: 07/30/18 12:50 Freq: Status: Active Protocol: Document 07/30/18 12:49 LRN (Rec: 07/30/18 17:34 LRN [id number]) Sensation Evaluation Location Details Right Lower Extremity Light Touch Intact/Normal Left Lower Extremity Light Touch Intact/Normal PT-OP-K Range of Motion Start: 07/30/18 08:10 Freq: Status: Active Protocol: Document 09/05/18 12:47 LRN (Rec: 09/05/18 13:34 LRN [id number]) Ankle and Foot Goniometric Range of Motion Ankle and Foot Measured in Degrees Right Active Ankle/Foot ROM WFL Yes Dorsiflexion with Knee Flexed 12 Dorsiflexion with Knee Extended 8 Plantarflexion 58 Left Active Testing Position Supine Dorsiflexion with Knee Flexed 10 Dorsiflexion with Knee Extended 8 Plantarflexion 47 PT-OP-M Strength Start: 07/30/18 08:10 Freq: Status: Active Protocol: Document 08/29/18 12:48 LRN (Rec: 08/29/18 13:40 LRN [id number]) Hip Strength Hip Manual Muscle Testing Left Flexion (L2) 2+ Poor+ Extension (S1) 1 Trace Abduction 2+ Poor+ PT-OP-Q Treatments Start: 07/30/18 08:10 Freq: Status: Active Protocol: Document 09/05/18 12:47 LRN (Rec: 09/05/18 13:34 LRN [id number]) Therapeutic Exercises Supine Exercises L Ankle PF Supine Exercise Name Active Ankle PF Side left Reps/Minutes 15x2 L Ankle DF Supine Exercise Name Stretch f/b active Ankle DF Side left Reps/Minutes 15x2 Heel slides Supine Exercise Name Heel Slides Side left Resistance Lev 2 T-Band for 2nd set Reps/Minutes 15 X 2 Hip AB Supine Exercise Name Abduction/Adduction Side left Reps/Minutes 10x Other Exercises Gait for endurance & fear reduction Other Exercise Name Ambulation w/GB/SBA holding belt tip some of the time Reps/Minutes 11' Comments Walking 1/2 time in parking lot Manual Therapy Treatment Soft Tissue Mobilization L hip AD & Iliopsoas Body Location L hip AD @ Pubic bone & muscle belly; & Ilipsoas Mobilization Type Strumming Sustained Pressure Trigger Point Release Intensity/Depth Deep Body Position Supine Comments 14' Self-Care/Home Management Treatment Education Patient Education Posture Other Education Pt eduation in anatomy of hip joint and location of flexor hip muscles and attachments. Use of spine model. Educated pt in proper posturing at night time in the supine position (without pillow under knees). PT-OP-R Modalities Start: 07/30/18 08:10 Freq: Status: Active Protocol: Document 08/20/18 11:20 SA (Rec: 08/20/18 11:28 SA [id number]) Hot Pack/Cold Pack Treatment Cold Pack Location L anterior & lateral hip. Patient Position Supine Treatment Duration (minutes) 10 Patient Tolerance Good PT-OP-T Assessment and Plan Start: 07/30/18 08:10 Freq: Status: Active Protocol: Document 09/05/18 12:47 LRN (Rec: 09/05/18 13:34 LRN [id number]) Physical Therapy Assessment Goals Decreased balance Impairment Tinetti Balance score of 7/16 indicating pt at risk of falling. Sneller Hand Goal (LTG) Pt will achieve a Tinetti Balance score of at least 12 of 16 with a gait score of 12 indicating pt is at low risk of falling. LTG Duration 10/22/18 (08/29/18: Gait score is 10/12: Mod risk of falling) Decreased L hip strength Impairment Pt unable to lift L leg independently making transfers difficult Short Term Goal (STG) Pt will be able to lift her L LE independently to be able to transfer off/on the plinth table without assist. STG Duration 08/16/18 (09/05/18: GOAL MET for moving leg, discomfort is present) Decreased active L hip mobility Impairment Pt lacks L hip AB mobility for painfree transfers Short Term Goal (STG) Pt will improve active L hip AB mobility for painfree transfers off/on plinth tables . STG Duration 08/23/18 (08/29/18: GOAL PARTIALLY MET: discomfort anterior L hip) Decreased ankle mobility Impairment Pt lacks functional ankle DF mobility for gait Short Term Goal (STG) Improve ankle active DF with pt able to demonstrate normal gait mechanics without the use of an assistive device. STG Duration 08/23/18 (08/27/18: GOAL MET) Gait Impairment Pt requires use of assistive device for gait Sneller Hand Goal (LTG) Pt will be independent with a normal gait without an assistive device. LTG Duration 10/22/18 (08/27/18: Pt able to walk w/o AD, but chooses to use) HEP Impairment Pt lacks appropriate self care HEP Sneller Hand Goal (LTG) Pt will be independent with a self care HEP. LTG Duration 10/22/18 Progress Towards Goals Progress Towards Goals Slow Progress - Other Progress Comments HEP: Slow Progress due to L anterior hip pain. Gait: Much improved per Tinetti score of 10/12. Goal met for gait without an assistive device, gait is slow and cautious. Ankle Mobility: GOAL MET for normal gait, although slow and cautious. Decreased mobility with L ankle DF (knee flexed) and ankle PF. L Hip Mobility (AB): Assist needed for hip flex due to anterior hip pain, but pt able to move leg on/off plinth with mild discomfort, not pain . L hip strength (flex): Progress is slow due to anterior hip pain with active hip flexion. Balance: GOAL MET for Tinetti Balance Score. Goal NOT Met for Tinetti Gait Score. Assessment Summary Assessment Slightly decreased mobility of L soleus and L anterior tibialis. Pt has mechanical dysfunction of the hip joint with L innominate in posterior tilt, possibly due to shortening of Iliopsoas/hip AD 's while pt sleeps at night with pillow under knees. Pt much improved with stability of gait. She starts to weave mildly after > 9' of gait. Further general strengthening is needed to improve stability with gait. Physical Therapy Plan Frequency and Duration Frequency of Treatment 2x/Week Plan of Care Start Date 07/30/18 Plan of Care End Date 10/22/18 Next Visit Focus/Plan Next Note Type Treatment Note Next Visit Plan Add ankle PF and soleus stretch. Increase tolerance for walking 10 minutes with increasing speed/intensity on level surface. MWM of posteriorly tilting L innominate with hip flex for strengthening of hip flexors and AD's.
--- NOTE | 2018-09-10 15:17 | PT.OTN ---
Current Diagnoses Pain in left hip (09/10/18) Presence of unspecified artificial hip joint (09/10/18) Physical Therapy Treatment Note PT-OP-A Visit Information Start: 07/30/18 08:10 Freq: Status: Active Protocol: Document 09/10/18 08:15 LRN (Rec: 09/10/18 09:02 LRN [id number]) Out-Patient Physical Therapy Visit Information Visit Information Visit Type Treatment Note Visit Start Time 08:15 Visit Stop Time 08:59 Total Visit Minutes 44 Visit Number 13 Number of DIPLOMATIC INTERPRETER/TRANSLATOR Visits 0 Evaluation Information Evaluation Date 07/30/18 Precautions Precautions s/p partial L hip replacement Hx of pneumothorax - during hip replacement hospitalization. Osteoporosis PT-OP-B Current Condition Start: 07/30/18 08:10 Freq: Status: Active Protocol: Document 07/30/18 12:49 LRN (Rec: 07/30/18 17:34 LRN [id number]) Current Condition History of Current Condition Onset Date Partial L posterior hip replacement 06/06/18 Current Complaints Difficulty walking level and stairs, using 4WW, not able to exercise. History of Current Condition Pt reports falling suffering a fractured hip, with partial replacement on 06/06/18. States she was in the hospital 9.5 days due to a collapsed lung. She then developed a viral pneumonia. She spent 5 days in rehab at [facility] and had Home Health for 1 month until 07/25/18. She will be having assist from [facility] for her transportation, personal hygiene and laundry needs. She states she has been cleared of any hip precautions following her 6 week follow up MD visit. She is currently being monitored for a cyst on the R kidney. Treatment Goals Patient/Caregiver Goals Pt goal is to be able to walk without her 4WW and ambulate stairs with a normal gait. She would like to be able to garden this year but understands this might be a difficult and somewhat unrealistic goal to achieve. Prior Functional Status Baseline Function- ADL's Independent Baseline Function- Mobility Independent Baseline Function- Gait Walked 1/2 hour daily. Able to ambulate stairs with a normal gait. Baseline Function- Recreation/Hobbies Gardening Baseline Function- Other Could exercised 1/2 hour on stationary bike or treadmill. Current Functional Impairments (Reported) Functional Limitations- ADL's SBA for showers. Moves very slow and cautiously with transfers due to fear of falling. Functional Limitations- Mobility/Gait Walks with a 4WW or sometimes in the home with SPC because of fear of falling. Stairs: step to gait with 2 railings. Functional Limitations- Recreation/ Not able to garden Hobbies Personal Factors Other Personal Factors That May Effect > 66 yrs old Therapy/Recovery Has 92 year old . Osteoporosis Has 2 flights of stairs in home. Has need of [facility] [place] for transportation and home needs. PT-OP-C Subjective Start: 07/30/18 08:10 Freq: Status: Active Protocol: Document 09/10/18 08:15 LRN (Rec: 09/10/18 09:02 LRN [id number]) OP-PT Subjective Patient Comments Patient Comments States she is concerned she is getting groin pain after standing 45' and must sit. PT-OP-D Balance Start: 07/30/18 12:50 Freq: Status: Active Protocol: Document 08/29/18 12:45 LRN (Rec: 08/29/18 17:42 LRN [id number]) Tinetti Balance Assessment Sitting Balance Sitting Balance Steady, safe Arising from Chair Ability to Arise Able, w/o using arms Attempts to Arise Arises on 1st attempt Standing Balance Immediate Standing Balance Steady w/o support Standing Balance Steady, wide stance Nudged Response Staggers, catches self Standing with Eyes Closed Steady Turning Step Pattern Turning 360 Degrees Continuous steps Stability Turning 360 Degrees Steady Sitting Down Sitting Down Safe, steady Gait and Step Initiation of Gait No hesitancy Right Foot Step Length Does pass stance foot Right Foot Step Height Completely clears floor Left Foot Step Length Does pass stance foot Left Foot Step Height Completely clears floor Step Description Step Symmetry Step length not equal Step Continuity Steps appear continuous Gait Description Path Description Straight Trunk Description No sway Walking Stance Heels apart Scoring and Interpretation Tinetti Composite Score (points) 24 Interpretation of Scores At risk for falls (19-24) Tinetti Impairment Rating from Composite 1 to <20% Impaired (Score 23- Score 27) PT-OP-E Functional Tests Start: 07/30/18 12:50 Freq: Status: Active Protocol: Document 09/03/18 09:49 LRN (Rec: 09/03/18 10:49 LRN [id number]) Functional Tests Timed Up and Go (TUG) Score 16.3 TUG Impairment Rating 60 to <80% Impaired (Score 16- 17) Tinetti Balance and Gait Assessment Balance Score 13 Gait Score 10 Composite Score 23 Balance Score Impairment Rating 1 to <20% Impaired (Score 13- 15) Gait Score Impairment Rating 1 to <20% Impaired (Score 10- 11) Composite Score Impairment Rating 1 to <20% Impaired (Score 23- 27) PT-OP-F Manual Assessment Start: 07/30/18 08:10 Freq: Status: Active Protocol: Document 07/30/18 12:49 LRN (Rec: 07/30/18 17:34 LRN [id number]) Manual Assessments Soft Tissue Assessment Soft Tissue Mobility Assessment Anterior L hip: No palpable pain. Pain with active hip flex, AB. PT-OP-G Mobility & Gait Start: 07/30/18 08:10 Freq: Status: Active Protocol: Document 07/30/18 12:49 LRN (Rec: 07/30/18 17:34 LRN [id number]) OP Mobility Evaluation Transfers Sit to Stand SBA Bed to Chair Transfers Pt able to independently transfer onto plinth table moving slowly and with difficulty. OP Gait Assessment Gait Gait Assistance Required: Independent Able to Maintain Weight Bearing Status Yes During Gait Assistive Devices Assistive Device 4 Wheeled Walker Orthotic/Prosthetic Devices or Brace: No Gait Deviations General Gait Pattern Decreased Stride Length Decreased Feet Clearance Flexed Trunk Narrow Based Gait Factors Limiting Gait Function Factors Limiting Gait Function Decreased Strength Pain Poor Balance PT-OP-H Neuro Start: 07/30/18 12:50 Freq: Status: Active Protocol: Document 07/30/18 12:49 LRN (Rec: 07/30/18 17:34 LRN [id number]) Sensation Evaluation Location Details Right Lower Extremity Light Touch Intact/Normal Left Lower Extremity Light Touch Intact/Normal PT-OP-K Range of Motion Start: 07/30/18 08:10 Freq: Status: Active Protocol: Document 09/05/18 12:47 LRN (Rec: 09/05/18 13:34 LRN [id number]) Ankle and Foot Goniometric Range of Motion Ankle and Foot Measured in Degrees Right Active Ankle/Foot ROM WFL Yes Dorsiflexion with Knee Flexed 12 Dorsiflexion with Knee Extended 8 Plantarflexion 58 Left Active Testing Position Supine Dorsiflexion with Knee Flexed 10 Dorsiflexion with Knee Extended 8 Plantarflexion 47 PT-OP-M Strength Start: 07/30/18 08:10 Freq: Status: Active Protocol: Document 08/29/18 12:48 LRN (Rec: 08/29/18 13:40 LRN [id number]) Hip Strength Hip Manual Muscle Testing Left Flexion (L2) 2+ Poor+ Extension (S1) 1 Trace Abduction 2+ Poor+ PT-OP-Q Treatments Start: 07/30/18 08:10 Freq: Status: Active Protocol: Document 09/10/18 08:15 LRN (Rec: 09/10/18 09:02 LRN [id number]) Therapeutic Exercises Supine Exercises Heel slides Supine Exercise Name Heel Slides Side bilateral Resistance Lev 2 T-Band for 2nd set Reps/Minutes 15 X 2 Comments L 2 sets, R 1 set, asssited andreina x 10. Bridging Supine Exercise Name Indep Bridging Reps/Minutes 15 x 2 Hip AB Supine Exercise Name Abduction/Adduction Side left Reps/Minutes 15x Standing Exercises Hip AB Standing Exercise Name Hip AB alternating legs Side bilateral Reps/Minutes Extra time taken for training of proper performance of ex Comments Focus on correct movement and use of only hip AB vs addition of QL Manual Therapy Treatment Soft Tissue Mobilization L hip AD & Iliopsoas Body Location L Iliopsoas at/around ASIS, Groin Mobilization Type Myofascial Release Sustained Pressure Trigger Point Release Body Position Supine Comments Hooklying & Supine treatment. Self-Care/Home Management Treatment Activities Self-Care/Home Management Activities During ex, I/S pt to start hip AB with alternating legs and progressing to increasing reps on 1 leg. PT-OP-R Modalities Start: 07/30/18 08:10 Freq: Status: Active Protocol: Document 08/20/18 11:20 SA (Rec: 08/20/18 11:28 SA [id number]) Hot Pack/Cold Pack Treatment Cold Pack Location L anterior & lateral hip. Patient Position Supine Treatment Duration (minutes) 10 Patient Tolerance Good PT-OP-T Assessment and Plan Start: 07/30/18 08:10 Freq: Status: Active Protocol: Document 09/10/18 08:15 LRN (Rec: 09/10/18 09:02 LRN [id number]) Physical Therapy Assessment Progress Towards Goals Progress Towards Goals Slow Progress - Other Progress Comments HEP: Slow Progress due to L anterior hip pain. Gait: Much improved per Tinetti score of 10/12. Goal met for gait without an assistive device, gait is slow and cautious. Ankle Mobility: GOAL MET for normal gait, although slow and cautious. Decreased mobility with L ankle DF (knee flexed) and ankle PF. L Hip Mobility (AB): No assist needed for hip AB, pain at hip after 15x hip AB ex in supine. Pt able to move leg on/off plinth with mild discomfort, not pain. L hip strength (flex): Progress is slow due to anterior hip pain with active hip flexion, except no hip pain with andreina heel slides in supine. Balance: GOAL MET for Tinetti Balance Score. Goal NOT Met for Tinetti Gait Score. Assessment Summary Assessment Pt appears discouraged with slowness of recovery. She is limited in activity and activity tolerance due to anterior hip pain. She does appear to have mild residual swelling in the anterior hip joint. She had many active trP's at the L ASIS and in the area palpable for the Iliopsoas. Pt having pain with SLS during standing ex's, probably due to weakness and poor posturing. Physical Therapy Plan Frequency and Duration Frequency of Treatment 2x/Week Plan of Care Start Date 07/30/18 Plan of Care End Date 10/22/18 Next Visit Focus/Plan Next Note Type Treatment Note Next Visit Plan Progress Single limb standing endurance with standing ex. Add ankle PF and soleus stretch. Increase tolerance for walking 10 minutes with increasing speed/intensity on level surface. MWM of posteriorly tilting L innominate with hip flex for strengthening of hip flexors and AD's.
--- NOTE | 2018-09-13 12:33 | PT.OTN ---
Current Diagnoses Pain in left hip (09/13/18) Presence of unspecified artificial hip joint (09/13/18) Physical Therapy Treatment Note PT-OP-A Visit Information Start: 07/30/18 08:10 Freq: Status: Active Protocol: Document 09/13/18 09:00 LRN (Rec: 09/13/18 09:51 LRN [id number]) Out-Patient Physical Therapy Visit Information Visit Information Visit Type Treatment Note Visit Start Time 09:00 Visit Stop Time 09:46 Total Visit Minutes 46 Visit Number 14 Number of IT TECHNICAL SPECIALIST Visits 0 Evaluation Information Evaluation Date 07/30/18 Precautions Precautions s/p partial L hip replacement Hx of pneumothorax - during hip replacement hospitalization. Osteoporosis PT-OP-B Current Condition Start: 07/30/18 08:10 Freq: Status: Active Protocol: Document 07/30/18 12:49 LRN (Rec: 07/30/18 17:34 LRN [id number]) Current Condition History of Current Condition Onset Date Partial L posterior hip replacement 06/06/18 Current Complaints Difficulty walking level and stairs, using 4WW, not able to exercise. History of Current Condition Pt reports falling suffering a fractured hip, with partial replacement on 06/06/18. States she was in the hospital 9.5 days due to a collapsed lung. She then developed a viral pneumonia. She spent 5 days in rehab at [facility] and had Home Health for 1 month until 07/25/18. She will be having assist from [facility] [place] for her transportation, personal hygiene and laundry needs. She states she has been cleared of any hip precautions following her 6 week follow up MD visit. She is currently being monitored for a cyst on the R kidney. Treatment Goals Patient/Caregiver Goals Pt goal is to be able to walk without her 4WW and ambulate stairs with a normal gait. She would like to be able to garden this year but understands this might be a difficult and somewhat unrealistic goal to achieve. Prior Functional Status Baseline Function- ADL's Independent Baseline Function- Mobility Independent Baseline Function- Gait Walked 1/2 hour daily. Able to ambulate stairs with a normal gait. Baseline Function- Recreation/Hobbies Gardening Baseline Function- Other Could exercised 1/2 hour on stationary bike or treadmill. Current Functional Impairments (Reported) Functional Limitations- ADL's SBA for showers. Moves very slow and cautiously with transfers due to fear of falling. Functional Limitations- Mobility/Gait Walks with a 4WW or sometimes in the home with SPC because of fear of falling. Stairs: step to gait with 2 railings. Functional Limitations- Recreation/ Not able to garden Hobbies Personal Factors Other Personal Factors That May Effect > 66 yrs old Therapy/Recovery Has 92 year old . Osteoporosis Has 2 flights of stairs in home. Has need of [facility] [place] for transportation and home needs. PT-OP-C Subjective Start: 07/30/18 08:10 Freq: Status: Active Protocol: Document 09/13/18 09:00 LRN (Rec: 09/13/18 09:51 LRN [id number]) OP-PT Subjective Patient Comments Patient Comments States she didn't do any ex's 2 days ago and thinks it was helpful to take a break. PT-OP-D Balance Start: 07/30/18 12:50 Freq: Status: Active Protocol: Document 08/29/18 12:45 LRN (Rec: 08/29/18 17:42 LRN [id number]) Tinetti Balance Assessment Sitting Balance Sitting Balance Steady, safe Arising from Chair Ability to Arise Able, w/o using arms Attempts to Arise Arises on 1st attempt Standing Balance Immediate Standing Balance Steady w/o support Standing Balance Steady, wide stance Nudged Response Staggers, catches self Standing with Eyes Closed Steady Turning Step Pattern Turning 360 Degrees Continuous steps Stability Turning 360 Degrees Steady Sitting Down Sitting Down Safe, steady Gait and Step Initiation of Gait No hesitancy Right Foot Step Length Does pass stance foot Right Foot Step Height Completely clears floor Left Foot Step Length Does pass stance foot Left Foot Step Height Completely clears floor Step Description Step Symmetry Step length not equal Step Continuity Steps appear continuous Gait Description Path Description Straight Trunk Description No sway Walking Stance Heels apart Scoring and Interpretation Tinetti Composite Score (points) 24 Interpretation of Scores At risk for falls (19-24) Tinetti Impairment Rating from Composite 1 to <20% Impaired (Score 23- Score 27) PT-OP-E Functional Tests Start: 07/30/18 12:50 Freq: Status: Active Protocol: Document 09/03/18 09:49 LRN (Rec: 09/03/18 10:49 LRN [id number]) Functional Tests Timed Up and Go (TUG) Score 16.3 TUG Impairment Rating 60 to <80% Impaired (Score 16- 17) Tinetti Balance and Gait Assessment Balance Score 13 Gait Score 10 Composite Score 23 Balance Score Impairment Rating 1 to <20% Impaired (Score 13- 15) Gait Score Impairment Rating 1 to <20% Impaired (Score 10- 11) Composite Score Impairment Rating 1 to <20% Impaired (Score 23- 27) PT-OP-F Manual Assessment Start: 07/30/18 08:10 Freq: Status: Active Protocol: Document 07/30/18 12:49 LRN (Rec: 07/30/18 17:34 LRN [id number]) Manual Assessments Soft Tissue Assessment Soft Tissue Mobility Assessment Anterior L hip: No palpable pain. Pain with active hip flex, AB. PT-OP-G Mobility & Gait Start: 07/30/18 08:10 Freq: Status: Active Protocol: Document 07/30/18 12:49 LRN (Rec: 07/30/18 17:34 LRN [id number]) OP Mobility Evaluation Transfers Sit to Stand SBA Bed to Chair Transfers Pt able to independently transfer onto plinth table moving slowly and with difficulty. OP Gait Assessment Gait Gait Assistance Required: Independent Able to Maintain Weight Bearing Status Yes During Gait Assistive Devices Assistive Device 4 Wheeled Walker Orthotic/Prosthetic Devices or Brace: No Gait Deviations General Gait Pattern Decreased Stride Length Decreased Feet Clearance Flexed Trunk Narrow Based Gait Factors Limiting Gait Function Factors Limiting Gait Function Decreased Strength Pain Poor Balance PT-OP-H Neuro Start: 07/30/18 12:50 Freq: Status: Active Protocol: Document 07/30/18 12:49 LRN (Rec: 07/30/18 17:34 LRN [id number]) Sensation Evaluation Location Details Right Lower Extremity Light Touch Intact/Normal Left Lower Extremity Light Touch Intact/Normal PT-OP-K Range of Motion Start: 07/30/18 08:10 Freq: Status: Active Protocol: Document 09/05/18 12:47 LRN (Rec: 09/05/18 13:34 LRN [id number]) Ankle and Foot Goniometric Range of Motion Ankle and Foot Measured in Degrees Right Active Ankle/Foot ROM WFL Yes Dorsiflexion with Knee Flexed 12 Dorsiflexion with Knee Extended 8 Plantarflexion 58 Left Active Testing Position Supine Dorsiflexion with Knee Flexed 10 Dorsiflexion with Knee Extended 8 Plantarflexion 47 PT-OP-M Strength Start: 07/30/18 08:10 Freq: Status: Active Protocol: Document 08/29/18 12:48 LRN (Rec: 08/29/18 13:40 LRN [id number]) Hip Strength Hip Manual Muscle Testing Left Flexion (L2) 2+ Poor+ Extension (S1) 1 Trace Abduction 2+ Poor+ PT-OP-Q Treatments Start: 07/30/18 08:10 Freq: Status: Active Protocol: Document 09/13/18 09:00 LRN (Rec: 09/13/18 09:51 LRN [id number]) Therapeutic Exercises Sitting Exercises Knee flex Sitting Exercise Name Knee flex Side bilateral Resistance Lev 2 T-Band Reps/Minutes 10x2 singly, 15x andreina Comments performed with each leg independently Ankle IV Sitting Exercise Name Ankle IV Side bilateral Resistance Lev 2 T-Band Reps/Minutes 15 x 3, 15x2 Comments 3 sets Left, 2 sets right, extra time taken for training. Ankle EV Sitting Exercise Name Ankle EV Side bilateral Resistance Lev 2 T-Band Reps/Minutes 15 x 2 Standing Exercises Marching Standing Exercise Name Marching alt legs Side bilateral Reps/Minutes 15x2 Hip AB Standing Exercise Name Hip AB alternating legs Side bilateral Reps/Minutes Some time taken for training of proper performance of ex Comments Focus on correct movement and use of only hip AB vs addition of QL Neuro Re-Education Treatment Balance Activities Lunging Details March up with Lunging different lengths and with/ without hurdles Surface Level Equipment hurdles Reps/Duration 10' Stepping over hurdles Details Stepping over hurdles Surface Level Equipment Hurdles Reps/Duration 10' Comments Varying distances between hurdles and varying stepping over rhythm Marching Details Marching - balancing Surface Level Reps/Duration 3' Toe up/downs Details Standing toe ups/heel upsq Surface level Equipment bar in front Reps/Duration 15x2 Self-Care/Home Management Treatment Education Patient Education Home Exercise Program Activities Self-Care/Home Management Activities HEP issued and reviewed: Ankle EV/IV PT-OP-R Modalities Start: 07/30/18 08:10 Freq: Status: Active Protocol: Document 08/20/18 11:20 SA (Rec: 08/20/18 11:28 SA [id number]) Hot Pack/Cold Pack Treatment Cold Pack Location L anterior & lateral hip. Patient Position Supine Treatment Duration (minutes) 10 Patient Tolerance Good PT-OP-T Assessment and Plan Start: 07/30/18 08:10 Freq: Status: Active Protocol: Document 09/13/18 09:00 LRN (Rec: 09/13/18 09:51 LRN [id number]) Physical Therapy Assessment Progress Towards Goals Progress Towards Goals Slow Progress - Other Progress Comments HEP: Progressing. Gait: Much improved per Tinetti score of 10/12. Goal met for gait without an assistive device, gait is slow and cautious. Ankle Mobility: GOAL MET for normal gait, although slow and cautious. Decreased mobility with L ankle DF (knee flexed) and ankle PF. L Hip Mobility (AB): No assist needed for hip AB, pain at hip after 15x hip AB ex in supine. Pt able to move leg on/off plinth with mild discomfort, not pain. L hip strength (flex): Progress is slow due to anterior hip pain with active hip flexion, except no hip pain with andreina heel slides in supine. Balance: GOAL MET for Tinetti Balance Score. Goal NOT Met for Tinetti Gait Score. Assessment Summary Assessment Pt able to perform marching without L hip pain, did not need MWM in standing for hip flexion. Pt L hamstring strength is closely equal to R leg. Pt gaining more confidence in balance, although is still very apprehensive when performing single leg balance. Physical Therapy Plan Frequency and Duration Frequency of Treatment 2x/Week Plan of Care Start Date 07/30/18 Plan of Care End Date 10/22/18 Next Visit Focus/Plan Next Note Type Treatment Note Next Visit Plan Progress Single limb standing endurance, with standing ex. Add ankle PF and soleus stretch. Increase tolerance for walking 10 minutes with increasing speed/intensity on level surface. Check need for MWM of posteriorly tilting L innominate with hip AD's.
--- NOTE | 2018-09-17 16:51 | PT.OTN ---
Current Diagnoses Pain in left hip (09/17/18) Presence of unspecified artificial hip joint (09/17/18) Physical Therapy Treatment Note PT-OP-A Visit Information Start: 07/30/18 08:10 Freq: Status: Active Protocol: Document 09/17/18 16:00 DCW (Rec: 09/17/18 16:50 DCW [id number]) Out-Patient Physical Therapy Visit Information Visit Information Visit Type Treatment Note Visit Start Time 16:00 Visit Stop Time 16:45 Total Visit Minutes 45 Visit Number 15 Number of PUBLIC DEFENDER Visits 0 Evaluation Information Evaluation Date 07/30/18 Precautions Precautions s/p partial L hip replacement Hx of pneumothorax - during hip replacement hospitalization. Osteoporosis PT-OP-B Current Condition Start: 07/30/18 08:10 Freq: Status: Active Protocol: Document 07/30/18 12:49 LRN (Rec: 07/30/18 17:34 LRN [id number]) Current Condition History of Current Condition Onset Date Partial L posterior hip replacement 06/06/18 Current Complaints Difficulty walking level and stairs, using 4WW, not able to exercise. History of Current Condition Pt reports falling suffering a fractured hip, with partial replacement on 06/06/18. States she was in the hospital 9.5 days due to a collapsed lung. She then developed a viral pneumonia. She spent 5 days in rehab at [facility] and had Home Health for 1 month until 07/25/18. She will be having assist from [facility] [place] for her transportation, personal hygiene and laundry needs. She states she has been cleared of any hip precautions following her 6 week follow up MD visit. She is currently being monitored for a cyst on the R kidney. Treatment Goals Patient/Caregiver Goals Pt goal is to be able to walk without her 4WW and ambulate stairs with a normal gait. She would like to be able to garden this year but understands this might be a difficult and somewhat unrealistic goal to achieve. Prior Functional Status Baseline Function- ADL's Independent Baseline Function- Mobility Independent Baseline Function- Gait Walked 1/2 hour daily. Able to ambulate stairs with a normal gait. Baseline Function- Recreation/Hobbies Gardening Baseline Function- Other Could exercised 1/2 hour on stationary bike or treadmill. Current Functional Impairments (Reported) Functional Limitations- ADL's SBA for showers. Moves very slow and cautiously with transfers due to fear of falling. Functional Limitations- Mobility/Gait Walks with a 4WW or sometimes in the home with SPC because of fear of falling. Stairs: step to gait with 2 railings. Functional Limitations- Recreation/ Not able to garden Hobbies Personal Factors Other Personal Factors That May Effect > 66 yrs old Therapy/Recovery Has 92 year old . Osteoporosis Has 2 flights of stairs in home. Has need of [facility] [place] for transportation and home needs. PT-OP-C Subjective Start: 07/30/18 08:10 Freq: Status: Active Protocol: Document 09/17/18 16:00 DCW (Rec: 09/17/18 16:50 DCW [id number]) OP-PT Subjective Patient Comments Patient Comments Pt reports she isn't having the same pain she had been, however she is still having trouble lifting her left leg. PT-OP-D Balance Start: 07/30/18 12:50 Freq: Status: Active Protocol: Document 08/29/18 12:45 LRN (Rec: 08/29/18 17:42 LRN [id number]) Tinetti Balance Assessment Sitting Balance Sitting Balance Steady, safe Arising from Chair Ability to Arise Able, w/o using arms Attempts to Arise Arises on 1st attempt Standing Balance Immediate Standing Balance Steady w/o support Standing Balance Steady, wide stance Nudged Response Staggers, catches self Standing with Eyes Closed Steady Turning Step Pattern Turning 360 Degrees Continuous steps Stability Turning 360 Degrees Steady Sitting Down Sitting Down Safe, steady Gait and Step Initiation of Gait No hesitancy Right Foot Step Length Does pass stance foot Right Foot Step Height Completely clears floor Left Foot Step Length Does pass stance foot Left Foot Step Height Completely clears floor Step Description Step Symmetry Step length not equal Step Continuity Steps appear continuous Gait Description Path Description Straight Trunk Description No sway Walking Stance Heels apart Scoring and Interpretation Tinetti Composite Score (points) 24 Interpretation of Scores At risk for falls (19-24) Tinetti Impairment Rating from Composite 1 to <20% Impaired (Score 23- Score 27) PT-OP-E Functional Tests Start: 07/30/18 12:50 Freq: Status: Active Protocol: Document 09/03/18 09:49 LRN (Rec: 09/03/18 10:49 LRN [id number]) Functional Tests Timed Up and Go (TUG) Score 16.3 TUG Impairment Rating 60 to <80% Impaired (Score 16- 17) Tinetti Balance and Gait Assessment Balance Score 13 Gait Score 10 Composite Score 23 Balance Score Impairment Rating 1 to <20% Impaired (Score 13- 15) Gait Score Impairment Rating 1 to <20% Impaired (Score 10- 11) Composite Score Impairment Rating 1 to <20% Impaired (Score 23- 27) PT-OP-F Manual Assessment Start: 07/30/18 08:10 Freq: Status: Active Protocol: Document 07/30/18 12:49 LRN (Rec: 07/30/18 17:34 LRN [id number]) Manual Assessments Soft Tissue Assessment Soft Tissue Mobility Assessment Anterior L hip: No palpable pain. Pain with active hip flex, AB. PT-OP-G Mobility & Gait Start: 07/30/18 08:10 Freq: Status: Active Protocol: Document 07/30/18 12:49 LRN (Rec: 07/30/18 17:34 LRN [id number]) OP Mobility Evaluation Transfers Sit to Stand SBA Bed to Chair Transfers Pt able to independently transfer onto plinth table moving slowly and with difficulty. OP Gait Assessment Gait Gait Assistance Required: Independent Able to Maintain Weight Bearing Status Yes During Gait Assistive Devices Assistive Device 4 Wheeled Walker Orthotic/Prosthetic Devices or Brace: No Gait Deviations General Gait Pattern Decreased Stride Length Decreased Feet Clearance Flexed Trunk Narrow Based Gait Factors Limiting Gait Function Factors Limiting Gait Function Decreased Strength Pain Poor Balance PT-OP-H Neuro Start: 07/30/18 12:50 Freq: Status: Active Protocol: Document 07/30/18 12:49 LRN (Rec: 07/30/18 17:34 LRN [id number]) Sensation Evaluation Location Details Right Lower Extremity Light Touch Intact/Normal Left Lower Extremity Light Touch Intact/Normal PT-OP-K Range of Motion Start: 07/30/18 08:10 Freq: Status: Active Protocol: Document 09/05/18 12:47 LRN (Rec: 09/05/18 13:34 LRN [id number]) Ankle and Foot Goniometric Range of Motion Ankle and Foot Measured in Degrees Right Active Ankle/Foot ROM WFL Yes Dorsiflexion with Knee Flexed 12 Dorsiflexion with Knee Extended 8 Plantarflexion 58 Left Active Testing Position Supine Dorsiflexion with Knee Flexed 10 Dorsiflexion with Knee Extended 8 Plantarflexion 47 PT-OP-M Strength Start: 07/30/18 08:10 Freq: Status: Active Protocol: Document 08/29/18 12:48 LRN (Rec: 08/29/18 13:40 LRN [id number]) Hip Strength Hip Manual Muscle Testing Left Flexion (L2) 2+ Poor+ Extension (S1) 1 Trace Abduction 2+ Poor+ PT-OP-Q Treatments Start: 07/30/18 08:10 Freq: Status: Active Protocol: Document 09/17/18 16:00 DCW (Rec: 09/17/18 16:50 DCW [id number]) Gym Equipment Cable Column (Body Solid) Hip Abduction Details Hip Abduction Resistance 10# Reps/Time x15 Therapeutic Exercises Sitting Exercises Ankle PF Sitting Exercise Name Plantar flexion Side left Resistance Lv 2 Equipment Used T-band Knee flex Sitting Exercise Name Knee flex Side bilateral Resistance Lev 2 T-Band Comments performed with each leg independently Ankle DF Sitting Exercise Name Dorsiflexion Side left Reps/Minutes 15x2 Standing Exercises Step-ups Standing Exercise Name Step-ups Side left Equipment Used 6 step Marching Standing Exercise Name Marching alt legs Side bilateral Resistance 4# Reps/Minutes 15x2 Hip AB Standing Exercise Name Hip AB alternating legs Side bilateral Comments Focus on correct movement and use of only hip AB vs addition of QL Other Exercises Lateral stepping with TB Side bilateral Resistance Green Equipment Used T-band Reps/Minutes 4 lengths of bar Neuro Re-Education Treatment Balance Activities Stepping over hurdles Details Stepping over bolsters Surface Level Equipment Bolsters Reps/Duration 10' Comments Varying distances between hurdles and varying stepping over rhythm Toe up/downs Details Standing toe ups/heel upsq Surface level Equipment bar in front Reps/Duration 15x2 PT-OP-R Modalities Start: 07/30/18 08:10 Freq: Status: Active Protocol: Document 08/20/18 11:20 SA (Rec: 08/20/18 11:28 SA [id number]) Hot Pack/Cold Pack Treatment Cold Pack Location L anterior & lateral hip. Patient Position Supine Treatment Duration (minutes) 10 Patient Tolerance Good PT-OP-T Assessment and Plan Start: 07/30/18 08:10 Freq: Status: Active Protocol: Document 09/17/18 16:00 DCW (Rec: 09/17/18 16:50 DCW [id number]) Physical Therapy Assessment Goals Decreased balance Impairment Tinetti Balance score of 7/16 indicating pt at risk of falling. Usp Goal (LTG) Pt will achieve a Tinetti Balance score of at least 12 of 16 with a gait score of 12 indicating pt is at low risk of falling. LTG Duration 10/22/18 (08/29/18: Gait score is 10/12: Mod risk of falling) Decreased L hip strength Impairment Pt unable to lift L leg independently making transfers difficult Short Term Goal (STG) Pt will be able to lift her L LE independently to be able to transfer off/on the plinth table without assist. STG Duration 08/16/18 (09/05/18: GOAL MET for moving leg, discomfort is present) Decreased active L hip mobility Impairment Pt lacks L hip AB mobility for painfree transfers Short Term Goal (STG) Pt will improve active L hip AB mobility for painfree transfers off/on plinth tables . STG Duration 08/23/18 (08/29/18: GOAL PARTIALLY MET: discomfort anterior L hip) Decreased ankle mobility Impairment Pt lacks functional ankle DF mobility for gait Short Term Goal (STG) Improve ankle active DF with pt able to demonstrate normal gait mechanics without the use of an assistive device. STG Duration 08/23/18 (08/27/18: GOAL MET) Gait Impairment Pt requires use of assistive device for gait Usp Goal (LTG) Pt will be independent with a normal gait without an assistive device. LTG Duration 10/22/18 (08/27/18: Pt able to walk w/o AD, but chooses to use) HEP Impairment Pt lacks appropriate self care HEP Usp Goal (LTG) Pt will be independent with a self care HEP. LTG Duration 10/22/18 Progress Towards Goals Progress Towards Goals Slow Progress - Other Progress Comments HEP: Progressing. Gait: Much improved per Tinetti score of 10/12. Goal met for gait without an assistive device, gait is slow and cautious. Ankle Mobility: GOAL MET for normal gait, although slow and cautious. Decreased mobility with L ankle DF (knee flexed) and ankle PF. L Hip Mobility (AB): No assist needed for hip AB, pain at hip after 15x hip AB ex in supine. Pt able to move leg on/off plinth with mild discomfort, not pain. L hip strength (flex): Progress is slow due to anterior hip pain with active hip flexion, except no hip pain with andreina heel slides in supine. Balance: GOAL MET for Tinetti Balance Score. Goal NOT Met for Tinetti Gait Score. Assessment Summary Assessment Pt tolerated treatment well. Pt did mention feeling like her forefoot has been feeling stiff, and therapist recommended working on active toe flexion and forefoot inversion/eversion at home. Physical Therapy Plan Frequency and Duration Frequency of Treatment 2x/Week Plan of Care Start Date 07/30/18 Plan of Care End Date 10/22/18 Next Visit Focus/Plan Next Note Type Treatment Note Next Visit Plan Progress Single limb standing endurance, with standing ex. Add ankle PF and soleus stretch. Increase tolerance for walking 10 minutes with increasing speed/intensity on level surface. Check need for MWM of posteriorly tilting L innominate with hip AD's.
--- NOTE | 2018-09-19 17:31 | PT.OTN ---
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 Osteoporosis PT-OP-B Current Condition Start: 07/30/18 08:10 Freq: Status: Active Protocol: Document 07/30/18 12:49 LRN (Rec: 07/30/18 17:34 LRN [id number]) Current Condition History of Current Condition Onset Date Partial L posterior hip replacement 06/06/18 Current Complaints Difficulty walking level and stairs, using 4WW, not able to exercise. History of Current Condition Pt reports falling suffering a fractured hip, with partial replacement on 06/06/18. States she was in the hospital 9.5 days due to a collapsed lung. She then developed a viral pneumonia. She spent 5 days in rehab at [facility] and had Home Health for 1 month until 07/25/18. She will be having assist from [employer] for her transportation, personal hygiene and laundry needs. She states she has been cleared of any hip precautions following her 6 week follow up MD visit. She is currently being monitored for a cyst on the R kidney. Treatment Goals Patient/Caregiver Goals Pt goal is to be able to walk without her 4WW and ambulate stairs with a normal gait. She would like to be able to garden this year but understands this might be a difficult and somewhat unrealistic goal to achieve. Prior Functional Status Baseline Function- ADL's Independent Baseline Function- Mobility Independent Baseline Function- Gait Walked 1/2 hour daily. Able to ambulate stairs with a normal gait. Baseline Function- Recreation/Hobbies Gardening Baseline Function- Other Could exercised 1/2 hour on stationary bike or treadmill. Current Functional Impairments (Reported) Functional Limitations- ADL's SBA for showers. Moves very slow and cautiously with transfers due to fear of falling. Functional Limitations- Mobility/Gait Walks with a 4WW or sometimes in the home with SPC because of fear of falling. Stairs: step to gait with 2 railings. Functional Limitations- Recreation/ Not able to garden Hobbies Personal Factors Other Personal Factors That May Effect > 65 yrs old Therapy/Recovery Has 92 year old . Osteoporosis Has 2 flights of stairs in home. Has need of [employer] for transportation and home needs. PT-OP-C Subjective Start: 07/30/18 08:10 Freq: Status: Active Protocol: Document 09/19/18 09:50 LRN (Rec: 09/19/18 10:32 LRN [id number]) OP-PT Subjective Patient Comments Patient Comments Requests stopping at 10:[address] arzola. No problem with groin pain. PT-OP-D Balance Start: 07/30/18 12:50 Freq: Status: Active Protocol: Document 08/29/18 12:45 LRN (Rec: 08/29/18 17:42 LRN [id number]) Tinetti Balance Assessment Sitting Balance Sitting Balance Steady, safe Arising from Chair Ability to Arise Able, w/o using arms Attempts to Arise Arises on 1st attempt Standing Balance Immediate Standing Balance Steady w/o support Standing Balance Steady, wide stance Nudged Response Staggers, catches self Standing with Eyes Closed Steady Turning Step Pattern Turning 360 Degrees Continuous steps Stability Turning 360 Degrees Steady Sitting Down Sitting Down Safe, steady Gait and Step Initiation of Gait No hesitancy Right Foot Step Length Does pass stance foot Right Foot Step Height Completely clears floor Left Foot Step Length Does pass stance foot Left Foot Step Height Completely clears floor Step Description Step Symmetry Step length not equal Step Continuity Steps appear continuous Gait Description Path Description Straight Trunk Description No sway Walking Stance Heels apart Scoring and Interpretation Tinetti Composite Score (points) 24 Interpretation of Scores At risk for falls (19-24) Tinetti Impairment Rating from Composite 1 to <20% Impaired (Score 23- Score 27) PT-OP-E Functional Tests Start: 07/30/18 12:50 Freq: Status: Active Protocol: Document 09/03/18 09:49 LRN (Rec: 09/03/18 10:49 LRN [id number]) Functional Tests Timed Up and Go (TUG) Score 16.3 TUG Impairment Rating 60 to <80% Impaired (Score 16- 17) Tinetti Balance and Gait Assessment Balance Score 13 Gait Score 10 Composite Score 23 Balance Score Impairment Rating 1 to <20% Impaired (Score 13- 15) Gait Score Impairment Rating 1 to <20% Impaired (Score 10- 11) Composite Score Impairment Rating 1 to <20% Impaired (Score 23- 27) PT-OP-F Manual Assessment Start: 07/30/18 08:10 Freq: Status: Active Protocol: Document 07/30/18 12:49 LRN (Rec: 07/30/18 17:34 LRN [id number]) Manual Assessments Soft Tissue Assessment Soft Tissue Mobility Assessment Anterior L hip: No palpable pain. Pain with active hip flex, AB. PT-OP-G Mobility & Gait Start: 07/30/18 08:10 Freq: Status: Active Protocol: Document 07/30/18 12:49 LRN (Rec: 07/30/18 17:34 LRN [id number]) OP Mobility Evaluation Transfers Sit to Stand SBA Bed to Chair Transfers Pt able to independently transfer onto plinth table moving slowly and with difficulty. OP Gait Assessment Gait Gait Assistance Required: Independent Able to Maintain Weight Bearing Status Yes During Gait Assistive Devices Assistive Device 4 Wheeled Walker Orthotic/Prosthetic Devices or Brace: No Gait Deviations General Gait Pattern Decreased Stride Length Decreased Feet Clearance Flexed Trunk Narrow Based Gait Factors Limiting Gait Function Factors Limiting Gait Function Decreased Strength Pain Poor Balance PT-OP-H Neuro Start: 07/30/18 12:50 Freq: Status: Active Protocol: Document 07/30/18 12:49 LRN (Rec: 07/30/18 17:34 LRN [id number]) Sensation Evaluation Location Details Right Lower Extremity Light Touch Intact/Normal Left Lower Extremity Light Touch Intact/Normal PT-OP-K Range of Motion Start: 07/30/18 08:10 Freq: Status: Active Protocol: Document 09/05/18 12:47 LRN (Rec: 09/05/18 13:34 LRN [id number]) Ankle and Foot Goniometric Range of Motion Ankle and Foot Measured in Degrees Right Active Ankle/Foot ROM WFL Yes Dorsiflexion with Knee Flexed 12 Dorsiflexion with Knee Extended 8 Plantarflexion 58 Left Active Testing Position Supine Dorsiflexion with Knee Flexed 10 Dorsiflexion with Knee Extended 8 Plantarflexion 47 PT-OP-M Strength Start: 07/30/18 08:10 Freq: Status: Active Protocol: Document 08/29/18 12:48 LRN (Rec: 08/29/18 13:40 LRN [id number]) Hip Strength Hip Manual Muscle Testing Left Flexion (L2) 2+ Poor+ Extension (S1) 1 Trace Abduction 2+ Poor+ PT-OP-Q Treatments Start: 07/30/18 08:10 Freq: Status: Active Protocol: Document 09/19/18 09:50 LRN (Rec: 09/19/18 10:32 LRN [id number]) Therapeutic Exercises Sitting Exercises Ankle IV Sitting Exercise Name Ankle IV Side bilateral Resistance Lev 2 T-Band Reps/Minutes 15 x 1 Comments extra time taken for training. Ankle EV Sitting Exercise Name Ankle EV Side bilateral Resistance Lev 2 T-Band Reps/Minutes 15 x Standing Exercises Step-ups Standing Exercise Name Step-ups front & sides Side left Equipment Used 12 step Comments 1 rest needed. Step ups alternating lead foot in all directions Other Exercises Gait for endurance & fear reduction Other Exercise Name Ambulation w/GB/SBA holding belt tip some of the time Reps/Minutes 12' Comments Walking around parking lot, up incline down stairs and back Gait Training Gait Activity Stair training Description Ascend/Descend training Level of Assistance SBA Distance/Duration 5 steps x 2 Treatment Focus Alternate stepping PT-OP-R Modalities Start: 07/30/18 08:10 Freq: Status: Active Protocol: Document 08/20/18 11:20 SA (Rec: 08/20/18 11:28 SA [id number]) Hot Pack/Cold Pack Treatment Cold Pack Location L anterior & lateral hip. Patient Position Supine Treatment Duration (minutes) 10 Patient Tolerance Good PT-OP-T Assessment and Plan Start: 07/30/18 08:10 Freq: Status: Active Protocol: Document 09/19/18 09:50 LRN (Rec: 09/19/18 10:32 LRN [id number]) Physical Therapy Assessment Progress Towards Goals Progress Towards Goals Slow Progress - Other Progress Comments HEP: Progressing. Gait: Much improved per Tinetti score of 10/12. Goal met for gait without an assistive device, gait is slow and cautious. Ankle Mobility: GOAL MET for normal gait, although slow and cautious. Decreased mobility with L ankle DF (knee flexed) and ankle PF. L Hip Mobility (AB): No assist needed for hip AB, pain at hip after 15x hip AB ex in supine. Pt able to move leg on/off plinth with mild discomfort, not pain. L hip strength (flex): Progress is slow due to anterior hip pain with active hip flexion, except no hip pain with andreina heel slides in supine. Balance: GOAL MET for Tinetti Balance Score. Goal NOT Met for Tinetti Gait Score. Assessment Summary Assessment Fair recall of ankle ex's. Pt needs further review. Pt confidence in walking ability is improving. Pt started out walkin in clinic without PT to start. She is able to go up/ down stairs without railing for 2 steps with alternate gait before apprehension limited stair amb. Physical Therapy Plan Frequency and Duration Frequency of Treatment 2x/Week Plan of Care Start Date 07/30/18 Plan of Care End Date 10/22/18 Next Visit Focus/Plan Next Note Type Treatment Note Next Visit Plan Check pt's ability to move leg on/off plinth. Progress Single limb standing endurance , with standing ex. Add soleus stretch. Increase tolerance for walking 10 minutes by increasing speed/ intensity on level surface. Monitor need for MWM of posteriorly tilting L innominate with hip AD's.
--- NOTE | 2018-09-25 14:03 | PT.OTN ---
Current Diagnoses Pain in left hip (09/25/18) Presence of unspecified artificial hip joint (09/25/18) Physical Therapy Treatment Note PT-OP-A Visit Information Start: 07/30/18 08:10 Freq: Status: Active Protocol: Document 09/25/18 13:51 AMH (Rec: 09/25/18 14:03 AMH [email or web address]) Out-Patient Physical Therapy Visit Information Visit Information Visit Type Treatment Note Visit Start Time 13:00 Visit Stop Time 13:45 Total Visit Minutes 45 Visit Number 17 Number of INFECTION CONTROL NURSE Visits 0 PT-OP-B Current Condition Start: 07/30/18 08:10 Freq: Status: Active Protocol: Document 07/30/18 12:49 LRN (Rec: 07/30/18 17:34 LRN [id number]) Current Condition History of Current Condition Onset Date Partial L posterior hip replacement 06/06/18 Current Complaints Difficulty walking level and stairs, using 4WW, not able to exercise. History of Current Condition Pt reports falling suffering a fractured hip, with partial replacement on 06/06/18. States she was in the hospital 9.5 days due to a collapsed lung. She then developed a viral pneumonia. She spent 5 days in rehab at [facility] and had Home Health for 1 month until 07/25/18. She will be having assist from [employer] for her transportation, personal hygiene and laundry needs. She states she has been cleared of any hip precautions following her 6 week follow up MD visit. She is currently being monitored for a cyst on the R kidney. Treatment Goals Patient/Caregiver Goals Pt goal is to be able to walk without her 4WW and ambulate stairs with a normal gait. She would like to be able to garden this year but understands this might be a difficult and somewhat unrealistic goal to achieve. Prior Functional Status Baseline Function- ADL's Independent Baseline Function- Mobility Independent Baseline Function- Gait Walked 1/2 hour daily. Able to ambulate stairs with a normal gait. Baseline Function- Recreation/Hobbies Gardening Baseline Function- Other Could exercised 1/2 hour on stationary bike or treadmill. Current Functional Impairments (Reported) Functional Limitations- ADL's SBA for showers. Moves very slow and cautiously with transfers due to fear of falling. Functional Limitations- Mobility/Gait Walks with a 4WW or sometimes in the home with SPC because of fear of falling. Stairs: step to gait with 2 railings. Functional Limitations- Recreation/ Not able to garden Hobbies Personal Factors Other Personal Factors That May Effect > 66 yrs old Therapy/Recovery Has 92 year old . Osteoporosis Has 2 flights of stairs in home. Has need of [employer] for transportation and home needs. PT-OP-C Subjective Start: 07/30/18 08:10 Freq: Status: Active Protocol: Document 09/25/18 13:51 AMH (Rec: 09/25/18 14:03 AMH [id number]) OP-PT Subjective Patient Comments Patient Comments Melissa reports she is walking more at home without the cane. She notes groin pain with single leg stance activities but that it is much better overall PT-OP-D Balance Start: 07/30/18 12:50 Freq: Status: Active Protocol: Document 08/29/18 12:45 LRN (Rec: 08/29/18 17:42 LRN [id number]) Tinetti Balance Assessment Sitting Balance Sitting Balance Steady, safe Arising from Chair Ability to Arise Able, w/o using arms Attempts to Arise Arises on 1st attempt Standing Balance Immediate Standing Balance Steady w/o support Standing Balance Steady, wide stance Nudged Response Staggers, catches self Standing with Eyes Closed Steady Turning Step Pattern Turning 360 Degrees Continuous steps Stability Turning 360 Degrees Steady Sitting Down Sitting Down Safe, steady Gait and Step Initiation of Gait No hesitancy Right Foot Step Length Does pass stance foot Right Foot Step Height Completely clears floor Left Foot Step Length Does pass stance foot Left Foot Step Height Completely clears floor Step Description Step Symmetry Step length not equal Step Continuity Steps appear continuous Gait Description Path Description Straight Trunk Description No sway Walking Stance Heels apart Scoring and Interpretation Tinetti Composite Score (points) 24 Interpretation of Scores At risk for falls (19-24) Tinetti Impairment Rating from Composite 1 to <20% Impaired (Score 23- Score 27) PT-OP-E Functional Tests Start: 07/30/18 12:50 Freq: Status: Active Protocol: Document 09/03/18 09:49 LRN (Rec: 09/03/18 10:49 LRN [id number]) Functional Tests Timed Up and Go (TUG) Score 16.3 TUG Impairment Rating 60 to <80% Impaired (Score 16- 17) Tinetti Balance and Gait Assessment Balance Score 13 Gait Score 10 Composite Score 23 Balance Score Impairment Rating 1 to <20% Impaired (Score 13- 15) Gait Score Impairment Rating 1 to <20% Impaired (Score 10- 11) Composite Score Impairment Rating 1 to <20% Impaired (Score 23- 27) PT-OP-F Manual Assessment Start: 07/30/18 08:10 Freq: Status: Active Protocol: Document 07/30/18 12:49 LRN (Rec: 07/30/18 17:34 LRN [id number]) Manual Assessments Soft Tissue Assessment Soft Tissue Mobility Assessment Anterior L hip: No palpable pain. Pain with active hip flex, AB. PT-OP-G Mobility & Gait Start: 07/30/18 08:10 Freq: Status: Active Protocol: Document 07/30/18 12:49 LRN (Rec: 07/30/18 17:34 LRN [id number]) OP Mobility Evaluation Transfers Sit to Stand SBA Bed to Chair Transfers Pt able to independently transfer onto plinth table moving slowly and with difficulty. OP Gait Assessment Gait Gait Assistance Required: Independent Able to Maintain Weight Bearing Status Yes During Gait Assistive Devices Assistive Device 4 Wheeled Walker Orthotic/Prosthetic Devices or Brace: No Gait Deviations General Gait Pattern Decreased Stride Length Decreased Feet Clearance Flexed Trunk Narrow Based Gait Factors Limiting Gait Function Factors Limiting Gait Function Decreased Strength Pain Poor Balance PT-OP-H Neuro Start: 07/30/18 12:50 Freq: Status: Active Protocol: Document 07/30/18 12:49 LRN (Rec: 07/30/18 17:34 LRN [id number]) Sensation Evaluation Location Details Right Lower Extremity Light Touch Intact/Normal Left Lower Extremity Light Touch Intact/Normal PT-OP-K Range of Motion Start: 07/30/18 08:10 Freq: Status: Active Protocol: Document 09/05/18 12:47 LRN (Rec: 09/05/18 13:34 LRN [id number]) Ankle and Foot Goniometric Range of Motion Ankle and Foot Measured in Degrees Right Active Ankle/Foot ROM WFL Yes Dorsiflexion with Knee Flexed 12 Dorsiflexion with Knee Extended 8 Plantarflexion 58 Left Active Testing Position Supine Dorsiflexion with Knee Flexed 10 Dorsiflexion with Knee Extended 8 Plantarflexion 47 PT-OP-M Strength Start: 07/30/18 08:10 Freq: Status: Active Protocol: Document 08/29/18 12:48 LRN (Rec: 08/29/18 13:40 LRN [id number]) Hip Strength Hip Manual Muscle Testing Left Flexion (L2) 2+ Poor+ Extension (S1) 1 Trace Abduction 2+ Poor+ PT-OP-Q Treatments Start: 07/30/18 08:10 Freq: Status: Active Protocol: Document 09/25/18 13:51 AMH (Rec: 09/25/18 14:03 AMH [email or web address]) Cardio Equipment Recumbent Elliptical ([employer]) Duration (Minutes) 5 Seat Position lev 1 Therapeutic Exercises Supine Exercises Quad strengthening Supine Exercise Name SLR with quad and abdominal Reps/Minutes x 10 Bridging Supine Exercise Name Indep Bridging Reps/Minutes 15 x 2 Sitting Exercises Sit to Stand Sitting Exercise Name Sit to Stand from high surface Reps/Minutes 10x Comments Seat height 20 inches Standing Exercises Step-ups Standing Exercise Name Step-ups front & sides Side left Equipment Used 12 step Comments 1 rest needed. Step ups alternating lead foot in all directions Marching Standing Exercise Name Marching alt legs Side bilateral Resistance 4# Reps/Minutes 15x2 Hip Extension Standing Exercise Name hip extension Side left Reps/Minutes 30 x Other Exercises Monster walk Other Exercise Name monster walks Resistance Yellow TB Reps/Minutes 4 lengths of bar Lateral stepping with TB Side bilateral Resistance Green Equipment Used T-band Reps/Minutes 4 lengths of bar Manual Therapy Treatment Soft Tissue Mobilization L hip AD & Iliopsoas Body Location L Iliopsoas at/around ASIS, Groin Mobilization Type Myofascial Release Sustained Pressure Trigger Point Release Body Position Supine Comments Hooklying & Supine treatment. PT-OP-R Modalities Start: 07/30/18 08:10 Freq: Status: Active Protocol: Document 08/20/18 11:20 SA (Rec: 08/20/18 11:28 SA [email or web address]) Hot Pack/Cold Pack Treatment Cold Pack Location L anterior & lateral hip. Patient Position Supine Treatment Duration (minutes) 10 Patient Tolerance Good PT-OP-T Assessment and Plan Start: 07/30/18 08:10 Freq: Status: Active Protocol: Document 09/25/18 13:51 AMH (Rec: 09/25/18 14:03 AMH [email or web address]) Physical Therapy Assessment Assessment Summary Assessment Some groin pain with standing single leg stance on the left, worked on adductor release and this helped. She does note her groin pain has lessened overall. Worked on sit-stand and stand -sit with hip hinge Physical Therapy Plan Next Visit Focus/Plan Next Note Type Treatment Note Next Visit Plan continue to progress single leg stance activities as this irritates the groin and encourage hip hinge with standing squats and sit-stand. Melissa tolerated the biodex well today. She does have a stationary bike at home she wants to get back to. I told her to wait until we have tried the biodex a few times first before trying the upright bike
--- NOTE | 2018-10-03 09:52 | PT.OTN ---
Current Diagnoses Pain in left hip (10/03/18) Presence of unspecified artificial hip joint (10/03/18) Physical Therapy Treatment Note PT-OP-A Visit Information Start: 07/30/18 08:10 Freq: Status: Active Protocol: Document 10/03/18 09:01 LRN (Rec: 10/03/18 09:51 LRN [id number]) Out-Patient Physical Therapy Visit Information Visit Information Visit Type Treatment Note Visit Start Time 09:01 Visit Stop Time 09:50 Total Visit Minutes 49 Visit Number 20 Number of COLLECTION AGENT Visits 0 Evaluation Information Evaluation Date 07/30/18 Precautions Precautions s/p partial L hip replacement Hx of pneumothorax - during hip replacement hospitalization. Osteoporosis PT-OP-B Current Condition Start: 07/30/18 08:10 Freq: Status: Active Protocol: Document 07/30/18 12:49 LRN (Rec: 07/30/18 17:34 LRN [id number]) Current Condition History of Current Condition Onset Date Partial L posterior hip replacement 06/06/18 Current Complaints Difficulty walking level and stairs, using 4WW, not able to exercise. History of Current Condition Pt reports falling suffering a fractured hip, with partial replacement on 06/06/18. States she was in the hospital 9.5 days due to a collapsed lung. She then developed a viral pneumonia. She spent 5 days in rehab at [facility] and had Home Health for 1 month until 07/25/18. She will be having assist from [employer] [facility] for her transportation, personal hygiene and laundry needs. She states she has been cleared of any hip precautions following her 6 week follow up MD visit. She is currently being monitored for a cyst on the R kidney. Treatment Goals Patient/Caregiver Goals Pt goal is to be able to walk without her 4WW and ambulate stairs with a normal gait. She would like to be able to garden this year but understands this might be a difficult and somewhat unrealistic goal to achieve. Prior Functional Status Baseline Function- ADL's Independent Baseline Function- Mobility Independent Baseline Function- Gait Walked 1/2 hour daily. Able to ambulate stairs with a normal gait. Baseline Function- Recreation/Hobbies Gardening Baseline Function- Other Could exercised 1/2 hour on stationary bike or treadmill. Current Functional Impairments (Reported) Functional Limitations- ADL's SBA for showers. Moves very slow and cautiously with transfers due to fear of falling. Functional Limitations- Mobility/Gait Walks with a 4WW or sometimes in the home with SPC because of fear of falling. Stairs: step to gait with 2 railings. Functional Limitations- Recreation/ Not able to garden Hobbies Personal Factors Other Personal Factors That May Effect > 65 yrs old Therapy/Recovery Has 92 year old . Osteoporosis Has 2 flights of stairs in home. Has need of [employer] [facility] for transportation and home needs. PT-OP-C Subjective Start: 07/30/18 08:10 Freq: Status: Active Protocol: Document 10/03/18 09:01 LRN (Rec: 10/03/18 09:51 LRN [id number]) OP-PT Subjective Patient Comments Patient Comments Pt attends without cane. Feels she is fine but still worried about going without a cane to grocery store. PT-OP-D Balance Start: 07/30/18 12:50 Freq: Status: Active Protocol: Document 08/29/18 12:45 LRN (Rec: 08/29/18 17:42 LRN [id number]) Tinetti Balance Assessment Sitting Balance Sitting Balance Steady, safe Arising from Chair Ability to Arise Able, w/o using arms Attempts to Arise Arises on 1st attempt Standing Balance Immediate Standing Balance Steady w/o support Standing Balance Steady, wide stance Nudged Response Staggers, catches self Standing with Eyes Closed Steady Turning Step Pattern Turning 360 Degrees Continuous steps Stability Turning 360 Degrees Steady Sitting Down Sitting Down Safe, steady Gait and Step Initiation of Gait No hesitancy Right Foot Step Length Does pass stance foot Right Foot Step Height Completely clears floor Left Foot Step Length Does pass stance foot Left Foot Step Height Completely clears floor Step Description Step Symmetry Step length not equal Step Continuity Steps appear continuous Gait Description Path Description Straight Trunk Description No sway Walking Stance Heels apart Scoring and Interpretation Tinetti Composite Score (points) 24 Interpretation of Scores At risk for falls (19-24) Tinetti Impairment Rating from Composite 1 to <20% Impaired (Score 23- Score 27) PT-OP-E Functional Tests Start: 07/30/18 12:50 Freq: Status: Active Protocol: Document 09/30/18 09:07 LRN (Rec: 09/30/18 14:37 LRN [id number]) Functional Tests Tinetti Balance and Gait Assessment Balance Score 14 Gait Score 12 Composite Score 26 Balance Score Impairment Rating 1 to <20% Impaired (Score 13- 15) Gait Score Impairment Rating 0% Impaired (Score 12) Composite Score Impairment Rating 1 to <20% Impaired (Score 23- 27) PT-OP-F Manual Assessment Start: 07/30/18 08:10 Freq: Status: Active Protocol: Document 07/30/18 12:49 LRN (Rec: 07/30/18 17:34 LRN [id number]) Manual Assessments Soft Tissue Assessment Soft Tissue Mobility Assessment Anterior L hip: No palpable pain. Pain with active hip flex, AB. PT-OP-G Mobility & Gait Start: 07/30/18 08:10 Freq: Status: Active Protocol: Document 07/30/18 12:49 LRN (Rec: 07/30/18 17:34 LRN [id number]) OP Mobility Evaluation Transfers Sit to Stand SBA Bed to Chair Transfers Pt able to independently transfer onto plinth table moving slowly and with difficulty. OP Gait Assessment Gait Gait Assistance Required: Independent Able to Maintain Weight Bearing Status Yes During Gait Assistive Devices Assistive Device 4 Wheeled Walker Orthotic/Prosthetic Devices or Brace: No Gait Deviations General Gait Pattern Decreased Stride Length Decreased Feet Clearance Flexed Trunk Narrow Based Gait Factors Limiting Gait Function Factors Limiting Gait Function Decreased Strength Pain Poor Balance PT-OP-H Neuro Start: 07/30/18 12:50 Freq: Status: Active Protocol: Document 07/30/18 12:49 LRN (Rec: 07/30/18 17:34 LRN [id number]) Sensation Evaluation Location Details Right Lower Extremity Light Touch Intact/Normal Left Lower Extremity Light Touch Intact/Normal PT-OP-K Range of Motion Start: 07/30/18 08:10 Freq: Status: Active Protocol: Document 09/05/18 12:47 LRN (Rec: 09/05/18 13:34 LRN [id number]) Ankle and Foot Goniometric Range of Motion Ankle and Foot Measured in Degrees Right Active Ankle/Foot ROM WFL Yes Dorsiflexion with Knee Flexed 12 Dorsiflexion with Knee Extended 8 Plantarflexion 58 Left Active Testing Position Supine Dorsiflexion with Knee Flexed 10 Dorsiflexion with Knee Extended 8 Plantarflexion 47 PT-OP-M Strength Start: 07/30/18 08:10 Freq: Status: Active Protocol: Document 08/29/18 12:48 LRN (Rec: 08/29/18 13:40 LRN [id number]) Hip Strength Hip Manual Muscle Testing Left Flexion (L2) 2+ Poor+ Extension (S1) 1 Trace Abduction 2+ Poor+ PT-OP-Q Treatments Start: 07/30/18 08:10 Freq: Status: Active Protocol: Document 10/03/18 09:01 LRN (Rec: 10/03/18 09:51 LRN [id number]) Cardio Equipment Recumbent Elliptical (TIDAL PETROLEUM) Duration (Minutes) 10 Resistance Lev 1 Seat Position 8 Therapeutic Exercises Supine Exercises Hip AB/AD Supine Exercise Name Very light resistance with AD Side bilateral Reps/Minutes 10x AD stretch Supine Exercise Name MFR stretch to L hip AD's Side left Reps/Minutes 5' Comments Intermittent stretching Heel slides Supine Exercise Name Srinivasan heel slide>srinivasan hip flex to 90 deg's>bridging x 5 secs Side bilateral Sitting Exercises Ankle IV Sitting Exercise Name Ankle IV Side bilateral Resistance Lev 1 T-Band Reps/Minutes 30x Ankle EV Sitting Exercise Name Ankle EV Side bilateral Resistance Lev 1 T-Band Reps/Minutes 30x Standing Exercises Hip Flexor stretch Standing Exercise Name Runners stretch Side left Reps/Minutes 3' Comments Followed by active hip ext. Extra time for training. Sit to Stands Standing Exercise Name 2 Reps/Minutes 10x Comments Deferred due to knee pain from squat Squats Standing Exercise Name Shallow squats pivoting at hips Side bilateral Reps/Minutes 10 Comments Pt had onset of srinivasan knee pain after ex L Hip AD stretch Standing Exercise Name Hip AD Side bilateral Resistance Lev 1 T-Band Reps/Minutes to fatigue Comments Standing L hip AD progressed from foot>foot to scissor; Standing R scissored Manual Therapy Treatment Soft Tissue Mobilization L hip AD & Iliopsoas Body Location L hip AD's and anterior pubic bone Mobilization Type Myofascial Release Trigger Point Release Body Position Supine Comments Supine treatment. Primary treatment to release L hip AD' s. No significant tenderness at anterior pubic bone. Neuro Re-Education Treatment Balance Activities SLS Details SLS Reps/Duration 2' PT-OP-R Modalities Start: 07/30/18 08:10 Freq: Status: Active Protocol: Document 08/20/18 11:20 SA (Rec: 08/20/18 11:28 SA [id number]) Hot Pack/Cold Pack Treatment Cold Pack Location L anterior & lateral hip. Patient Position Supine Treatment Duration (minutes) 10 Patient Tolerance Good PT-OP-T Assessment and Plan Start: 07/30/18 08:10 Freq: Status: Active Protocol: Document 10/03/18 09:01 LRN (Rec: 10/03/18 09:51 LRN [id number]) Physical Therapy Assessment Progress Towards Goals Progress Towards Goals Slow Progress - Other Progress Comments HEP: Progressing. Gait: GOAL MET for gait without an assistive device, although she lacks L hip ext and gait is slow and cautious. L Ankle Mobility: GOAL MET for normal gait, although decreased mobility with L ankle DF (knee flexed) and ankle PF. L Hip Mobility (AB): GOAL PARTIALLY MET. L Groin pain with moving L leg off plinth. No assist needed for hip AB, pain at hip after 15x hip AB ex in supine. L hip strength (flex): GOAL MET. Pt able to move leg on/ off plinth independently. L groin discomfort is present moving leg off the table. Balance: GOAL MET for Tinetti Balance & Tinetti Gait Score. Assessment Summary Assessment Pt confidence in ability to walk is improving. Good tolerance to increased exercise. Pt is tight in L Ilipsoas. No c/o pain with transfers. No tenderness at L anterior pube, pt did very well in releasing soft tissue trigger points at home. Physical Therapy Plan Frequency and Duration Frequency of Treatment 2x/Week Plan of Care Start Date 07/30/18 Plan of Care End Date 10/22/18 Next Visit Focus/Plan Next Note Type Re-Evaluation Next Visit Plan Initiate upright stationary bike for progression of HEP. Continue to progress single leg stance activities towards no irritation to the L groin, and encourage hip hinge with sit-stand (no squats due to onset of knee pain) and lengthening/strengthening of L hip AD and hip flexor for normal gait mechanics and elimination of pain with transfer of L leg off plinth.
--- NOTE | 2018-10-08 14:42 | PT.OTN ---
Current Diagnoses Pain in left hip (10/08/18) Presence of unspecified artificial hip joint (10/08/18) Physical Therapy Treatment Note PT-OP-A Visit Information Start: 07/30/18 08:10 Freq: Status: Active Protocol: Document 10/08/18 09:10 LRN (Rec: 10/08/18 09:54 LRN [id number]) Out-Patient Physical Therapy Visit Information Visit Information Visit Type Progress Note Visit Start Time 09:10 Visit Stop Time 09:54 Total Visit Minutes 44 Visit Number 21 Number of FOREIGN COLLECTION CLERK Visits 0 Evaluation Information Evaluation Date 07/30/18 Precautions Precautions s/p partial L hip replacement Hx of pneumothorax - during hip replacement hospitalization. Osteoporosis PT-OP-B Current Condition Start: 07/30/18 08:10 Freq: Status: Active Protocol: Document 07/30/18 12:49 LRN (Rec: 07/30/18 17:34 LRN [id number]) Current Condition History of Current Condition Onset Date Partial L posterior hip replacement 06/06/18 Current Complaints Difficulty walking level and stairs, using 4WW, not able to exercise. History of Current Condition Pt reports falling suffering a fractured hip, with partial replacement on 06/06/18. States she was in the hospital 9.5 days due to a collapsed lung. She then developed a viral pneumonia. She spent 5 days in rehab at [facility] and had Home Health for 1 month until 07/25/18. She will be having assist from [employer] [place] for her transportation, personal hygiene and laundry needs. She states she has been cleared of any hip precautions following her 6 week follow up MD visit. She is currently being monitored for a cyst on the R kidney. Treatment Goals Patient/Caregiver Goals Pt goal is to be able to walk without her 4WW and ambulate stairs with a normal gait. She would like to be able to garden this year but understands this might be a difficult and somewhat unrealistic goal to achieve. Prior Functional Status Baseline Function- ADL's Independent Baseline Function- Mobility Independent Baseline Function- Gait Walked 1/2 hour daily. Able to ambulate stairs with a normal gait. Baseline Function- Recreation/Hobbies Gardening Baseline Function- Other Could exercised 1/2 hour on stationary bike or treadmill. Current Functional Impairments (Reported) Functional Limitations- ADL's SBA for showers. Moves very slow and cautiously with transfers due to fear of falling. Functional Limitations- Mobility/Gait Walks with a 4WW or sometimes in the home with SPC because of fear of falling. Stairs: step to gait with 2 railings. Functional Limitations- Recreation/ Not able to garden Hobbies Personal Factors Other Personal Factors That May Effect > 66 yrs old Therapy/Recovery Has 92 year old . Osteoporosis Has 2 flights of stairs in home. Has need of [employer] [place] for transportation and home needs. PT-OP-C Subjective Start: 07/30/18 08:10 Freq: Status: Active Protocol: Document 10/08/18 09:10 LRN (Rec: 10/08/18 09:54 LRN [id number]) OP-PT Subjective Patient Comments Patient Comments Can't put socks, shoes on without use of tools. Bike at home feels about the same as in clinic (seat hgt 4). Twinge of pain when moving L leg into bed. PT-OP-D Balance Start: 07/30/18 12:50 Freq: Status: Active Protocol: Document 08/29/18 12:45 LRN (Rec: 08/29/18 17:42 LRN [id number]) Tinetti Balance Assessment Sitting Balance Sitting Balance Steady, safe Arising from Chair Ability to Arise Able, w/o using arms Attempts to Arise Arises on 1st attempt Standing Balance Immediate Standing Balance Steady w/o support Standing Balance Steady, wide stance Nudged Response Staggers, catches self Standing with Eyes Closed Steady Turning Step Pattern Turning 360 Degrees Continuous steps Stability Turning 360 Degrees Steady Sitting Down Sitting Down Safe, steady Gait and Step Initiation of Gait No hesitancy Right Foot Step Length Does pass stance foot Right Foot Step Height Completely clears floor Left Foot Step Length Does pass stance foot Left Foot Step Height Completely clears floor Step Description Step Symmetry Step length not equal Step Continuity Steps appear continuous Gait Description Path Description Straight Trunk Description No sway Walking Stance Heels apart Scoring and Interpretation Tinetti Composite Score (points) 24 Interpretation of Scores At risk for falls (19-24) Tinetti Impairment Rating from Composite 1 to <20% Impaired (Score 23- Score 27) PT-OP-E Functional Tests Start: 07/30/18 12:50 Freq: Status: Active Protocol: Document 09/30/18 09:07 LRN (Rec: 09/30/18 14:37 LRN [id number]) Functional Tests Tinetti Balance and Gait Assessment Balance Score 14 Gait Score 12 Composite Score 26 Balance Score Impairment Rating 1 to <20% Impaired (Score 13- 15) Gait Score Impairment Rating 0% Impaired (Score 12) Composite Score Impairment Rating 1 to <20% Impaired (Score 23- 27) PT-OP-F Manual Assessment Start: 07/30/18 08:10 Freq: Status: Active Protocol: Document 07/30/18 12:49 LRN (Rec: 07/30/18 17:34 LRN [id number]) Manual Assessments Soft Tissue Assessment Soft Tissue Mobility Assessment Anterior L hip: No palpable pain. Pain with active hip flex, AB. PT-OP-G Mobility & Gait Start: 07/30/18 08:10 Freq: Status: Active Protocol: Document 07/30/18 12:49 LRN (Rec: 07/30/18 17:34 LRN [id number]) OP Mobility Evaluation Transfers Sit to Stand SBA Bed to Chair Transfers Pt able to independently transfer onto plinth table moving slowly and with difficulty. OP Gait Assessment Gait Gait Assistance Required: Independent Able to Maintain Weight Bearing Status Yes During Gait Assistive Devices Assistive Device 4 Wheeled Walker Orthotic/Prosthetic Devices or Brace: No Gait Deviations General Gait Pattern Decreased Stride Length Decreased Feet Clearance Flexed Trunk Narrow Based Gait Factors Limiting Gait Function Factors Limiting Gait Function Decreased Strength Pain Poor Balance PT-OP-H Neuro Start: 07/30/18 12:50 Freq: Status: Active Protocol: Document 07/30/18 12:49 LRN (Rec: 07/30/18 17:34 LRN [id number]) Sensation Evaluation Location Details Right Lower Extremity Light Touch Intact/Normal Left Lower Extremity Light Touch Intact/Normal PT-OP-K Range of Motion Start: 07/30/18 08:10 Freq: Status: Active Protocol: Document 10/08/18 09:10 LRN (Rec: 10/08/18 09:54 LRN [id number]) Hip Goniometric Range of Motion Hip Measured in Degrees Right Active Flexion w/Knee Flexed 92 Abduction 25 Left Flexion w/Knee Flexed 70 Abduction 30 Hip ROM Limitations Hip ROM Limitations Muscle Weakness Comments Pt has functional active mobility of L hip for flex, AB , ext. in supine PT-OP-M Strength Start: 07/30/18 08:10 Freq: Status: Active Protocol: Document 10/08/18 09:10 LRN (Rec: 10/08/18 09:54 LRN [id number]) Hip Strength Hip Manual Muscle Testing Right Flexion (L2) 4+ Good+ Extension (S1) 4 Good Abduction 4+ Good+ Left Flexion (L2) 3- Fair- Extension (S1) 4 Good Abduction 3 Fair PT-OP-Q Treatments Start: 07/30/18 08:10 Freq: Status: Active Protocol: Document 10/08/18 09:10 LRN (Rec: 10/08/18 09:54 LRN [id number]) Cardio Equipment Bicycle (Upright) Duration (Minutes) 8 Resistance 2 Seat Position 4 Therapeutic Exercises Supine Exercises Hip Flex Supine Exercise Name [place]: Srinivasan Lift of knees to 90's flex (chair sit position) Reps/Minutes 10x, 5x Comments Pt had to be held back on reps to prevent L groin pain. ROM taken. Hip AB/AD Supine Exercise Name Very light resistance with AD Side bilateral Reps/Minutes 3 Comments MMT AD stretch Supine Exercise Name Static stretch to L hip AD's Side left Reps/Minutes 5' Comments Stretch, f/b active AB x 2. ROM taken BKFO Supine Exercise Name BKFO stretch Side bilateral Reps/Minutes 2' Sidelying Exercises Hip Abduction Sidelying Exercise Name Hip Abd Reps/Minutes 10x2 with guidance Comments Guidance for pure AB. MMT of AB & ext checked. Clamshell Side left Reps/Minutes 10 x Comments Assist given for max hip ER tolerated Standing Exercises Sit to Stands Standing Exercise Name Sit to Stand Reps/Minutes 10x Comments Stopped when onset of Knee discomfort PT-OP-R Modalities Start: 07/30/18 08:10 Freq: Status: Active Protocol: Document 08/20/18 11:20 SA (Rec: 08/20/18 11:28 SA [id number]) Hot Pack/Cold Pack Treatment Cold Pack Location L anterior & lateral hip. Patient Position Supine Treatment Duration (minutes) 10 Patient Tolerance Good PT-OP-T Assessment and Plan Start: 07/30/18 08:10 Freq: Status: Active Protocol: Document 10/08/18 09:10 LRN (Rec: 10/08/18 09:54 LRN [id number]) Physical Therapy Assessment Goals Don/Doff of socks/shoes Impairment Pt unable to don/doff socks shoes without aide. Short Term Goal (STG) Pt will be able educated in HEP to progress L hip mobility towards ability to don/doff socks/shoes without a sock aid or assist. STG Duration 10/18/18 Rust Proofer Goal (LTG) Pt will be able to don socks and shoes without assist ( moderate difficulty). LTG Duration 11/26/18 Decreased balance Impairment Tinetti Balance score of 7/16 indicating pt at risk of falling. [facility] Goal (LTG) Pt will achieve a Tinetti Balance score of at least 12 of 16 with a gait score of 12 indicating pt is at low risk of falling. LTG Duration 10/22/18 (09/29/18: GOAL MET) Decreased L hip strength Impairment Pt unable to lift L leg independently making transfers difficult Short Term Goal (STG) Pt will be able to lift her L LE independently to be able to transfer off/on the plinth table without assist. STG Duration 08/16/18 (10/08/18: Twinge of pain moving onto plinth) Decreased active L hip mobility Impairment Pt lacks L hip AB mobility for painfree transfers Short Term Goal (STG) Pt will improve active L hip AB mobility for painfree transfers off/on plinth tables . STG Duration 10/18/18 (10/08/18: Twinge of pain moving onto plinth) Decreased ankle mobility Impairment Pt lacks functional ankle DF mobility for gait Short Term Goal (STG) Improve ankle active DF with pt able to demonstrate normal gait mechanics without the use of an assistive device. STG Duration 08/23/18 (08/27/18: GOAL MET) Gait Impairment Pt requires use of assistive device for gait Rust Proofer Goal (LTG) Pt will be independent with a normal gait without an assistive device. LTG Duration 10/22/18 (10/08/18: GOAL MET) HEP Impairment Pt lacks appropriate self care HEP [facility] Goal (LTG) Pt will be independent with a self care HEP. LTG Duration 11/26/18 (Progressing as appropriate) Progress Towards Goals Progress Towards Goals Progressing Toward Goals Progress Comments HEP: Progressing. Gait: GOAL MET. She has mild limitation with hip ext & gait is slow. L Ankle Mobility: GOAL MET. L Hip Mobility (AB): GOAL PARTIALLY MET. Twinge of L Groin pain moving L leg onto/ off plinth. L hip strength (flex): GOAL MET. Balance: GOAL MET. Assessment Summary Assessment The pt continues to show progress in mobility and function. She has achieved most of her functional goals, except she still has twinges of pain in the L groin with transfers on/off plinth/bed. Today she complained of having difficulty donning/doffing her socks and shoes due to limited L hip flex and ER mobility, as expected. The pt would like to continue physical therapy to improve her overall ability to walk and to work towards being able to don/doff her socks and shoes. I feel it would be appropriate to continue skilled physical therapy in order to progress the pt towards improved ability for dressing and to be educated in a HEP that could work towards achieving this goal. Physical Therapy Plan Frequency and Duration Frequency of Treatment 2x/Week Plan of Care Start Date 10/08/18 Plan of Care End Date 11/26/18 Therapeutic Interventions Therapeutic Interventions Balance Training Gait Training Home Exercise Program Manual Therapy Neuromuscular Re-education Patient/Caregiver Education Self-Care/Home Management Soft Tissue Mobilization Therapeutic Activities Therapeutic Exercises Modalities Cold Pack/Ice Massage Hot Packs Next Visit Focus/Plan Next Note Type Treatment Note Next Visit Plan Progress upright stationary bike to 10' for HEP. Continue to progress single leg stance activities towards no irritation to the L groin, and encourage hip hinge with sit- stand (no squats due to onset of knee pain) and strengthening of L hip AD and flexors for normal gait mechanics and elimination of pain with transfer of L leg off plinth. TrP release for Iliopsoas to relieve groin pain as needed.
--- NOTE | 2018-10-10 10:30 | PT.OTN ---
Current Diagnoses Pain in left hip (10/10/18) Presence of unspecified artificial hip joint (10/10/18) Physical Therapy Treatment Note PT-OP-A Visit Information Start: 07/30/18 08:10 Freq: Status: Active Protocol: Document 10/10/18 09:03 LRN (Rec: 10/10/18 09:47 LRN [id number]) Out-Patient Physical Therapy Visit Information Visit Information Visit Type Treatment Note Visit Start Time 09:03 Visit Stop Time 09:43 Total Visit Minutes 40 Visit Number 22 Number of MARKETING CONTENT SPECIALIST Visits 0 Evaluation Information Evaluation Date 07/30/18 Precautions Precautions s/p partial L hip replacement Hx of pneumothorax - during hip replacement hospitalization. Osteoporosis PT-OP-B Current Condition Start: 07/30/18 08:10 Freq: Status: Active Protocol: Document 07/30/18 12:49 LRN (Rec: 07/30/18 17:34 LRN [id number]) Current Condition History of Current Condition Onset Date Partial L posterior hip replacement 06/06/18 Current Complaints Difficulty walking level and stairs, using 4WW, not able to exercise. History of Current Condition Pt reports falling suffering a fractured hip, with partial replacement on 06/06/18. States she was in the hospital 9.5 days due to a collapsed lung. She then developed a viral pneumonia. She spent 5 days in rehab at [facility] and had Home Health for 1 month until 07/25/18. She will be having assist from [facility] [place] for her transportation, personal hygiene and laundry needs. She states she has been cleared of any hip precautions following her 6 week follow up MD visit. She is currently being monitored for a cyst on the R kidney. Treatment Goals Patient/Caregiver Goals Pt goal is to be able to walk without her 4WW and ambulate stairs with a normal gait. She would like to be able to garden this year but understands this might be a difficult and somewhat unrealistic goal to achieve. Prior Functional Status Baseline Function- ADL's Independent Baseline Function- Mobility Independent Baseline Function- Gait Walked 1/2 hour daily. Able to ambulate stairs with a normal gait. Baseline Function- Recreation/Hobbies Gardening Baseline Function- Other Could exercised 1/2 hour on stationary bike or treadmill. Current Functional Impairments (Reported) Functional Limitations- ADL's SBA for showers. Moves very slow and cautiously with transfers due to fear of falling. Functional Limitations- Mobility/Gait Walks with a 4WW or sometimes in the home with SPC because of fear of falling. Stairs: step to gait with 2 railings. Functional Limitations- Recreation/ Not able to garden Hobbies Personal Factors Other Personal Factors That May Effect > 65 yrs old Therapy/Recovery Has 92 year old . Osteoporosis Has 2 flights of stairs in home. Has need of [facility] [place] for transportation and home needs. PT-OP-C Subjective Start: 07/30/18 08:10 Freq: Status: Active Protocol: Document 10/10/18 09:03 LRN (Rec: 10/10/18 09:47 LRN [id number]) OP-PT Subjective Patient Comments Patient Comments Next MD appt is first wk october. No complaints. While on upright ex bike pt had one onset of stabbing pain in anterior L groin. PT-OP-D Balance Start: 07/30/18 12:50 Freq: Status: Active Protocol: Document 08/29/18 12:45 LRN (Rec: 08/29/18 17:42 LRN [id number]) Tinetti Balance Assessment Sitting Balance Sitting Balance Steady, safe Arising from Chair Ability to Arise Able, w/o using arms Attempts to Arise Arises on 1st attempt Standing Balance Immediate Standing Balance Steady w/o support Standing Balance Steady, wide stance Nudged Response Staggers, catches self Standing with Eyes Closed Steady Turning Step Pattern Turning 360 Degrees Continuous steps Stability Turning 360 Degrees Steady Sitting Down Sitting Down Safe, steady Gait and Step Initiation of Gait No hesitancy Right Foot Step Length Does pass stance foot Right Foot Step Height Completely clears floor Left Foot Step Length Does pass stance foot Left Foot Step Height Completely clears floor Step Description Step Symmetry Step length not equal Step Continuity Steps appear continuous Gait Description Path Description Straight Trunk Description No sway Walking Stance Heels apart Scoring and Interpretation Tinetti Composite Score (points) 24 Interpretation of Scores At risk for falls (19-24) Tinetti Impairment Rating from Composite 1 to <20% Impaired (Score 23- Score 27) PT-OP-E Functional Tests Start: 07/30/18 12:50 Freq: Status: Active Protocol: Document 09/30/18 09:07 LRN (Rec: 09/30/18 14:37 LRN [id number]) Functional Tests Tinetti Balance and Gait Assessment Balance Score 14 Gait Score 12 Composite Score 26 Balance Score Impairment Rating 1 to <20% Impaired (Score 13- 15) Gait Score Impairment Rating 0% Impaired (Score 12) Composite Score Impairment Rating 1 to <20% Impaired (Score 23- 27) PT-OP-F Manual Assessment Start: 07/30/18 08:10 Freq: Status: Active Protocol: Document 07/30/18 12:49 LRN (Rec: 07/30/18 17:34 LRN [id number]) Manual Assessments Soft Tissue Assessment Soft Tissue Mobility Assessment Anterior L hip: No palpable pain. Pain with active hip flex, AB. PT-OP-G Mobility & Gait Start: 07/30/18 08:10 Freq: Status: Active Protocol: Document 07/30/18 12:49 LRN (Rec: 07/30/18 17:34 LRN [id number]) OP Mobility Evaluation Transfers Sit to Stand SBA Bed to Chair Transfers Pt able to independently transfer onto plinth table moving slowly and with difficulty. OP Gait Assessment Gait Gait Assistance Required: Independent Able to Maintain Weight Bearing Status Yes During Gait Assistive Devices Assistive Device 4 Wheeled Walker Orthotic/Prosthetic Devices or Brace: No Gait Deviations General Gait Pattern Decreased Stride Length Decreased Feet Clearance Flexed Trunk Narrow Based Gait Factors Limiting Gait Function Factors Limiting Gait Function Decreased Strength Pain Poor Balance PT-OP-H Neuro Start: 07/30/18 12:50 Freq: Status: Active Protocol: Document 07/30/18 12:49 LRN (Rec: 07/30/18 17:34 LRN [id number]) Sensation Evaluation Location Details Right Lower Extremity Light Touch Intact/Normal Left Lower Extremity Light Touch Intact/Normal PT-OP-K Range of Motion Start: 07/30/18 08:10 Freq: Status: Active Protocol: Document 10/08/18 09:10 LRN (Rec: 10/08/18 09:54 LRN [id number]) Hip Goniometric Range of Motion Hip Measured in Degrees Right Active Flexion w/Knee Flexed 92 Abduction 25 Left Flexion w/Knee Flexed 70 Abduction 30 Hip ROM Limitations Hip ROM Limitations Muscle Weakness Comments Pt has functional active mobility of L hip for flex, AB , ext. in supine PT-OP-M Strength Start: 07/30/18 08:10 Freq: Status: Active Protocol: Document 10/08/18 09:10 LRN (Rec: 10/08/18 09:54 LRN [id number]) Hip Strength Hip Manual Muscle Testing Right Flexion (L2) 4+ Good+ Extension (S1) 4 Good Abduction 4+ Good+ Left Flexion (L2) 3- Fair- Extension (S1) 4 Good Abduction 3 Fair PT-OP-Q Treatments Start: 07/30/18 08:10 Freq: Status: Active Protocol: Document 10/10/18 09:03 LRN (Rec: 10/10/18 09:47 LRN [id number]) Cardio Equipment Bicycle (Upright) Duration (Minutes) 10 Resistance 2 Seat Position 4 Other Cuing for neutral spine positioning of pelvis/LB Therapeutic Exercises Supine Exercises Bridging Supine Exercise Name Bridging marching Side bilateral Comments 1-2 marches each side x 5 3ps Standing Exercises Hip AD Standing Exercise Name Hip AD Side bilateral Resistance Lev 1 T-Band Reps/Minutes 15x Leg swings Standing Exercise Name Leg swings Side left Reps/Minutes 10x Hip Flexor stretch Standing Exercise Name Runners stretch Side left Reps/Minutes 3' Comments Followed by active hip ext. Extra time for training. Marching Standing Exercise Name Marching alt legs Side bilateral Resistance 4# Reps/Minutes 15x3 Hip AB Standing Exercise Name Hip AB Side bilateral Resistance Lev 1 T-Band Reps/Minutes 15x Comments Lifting R leg pt experienced twinge of pain in R groin Hip Extension Standing Exercise Name Stretch f/b active ext Side left Reps/Minutes 4' Manual Therapy Treatment Soft Tissue Mobilization L hip AD & Iliopsoas Body Location L Iliopsoas Mobilization Type Sustained Pressure Trigger Point Release Body Position Supine PT-OP-R Modalities Start: 07/30/18 08:10 Freq: Status: Active Protocol: Document 08/20/18 11:20 SA (Rec: 08/20/18 11:28 SA [id number]) Hot Pack/Cold Pack Treatment Cold Pack Location L anterior & lateral hip. Patient Position Supine Treatment Duration (minutes) 10 Patient Tolerance Good PT-OP-T Assessment and Plan Start: 07/30/18 08:10 Freq: Status: Active Protocol: Document 10/10/18 09:03 LRN (Rec: 10/10/18 09:47 LRN [id number]) Physical Therapy Assessment Assessment Summary Assessment Pt was able to tolerate upright bike 10' with 1x sharp pain in L groin from probably impingement of Iliopsoas. She appears to understand the safety of avoiding excessive L hip flex and proper pelvic/LB posturing during biking; therefore she appears safe to ex at home on her upright stationary bike. Pt had many active trigger points at the L ASIS & Iliopsoas. She has weakness of hip flexors and extensors. She can only tolerate gluteal strengthening in supine (CKC) and limited standing hip ext. Physical Therapy Plan Frequency and Duration Frequency of Treatment 2x/Week Plan of Care Start Date 10/08/18 Plan of Care End Date 11/26/18 Next Visit Focus/Plan Next Note Type Treatment Note Next Visit Plan Pt to try upright stationary bike at home. Continue to progress single leg stance activities towards no irritation to the L groin, and encourage hip hinge with sit- stand (no squats due to onset of knee pain) and strengthening of L hip AD, extensors, & flexors for normal gait mechanics and elimination of pain with transfer of L leg off plinth. TrP release for Iliopsoas to relieve groin pain as needed.
--- NOTE | 2018-10-14 14:56 | PT.OTN ---
Current Diagnoses Pain in left hip (10/14/18) Presence of unspecified artificial hip joint (10/14/18) Physical Therapy Treatment Note PT-OP-A Visit Information Start: 07/30/18 08:10 Freq: Status: Active Protocol: Document 10/14/18 10:35 LRN (Rec: 10/14/18 11:21 LRN [id number]) Out-Patient Physical Therapy Visit Information Visit Information Visit Type Treatment Note Visit Start Time 10:35 Visit Stop Time 11:20 Total Visit Minutes 45 Visit Number 23 Number of QUAL FIELD MANAGER Visits 0 Evaluation Information Evaluation Date 07/30/18 Precautions Precautions s/p partial L hip replacement Hx of pneumothorax - during hip replacement hospitalization. Osteoporosis PT-OP-B Current Condition Start: 07/30/18 08:10 Freq: Status: Active Protocol: Document 07/30/18 12:49 LRN (Rec: 07/30/18 17:34 LRN [id number]) Current Condition History of Current Condition Onset Date Partial L posterior hip replacement 06/06/18 Current Complaints Difficulty walking level and stairs, using 4WW, not able to exercise. History of Current Condition Pt reports falling suffering a fractured hip, with partial replacement on 06/06/18. States she was in the hospital 9.5 days due to a collapsed lung. She then developed a viral pneumonia. She spent 5 days in rehab at [facility] and had Home Health for 1 month until 07/25/18. She will be having assist from [facility] [place] for her transportation, personal hygiene and laundry needs. She states she has been cleared of any hip precautions following her 6 week follow up MD visit. She is currently being monitored for a cyst on the R kidney. Treatment Goals Patient/Caregiver Goals Pt goal is to be able to walk without her 4WW and ambulate stairs with a normal gait. She would like to be able to garden this year but understands this might be a difficult and somewhat unrealistic goal to achieve. Prior Functional Status Baseline Function- ADL's Independent Baseline Function- Mobility Independent Baseline Function- Gait Walked 1/2 hour daily. Able to ambulate stairs with a normal gait. Baseline Function- Recreation/Hobbies Gardening Baseline Function- Other Could exercised 1/2 hour on stationary bike or treadmill. Current Functional Impairments (Reported) Functional Limitations- ADL's SBA for showers. Moves very slow and cautiously with transfers due to fear of falling. Functional Limitations- Mobility/Gait Walks with a 4WW or sometimes in the home with SPC because of fear of falling. Stairs: step to gait with 2 railings. Functional Limitations- Recreation/ Not able to garden Hobbies Personal Factors Other Personal Factors That May Effect > 66 yrs old Therapy/Recovery Has 92 year old . Osteoporosis Has 2 flights of stairs in home. Has need of [facility] [place] for transportation and home needs. PT-OP-C Subjective Start: 07/30/18 08:10 Freq: Status: Active Protocol: Document 10/14/18 10:35 LRN (Rec: 10/14/18 11:21 LRN [id number]) OP-PT Subjective Patient Comments Patient Comments 2 says ago tried ex bike at home for 10', fine while biking, but as soon as stopped , had sharp groin pain lasted the day. The next day didn't ex. This morning no pain on waking, did some ex's on bed, no pain. No pain walking or standing. PT-OP-D Balance Start: 07/30/18 12:50 Freq: Status: Active Protocol: Document 08/29/18 12:45 LRN (Rec: 08/29/18 17:42 LRN [id number]) Tinetti Balance Assessment Sitting Balance Sitting Balance Steady, safe Arising from Chair Ability to Arise Able, w/o using arms Attempts to Arise Arises on 1st attempt Standing Balance Immediate Standing Balance Steady w/o support Standing Balance Steady, wide stance Nudged Response Staggers, catches self Standing with Eyes Closed Steady Turning Step Pattern Turning 360 Degrees Continuous steps Stability Turning 360 Degrees Steady Sitting Down Sitting Down Safe, steady Gait and Step Initiation of Gait No hesitancy Right Foot Step Length Does pass stance foot Right Foot Step Height Completely clears floor Left Foot Step Length Does pass stance foot Left Foot Step Height Completely clears floor Step Description Step Symmetry Step length not equal Step Continuity Steps appear continuous Gait Description Path Description Straight Trunk Description No sway Walking Stance Heels apart Scoring and Interpretation Tinetti Composite Score (points) 24 Interpretation of Scores At risk for falls (19-24) Tinetti Impairment Rating from Composite 1 to <20% Impaired (Score 23- Score 27) PT-OP-E Functional Tests Start: 07/30/18 12:50 Freq: Status: Active Protocol: Document 09/30/18 09:07 LRN (Rec: 09/30/18 14:37 LRN [id number]) Functional Tests Tinetti Balance and Gait Assessment Balance Score 14 Gait Score 12 Composite Score 26 Balance Score Impairment Rating 1 to <20% Impaired (Score 13- 15) Gait Score Impairment Rating 0% Impaired (Score 12) Composite Score Impairment Rating 1 to <20% Impaired (Score 23- 27) PT-OP-F Manual Assessment Start: 07/30/18 08:10 Freq: Status: Active Protocol: Document 07/30/18 12:49 LRN (Rec: 07/30/18 17:34 LRN [id number]) Manual Assessments Soft Tissue Assessment Soft Tissue Mobility Assessment Anterior L hip: No palpable pain. Pain with active hip flex, AB. PT-OP-G Mobility & Gait Start: 07/30/18 08:10 Freq: Status: Active Protocol: Document 07/30/18 12:49 LRN (Rec: 07/30/18 17:34 LRN [id number]) OP Mobility Evaluation Transfers Sit to Stand SBA Bed to Chair Transfers Pt able to independently transfer onto plinth table moving slowly and with difficulty. OP Gait Assessment Gait Gait Assistance Required: Independent Able to Maintain Weight Bearing Status Yes During Gait Assistive Devices Assistive Device 4 Wheeled Walker Orthotic/Prosthetic Devices or Brace: No Gait Deviations General Gait Pattern Decreased Stride Length Decreased Feet Clearance Flexed Trunk Narrow Based Gait Factors Limiting Gait Function Factors Limiting Gait Function Decreased Strength Pain Poor Balance PT-OP-H Neuro Start: 07/30/18 12:50 Freq: Status: Active Protocol: Document 07/30/18 12:49 LRN (Rec: 07/30/18 17:34 LRN [id number]) Sensation Evaluation Location Details Right Lower Extremity Light Touch Intact/Normal Left Lower Extremity Light Touch Intact/Normal PT-OP-K Range of Motion Start: 07/30/18 08:10 Freq: Status: Active Protocol: Document 10/08/18 09:10 LRN (Rec: 10/08/18 09:54 LRN [id number]) Hip Goniometric Range of Motion Hip Right Active Flexion w/Knee Flexed 92 Abduction 25 Left Flexion w/Knee Flexed 70 Abduction 30 Hip ROM Limitations Hip ROM Limitations Muscle Weakness Comments Pt has functional active mobility of L hip for flex, AB , ext. in supine PT-OP-M Strength Start: 07/30/18 08:10 Freq: Status: Active Protocol: Document 10/08/18 09:10 LRN (Rec: 10/08/18 09:54 LRN [id number]) Hip Strength Hip Manual Muscle Testing Right Flexion (L2) 4+ Good+ Extension (S1) 4 Good Abduction 4+ Good+ Left Flexion (L2) 3- Fair- Extension (S1) 4 Good Abduction 3 Fair PT-OP-Q Treatments Start: 07/30/18 08:10 Freq: Status: Active Protocol: Document 10/14/18 10:35 LRN (Rec: 10/14/18 11:21 LRN [id number]) Therapeutic Exercises Supine Exercises Hip ER stretch Supine Exercise Name R foot crossed over L knee Side right Reps/Minutes 2' LE Roll in (neutral on R)/out Supine Exercise Name LE Roll in (neutral R)/out Side bilateral Reps/Minutes 15x Fig 4 Supine Exercise Name Active stretch into ER Reps/Minutes 15x Hip AB/AD Supine Exercise Name Very light resistance with AD Side bilateral Reps/Minutes 3 BKFO Supine Exercise Name BKFO stretch Side bilateral Reps/Minutes 2' Bridging Supine Exercise Name Bridging marching Side bilateral Comments 1-2 marches each side x 5 reps Sidelying Exercises Hip Abduction Sidelying Exercise Name Hip Abd Reps/Minutes 10x with guidance Comments Guidance for pure AB. Clamshell Sidelying Exercise Name Clamshell Side left Reps/Minutes 10 x Comments Assist given for max hip ER tolerated & core in neutral Manual Therapy Treatment Soft Tissue Mobilization L hip AD & Iliopsoas Body Location L Iliopsoas Mobilization Type Sustained Pressure Trigger Point Release Body Position Supine Comments 15' Self-Care/Home Management Treatment Education Patient Education Home Exercise Program Activities Self-Care/Home Management Activities Issued & reviewd HEP handout for: Fig 4 stretch. I/S pt in HEP stretch of hip ER, f/b active hip ER. PT-OP-R Modalities Start: 07/30/18 08:10 Freq: Status: Active Protocol: Document 08/20/18 11:20 SA (Rec: 08/20/18 11:28 SA [email or web address]) Hot Pack/Cold Pack Treatment Cold Pack Location L anterior & lateral hip. Patient Position Supine Treatment Duration (minutes) 10 Patient Tolerance Good PT-OP-T Assessment and Plan Start: 07/30/18 08:10 Freq: Status: Active Protocol: Document 10/14/18 10:35 LRN (Rec: 10/14/18 11:21 LRN [id number]) Physical Therapy Assessment Goals Don/Doff of socks/shoes Impairment Pt unable to don/doff socks shoes without aide. Short Term Goal (STG) Pt will be able educated in HEP to progress L hip mobility towards ability to don/doff socks/shoes without a sock aid or assist. STG Duration 10/18/18 Mcc Goal (LTG) Pt will be able to don socks and shoes without assist ( moderate difficulty). LTG Duration 11/26/18 Decreased balance Impairment Tinetti Balance score of 7/16 indicating pt at risk of falling. Road Train Driver Goal (LTG) Pt will achieve a Tinetti Balance score of at least 12 of 16 with a gait score of 12 indicating pt is at low risk of falling. LTG Duration 10/22/18 (09/29/18: GOAL MET) Decreased L hip strength Impairment Pt unable to lift L leg independently making transfers difficult Short Term Goal (STG) Pt will be able to lift her L LE independently to be able to transfer off/on the plinth table without assist. STG Duration 08/16/18 (10/08/18: Twinge of pain moving onto plinth) Decreased active L hip mobility Impairment Pt lacks L hip AB mobility for painfree transfers Short Term Goal (STG) Pt will improve active L hip AB mobility for painfree transfers off/on plinth tables . STG Duration 10/18/18 (10/08/18: Twinge of pain moving onto plinth) Decreased ankle mobility Impairment Pt lacks functional ankle DF mobility for gait Short Term Goal (STG) Improve ankle active DF with pt able to demonstrate normal gait mechanics without the use of an assistive device. STG Duration 08/23/18 (08/27/18: GOAL MET) Gait Impairment Pt requires use of assistive device for gait Road Train Driver Goal (LTG) Pt will be independent with a normal gait without an assistive device. LTG Duration 10/22/18 (10/08/18: GOAL MET) HEP Impairment Pt lacks appropriate self care HEP Road Train Driver Goal (LTG) Pt will be independent with a self care HEP. LTG Duration 11/26/18 (Progressing as appropriate) Assessment Summary Assessment Pt is not feeling confident with gait from recent flare up with home ex bike. Pt has many active trigger points today in L anterior hip region along anterior pubic ramus and mildly at Iliopsoas. Pt had c/o sharp pain during trigger point treatments but no sharp pain with ex; therefore its expected that her pain is soft tissue related, possibly from prolonged positioning in hip flexion position during stationary biking at home. Pt is not ready for ex bike at home. Physical Therapy Plan Frequency and Duration Frequency of Treatment 1x/Week Plan of Care Start Date 10/08/18 Plan of Care End Date 11/26/18 Next Visit Focus/Plan Next Note Type Treatment Note Next Visit Plan Change to 1x/week for next 4 weeks to wean onto HEP and self care. Continue to progress single leg stance activities towards no irritation to the L groin, and encourage hip hinge with sit- stand (no squats due to onset of knee pain) and strengthening of L hip AD, extensors, & flexors for normal gait mechanics and elimination of pain with transfer of L leg off plinth. TrP release for L Iliopsoas to relieve groin pain as needed.
--- NOTE | 2018-10-17 15:36 | PT.OTN ---
Current Diagnoses Pain in left hip (10/17/18) Presence of unspecified artificial hip joint (10/17/18) Physical Therapy Treatment Note PT-OP-A Visit Information Start: 07/30/18 08:10 Freq: Status: Active Protocol: Document 10/17/18 09:05 LRN (Rec: 10/17/18 09:47 LRN [id number]) Out-Patient Physical Therapy Visit Information Visit Information Visit Type Treatment Note Visit Start Time 09:05 Visit Stop Time 09:47 Total Visit Minutes 42 Visit Number 24 Number of KILN STOKER Visits 0 Evaluation Information Evaluation Date 07/30/18 Precautions Precautions s/p partial L hip replacement Hx of pneumothorax - during hip replacement hospitalization. Osteoporosis PT-OP-B Current Condition Start: 07/30/18 08:10 Freq: Status: Active Protocol: Document 07/30/18 12:49 LRN (Rec: 07/30/18 17:34 LRN [id number]) Current Condition History of Current Condition Onset Date Partial L posterior hip replacement 06/06/18 Current Complaints Difficulty walking level and stairs, using 4WW, not able to exercise. History of Current Condition Pt reports falling suffering a fractured hip, with partial replacement on 06/06/18. States she was in the hospital 9.5 days due to a collapsed lung. She then developed a viral pneumonia. She spent 5 days in rehab at [facility] and had Home Health for 1 month until 07/25/18. She will be having assist from [employer] [place] for her transportation, personal hygiene and laundry needs. She states she has been cleared of any hip precautions following her 6 week follow up MD visit. She is currently being monitored for a cyst on the R kidney. Treatment Goals Patient/Caregiver Goals Pt goal is to be able to walk without her 4WW and ambulate stairs with a normal gait. She would like to be able to garden this year but understands this might be a difficult and somewhat unrealistic goal to achieve. Prior Functional Status Baseline Function- ADL's Independent Baseline Function- Mobility Independent Baseline Function- Gait Walked 1/2 hour daily. Able to ambulate stairs with a normal gait. Baseline Function- Recreation/Hobbies Gardening Baseline Function- Other Could exercised 1/2 hour on stationary bike or treadmill. Current Functional Impairments (Reported) Functional Limitations- ADL's SBA for showers. Moves very slow and cautiously with transfers due to fear of falling. Functional Limitations- Mobility/Gait Walks with a 4WW or sometimes in the home with SPC because of fear of falling. Stairs: step to gait with 2 railings. Functional Limitations- Recreation/ Not able to garden Hobbies Personal Factors Other Personal Factors That May Effect > 65 yrs old Therapy/Recovery Has 92 year old . Osteoporosis Has 2 flights of stairs in home. Has need of [facility] [place] for transportation and home needs. PT-OP-C Subjective Start: 07/30/18 08:10 Freq: Status: Active Protocol: Document 10/17/18 09:05 LRN (Rec: 10/17/18 09:47 LRN [id number]) OP-PT Subjective Patient Comments Patient Comments States the anterior L hip has been hurting, so took Tylenol this morning. Now not sore. PT-OP-D Balance Start: 07/30/18 12:50 Freq: Status: Active Protocol: Document 08/29/18 12:45 LRN (Rec: 08/29/18 17:42 LRN [id number]) Tinetti Balance Assessment Sitting Balance Sitting Balance Steady, safe Arising from Chair Ability to Arise Able, w/o using arms Attempts to Arise Arises on 1st attempt Standing Balance Immediate Standing Balance Steady w/o support Standing Balance Steady, wide stance Nudged Response Staggers, catches self Standing with Eyes Closed Steady Turning Step Pattern Turning 360 Degrees Continuous steps Stability Turning 360 Degrees Steady Sitting Down Sitting Down Safe, steady Gait and Step Initiation of Gait No hesitancy Right Foot Step Length Does pass stance foot Right Foot Step Height Completely clears floor Left Foot Step Length Does pass stance foot Left Foot Step Height Completely clears floor Step Description Step Symmetry Step length not equal Step Continuity Steps appear continuous Gait Description Path Description Straight Trunk Description No sway Walking Stance Heels apart Scoring and Interpretation Tinetti Composite Score (points) 24 Interpretation of Scores At risk for falls (19-24) Tinetti Impairment Rating from Composite 1 to <20% Impaired (Score 23- Score 27) PT-OP-E Functional Tests Start: 07/30/18 12:50 Freq: Status: Active Protocol: Document 09/30/18 09:07 LRN (Rec: 09/30/18 14:37 LRN [id number]) Functional Tests Tinetti Balance and Gait Assessment Balance Score 14 Gait Score 12 Composite Score 26 Balance Score Impairment Rating 1 to <20% Impaired (Score 13- 15) Gait Score Impairment Rating 0% Impaired (Score 12) Composite Score Impairment Rating 1 to <20% Impaired (Score 23- 27) PT-OP-F Manual Assessment Start: 07/30/18 08:10 Freq: Status: Active Protocol: Document 07/30/18 12:49 LRN (Rec: 07/30/18 17:34 LRN [id number]) Manual Assessments Soft Tissue Assessment Soft Tissue Mobility Assessment Anterior L hip: No palpable pain. Pain with active hip flex, AB. PT-OP-G Mobility & Gait Start: 07/30/18 08:10 Freq: Status: Active Protocol: Document 07/30/18 12:49 LRN (Rec: 07/30/18 17:34 LRN [id number]) OP Mobility Evaluation Transfers Sit to Stand SBA Bed to Chair Transfers Pt able to independently transfer onto plinth table moving slowly and with difficulty. OP Gait Assessment Gait Gait Assistance Required: Independent Able to Maintain Weight Bearing Status Yes During Gait Assistive Devices Assistive Device 4 Wheeled Walker Orthotic/Prosthetic Devices or Brace: No Gait Deviations General Gait Pattern Decreased Stride Length Decreased Feet Clearance Flexed Trunk Narrow Based Gait Factors Limiting Gait Function Factors Limiting Gait Function Decreased Strength Pain Poor Balance PT-OP-H Neuro Start: 07/30/18 12:50 Freq: Status: Active Protocol: Document 07/30/18 12:49 LRN (Rec: 07/30/18 17:34 LRN [id number]) Sensation Evaluation Location Details Right Lower Extremity Light Touch Intact/Normal Left Lower Extremity Light Touch Intact/Normal PT-OP-K Range of Motion Start: 07/30/18 08:10 Freq: Status: Active Protocol: Document 10/08/18 09:10 LRN (Rec: 10/08/18 09:54 LRN [id number]) Hip Goniometric Range of Motion Hip Right Active Flexion w/Knee Flexed 92 Abduction 25 Left Flexion w/Knee Flexed 70 Abduction 30 Hip ROM Limitations Hip ROM Limitations Muscle Weakness Comments Pt has functional active mobility of L hip for flex, AB , ext. in supine PT-OP-M Strength Start: 07/30/18 08:10 Freq: Status: Active Protocol: Document 10/08/18 09:10 LRN (Rec: 10/08/18 09:54 LRN [id number]) Hip Strength Hip Manual Muscle Testing Right Flexion (L2) 4+ Good+ Extension (S1) 4 Good Abduction 4+ Good+ Left Flexion (L2) 3- Fair- Extension (S1) 4 Good Abduction 3 Fair PT-OP-Q Treatments Start: 07/30/18 08:10 Freq: Status: Active Protocol: Document 10/17/18 09:05 LRN (Rec: 10/17/18 09:47 LRN [id number]) Therapeutic Exercises Supine Exercises Hip ER stretch Supine Exercise Name R foot crossed over L knee Side right Reps/Minutes 2' Comments Active stretch into ER LE Roll in (neutral on R)/out Supine Exercise Name LE Roll in (neutral R)/out Side bilateral Reps/Minutes 15x Fig 4 Supine Exercise Name Stretch f/b Active stretch into ER Reps/Minutes 15x AD stretch Supine Exercise Name Static stretch to L hip AD's Side left Reps/Minutes 5' Comments Stretch, f/b active AB x 2. ROM taken BKFO Supine Exercise Name BKFO strengthening Side bilateral Resistance Lev 2 T-Band Reps/Minutes 3 Sidelying Exercises Hip Abduction Sidelying Exercise Name Hip Abd Reps/Minutes 10x with guidance Comments Guidance for pure AB. Clamshell Sidelying Exercise Name Clamshell Side left Reps/Minutes 10 x Comments Assist given for max hip ER tolerated & core in neutral Standing Exercises Leg swings Standing Exercise Name Leg swings Side left Reps/Minutes 10x Hip AB Standing Exercise Name Hip AB Side left Equipment Used Standing on blue foam on R Reps/Minutes 15x Comments No pain Manual Therapy Treatment Soft Tissue Mobilization L hip AD & Iliopsoas Body Location L Iliopsoas & hip AD Mobilization Type Sustained Pressure Trigger Point Release Body Position Supine Comments 8 Neuro Re-Education Treatment Balance Activities SLS Details SLS Surface Level on Blue Foam Comments On Blue Foam Standing Details Standing and Toe ups/down Surface Servin Square Foam Comments Tinetti Balance score taken = Lunging Details Weight transfer of stepping forward Surface Level on Blue Foam Equipment Blue Foam Reps/Duration 10x Stepping over hurdles Details Stepping over hurdles Surface Level Equipment hurdles Comments Every other and every step Marching Details Marching - balancing Surface Level on Blue Foam Equipment Blue Foam PT-OP-R Modalities Start: 07/30/18 08:10 Freq: Status: Active Protocol: Document 08/20/18 11:20 SA (Rec: 08/20/18 11:28 SA [id number]) Hot Pack/Cold Pack Treatment Cold Pack Location L anterior & lateral hip. Patient Position Supine Treatment Duration (minutes) 10 Patient Tolerance Good PT-OP-T Assessment and Plan Start: 07/30/18 08:10 Freq: Status: Active Protocol: Document 10/17/18 09:05 LRN (Rec: 10/17/18 09:47 LRN [id number]) Physical Therapy Assessment Assessment Summary Assessment Pt very tight and tender at L adductors and Iliopsoas at [place]. Pt L hip pain may be more from start of new hip rotation ex's than cont'd irritation from home biking. Pain in L groin persists. Physical Therapy Plan Frequency and Duration Frequency of Treatment 1x/Week Plan of Care Start Date 10/08/18 Plan of Care End Date 11/26/18 Next Visit Focus/Plan Next Note Type Treatment Note Next Visit Plan 1x/week for next 4 weeks to wean onto HEP and self care. Continue to progress single leg stance activities and monitor for L groin pain with SLS. Cont L hip AD, extensors , & flexors strengthening for normal gait mechanics and elimination of pain with transfer of L leg off plinth. TrP release for L Iliopsoas to relieve groin pain as needed.
--- NOTE | 2018-11-07 12:30 | PT.OTN ---
Current Diagnoses Pain in left hip (11/07/18) Presence of unspecified artificial hip joint (11/07/18) Physical Therapy Treatment Note PT-OP-A Visit Information Start: 07/30/18 08:10 Freq: Status: Active Protocol: Document 11/07/18 09:00 LRN (Rec: 11/07/18 09:50 LRN [id number]) Out-Patient Physical Therapy Visit Information Visit Information Visit Type Treatment Note Visit Start Time 09:00 Visit Stop Time 09:46 Total Visit Minutes 46 Visit Number 25 Number of [employer] ASSEMBLER Visits 0 Evaluation Information Evaluation Date 07/30/18 Precautions Precautions s/p partial L hip replacement Hx of pneumothorax - during hip replacement hospitalization. Osteoporosis PT-OP-B Current Condition Start: 07/30/18 08:10 Freq: Status: Active Protocol: Document 07/30/18 12:49 LRN (Rec: 07/30/18 17:34 LRN [id number]) Current Condition History of Current Condition Onset Date Partial L posterior hip replacement 06/06/18 Current Complaints Difficulty walking level and stairs, using 4WW, not able to exercise. History of Current Condition Pt reports falling suffering a fractured hip, with partial replacement on 06/06/18. States she was in the hospital 9.5 days due to a collapsed lung. She then developed a viral pneumonia. She spent 5 days in rehab at [facility] and had Home Health for 1 month until 07/25/18. She will be having assist from [facility] [place] for her transportation, personal hygiene and laundry needs. She states she has been cleared of any hip precautions following her 6 week follow up MD visit. She is currently being monitored for a cyst on the R kidney. Treatment Goals Patient/Caregiver Goals Pt goal is to be able to walk without her 4WW and ambulate stairs with a normal gait. She would like to be able to garden this year but understands this might be a difficult and somewhat unrealistic goal to achieve. Prior Functional Status Baseline Function- ADL's Independent Baseline Function- Mobility Independent Baseline Function- Gait Walked 1/2 hour daily. Able to ambulate stairs with a normal gait. Baseline Function- Recreation/Hobbies Gardening Baseline Function- Other Could exercised 1/2 hour on stationary bike or treadmill. Current Functional Impairments (Reported) Functional Limitations- ADL's SBA for showers. Moves very slow and cautiously with transfers due to fear of falling. Functional Limitations- Mobility/Gait Walks with a 4WW or sometimes in the home with SPC because of fear of falling. Stairs: step to gait with 2 railings. Functional Limitations- Recreation/ Not able to garden Hobbies Personal Factors Other Personal Factors That May Effect > 66 yrs old Therapy/Recovery Has 92 year old . Osteoporosis Has 2 flights of stairs in home. Has need of [facility] [place] for transportation and home needs. PT-OP-C Subjective Start: 07/30/18 08:10 Freq: Status: Active Protocol: Document 11/07/18 09:00 LRN (Rec: 11/07/18 09:50 LRN [id number]) OP-PT Subjective Patient Comments Patient Comments States she had a bad day yesterday due to groin pain. States she can only stand up to 1-1.5 hours before having to sit due to fatigue. PT-OP-D Balance Start: 07/30/18 12:50 Freq: Status: Active Protocol: Document 08/29/18 12:45 LRN (Rec: 08/29/18 17:42 LRN [id number]) Tinetti Balance Assessment Sitting Balance Sitting Balance Steady, safe Arising from Chair Ability to Arise Able, w/o using arms Attempts to Arise Arises on 1st attempt Standing Balance Immediate Standing Balance Steady w/o support Standing Balance Steady, wide stance Nudged Response Staggers, catches self Standing with Eyes Closed Steady Turning Step Pattern Turning 360 Degrees Continuous steps Stability Turning 360 Degrees Steady Sitting Down Sitting Down Safe, steady Gait and Step Initiation of Gait No hesitancy Right Foot Step Length Does pass stance foot Right Foot Step Height Completely clears floor Left Foot Step Length Does pass stance foot Left Foot Step Height Completely clears floor Step Description Step Symmetry Step length not equal Step Continuity Steps appear continuous Gait Description Path Description Straight Trunk Description No sway Walking Stance Heels apart Scoring and Interpretation Tinetti Composite Score (points) 24 Interpretation of Scores At risk for falls (19-24) Tinetti Impairment Rating from Composite 1 to <20% Impaired (Score 23- Score 27) PT-OP-E Functional Tests Start: 07/30/18 12:50 Freq: Status: Active Protocol: Document 09/30/18 09:07 LRN (Rec: 09/30/18 14:37 LRN [id number]) Functional Tests Tinetti Balance and Gait Assessment Balance Score 14 Gait Score 12 Composite Score 26 Balance Score Impairment Rating 1 to <20% Impaired (Score 13- 15) Gait Score Impairment Rating 0% Impaired (Score 12) Composite Score Impairment Rating 1 to <20% Impaired (Score 23- 27) PT-OP-F Manual Assessment Start: 07/30/18 08:10 Freq: Status: Active Protocol: Document 07/30/18 12:49 LRN (Rec: 07/30/18 17:34 LRN [id number]) Manual Assessments Soft Tissue Assessment Soft Tissue Mobility Assessment Anterior L hip: No palpable pain. Pain with active hip flex, AB. PT-OP-G Mobility & Gait Start: 07/30/18 08:10 Freq: Status: Active Protocol: Document 07/30/18 12:49 LRN (Rec: 07/30/18 17:34 LRN [id number]) OP Mobility Evaluation Transfers Sit to Stand SBA Bed to Chair Transfers Pt able to independently transfer onto plinth table moving slowly and with difficulty. OP Gait Assessment Gait Gait Assistance Required: Independent Able to Maintain Weight Bearing Status Yes During Gait Assistive Devices Assistive Device 4 Wheeled Walker Orthotic/Prosthetic Devices or Brace: No Gait Deviations General Gait Pattern Decreased Stride Length Decreased Feet Clearance Flexed Trunk Narrow Based Gait Factors Limiting Gait Function Factors Limiting Gait Function Decreased Strength Pain Poor Balance PT-OP-H Neuro Start: 07/30/18 12:50 Freq: Status: Active Protocol: Document 07/30/18 12:49 LRN (Rec: 07/30/18 17:34 LRN [id number]) Sensation Evaluation Location Details Right Lower Extremity Light Touch Intact/Normal Left Lower Extremity Light Touch Intact/Normal PT-OP-K Range of Motion Start: 07/30/18 08:10 Freq: Status: Active Protocol: Document 10/08/18 09:10 LRN (Rec: 10/08/18 09:54 LRN [id number]) Hip Goniometric Range of Motion Hip Right Active Flexion w/Knee Flexed 92 Abduction 25 Left Flexion w/Knee Flexed 70 Abduction 30 Hip ROM Limitations Hip ROM Limitations Muscle Weakness Comments Pt has functional active mobility of L hip for flex, AB , ext. in supine PT-OP-M Strength Start: 07/30/18 08:10 Freq: Status: Active Protocol: Document 10/08/18 09:10 LRN (Rec: 10/08/18 09:54 LRN [id number]) Hip Strength Hip Manual Muscle Testing Right Flexion (L2) 4+ Good+ Extension (S1) 4 Good Abduction 4+ Good+ Left Flexion (L2) 3- Fair- Extension (S1) 4 Good Abduction 3 Fair PT-OP-Q Treatments Start: 07/30/18 08:10 Freq: Status: Active Protocol: Document 11/07/18 09:00 LRN (Rec: 11/07/18 09:50 LRN [id number]) Therapeutic Exercises Supine Exercises Hip ER stretch Supine Exercise Name R foot crossed over L knee Side right Reps/Minutes 4' Comments Active stretch into ER Standing Exercises Knee flexion Standing Exercise Name Knee flex Side bilateral Reps/Minutes 5x Hip AD Standing Exercise Name Hip AD Side bilateral Resistance Lev 1 T-Band Reps/Minutes 5x Marching Standing Exercise Name Marching alt legs Side bilateral Resistance 4# Reps/Minutes 15x3 Hip AB Standing Exercise Name Hip AB Side left Equipment Used Standing on blue foam on R Reps/Minutes 5 Comments No pain Hip Extension Standing Exercise Name Stretch f/b active ext Side left Reps/Minutes 5 Other Exercises Monster walk Other Exercise Name monster walks Resistance Lev 1 TB Reps/Minutes 2 lengths of bar Manual Therapy Treatment Soft Tissue Mobilization L hip AD & Iliopsoas Body Location L Iliopsoas > L hip AD Mobilization Type Sustained Pressure Trigger Point Release Body Position Supine Comments 15' Neuro Re-Education Treatment Balance Activities SLS Details SLS Surface Firm Reps/Duration 10' Comments Leg swings, Hip ex's Self-Care/Home Management Treatment Education Patient Education Home Exercise Program Activities Self-Care/Home Management Activities Issued & reviewed HEP: Supine hip ER stretch. PT-OP-R Modalities Start: 07/30/18 08:10 Freq: Status: Active Protocol: Document 08/20/18 11:20 SA (Rec: 08/20/18 11:28 SA [email or web address]) Hot Pack/Cold Pack Treatment Cold Pack Location L anterior & lateral hip. Patient Position Supine Treatment Duration (minutes) 10 Patient Tolerance Good PT-OP-T Assessment and Plan Start: 07/30/18 08:10 Freq: Status: Active Protocol: Document 11/07/18 09:00 LRN (Rec: 11/07/18 09:50 LRN [id number]) Physical Therapy Assessment Assessment Summary Assessment L groin pain appears to be due to Iliopsoas tightness. She responds well to TrP release treatment at the ASIS region with elimination of groin pain after manual treatment. She is generally weak. Pt needs SLS ex's at home. Physical Therapy Plan Frequency and Duration Frequency of Treatment 1x/Week Plan of Care Start Date 10/08/18 Plan of Care End Date 11/26/18 Next Visit Focus/Plan Next Note Type Treatment Note Next Visit Plan 1x/week for next 4 weeks to wean onto HEP and self care. Recheck progress to goals. Progress single leg stance activities and monitor for L groin pain with SLS. Progress endurance. Cont L hip AD, extensors, & flexors strengthening for normal gait mechanics and elimination of pain with transfer of L leg off plinth. TrP release for L Iliopsoas to relieve groin pain as needed.
--- NOTE | 2018-11-12 16:51 | PT.OTN ---
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 Osteoporosis PT-OP-B Current Condition Start: 07/30/18 08:10 Freq: Status: Active Protocol: Document 07/30/18 12:49 LRN (Rec: 07/30/18 17:34 LRN [id number]) Current Condition History of Current Condition Onset Date Partial L posterior hip replacement 06/06/18 Current Complaints Difficulty walking level and stairs, using 4WW, not able to exercise. History of Current Condition Pt reports falling suffering a fractured hip, with partial replacement on 06/06/18. States she was in the hospital 9.5 days due to a collapsed lung. She then developed a viral pneumonia. She spent 5 days in rehab at [facility] and had Home Health for 1 month until 07/25/18. She will be having assist from [facility] for her transportation, personal hygiene and laundry needs. She states she has been cleared of any hip precautions following her 6 week follow up MD visit. She is currently being monitored for a cyst on the R kidney. Treatment Goals Patient/Caregiver Goals Pt goal is to be able to walk without her 4WW and ambulate stairs with a normal gait. She would like to be able to garden this year but understands this might be a difficult and somewhat unrealistic goal to achieve. Prior Functional Status Baseline Function- ADL's Independent Baseline Function- Mobility Independent Baseline Function- Gait Walked 1/2 hour daily. Able to ambulate stairs with a normal gait. Baseline Function- Recreation/Hobbies Gardening Baseline Function- Other Could exercised 1/2 hour on stationary bike or treadmill. Current Functional Impairments (Reported) Functional Limitations- ADL's SBA for showers. Moves very slow and cautiously with transfers due to fear of falling. Functional Limitations- Mobility/Gait Walks with a 4WW or sometimes in the home with SPC because of fear of falling. Stairs: step to gait with 2 railings. Functional Limitations- Recreation/ Not able to garden Hobbies Personal Factors Other Personal Factors That May Effect > 65 yrs old Therapy/Recovery Has 92 year old . Osteoporosis Has 2 flights of stairs in home. Has need of [facility] for transportation and home needs. PT-OP-C Subjective Start: 07/30/18 08:10 Freq: Status: Active Protocol: Document 11/12/18 12:47 LRN (Rec: 11/12/18 13:09 LRN [id number]) OP-PT Subjective Patient Comments Patient Comments States her L groin pain is getting less as she does self massage to the area of the ASIS. PT-OP-D Balance Start: 07/30/18 12:50 Freq: Status: Active Protocol: Document 08/29/18 12:45 LRN (Rec: 08/29/18 17:42 LRN [id number]) Tinetti Balance Assessment Sitting Balance Sitting Balance Steady, safe Arising from Chair Ability to Arise Able, w/o using arms Attempts to Arise Arises on 1st attempt Standing Balance Immediate Standing Balance Steady w/o support Standing Balance Steady, wide stance Nudged Response Staggers, catches self Standing with Eyes Closed Steady Turning Step Pattern Turning 360 Degrees Continuous steps Stability Turning 360 Degrees Steady Sitting Down Sitting Down Safe, steady Gait and Step Initiation of Gait No hesitancy Right Foot Step Length Does pass stance foot Right Foot Step Height Completely clears floor Left Foot Step Length Does pass stance foot Left Foot Step Height Completely clears floor Step Description Step Symmetry Step length not equal Step Continuity Steps appear continuous Gait Description Path Description Straight Trunk Description No sway Walking Stance Heels apart Scoring and Interpretation Tinetti Composite Score (points) 24 Interpretation of Scores At risk for falls (19-24) Tinetti Impairment Rating from Composite 1 to <20% Impaired (Score 23- Score 27) PT-OP-E Functional Tests Start: 07/30/18 12:50 Freq: Status: Active Protocol: Document 09/30/18 09:07 LRN (Rec: 09/30/18 14:37 LRN [id number]) Functional Tests Tinetti Balance and Gait Assessment Balance Score 14 Gait Score 12 Composite Score 26 Balance Score Impairment Rating 1 to <20% Impaired (Score 13- 15) Gait Score Impairment Rating 0% Impaired (Score 12) Composite Score Impairment Rating 1 to <20% Impaired (Score 23- 27) PT-OP-F Manual Assessment Start: 07/30/18 08:10 Freq: Status: Active Protocol: Document 07/30/18 12:49 LRN (Rec: 07/30/18 17:34 LRN [id number]) Manual Assessments Soft Tissue Assessment Soft Tissue Mobility Assessment Anterior L hip: No palpable pain. Pain with active hip flex, AB. PT-OP-G Mobility & Gait Start: 07/30/18 08:10 Freq: Status: Active Protocol: Document 07/30/18 12:49 LRN (Rec: 07/30/18 17:34 LRN [id number]) OP Mobility Evaluation Transfers Sit to Stand SBA Bed to Chair Transfers Pt able to independently transfer onto plinth table moving slowly and with difficulty. OP Gait Assessment Gait Gait Assistance Required: Independent Able to Maintain Weight Bearing Status Yes During Gait Assistive Devices Assistive Device 4 Wheeled Walker Orthotic/Prosthetic Devices or Brace: No Gait Deviations General Gait Pattern Decreased Stride Length Decreased Feet Clearance Flexed Trunk Narrow Based Gait Factors Limiting Gait Function Factors Limiting Gait Function Decreased Strength Pain Poor Balance PT-OP-H Neuro Start: 07/30/18 12:50 Freq: Status: Active Protocol: Document 07/30/18 12:49 LRN (Rec: 07/30/18 17:34 LRN [id number]) Sensation Evaluation Location Details Right Lower Extremity Light Touch Intact/Normal Left Lower Extremity Light Touch Intact/Normal PT-OP-K Range of Motion Start: 07/30/18 08:10 Freq: Status: Active Protocol: Document 10/08/18 09:10 LRN (Rec: 10/08/18 09:54 LRN [id number]) Hip Goniometric Range of Motion Hip Right Active Flexion w/Knee Flexed 92 Abduction 25 Left Flexion w/Knee Flexed 70 Abduction 30 Hip ROM Limitations Hip ROM Limitations Muscle Weakness Comments Pt has functional active mobility of L hip for flex, AB , ext. in supine PT-OP-M Strength Start: 07/30/18 08:10 Freq: Status: Active Protocol: Document 10/08/18 09:10 LRN (Rec: 10/08/18 09:54 LRN [id number]) Hip Strength Hip Manual Muscle Testing Right Flexion (L2) 4+ Good+ Extension (S1) 4 Good Abduction 4+ Good+ Left Flexion (L2) 3- Fair- Extension (S1) 4 Good Abduction 3 Fair PT-OP-Q Treatments Start: 07/30/18 08:10 Freq: Status: Active Protocol: Document 11/12/18 12:47 LRN (Rec: 11/12/18 13:09 LRN [id number]) Therapeutic Exercises Supine Exercises Fig 4 Supine Exercise Name Stretch f/b Active stretch into ER Reps/Minutes 15x Standing Exercises Lunge Standing Exercise Name Lunge Side bilateral Reps/Minutes 5' Knee flexion Standing Exercise Name Knee flex Side bilateral Resistance 1# Reps/Minutes 15x 2 Hip AD Standing Exercise Name Hip AD Side bilateral Resistance Lev 2 T-Band Reps/Minutes 15x 2 Marching Standing Exercise Name Marching alt legs Side bilateral Resistance 3# Reps/Minutes 15x3 Hip AB Standing Exercise Name Hip AB Side left Equipment Used 1#, blue foam Reps/Minutes 5 Comments No pain Hip Extension Standing Exercise Name Stretch f/b active ext Side left Reps/Minutes 6 Manual Therapy Treatment Soft Tissue Mobilization L hip AD & Iliopsoas Body Location L Iliopsoas > L hip AD Mobilization Type Sustained Pressure Trigger Point Release Body Position Supine Comments 15' Self-Care/Home Management Treatment Education Patient Education Posture Other Education Bed positioning for nightime sleep PT-OP-R Modalities Start: 07/30/18 08:10 Freq: Status: Active Protocol: Document 08/20/18 11:20 SA (Rec: 08/20/18 11:28 SA [id number]) Hot Pack/Cold Pack Treatment Cold Pack Location L anterior & lateral hip. Patient Position Supine Treatment Duration (minutes) 10 Patient Tolerance Good PT-OP-T Assessment and Plan Start: 07/30/18 08:10 Freq: Status: Active Protocol: Document 11/12/18 12:47 LRN (Rec: 11/12/18 13:09 LRN [id number]) Physical Therapy Assessment Goals Don/Doff of socks/shoes Impairment Pt unable to don/doff socks shoes without aide. Short Term Goal (STG) Pt will be able educated in HEP to progress L hip mobility towards ability to don/doff socks/shoes without a sock aid or assist. STG Duration 10/18/18 Shape Brick Molder Goal (LTG) Pt will be able to don socks and shoes without assist ( moderate difficulty). LTG Duration 11/26/18 (11/12/18: Uses sock aide) Decreased balance Impairment Tinetti Balance score of 7/16 indicating pt at risk of falling. Shape Brick Molder Goal (LTG) Pt will achieve a Tinetti Balance score of at least 12 of 16 with a gait score of 12 indicating pt is at low risk of falling. LTG Duration 10/22/18 (09/29/18: GOAL MET) Decreased L hip strength Impairment Pt unable to lift L leg independently making transfers difficult Short Term Goal (STG) Pt will be able to lift her L LE independently to be able to transfer off/on the plinth table without assist. STG Duration 08/16/18 (11/12/18: GOAL MET) Decreased active L hip mobility Impairment Pt lacks L hip AB mobility for painfree transfers Short Term Goal (STG) Pt will improve active L hip AB mobility for painfree transfers off/on plinth tables . STG Duration 10/18/18 (11/12/18: GOAL MET) Decreased ankle mobility Impairment Pt lacks functional ankle DF mobility for gait Short Term Goal (STG) Improve ankle active DF with pt able to demonstrate normal gait mechanics without the use of an assistive device. STG Duration 08/23/18 (08/27/18: GOAL MET) Gait Impairment Pt requires use of assistive device for gait Shape Brick Molder Goal (LTG) Pt will be independent with a normal gait without an assistive device. LTG Duration 10/22/18 (10/08/18: GOAL MET) HEP Impairment Pt lacks appropriate self care HEP Shape Brick Molder Goal (LTG) Pt will be independent with a self care HEP. LTG Duration 11/26/18 (Progressing as appropriate) Progress Towards Goals Progress Towards Goals Progressing Toward Goals Progress Comments HEP: Progressing. Gait: GOAL MET. She has mild limitation with hip ext & gait is slow. L Ankle Mobility: GOAL MET. L Hip Mobility (AB): GOAL MET . L hip strength (flex): GOAL MET. Balance: GOAL MET. Don/doff socks/shoes: NOT MET , pt slowly progressing. Assessment Summary Assessment Pt weak with hip ext in neutral. Less L groin pain and active trP's. Pt apprehensive about DC, encouragement needed. Physical Therapy Plan Frequency and Duration Frequency of Treatment 1x/Week Plan of Care Start Date 10/08/18 Plan of Care End Date 11/26/18 Next Visit Focus/Plan Next Note Type Treatment Note Next Visit Plan 1x/week for next 2 weeks to wean onto HEP and self care. Progress single leg stance activities and monitor for L groin pain with SLS. Progress endurance. Cont L hip AD, extensors, & flexors strengthening for normal gait mechanics. TrP release for L Iliopsoas to relieve groin pain as needed.
--- NOTE | 2018-11-19 15:57 | PT.OTN ---
Current Diagnoses Pain in left hip (11/19/18) Presence of unspecified artificial hip joint (11/19/18) Physical Therapy Treatment Note PT-OP-A Visit Information Start: 07/30/18 08:10 Freq: Status: Active Protocol: Document 11/19/18 08:56 LRN (Rec: 11/19/18 09:51 LRN [id number]) Out-Patient Physical Therapy Visit Information Visit Information Visit Type Progress Note Visit Start Time 08:56 Visit Stop Time 09:47 Total Visit Minutes 51 Visit Number 27 Number of FITTING ROOM INSPECTOR Visits 0 Evaluation Information Evaluation Date 07/30/18 Precautions Precautions s/p partial L hip replacement Hx of pneumothorax - during hip replacement hospitalization. Osteoporosis PT-OP-B Current Condition Start: 07/30/18 08:10 Freq: Status: Active Protocol: Document 07/30/18 12:49 LRN (Rec: 07/30/18 17:34 LRN [id number]) Current Condition History of Current Condition Onset Date Partial L posterior hip replacement 06/06/18 Current Complaints Difficulty walking level and stairs, using 4WW, not able to exercise. History of Current Condition Pt reports falling suffering a fractured hip, with partial replacement on 06/06/18. States she was in the hospital 9.5 days due to a collapsed lung. She then developed a viral pneumonia. She spent 5 days in rehab at [facility] and had Home Health for 1 month until 07/25/18. She will be having assist from [facility] [place] for her transportation, personal hygiene and laundry needs. She states she has been cleared of any hip precautions following her 6 week follow up MD visit. She is currently being monitored for a cyst on the R kidney. Treatment Goals Patient/Caregiver Goals Pt goal is to be able to walk without her 4WW and ambulate stairs with a normal gait. She would like to be able to garden this year but understands this might be a difficult and somewhat unrealistic goal to achieve. Prior Functional Status Baseline Function- ADL's Independent Baseline Function- Mobility Independent Baseline Function- Gait Walked 1/2 hour daily. Able to ambulate stairs with a normal gait. Baseline Function- Recreation/Hobbies Gardening Baseline Function- Other Could exercised 1/2 hour on stationary bike or treadmill. Current Functional Impairments (Reported) Functional Limitations- ADL's SBA for showers. Moves very slow and cautiously with transfers due to fear of falling. Functional Limitations- Mobility/Gait Walks with a 4WW or sometimes in the home with SPC because of fear of falling. Stairs: step to gait with 2 railings. Functional Limitations- Recreation/ Not able to garden Hobbies Personal Factors Other Personal Factors That May Effect > 65 yrs old Therapy/Recovery Has 92 year old . Osteoporosis Has 2 flights of stairs in home. Has need of [facility] [place] for transportation and home needs. PT-OP-C Subjective Start: 07/30/18 08:10 Freq: Status: Active Protocol: Document 11/19/18 08:56 LRN (Rec: 11/19/18 09:51 LRN [id number]) OP-PT Subjective Patient Comments Patient Comments Slight L groin pain. Is concerned that she still has L groin pain and would like to be able to get up/down from floor. Requests further therapy. PT-OP-D Balance Start: 07/30/18 12:50 Freq: Status: Active Protocol: Document 08/29/18 12:45 LRN (Rec: 08/29/18 17:42 LRN [id number]) Tinetti Balance Assessment Sitting Balance Sitting Balance Steady, safe Arising from Chair Ability to Arise Able, w/o using arms Attempts to Arise Arises on 1st attempt Standing Balance Immediate Standing Balance Steady w/o support Standing Balance Steady, wide stance Nudged Response Staggers, catches self Standing with Eyes Closed Steady Turning Step Pattern Turning 360 Degrees Continuous steps Stability Turning 360 Degrees Steady Sitting Down Sitting Down Safe, steady Gait and Step Initiation of Gait No hesitancy Right Foot Step Length Does pass stance foot Right Foot Step Height Completely clears floor Left Foot Step Length Does pass stance foot Left Foot Step Height Completely clears floor Step Description Step Symmetry Step length not equal Step Continuity Steps appear continuous Gait Description Path Description Straight Trunk Description No sway Walking Stance Heels apart Scoring and Interpretation Tinetti Composite Score (points) 24 Interpretation of Scores At risk for falls (19-24) Tinetti Impairment Rating from Composite 1 to <20% Impaired (Score 23- Score 27) PT-OP-E Functional Tests Start: 07/30/18 12:50 Freq: Status: Active Protocol: Document 09/30/18 09:07 LRN (Rec: 09/30/18 14:37 LRN [id number]) Functional Tests Tinetti Balance and Gait Assessment Balance Score 14 Gait Score 12 Composite Score 26 Balance Score Impairment Rating 1 to <20% Impaired (Score 13- 15) Gait Score Impairment Rating 0% Impaired (Score 12) Composite Score Impairment Rating 1 to <20% Impaired (Score 23- 27) PT-OP-F Manual Assessment Start: 07/30/18 08:10 Freq: Status: Active Protocol: Document 07/30/18 12:49 LRN (Rec: 07/30/18 17:34 LRN [id number]) Manual Assessments Soft Tissue Assessment Soft Tissue Mobility Assessment Anterior L hip: No palpable pain. Pain with active hip flex, AB. PT-OP-G Mobility & Gait Start: 07/30/18 08:10 Freq: Status: Active Protocol: Document 07/30/18 12:49 LRN (Rec: 07/30/18 17:34 LRN [id number]) OP Mobility Evaluation Transfers Sit to Stand SBA Bed to Chair Transfers Pt able to independently transfer onto plinth table moving slowly and with difficulty. OP Gait Assessment Gait Gait Assistance Required: Independent Able to Maintain Weight Bearing Status Yes During Gait Assistive Devices Assistive Device 4 Wheeled Walker Orthotic/Prosthetic Devices or Brace: No Gait Deviations General Gait Pattern Decreased Stride Length Decreased Feet Clearance Flexed Trunk Narrow Based Gait Factors Limiting Gait Function Factors Limiting Gait Function Decreased Strength Pain Poor Balance PT-OP-H Neuro Start: 07/30/18 12:50 Freq: Status: Active Protocol: Document 07/30/18 12:49 LRN (Rec: 07/30/18 17:34 LRN [id number]) Sensation Evaluation Location Details Right Lower Extremity Light Touch Intact/Normal Left Lower Extremity Light Touch Intact/Normal PT-OP-K Range of Motion Start: 07/30/18 08:10 Freq: Status: Active Protocol: Document 10/08/18 09:10 LRN (Rec: 10/08/18 09:54 LRN [id number]) Hip Goniometric Range of Motion Hip Right Active Flexion w/Knee Flexed 92 Abduction 25 Left Flexion w/Knee Flexed 70 Abduction 30 Hip ROM Limitations Hip ROM Limitations Muscle Weakness Comments Pt has functional active mobility of L hip for flex, AB , ext. in supine PT-OP-M Strength Start: 07/30/18 08:10 Freq: Status: Active Protocol: Document 10/08/18 09:10 LRN (Rec: 10/08/18 09:54 LRN [id number]) Hip Strength Hip Manual Muscle Testing Right Flexion (L2) 4+ Good+ Extension (S1) 4 Good Abduction 4+ Good+ Left Flexion (L2) 3- Fair- Extension (S1) 4 Good Abduction 3 Fair PT-OP-Q Treatments Start: 07/30/18 08:10 Freq: Status: Active Protocol: Document 11/19/18 08:56 LRN (Rec: 11/19/18 09:51 LRN [id number]) Therapeutic Exercises Standing Exercises Lunge Standing Exercise Name Lunge Side bilateral Reps/Minutes 7' Comments Pt unable to perform properly after much training Knee flexion Standing Exercise Name Knee flex Side bilateral Resistance 2# Reps/Minutes 15x 2 Hip AD Standing Exercise Name Hip AD w/MWM (supervisor varnish glide femur on acetab) Side left Reps/Minutes 3' Leg swings Standing Exercise Name Leg swings Side left Reps/Minutes 10x Squats Standing Exercise Name Sit back squats flexing at hips Side bilateral Equipment Used // bars Reps/Minutes 3' Comments Pt had onset of andreina knee pain after ex Marching Standing Exercise Name Marching alt legs Side left Resistance 2# Reps/Minutes 10x Hip AB Standing Exercise Name Hip AB Side left Equipment Used 2#, blue foam Reps/Minutes 15 x 2 Comments No pain Manual Therapy Treatment Manual Techniques MWM L Femoral head on Aectabulum Type MWM Body Location L femoral head Body Position Standing Reps/Duration 10 x 8 Comments Legs: Semi Tandem, Tandem. Foot: Neutral, ER, IR, neutral PT-OP-R Modalities Start: 07/30/18 08:10 Freq: Status: Active Protocol: Document 08/20/18 11:20 SA (Rec: 08/20/18 11:28 SA [id number]) Hot Pack/Cold Pack Treatment Cold Pack Location L anterior & lateral hip. Patient Position Supine Treatment Duration (minutes) 10 Patient Tolerance Good PT-OP-T Assessment and Plan Start: 07/30/18 08:10 Freq: Status: Active Protocol: Document 11/19/18 08:56 LRN (Rec: 11/19/18 09:51 LRN [id number]) Physical Therapy Assessment Rehab Potential Rehabilitation Potential Excellent Evaluation Complexity Number of Personal Factors/Comorbidities 3 or More Number of Body Systems Impaired 4 or More Clinical Presentation at Evaluation Evolving Impairments Impairments Balance Functional Mobility Gait Pain Strength Other Concerns Fall Risk Yes Age Related Concerns Impact on family Barriers to Rehabilitation > 65 yrs old Pt has extreme fear of falling Osteoporosis Goals Transfer floor to stand Impairment Unable to kneel on floor and return to stand Fpc Goal (LTG) Pt will be educated and demonstrate with UE assist to transfer floor to stand. LTG Duration 12/27/18 Don/Doff of socks/shoes Impairment Pt unable to don/doff socks shoes without aide. Short Term Goal (STG) Pt will be able educated in HEP to progress L hip mobility towards ability to don/doff socks/shoes without a sock aid or assist. STG Duration 10/18/18 Program Checker Goal (LTG) Pt will be able to don socks and shoes without assist ( moderate difficulty). LTG Duration 01/21/19 (11/12/18: Uses sock aide) Decreased balance Impairment Tinetti Balance score of 7/16 indicating pt at risk of falling. Program Checker Goal (LTG) Pt will achieve a Tinetti Balance score of at least 12 of 16 with a gait score of 12 indicating pt is at low risk of falling. LTG Duration 10/22/18 (09/29/18: GOAL MET) Decreased L hip strength Impairment Pt unable to lift L leg independently making transfers difficult Short Term Goal (STG) Pt will be able to lift her L LE independently to be able to transfer off/on the plinth table without assist. STG Duration 08/16/18 (11/12/18: GOAL MET) Decreased active L hip mobility Impairment Pt lacks L hip AB mobility for painfree transfers Short Term Goal (STG) Pt will improve active L hip AB mobility for painfree transfers off/on plinth tables . STG Duration 10/18/18 (11/12/18: GOAL MET) Decreased ankle mobility Impairment Pt lacks functional ankle DF mobility for gait Short Term Goal (STG) Improve ankle active DF with pt able to demonstrate normal gait mechanics without the use of an assistive device. STG Duration 08/23/18 (08/27/18: GOAL MET) Gait Impairment Pt requires use of assistive device for gait Fpc Goal (LTG) Pt will be independent with a normal gait without an assistive device. LTG Duration 10/22/18 (10/08/18: GOAL MET) HEP Impairment Pt lacks appropriate self care HEP Fpc Goal (LTG) Pt will be independent with a self care HEP. LTG Duration 01/21/19 (Progressing as appropriate) Progress Towards Goals Progress Towards Goals Progressing Toward Goals Progress Comments Floor transfer: Pt education. Lacked time to review and practice with pt. HEP: Progressing. Gait: GOAL MET. She has mild limitation with hip ext & gait is slow. L Ankle Mobility: GOAL MET. L Hip Mobility (AB): GOAL MET . L hip strength (flex): GOAL MET. Balance: GOAL MET. Don/doff socks/shoes: NOT MET , pt slowly progressing. Assessment Summary Assessment Pt presents with mild Trendelenberg type gait with notable trunk sway to the left due to decreased hip AD mobility and stiffness in the joint. The pt appears anxious to be discharged due to ongoing L groin pain, probably due to muscle imbalance at the hip. She also would like to be able to get up/down from the floor and be able to kneel on the floor for housework purposes. I feel the pt could benefit from further skilled physical therapy to improve her L hip strength, improve her gait mechanics and be educated and be able to demonstrate the ability to get up/down from the floor; therefore I recommend continuation of therapy. I recommend a time frame of 8 weeks due to difficulties in scheduling with possible delays in therapy. Physical Therapy Plan Frequency and Duration Frequency of Treatment 1x/Week Plan of Care Start Date 11/19/18 Plan of Care End Date 01/21/19 Therapeutic Interventions Therapeutic Interventions Balance Training Gait Training Home Exercise Program Manual Therapy Neuromuscular Re-education Patient/Caregiver Education Self-Care/Home Management Soft Tissue Mobilization Therapeutic Activities Therapeutic Exercises Modalities Cold Pack/Ice Massage Hot Packs Next Visit Focus/Plan Next Note Type Treatment Note Next Visit Plan Educate & practice floor transfer with pt kneeling onto the L knee to get to the floor. 1x/week for next 8 weeks to progress towards her treatment goals. Progress single leg stance activities and monitor for L groin pain with SLS. Progress endurance. Cont L hip AD, extensors, & flexors strengthening for normal gait mechanics. TrP release for L Iliopsoas to relieve groin pain as needed. Progress HEP.
--- NOTE | 2018-11-26 17:20 | PT.OTN ---
Current Diagnoses Pain in left hip (11/26/18) Presence of unspecified artificial hip joint (11/26/18) Physical Therapy Treatment Note PT-OP-A Visit Information Start: 07/30/18 08:10 Freq: Status: Active Protocol: Document 11/26/18 08:56 LRN (Rec: 11/26/18 09:50 LRN [id number]) Out-Patient Physical Therapy Visit Information Visit Information Visit Type Progress Note Visit Start Time 08:56 Visit Stop Time 09:48 Total Visit Minutes 52 Visit Number 28 Number of BUSINESS DEVELOPMENT Visits 0 Evaluation Information Evaluation Date 07/30/18 Precautions Precautions s/p partial L hip replacement Hx of pneumothorax - during hip replacement hospitalization. Osteoporosis PT-OP-B Current Condition Start: 07/30/18 08:10 Freq: Status: Active Protocol: Document 07/30/18 12:49 LRN (Rec: 07/30/18 17:34 LRN [id number]) Current Condition History of Current Condition Onset Date Partial L posterior hip replacement 06/06/18 Current Complaints Difficulty walking level and stairs, using 4WW, not able to exercise. History of Current Condition Pt reports falling suffering a fractured hip, with partial replacement on 06/06/18. States she was in the hospital 9.5 days due to a collapsed lung. She then developed a viral pneumonia. She spent 5 days in rehab at [facility] and had Home Health for 1 month until 07/25/18. She will be having assist from [facility] [place] for her transportation, personal hygiene and laundry needs. She states she has been cleared of any hip precautions following her 6 week follow up MD visit. She is currently being monitored for a cyst on the R kidney. Treatment Goals Patient/Caregiver Goals Pt goal is to be able to walk without her 4WW and ambulate stairs with a normal gait. She would like to be able to garden this year but understands this might be a difficult and somewhat unrealistic goal to achieve. Prior Functional Status Baseline Function- ADL's Independent Baseline Function- Mobility Independent Baseline Function- Gait Walked 1/2 hour daily. Able to ambulate stairs with a normal gait. Baseline Function- Recreation/Hobbies Gardening Baseline Function- Other Could exercised 1/2 hour on stationary bike or treadmill. Current Functional Impairments (Reported) Functional Limitations- ADL's SBA for showers. Moves very slow and cautiously with transfers due to fear of falling. Functional Limitations- Mobility/Gait Walks with a 4WW or sometimes in the home with SPC because of fear of falling. Stairs: step to gait with 2 railings. Functional Limitations- Recreation/ Not able to garden Hobbies Personal Factors Other Personal Factors That May Effect > 65 yrs old Therapy/Recovery Has 92 year old . Osteoporosis Has 2 flights of stairs in home. Has need of [facility] [place] for transportation and home needs. PT-OP-C Subjective Start: 07/30/18 08:10 Freq: Status: Active Protocol: Document 11/26/18 08:56 LRN (Rec: 11/26/18 09:50 LRN [id number]) OP-PT Subjective Patient Comments Patient Comments Doing better, less pain walking, able to stand longer and do more things in standing . Patient Reported Progress Improving PT-OP-D Balance Start: 07/30/18 12:50 Freq: Status: Active Protocol: Document 08/29/18 12:45 LRN (Rec: 08/29/18 17:42 LRN [id number]) Tinetti Balance Assessment Sitting Balance Sitting Balance Steady, safe Arising from Chair Ability to Arise Able, w/o using arms Attempts to Arise Arises on 1st attempt Standing Balance Immediate Standing Balance Steady w/o support Standing Balance Steady, wide stance Nudged Response Staggers, catches self Standing with Eyes Closed Steady Turning Step Pattern Turning 360 Degrees Continuous steps Stability Turning 360 Degrees Steady Sitting Down Sitting Down Safe, steady Gait and Step Initiation of Gait No hesitancy Right Foot Step Length Does pass stance foot Right Foot Step Height Completely clears floor Left Foot Step Length Does pass stance foot Left Foot Step Height Completely clears floor Step Description Step Symmetry Step length not equal Step Continuity Steps appear continuous Gait Description Path Description Straight Trunk Description No sway Walking Stance Heels apart Scoring and Interpretation Tinetti Composite Score (points) 24 Interpretation of Scores At risk for falls (19-24) Tinetti Impairment Rating from Composite 1 to <20% Impaired (Score 23- Score 27) PT-OP-E Functional Tests Start: 07/30/18 12:50 Freq: Status: Active Protocol: Document 09/30/18 09:07 LRN (Rec: 09/30/18 14:37 LRN [id number]) Functional Tests Tinetti Balance and Gait Assessment Balance Score 14 Gait Score 12 Composite Score 26 Balance Score Impairment Rating 1 to <20% Impaired (Score 13- 15) Gait Score Impairment Rating 0% Impaired (Score 12) Composite Score Impairment Rating 1 to <20% Impaired (Score 23- 27) PT-OP-F Manual Assessment Start: 07/30/18 08:10 Freq: Status: Active Protocol: Document 07/30/18 12:49 LRN (Rec: 07/30/18 17:34 LRN [id number]) Manual Assessments Soft Tissue Assessment Soft Tissue Mobility Assessment Anterior L hip: No palpable pain. Pain with active hip flex, AB. PT-OP-G Mobility & Gait Start: 07/30/18 08:10 Freq: Status: Active Protocol: Document 07/30/18 12:49 LRN (Rec: 07/30/18 17:34 LRN [id number]) OP Mobility Evaluation Transfers Sit to Stand SBA Bed to Chair Transfers Pt able to independently transfer onto plinth table moving slowly and with difficulty. OP Gait Assessment Gait Gait Assistance Required: Independent Able to Maintain Weight Bearing Status Yes During Gait Assistive Devices Assistive Device 4 Wheeled Walker Orthotic/Prosthetic Devices or Brace: No Gait Deviations General Gait Pattern Decreased Stride Length Decreased Feet Clearance Flexed Trunk Narrow Based Gait Factors Limiting Gait Function Factors Limiting Gait Function Decreased Strength Pain Poor Balance PT-OP-H Neuro Start: 07/30/18 12:50 Freq: Status: Active Protocol: Document 07/30/18 12:49 LRN (Rec: 07/30/18 17:34 LRN [id number]) Sensation Evaluation Location Details Right Lower Extremity Light Touch Intact/Normal Left Lower Extremity Light Touch Intact/Normal PT-OP-K Range of Motion Start: 07/30/18 08:10 Freq: Status: Active Protocol: Document 10/08/18 09:10 LRN (Rec: 10/08/18 09:54 LRN [id number]) Hip Goniometric Range of Motion Hip Right Active Flexion w/Knee Flexed 92 Abduction 25 Left Flexion w/Knee Flexed 70 Abduction 30 Hip ROM Limitations Hip ROM Limitations Muscle Weakness Comments Pt has functional active mobility of L hip for flex, AB , ext. in supine PT-OP-M Strength Start: 07/30/18 08:10 Freq: Status: Active Protocol: Document 10/08/18 09:10 LRN (Rec: 10/08/18 09:54 LRN [id number]) Hip Strength Hip Manual Muscle Testing Right Flexion (L2) 4+ Good+ Extension (S1) 4 Good Abduction 4+ Good+ Left Flexion (L2) 3- Fair- Extension (S1) 4 Good Abduction 3 Fair PT-OP-Q Treatments Start: 07/30/18 08:10 Freq: Status: Active Protocol: Document 11/26/18 08:56 LRN (Rec: 11/26/18 09:50 LRN [id number]) Therapeutic Exercises Sitting Exercises Knee ext Side bilateral Resistance 3# Reps/Minutes 3' Knee flex Sitting Exercise Name Knee flex Side bilateral Resistance 3# Reps/Minutes 3' Standing Exercises Hip Flex Standing Exercise Name Strengthening Side bilateral Resistance Lev 2 T-Band Reps/Minutes 6' Hip AD Standing Exercise Name Hip AD ([facility] and [place]) Side bilateral Reps/Minutes 3' Comments Pure AD no hip flex or IR. Marching Standing Exercise Name Marching alt legs Side bilateral Reps/Minutes 25x Hip Extension Standing Exercise Name Strengthening Side left Resistance Lev 2 T-Band Reps/Minutes 6' Therapeutic Activity Therapeutic Activity Stand to Floor Name Floor>Stand Reps/Minutes x1 Comments Pt apprehensive with transfer and only wanted to do once. Verbally reviewed x 3 Gait Training Gait Activity Gait mechanics Description Gait training for positioning of LLE. Surface Level Treatment Focus Normal posture of LLE with gait Comments No assistive device. Manual Therapy Treatment Soft Tissue Mobilization L hip AD & Iliopsoas Body Location L Iliopsoas > L hip AD Mobilization Type Sustained Pressure Trigger Point Release Body Position Supine Comments 10' Self-Care/Home Management Treatment Education Patient Education Home Exercise Program Activities Self-Care/Home Management Activities Issued & reviewed HEP: Hip strengthening with T-Band ( flex, ext, AB, AD) PT-OP-R Modalities Start: 07/30/18 08:10 Freq: Status: Active Protocol: Document 08/20/18 11:20 SA (Rec: 08/20/18 11:28 SA [email or web address]) Hot Pack/Cold Pack Treatment Cold Pack Location L anterior & lateral hip. Patient Position Supine Treatment Duration (minutes) 10 Patient Tolerance Good PT-OP-T Assessment and Plan Start: 07/30/18 08:10 Freq: Status: Active Protocol: Document 11/26/18 08:56 LRN (Rec: 11/26/18 09:50 LRN [id number]) Physical Therapy Assessment Assessment Summary Assessment Pt presents with no significant gait deviation. The pt appears anxious at thought of discharged, but is doing much better today. She is able to manage her pain with self massage and trP treatment to the L groin. She demonstrated ability to get up/down from the floor with verbal cuing and at first was apprehensive about learning the transfer because she felt she would never do it. After practice she had more confidence in herself. Physical Therapy Plan Frequency and Duration Frequency of Treatment 1x/Week Plan of Care Start Date 11/19/18 Plan of Care End Date 01/21/19 Next Visit Focus/Plan Next Note Type Treatment Note Next Visit Plan Probable DC to HEP unless pt is very anxious and feels she can't reach her goals without assist, and would like to continue 1x/week for to progress towards her treatment goals. Progress single leg stance activities and monitor for L groin pain with SLS. Progress endurance. Cont L hip AD, extensors, & flexors strengthening for normal gait mechanics. TrP release for L Iliopsoas to relieve groin pain as needed. DC to HEP if appropriate.
--- NOTE | 2018-12-03 15:41 | PT.OTN ---
Current Diagnoses Pain in left hip (12/03/18) Presence of unspecified artificial hip joint (12/03/18) Physical Therapy Treatment Note PT-OP-A Visit Information Start: 07/30/18 08:10 Freq: Status: Active Protocol: Document 12/03/18 10:37 LRN (Rec: 12/03/18 11:25 LRN [id number]) Out-Patient Physical Therapy Visit Information Visit Information Visit Type Discharge Summary Visit Start Time 10:37 Visit Stop Time 11:18 Total Visit Minutes 41 Visit Number 29 Number of [facility] Visits 0 Evaluation Information Evaluation Date 07/30/18 Precautions Precautions s/p partial L hip replacement Hx of pneumothorax - during hip replacement hospitalization. Osteoporosis PT-OP-B Current Condition Start: 07/30/18 08:10 Freq: Status: Active Protocol: Document 07/30/18 12:49 LRN (Rec: 07/30/18 17:34 LRN [id number]) Current Condition History of Current Condition Onset Date Partial L posterior hip replacement 06/06/18 Current Complaints Difficulty walking level and stairs, using 4WW, not able to exercise. History of Current Condition Pt reports falling suffering a fractured hip, with partial replacement on 06/06/18. States she was in the hospital 9.5 days due to a collapsed lung. She then developed a viral pneumonia. She spent 5 days in rehab at [facility] and had Home Health for 1 month until 07/25/18. She will be having assist from [employer] for her transportation, personal hygiene and laundry needs. She states she has been cleared of any hip precautions following her 6 week follow up MD visit. She is currently being monitored for a cyst on the R kidney. Treatment Goals Patient/Caregiver Goals Pt goal is to be able to walk without her 4WW and ambulate stairs with a normal gait. She would like to be able to garden this year but understands this might be a difficult and somewhat unrealistic goal to achieve. Prior Functional Status Baseline Function- ADL's Independent Baseline Function- Mobility Independent Baseline Function- Gait Walked 1/2 hour daily. Able to ambulate stairs with a normal gait. Baseline Function- Recreation/Hobbies Gardening Baseline Function- Other Could exercised 1/2 hour on stationary bike or treadmill. Current Functional Impairments (Reported) Functional Limitations- ADL's SBA for showers. Moves very slow and cautiously with transfers due to fear of falling. Functional Limitations- Mobility/Gait Walks with a 4WW or sometimes in the home with SPC because of fear of falling. Stairs: step to gait with 2 railings. Functional Limitations- Recreation/ Not able to garden Hobbies Personal Factors Other Personal Factors That May Effect > 65 yrs old Therapy/Recovery Has 92 year old . Osteoporosis Has 2 flights of stairs in home. Has need of [employer] for transportation and home needs. PT-OP-C Subjective Start: 07/30/18 08:10 Freq: Status: Active Protocol: Document 12/03/18 10:37 LRN (Rec: 12/03/18 11:25 LRN [id number]) OP-PT Subjective Patient Comments Patient Comments Ready for DC. Have had pain in the L groin every day at the end of the day. She then lays down, does soft tissue and ex's and finds her pain is relieved. Happens after standing 1.5 hours. Patient Questionnaires Lower Extremity Functional Scale LEFS Score 55 LEFS Impairment 20 to 39% Impaired (Score 48- 62) PT-OP-D Balance Start: 07/30/18 12:50 Freq: Status: Active Protocol: Document 08/29/18 12:45 LRN (Rec: 08/29/18 17:42 LRN [id number]) Tinetti Balance Assessment Sitting Balance Sitting Balance Steady, safe Arising from Chair Ability to Arise Able, w/o using arms Attempts to Arise Arises on 1st attempt Standing Balance Immediate Standing Balance Steady w/o support Standing Balance Steady, wide stance Nudged Response Staggers, catches self Standing with Eyes Closed Steady Turning Step Pattern Turning 360 Degrees Continuous steps Stability Turning 360 Degrees Steady Sitting Down Sitting Down Safe, steady Gait and Step Initiation of Gait No hesitancy Right Foot Step Length Does pass stance foot Right Foot Step Height Completely clears floor Left Foot Step Length Does pass stance foot Left Foot Step Height Completely clears floor Step Description Step Symmetry Step length not equal Step Continuity Steps appear continuous Gait Description Path Description Straight Trunk Description No sway Walking Stance Heels apart Scoring and Interpretation Tinetti Composite Score (points) 24 Interpretation of Scores At risk for falls (19-24) Tinetti Impairment Rating from Composite 1 to <20% Impaired (Score 23- Score 27) PT-OP-E Functional Tests Start: 07/30/18 12:50 Freq: Status: Active Protocol: Document 09/30/18 09:07 LRN (Rec: 09/30/18 14:37 LRN [id number]) Functional Tests Tinetti Balance and Gait Assessment Balance Score 14 Gait Score 12 Composite Score 26 Balance Score Impairment Rating 1 to <20% Impaired (Score 13- 15) Gait Score Impairment Rating 0% Impaired (Score 12) Composite Score Impairment Rating 1 to <20% Impaired (Score 23- 27) PT-OP-F Manual Assessment Start: 07/30/18 08:10 Freq: Status: Active Protocol: Document 07/30/18 12:49 LRN (Rec: 07/30/18 17:34 LRN [id number]) Manual Assessments Soft Tissue Assessment Soft Tissue Mobility Assessment Anterior L hip: No palpable pain. Pain with active hip flex, AB. PT-OP-G Mobility & Gait Start: 07/30/18 08:10 Freq: Status: Active Protocol: Document 07/30/18 12:49 LRN (Rec: 07/30/18 17:34 LRN [id number]) OP Mobility Evaluation Transfers Sit to Stand SBA Bed to Chair Transfers Pt able to independently transfer onto plinth table moving slowly and with difficulty. OP Gait Assessment Gait Gait Assistance Required: Independent Able to Maintain Weight Bearing Status Yes During Gait Assistive Devices Assistive Device 4 Wheeled Walker Orthotic/Prosthetic Devices or Brace: No Gait Deviations General Gait Pattern Decreased Stride Length Decreased Feet Clearance Flexed Trunk Narrow Based Gait Factors Limiting Gait Function Factors Limiting Gait Function Decreased Strength Pain Poor Balance PT-OP-H Neuro Start: 07/30/18 12:50 Freq: Status: Active Protocol: Document 07/30/18 12:49 LRN (Rec: 07/30/18 17:34 LRN [id number]) Sensation Evaluation Location Details Right Lower Extremity Light Touch Intact/Normal Left Lower Extremity Light Touch Intact/Normal PT-OP-K Range of Motion Start: 07/30/18 08:10 Freq: Status: Active Protocol: Document 10/08/18 09:10 LRN (Rec: 10/08/18 09:54 LRN [id number]) Hip Goniometric Range of Motion Hip Right Active Flexion w/Knee Flexed 92 Abduction 25 Left Flexion w/Knee Flexed 70 Abduction 30 Hip ROM Limitations Hip ROM Limitations Muscle Weakness Comments Pt has functional active mobility of L hip for flex, AB , ext. in supine PT-OP-M Strength Start: 07/30/18 08:10 Freq: Status: Active Protocol: Document 10/08/18 09:10 LRN (Rec: 10/08/18 09:54 LRN [id number]) Hip Strength Hip Manual Muscle Testing Right Flexion (L2) 4+ Good+ Extension (S1) 4 Good Abduction 4+ Good+ Left Flexion (L2) 3- Fair- Extension (S1) 4 Good Abduction 3 Fair PT-OP-Q Treatments Start: 07/30/18 08:10 Freq: Status: Active Protocol: Document 12/03/18 10:37 LRN (Rec: 12/03/18 11:25 LRN [id number]) Therapeutic Exercises Sitting Exercises Ankle PF Sitting Exercise Name Plantar flexion Side left Resistance Lv 2 Equipment Used T-band Ankle DF Sitting Exercise Name Dorsiflexion Side left Reps/Minutes 15x2 Ankle IV Sitting Exercise Name Ankle IV Side bilateral Resistance Lev 2 T-Band Reps/Minutes 30x Ankle EV Sitting Exercise Name Ankle EV Side bilateral Resistance Lev 2 T-Band Reps/Minutes 30x Standing Exercises Hip Flex Standing Exercise Name Strengthening Side bilateral Resistance Lev 2 T-Band Reps/Minutes 6' Hip AD Standing Exercise Name Hip AD ([facility] and [place]) Side bilateral Reps/Minutes 3' Comments Pure AD no hip flex or IR. Hip AB Standing Exercise Name Hip AB Side left Equipment Used Lev 2 T-Band Reps/Minutes 15 x Comments No pain Hip Extension Standing Exercise Name Strengthening Side left Resistance Lev 2 T-Band Reps/Minutes 6' Self-Care/Home Management Treatment Education Patient Education Home Exercise Program Other Education Reviewed proper posture with ex and discussed connection to exer, posture and L anterior hip pain. Discussed shoewear now that pt is wearing small heels. Activities Self-Care/Home Management Activities Reviewed HEP. PT-OP-R Modalities Start: 07/30/18 08:10 Freq: Status: Active Protocol: Document 08/20/18 11:20 SA (Rec: 08/20/18 11:28 SA [id number]) Hot Pack/Cold Pack Treatment Cold Pack Location L anterior & lateral hip. Patient Position Supine Treatment Duration (minutes) 10 Patient Tolerance Good PT-OP-T Assessment and Plan Start: 07/30/18 08:10 Freq: Status: Active Protocol: Document 12/03/18 10:37 LRN (Rec: 12/03/18 11:25 LRN [id number]) Physical Therapy Assessment Goals Transfer floor to stand Impairment Unable to kneel on floor and return to stand Radio Mechanic Helper Goal (LTG) Pt will be educated and demonstrate with UE assist to transfer floor to stand. LTG Duration 12/27/18 (12/03/18: GOAL MET, pt choosing not to do) Don/Doff of socks/shoes Impairment Pt unable to don/doff socks shoes without aide. Short Term Goal (STG) Pt will be able educated in HEP to progress L hip mobility towards ability to don/doff socks/shoes without a sock aid or assist. STG Duration 10/18/18 (: GOAL MET, reviewed today) Radio Mechanic Helper Goal (LTG) Pt will be able to don socks and shoes without assist ( moderate difficulty). LTG Duration 01/21/19 (11/12/18: GOAL NOT MET, pt uses a sock aide) Decreased balance Impairment Tinetti Balance score of 7/16 indicating pt at risk of falling. Radio Mechanic Helper Goal (LTG) Pt will achieve a Tinetti Balance score of at least 12 of 16 with a gait score of 12 indicating pt is at low risk of falling. LTG Duration 10/22/18 (09/29/18: GOAL MET) Decreased L hip strength Impairment Pt unable to lift L leg independently making transfers difficult Short Term Goal (STG) Pt will be able to lift her L LE independently to be able to transfer off/on the plinth table without assist. STG Duration 08/16/18 (11/12/18: GOAL MET) Decreased active L hip mobility Impairment Pt lacks L hip AB mobility for painfree transfers Short Term Goal (STG) Pt will improve active L hip AB mobility for painfree transfers off/on plinth tables . STG Duration 10/18/18 (11/12/18: GOAL MET) Decreased ankle mobility Impairment Pt lacks functional ankle DF mobility for gait Short Term Goal (STG) Improve ankle active DF with pt able to demonstrate normal gait mechanics without the use of an assistive device. STG Duration 08/23/18 (08/27/18: GOAL MET) Gait Impairment Pt requires use of assistive device for gait Radio Mechanic Helper Goal (LTG) Pt will be independent with a normal gait without an assistive device. LTG Duration 10/22/18 (10/08/18: GOAL MET) HEP Impairment Pt lacks appropriate self care HEP Radio Mechanic Helper Goal (LTG) Pt will be independent with a self care HEP. LTG Duration 01/21/19 (12/03/18: GOAL MET) Assessment Summary Assessment Pt progress overall has been slow but somewhat as expected. Her fear of falling hindered her progress overall. She attends today with report of L groin pain with prolonged standing or activity, possibly due to poor tolerance of positioning into L hip extension. Her Iliopsoas becomes quite tender with many active trigger points when she experiences groin pain. She is able to manage her L groin pain with STM, self trigger point treatments and use of cryotherapy. She has met all her goals except for being able to don/doff her socks and shoes due to lack of L hip ER. This is expected to be a good goal for the pt to try and achieve on a much longer LTG basis. She has been issued a HEP to work towards this goal and exercises to continue strengthening of her hip. The pt is fearful of being released from physical therapy , but she has returned to a good functional level and is able to continue with her exercises independently. If she continues to have difficulty, further physical therapy would be appropriate. Physical Therapy Plan Frequency and Duration Frequency of Treatment 1x/Week Plan of Care Start Date 11/19/18 Plan of Care End Date 01/21/19 Discharge Physical Therapy Discharge Reasons Goals Met Discharge Comments Pt pt might require further assistance in the future to help her achieve other functional goals as she improves in her current level of function, therefore therapy in the future would be appropriate. Thank you for your referral.
== END 2018-12-04 09:32 | disposition home or self-care (01) ==
LOC: PHYS 10:30
PROVIDERS: PCP Internal Medicine; Visit Provider Orthopaedic Surgery
DX: Z96.649 Presence of unspecified artificial hip joint (principal); M25.552 Pain in left hip
CPT/HCPCS: 97110; 97112; 97116; 97140; 97162; 97535

== ENCOUNTER → 2019-02-21 10:30 | Outpatient (CLI) | payer MEDICARE, OTHER, SELFPAY ==
[2018-06-06 08:55] VITALS: BMI 22.6
--- NOTE | 2019-02-21 | DI.US.S_ITS ---
PROCEDURE: US RENAL COMPLETE INDICATIONS: RENAL CYSTS TECHNIQUE: Real-time scanning was performed of the kidneys and bladder, with image documentation. COMPARISON: [facility], US, US RENAL COMPLETE, 07/03/2018, 10:33. [facility], CT, CT ABDOMEN WO/W CON, 07/12/2018, 13:02. FINDINGS: Kidneys: Kidneys are normal in size. Right kidney measures 10.4 cm long; left kidney measures 10.6 cm long. Right renal cortical thickness is 0.9 cm; left renal cortical thickness is 1.4 cm. Renal cortical echotexture is normal. No hydronephrosis or nephrolithiasis. No suspicious solid mass lesions. Bilateral renal cysts redemonstrated similar to prior examination, largest on the right measuring up to 1.8 cm in 4.4 cm the left which is mildly septated. Bladder: Pre-void bladder volume is 122 mL. Post-void residual is 122 mL. Pre-void images demonstrate no intraluminal masses or stones. On pre-void images, neither ureteral jets are noted with color Doppler interrogation. (Of note, ureteral jets may not be detectable in up to 25% of cases due to insufficient differences in specific gravity between ureteral and bladder urine). Miscellaneous: No free pelvic fluid. IMPRESSION: 1. Bilateral renal cysts appearing similar to prior examination with see large left renal cyst mildly complex (Bosniak 2). Continued sonographic surveillance recommended. 2. Mild right renal cortical thinning. 3. 122 cc postvoid residual. Dictated by: Justin ENG Interpreted: Yoon Curiel MD on 02/21/2019 at 11:45 Approved by: Yoon Curiel M.D. on 02/21/2019 at 13:53
== END ==
PROVIDERS: PCP Internal Medicine; Visit Provider Internal Medicine
DX: N28.1 Cyst of kidney, acquired (principal)
CPT/HCPCS: 76770

== ENCOUNTER → 2020-01-06 11:49 | Outpatient (CLI) | payer MEDICARE, OTHER, SELFPAY ==
[2018-06-06 08:55] VITALS: BMI 22.6
--- NOTE | 2020-01-06 | DI.US.S_ITS ---
PROCEDURE: US RENAL COMPLETE INDICATIONS: CYST OF KIDNEY, ACQUIRED TECHNIQUE: Real-time scanning was performed of the kidneys and bladder, with image documentation. COMPARISON: [facility], CT, CT ABDOMEN WO/W CON, 07/12/2018, 13:02. [facility], US, US RENAL COMPLETE, 02/21/2019, 10:59. FINDINGS: Kidneys: Kidneys are normal in size. Right kidney measures 10.3 cm long; left kidney measures 9.5 cm long. Right renal cortical thickness is 1.3 cm; left renal cortical thickness is 1.7 cm. Renal cortical echotexture is normal. No hydronephrosis or nephrolithiasis. No suspicious solid mass lesions. Renal cysts are seen, including a right upper pole cyst that measures up to 1.9 cm and a left upper pole cyst that measures up to 4.4 cm. There is also a 1.1 cm superior pole left kidney cyst. Bladder: Not distended at this time. Not evaluated. Miscellaneous: No free pelvic fluid. IMPRESSION: Simple appearing bilateral renal cysts are seen, without suspicious features. No hydronephrosis is seen. Dictated by: Franko Perrin M.D. on 01/06/2020 at 12:08 Approved by: Franko Perrin M.D. on 01/06/2020 at 12:10
== END ==
PROVIDERS: PCP Internal Medicine; Referring Provider Internal Medicine; Visit Provider Internal Medicine
DX: N28.1 Cyst of kidney, acquired (principal)
CPT/HCPCS: 76770

== ENCOUNTER → 2020-06-09 09:37 | Outpatient (CLI) | payer MEDICARE, BC, SELFPAY ==
[2018-06-06 08:55] VITALS: BMI 22.6
== END ==
PROVIDERS: PCP Internal Medicine; Referring Provider Internal Medicine; Visit Provider Internal Medicine
DX: M81.0 Age-related osteoporosis without current pathological fracture (principal); Z78.0 Asymptomatic menopausal state; Z90.722 Acquired absence of ovaries, bilateral
CPT/HCPCS: 77080; 77081

== ENCOUNTER → 2020-08-11 07:44 | Outpatient (CLI) | payer MEDICARE, OTHER, SELFPAY ==
[2018-06-06 08:55] VITALS: BMI 22.6
[2020-08-11 09:07] LABS: Alanine Aminotransferase 16 IU/L (<35); Albumin Globulin Ratio 1.4 (1.0-2.8); Alkaline Phosphatase 60 U/L (38-126); Aspartate Aminotransferase 24 IU/L (14-36); BUN Creatinine Ratio 19.1 (6-22); Bilirubin Total 0.4 mg/dL (0.2-1.3); Blood Urea Nitrogen 17 mg/dL (7-17); Carbon Dioxide 30 mmol/L (22-32); Chloride 105 mmol/L (98-107); Cholesterol 155 mg/dL (140-199); Estimated Glomerular Filt Rate > 60.0 mL/min (>60); Globulin 2.9 g/dL (1.7-4.1); Glucose 101 mg/dL (80-110); HDL Cholesterol 68 mg/dL (40-60); HEMOLYSIS < 15 (0-50); LDL Cholesterol Calculated 77 mg/dL (<100); Sodium 139 mmol/L (137-145); Total Protein 6.9 g/dL (6.3-8.2); Triglycerides 50 mg/dL (35-150)
== END ==
PROVIDERS: PCP Internal Medicine; Referring Provider Internal Medicine; Visit Provider Internal Medicine
DX: Z13.220 Encounter for screening for lipoid disorders (principal); Z13.6 Encounter for screening for cardiovascular disorders; Z13.1 Encounter for screening for diabetes mellitus
CPT/HCPCS: 36415; 80053; 80061

== ENCOUNTER → 2020-09-03 07:53 | Outpatient (CLI) | payer MEDICARE, OTHER, SELFPAY ==
[2018-06-06 08:55] VITALS: BMI 22.6
--- NOTE | 2020-09-03 07:54 | DI.RAD.S_ITS ---
PROCEDURE: XR FOOT RT MIN 3V INDICATIONS: Lateral right foot pain. Post fall TECHNIQUE: 3 nonweightbearing views of the foot were acquired. COMPARISON: None. FINDINGS: Bones: No acute fractures or dislocations. No suspicious bony lesions. Mild hallux valgus. Mild degenerative changes at the 1st metatarsophalangeal joint and scattered within the interphalangeal joints of the toes. A small plantar calcaneal spur is present. An accessory os peroneum is present. Soft tissues: No suspicious soft tissue calcification. IMPRESSION: No acute osseous abnormality. If clinical suspicion and/or symptoms persist, additional imaging with repeat plain films, or advanced imaging (e.g. CT, MRI) may be helpful for further assessment. Dictated by: Constantine Kothari M.D. on 09/03/2020 at 8:09 Approved by: Constantine Kothari M.D. on 09/03/2020 at 8:10
== END ==
PROVIDERS: PCP Internal Medicine; Referring Provider Physician Assistant; Visit Provider Physician Assistant
DX: M79.671 Pain in right foot (principal); M20.11 Hallux valgus (acquired), right foot; M77.31 Calcaneal spur, right foot
CPT/HCPCS: 73620

== ENCOUNTER → 2020-11-14 10:02 | Outpatient (CLI) | payer MEDICARE, OTHER, SELFPAY ==
[2018-06-06 08:55] VITALS: BMI 22.6
--- NOTE | 2020-11-14 10:04 | DI.RAD.S_ITS ---
PROCEDURE: XR WRIST LT MIN 3V INDICATIONS: fall, snuff box tenderness TECHNIQUE: 4 views of the wrist were acquired. COMPARISON: None. FINDINGS: Bones: Subtle cortical irregularity involving dorsal cortex of distal radius, which may represent subtle incomplete fracture in this area suggest clinical correlation. No other fracture or dislocation is seen. Osteoarthritic changes throughout wrist joints are seen. No suspicious bony lesions. Scaphoid view: Scaphoid is grossly intact. Soft tissues: No suspicious soft tissue calcifications. Dorsal wrist soft tissue swelling is seen. IMPRESSION: 1. Questionable cortical irregularity involving dorsal cortex of distal radius with overlying soft tissue swelling concerning for incomplete fracture in this area suggest clinical correlation. No other fracture or dislocation. 2. Wrist joint osteoarthritis. Dictated by: Corey Jain M.D. on 11/14/2020 at 10:18 Approved by: Corey Jain M.D. on 11/14/2020 at 10:19
== END ==
PROVIDERS: PCP Internal Medicine; Referring Provider Physician Assistant; Visit Provider Physician Assistant
DX: M25.532 Pain in left wrist (principal); M19.032 Primary osteoarthritis, left wrist
CPT/HCPCS: 73110

== ENCOUNTER → 2021-10-10 14:15 | Outpatient (CLI) | payer MEDICARE, OTHER, SELFPAY ==
[2018-06-06 08:55] VITALS: BMI 22.6
--- NOTE | 2021-10-10 14:17 | DI.RAD.S_ITS ---
PROCEDURE: XR CHEST 2V INDICATIONS: Cough TECHNIQUE: 2 views of the chest were acquired. COMPARISON: [facility], CR, XR CHEST 2V, 06/15/2018, 12:11. FINDINGS: Surgical changes and devices: None. Lungs and pleura: Lungs are clear. No pleural effusions or pneumothorax. Mediastinum: Mediastinal contours are normal. Heart size is normal. Bones and chest wall: No suspicious bony abnormalities. Soft tissues appear unremarkable. IMPRESSION: No acute cardiopulmonary process demonstrated radiographically. Dictated by: Riki Montez M.D. on 10/10/2021 at 14:37 Approved by: Riki Montez M.D. on 10/10/2021 at 14:38
== END ==
PROVIDERS: PCP Internal Medicine; Referring Provider Internal Medicine; Visit Provider Internal Medicine
DX: R05.9 Cough, unspecified (principal)
CPT/HCPCS: 71046

== ENCOUNTER → 2021-10-13 14:52 | Outpatient (CLI) | payer MEDICARE, OTHER, SELFPAY ==
[2018-06-06 08:55] VITALS: BMI 22.6
[2021-10-13 15:39] LABS: COVID19 -Nasal RAPID Negative (Negative)
== END ==
PROVIDERS: PCP Internal Medicine; Referring Provider Internal Medicine; Visit Provider Internal Medicine
DX: Z20.822 Contact with and (suspected) exposure to COVID-19 (principal)
CPT/HCPCS: 87635; C9803

== ENCOUNTER → 2021-10-14 08:20 | Outpatient (CLI) | payer MEDICARE, OTHER, SELFPAY ==
[2018-06-06 08:55] VITALS: BMI 22.6
--- NOTE | 2021-10-22 10:09 | PM.PFT.1 ---
Pulmonary Function Test Referral & Results Date Patient Seen: 10/14/21 Requesting provider: Tripp Kong Results: The spirometry demonstrates an FVC of 1.58 L which is 141% of predicted. The FEV1 was measured at 1.24 L which is 158% of predicted. The FEV1/FVC ratio was 78 which is 107% of predicted. Following the administration of bronchodilator there was a 12% improvement in FEV1 and a 40% improvement in FEF 25-75%. Lung volumes show an SVC of 1.77 L which is 121% of predicted. The diffusing capacity was measured at 15.48 which is 163% of predicted. The maximum voluntary ventilation was normal Interpretation: This study demonstrates normal spirometry although there is evidence of benefit following bronchodilator and the super normal diffusing capacity would suggest the possibility of asthma being present although not demonstrated by typical spirometric indicators Overall I would consider this a normal pulmonary function test Clinical correlation suggested
== END ==
PROVIDERS: PCP Internal Medicine; Referring Provider Internal Medicine; Visit Provider Internal Medicine
DX: R06.2 Wheezing (principal); J98.8 Other specified respiratory disorders
CPT/HCPCS: 94060; 94726; 94729

== ENCOUNTER → 2021-11-07 09:17 | Outpatient (CLI) | payer MEDICARE, OTHER, SELFPAY ==
[2018-06-06 08:55] VITALS: BMI 22.6
== END ==
PROVIDERS: PCP Internal Medicine; Referring Provider Internal Medicine; Visit Provider Internal Medicine

== ENCOUNTER → 2022-06-02 11:50 | Outpatient (CLI) | payer MEDICARE, OTHER, SELFPAY ==
[2018-06-06 08:55] VITALS: BMI 22.6
[2022-06-02 13:45] LABS: Alanine Aminotransferase 16 IU/L (<35); Albumin 3.9 g/dL (3.5-5.0); Albumin Globulin Ratio 1.3 (1.0-2.8); Alkaline Phosphatase 67 U/L (38-126); Aspartate Aminotransferase 23 IU/L (14-36); BUN Creatinine Ratio 18.1 (6-22); Bilirubin Total 0.3 mg/dL (0.2-1.3); Blood Urea Nitrogen 15 mg/dL (7-17); Calcium 9.5 mg/dL (8.4-10.2); Carbon Dioxide 27 mmol/L (22-32); Chloride 99 mmol/L (98-107); Estimated Glomerular Filt Rate > 60 mL/min (>60); Globulin 3.1 g/dL (1.7-4.1); Glucose 95 mg/dL (80-110); HEMOLYSIS < 15 (0-50); Potassium 4.5 mmol/L (3.4-5.1); Sodium 136 mmol/L (137-145)
== END ==
PROVIDERS: PCP Internal Medicine; Referring Provider Internal Medicine; Visit Provider Internal Medicine
DX: Z13.1 Encounter for screening for diabetes mellitus (principal); Z13.6 Encounter for screening for cardiovascular disorders; Z79.899 Other long term (current) drug therapy
CPT/HCPCS: 36415; 80053

== ENCOUNTER → 2023-02-27 12:05 | Outpatient (CLI) | payer MEDICARE, OTHER, SELFPAY ==
[2018-06-06 08:55] VITALS: BMI 22.6
[2023-02-27 14:17] LABS: Hemoglobin A1C% w Est Avg Glu 6.1 % (4.0-6.0)
[2023-02-27 14:26] LABS: Alanine Aminotransferase 19 IU/L (<35); Albumin 4.2 g/dL (3.5-5.0); Albumin Globulin Ratio 1.4 (1.0-2.8); Alkaline Phosphatase 65 U/L (38-126); Aspartate Aminotransferase 28 IU/L (14-36); BUN Creatinine Ratio 25.3 (6-22); Bilirubin Total 0.3 mg/dL (0.2-1.3); Blood Urea Nitrogen 20 mg/dL (7-17); Calcium 10.3 mg/dL (8.4-10.2); Carbon Dioxide 27 mmol/L (22-32); Chloride 101 mmol/L (98-107); Estimated Glomerular Filt Rate > 60 mL/min (>60); Globulin 2.9 g/dL (1.7-4.1); Glucose 96 mg/dL (80-110); HEMOLYSIS 23 (0-50); Potassium 5.2 mmol/L (3.4-5.1); Sodium 135 mmol/L (137-145); Total Protein 7.1 g/dL (6.3-8.2)
[2023-02-27 14:55] LABS: TSH w/ Reflex to FT4 2.09 uIU/mL (0.47-4.68)
[2023-02-27 15:13] LABS: Vitamin B12 375 pg/mL (239-931)
[2023-03-01 17:00] LABS: Arsenic < 1 ug/L (0-9); Mercury, Blood 2.1 ug/L (0.0-14.9)
== END ==
PROVIDERS: PCP Internal Medicine; Referring Provider Internal Medicine; Visit Provider Internal Medicine
DX: G62.9 Polyneuropathy, unspecified (principal); R73.03 Prediabetes; Z13.1 Encounter for screening for diabetes mellitus; I10 Essential (primary) hypertension
CPT/HCPCS: 36415; 80053; 82175; 82607; 83036; 83655; 83825; 84443

== ENCOUNTER 2023-06-14 10:11 | Emergency (ER) | payer MEDICARE, OTHER, SELFPAY ==
[2018-06-06 08:55] VITALS: BMI 22.6
[2023-06-14 10:15] VITALS: BP 175/84; PULSE 89; RESP 15; TEMP 36.5; O2SAT 99; BMI 22.3
--- NOTE | 2023-06-14 10:20 | DI.RAD.S_ITS ---
PROCEDURE: XR FOOT RT MIN 3V INDICATIONS: foot pain TECHNIQUE: 3 views of the foot were acquired. COMPARISON: [facility], CR, XR FOOT RT MIN 3V, 09/03/2020, 7:54. FINDINGS: Bones: No fractures or dislocations. No suspicious bony lesions. Soft tissues: No tibiotalar joint effusion. Achilles tendon appears normal. IMPRESSION: No acute bony abnormality. If pain persists, followup imaging in 5-7 days is recommended to exclude occult fracture. Dictated by: Adore Benz M.D. on 06/14/2023 at 10:42 Approved by: Adore Benz M.D. on 06/14/2023 at 10:43
--- NOTE | 2023-06-14 11:00 | ED.EXTPRO ---
HPI - Extremity Problem <Zoë Gerber PA-C - Last Filed: 06/14/23 13:04> General Chief complaint: Extremity Problem,Nontraumatic Stated complaint: rt foot swollen Time Seen by Provider: 06/14/23 10:59 Source: patient Mode of arrival: Ambulatory History of Present Illness HPI Narrative: This is an 88-year-old woman with history of white coat syndrome, peripheral neuropathy, osteoporosis who presents with her daughter with concern for right foot increased redness compared to baseline and some swelling as well as pain in her big toe joint and arch with ambulation and pressure. The pain in the big toe joint and swelling and redness was 1st noticed 2 days ago but this has progressed. Patient is currently on a special diet related to her neuropathy which includes minimal carbohydrates and increased proteins she has been eating a lot of chicken and turkey. Patient denies any other complaints or concerns states she has no history of gout. She denies pain in the calf or swelling or redness of the calf or any other symptoms. She does not believe that she sustained any injury to her ankle or foot. Related Data Home Medications Medication Instructions Recorded Confirmed Calcium 1,200 mg PO DAILY 07/29/20 02/27/23 cholecalciferol (vitamin D3) 50 50 mcg PO DAILY 06/10/21 02/27/23 mcg (2,000 unit) capsule psyllium seed (sugar) oral powder 1 tbsp PO DAILY 06/02/22 02/27/23 (Metamucil (sugar) oral powder) Previous Rx's Medication Instructions Recorded gabapentin 300 mg capsule 300 mg PO BEDTIME #90 caps 03/15/23 doxycycline hyclate 100 mg capsule 100 mg PO BID 7 days #14 caps 06/14/23 prednisone 20 mg tablet 40 mg (2 x 20 mg) PO DAILY 5 days 06/14/23 #10 tabs Allergies Allergy/AdvReac Type Severity Reaction Status Date / Time cephalexin AdvReac Severe Vomiting/Diarrhea Verified 06/14/23 10:15 most of day. Review of Systems <Zoë Gerber PA-C - Last Filed: 06/14/23 13:04> Review of Systems Narrative: See HPI Patient History <Zoë Gerber PA-C - Last Filed: 06/14/23 13:04> Medical History Elevated blood pressure reading in office with white coat syndrome, without diagnosis of hypertension Peripheral neuropathy Left wrist pain Fall Renal cyst Fractures Measles Hearing loss (~2014) Cataracts, bilateral (~2015) Heavy menstrual period Endometriosis Osteoporosis (~2009) Healthy adult Fracture of femoral neck, left, closed Surgical History Anesthesia History of sinus surgery (~07/2002) History of hip replacement (~06/06/18) History of removal of skin mole (~2010) H/O hysterectomy for benign disease (~1984) History of cholecystectomy (~05/2011) History of hysterectomy (~1984) Family History Father Diabetes mellitus History of heart disease Mother History of heart disease Social History household members: spouse Smoking Status: Never smoker alcohol intake: never Smoking Status: Never smoker alcohol intake frequency: holidays/special occasions only Substance Use Type: does not use Exam <Zoë Gerber PA-C - Last Filed: 06/14/23 13:04> Narrative Exam Narrative: GENERAL: 88 year old patient appears stated age. Well-developed patient, in mild distress. HEAD: Atraumatic. Normocephalic. EYES: Pupils equal round and reactive. Extraocular motions intact. No scleral icterus. No injection or drainage. ENT: Nose without bleeding, purulent drainage. Airway patent. NECK: Trachea midline. CARDIOVASCULAR: Regular rate and rhythm without murmurs, gallops, or rubs. RESPIRATORY: Clear to auscultation. Breath sounds equal bilaterally. No wheezes, rales, or rhonchi. EXTREMITIES: Bilateral feet are mildly erythematous at baseline, however the right foot is more erythematous most prominent at the MTP and medial aspect of the mid foot, as well as some swelling noted at this location and about the right ankle. There is no tenderness with palpation of the right ankle or the bones of the foot with exception of the MTP which is quite tender. The skin is not sensitive to light touch. Erythema is mild. There are no open wounds. There is mild heat noted about the MTP joint and foot. Patient has reduced range of motion of the toes of the right foot 2nd to pain. The calf is nontender without erythema or heat. No edema or joint tenderness. NEURO: AOx3. SKIN: No rash or erythema of visible areas Initial Vital Signs Initial Vital Signs: Vital Signs Temperature 97.7 F 06/14/23 10:15 Pulse Rate 89 06/14/23 10:15 Respiratory Rate 15 06/14/23 10:15 Blood Pressure 175/84 H 06/14/23 10:15 Pulse Oximetry 99 06/14/23 10:15 Oxygen Delivery Method Room Air 06/14/23 10:15 <Leonel Schwarz MD - Last Filed: 06/15/23 08:10> Initial Vital Signs Initial Vital Signs: Vital Signs Temperature 97.7 F 06/14/23 10:15 Pulse Rate 89 06/14/23 10:15 Respiratory Rate 15 06/14/23 10:15 Blood Pressure 175/84 H 06/14/23 10:15 Pulse Oximetry 99 06/14/23 10:15 Oxygen Delivery Method Room Air 06/14/23 10:15 Course <Zoë Gerber PA-C - Last Filed: 06/14/23 13:04> Orders Ordered: ED Orders 06/14/23 10:20 XR foot RT min 3V Stat Vital Signs Vital signs: Vital Signs - 8 hr 06/14/23 10:15 Temperature 97.7 F Pulse Rate 89 Respiratory Rate 15 Blood Pressure 175/84 H Pulse Oximetry 99 Oxygen Delivery Method Room Air <Leonel Schwarz MD - Last Filed: 06/15/23 08:10> Orders Ordered: ED Orders 06/14/23 10:20 XR foot RT min 3V Stat Vital Signs Vital signs: Vital Signs - 8 hr 06/14/23 10:15 Temperature 97.7 F Pulse Rate 89 Respiratory Rate 15 Blood Pressure 175/84 H Pulse Oximetry 99 Oxygen Delivery Method Room Air MDM - Extremity (Nontraumatic) <Zoë Gerber PA-C - Last Filed: 06/14/23 13:04> Differential Diagnosis Differential diagnosis: Likely gout, cellulitis and lower extremity edema Medical Records Attestation: I reviewed the patient's medical records. Imaging Data Extremity x-ray #1: My Impression: Agree with Radiology interpretation Radiologist's Impression: [address] [address] XRay Report Signed Patient: Melissa Aleman MR#: [id number] : 1935 Acct:[id number] Age/Sex: 88 / F Date of Service: 06/14/23 Loc: ED Accession Number: [id number] Procedure: XR foot RT min 3V Ordering Provider: Leonel Schwarz MD PROCEDURE: XR FOOT RT MIN 3V INDICATIONS: foot pain TECHNIQUE: 3 views of the foot were acquired. COMPARISON: [facility], , XR FOOT RT MIN 3V, 09/03/2020, 7:54. FINDINGS: Bones: No fractures or dislocations. No suspicious bony lesions. Soft tissues: No tibiotalar joint effusion. Achilles tendon appears normal. IMPRESSION: No acute bony abnormality. If pain persists, followup imaging in 5-7 days is recommended to exclude occult fracture. Dictated by: Adore Benz M.D. on 06/14/2023 at 10:42 Approved by: Adore Benz M.D. on 06/14/2023 at 10:[address] [facility] Narrative Medical decision making narrative: This is an 88-year-old woman with history of white coat syndrome, peripheral neuropathy who presents with her daughter with concern for right foot redness mild swelling and pain with ambulation worsening over the past few days that began with the MTP joint. Discussed this with patient and her daughter, feel that this is most likely gout given patient's recent diet change and progression of the erythema and pain and swelling. Daughter is concern for blood clot however I think this is less likely as patient's pain is specifically with pressure at the MTP. She does have good circulation of the right foot and swelling that could possibly be consistent with a mild sprain about the lateral ankle however she has no tenderness over the ligaments there so this seems less likely. Ultrasound is deferred as very low suspicion for blood clot, x-ray was obtained and this shows no evidence of fracture. I am also less suspicious for cellulitis as patient has no sensitivity to light touch however given that the right foot is more erythematous than baseline, we will place the patient on antibiotics as well as a course of prednisone for treatment of gout. Discussed with the patient and her daughter possibly working on her dietary intake to increase vegetable proteins instead of animal proteins, and talking with her providers about her diet and further testing for gout if they desire. Advised to seek re-evaluation if her symptoms are worsening or not improving with medication treatments. Return precautions provided, follow-up plan discussed, all questions answered. Discharge Plan Departure Patient Disposition: Home Clinical Impression: Gout Qualifiers: Gout site: foot Gout etiology: unspecified cause Chronicity: acute Laterality: right Qualified Code(s): M10.9 - Gout, unspecified Activity Restrictions/Additional Instructions: *You have been diagnosed with [gout] *What to do: *Please continue to take your regular medications as directed. [2 ] New medication prescriptions sent to your pharmacy: [Prednisone, doxycycline] [ ] New medication written as a paper prescription [ ] No new medications given *Please follow up with your primary care provider in 2-3 days, call for an appointment. Let them know you were seen in the Emergency Department and that we ask that you be seen in follow up. We will electronically transmit a record of today's note if your PCP is in our system. your exam and history are most suggestive of gout. The anti-inflammatory, prednisone that I have prescribed should improve these symptoms. After discussion we did also place you on an antibiotic, I am less suspicious that this is a cellulitis or skin infection however reasonable to place you on antibiotics to be sure. If you are not improving at all I recommend you seek re-evaluation, encourage you to follow up closely with her doctors including your provider who has you on the neuropathy diet. If this is truly gout which I suspect, your diet may be playing a role in the fact that you develop this recently. You can take Tylenol or acetaminophen for pain I recommend using gentle compression and elevation for your mild foot swelling as well over the next few days. *If you do not have a primary care provider please contact the [facility] Resource line at [phone]. They will ask some questions about your medical history and help get you set up with a doctor in the community. *Return to Emergency Department if you should have any new, worsening or concerning symptoms, such as [fever greater than 101 F, shaking chills, worsening pain, persistent vomiting or other bothersome symptoms] Prescriptions: New doxycycline hyclate 100 mg capsule 100 mg PO BID 7 Days Qty: 14 0RF prednisone 20 mg tablet 40 mg PO DAILY 5 Days Qty: 10 0RF No Action gabapentin 300 mg capsule 300 mg PO BEDTIME Qty: 90 3RF Calcium 1,200 mg PO DAILY cholecalciferol (vitamin D3) 50 mcg (2,000 unit) capsule 50 mcg PO DAILY Metamucil (sugar) Powder 1 tbsp PO DAILY Referrals: Tripp Kong MD [Primary Care Provider] - Stand Alone Forms: Patient Portal/API ED Sign-out <Leonel Schwarz MD - Last Filed: 06/15/23 08:10> Cosign ED Attending Cosignature Attestation: I was immediately available in the department for consultation. ?This documentation has been reviewed and I agree with assessment and plan. Supervised by Leonel Schwarz MD
== END 2023-06-14 11:34 | disposition home or self-care (01) ==
PROVIDERS: Emergency Provider Student in an Organized Health Care Education/Training Program; PCP Internal Medicine
DX: M10.9 Gout, unspecified (principal)
CPT/HCPCS: 73630; 99283

== ENCOUNTER → 2023-06-20 08:06 | Outpatient (CLI) | payer MEDICARE, OTHER, SELFPAY ==
[2018-06-06 08:55] VITALS: BMI 22.6
[2023-06-20 08:51] LABS: Hemoglobin A1C% w Est Avg Glu 5.8 % (4.0-6.0)
[2023-06-20 09:12] LABS: Alanine Aminotransferase 15 IU/L (<35); Albumin 3.7 g/dL (3.5-5.0); Albumin Globulin Ratio 1.4 (1.0-2.8); Alkaline Phosphatase 62 U/L (38-126); Aspartate Aminotransferase 18 IU/L (14-36); BUN Creatinine Ratio 27.7 (6-22); Bilirubin Total 0.5 mg/dL (0.2-1.3); Blood Urea Nitrogen 23 mg/dL (7-17); Calcium 9.6 mg/dL (8.4-10.2); Carbon Dioxide 24 mmol/L (22-32); Chloride 101 mmol/L (98-107); Estimated Glomerular Filt Rate > 60 mL/min (>60); Globulin 2.7 g/dL (1.7-4.1); Glucose 97 mg/dL (80-110); HEMOLYSIS < 15 (0-50); Potassium 3.5 mmol/L (3.4-5.1); Sodium 135 mmol/L (137-145); Total Protein 6.4 g/dL (6.3-8.2); Uric Acid 4.7 mg/dL (2.5-6.2)
== END ==
PROVIDERS: PCP Internal Medicine; Referring Provider Internal Medicine; Visit Provider Internal Medicine
DX: R73.02 Impaired glucose tolerance (oral) (principal); M10.9 Gout, unspecified
CPT/HCPCS: 36415; 80053; 83036; 84550

== ENCOUNTER → 2023-07-02 14:51 | Outpatient (CLI) | payer MEDICARE, OTHER, SELFPAY ==
[2018-06-06 08:55] VITALS: BMI 22.6
[2023-07-02 15:29] LABS: Add Manual Diff / Slide Review NO; Basophils Absolute Auto 100 /uL (0-100); Basophils Percent Auto 1.1 % (0-2); Eosinophils Absolute Auto 200 /uL (0-450); Eosinophils Percent Auto 3.7 % (2-4); Hematocrit 35.3 % (36-46); Hemoglobin 11.9 g/dL (12.0-16.0); Lymphocytes Absolute Auto 1700 /uL (1100-4500); Lymphocytes Percent Auto 25.9 % (25-40); Mean Corpuscular HGB Conc 33.7 % (30-36); Mean Corpuscular Hemoglobin 30.3 PG (26-34); Mean Corpuscular Volume 90.1 fL (80-100); Monocytes Absolute Auto 600 /uL (0-900); Monocytes Percent Auto 8.5 % (3-14); Neutrophils Absolute Auto 4000 /uL (1500-7000); Neutrophils Percent Auto 60.8 % (50-75); Platelet Count 397 X10^3/uL (150-400); Red Blood Cell Count 3.92 X10^6/uL (4.0-5.2); White Blood Cell Count 6.5 X10^3/uL (4.5-11.0)
[2023-07-02 16:02] LABS: Alanine Aminotransferase 27 IU/L (<35); Albumin 3.9 g/dL (3.5-5.0); Albumin Globulin Ratio 1.2 (1.0-2.8); Alkaline Phosphatase 71 U/L (38-126); Aspartate Aminotransferase 27 IU/L (14-36); BUN Creatinine Ratio 25.8 (6-22); Bilirubin Total 0.4 mg/dL (0.2-1.3); Blood Urea Nitrogen 23 mg/dL (7-17); C-Reactive Protein Quant 0.6 mg/dL (<1.0); Calcium 9.6 mg/dL (8.4-10.2); Carbon Dioxide 30 mmol/L (22-32); Chloride 103 mmol/L (98-107); Estimated Glomerular Filt Rate > 60 mL/min (>60); Globulin 3.2 g/dL (1.7-4.1); Glucose 101 mg/dL (80-110); HEMOLYSIS < 15 (0-50); Potassium 4.4 mmol/L (3.4-5.1); Sodium 134 mmol/L (137-145); Total Protein 7.1 g/dL (6.3-8.2)
[2023-07-02 16:10] LABS: Erythrocyte Sedimentation Rate 12 MM/HR (0-20)
[2023-07-02 16:23] LABS: TSH w/ Reflex to FT4 2.97 uIU/mL (0.47-4.68)
== END ==
PROVIDERS: PCP Internal Medicine; Referring Provider Internal Medicine; Visit Provider Internal Medicine
DX: R60.0 Localized edema (principal)
CPT/HCPCS: 36415; 80053; 84443; 85025; 85651; 86140

== ENCOUNTER → 2023-07-12 06:56 | Outpatient (CLI) | payer MEDICARE, OTHER, SELFPAY ==
[2018-06-06 08:55] VITALS: BMI 22.6
--- NOTE | 2023-07-12 06:58 | DI.ECHO.S_ITS ---
[facility]---------+ [facility] +---------+ : : [address] : : : : [id number] : : : : Phone: [phone]+ Echocardiogram Report + + :Name: JAZMYN MADISON Study Date: 07/12/2023 Height: 64 in : :[facility] ReadingLocation: Weight: 128 lb : : Gender: Female BSA: 1.6 m2 : :: 1935 Age: 88 yrs BP: 146/79 mmHg: :Reason For Study: LOCALIZED EDEMA : :Ordering Physician: TOO, : :CHRISTINA Avalos Performed By: Riki Silverio : :Referring: CHRISTINA GAGE : + + Interpretation Summary The ejection fraction is estimated to be 55-60%. The right ventricular systolic function is normal. The right ventricular systolic pressure is estimated to be at least 21 mmHg based on an estimated right atrial pressure of 3 mm Hg. No significant valvular abnormality. Procedure: A two-dimensional transthoracic echocardiogram with color flow and Doppler was performed. The study quality was technically adequate. There is no prior echocardiogram noted for this patient. The patient was in atrial fibrillation with heart rates between 72-82 bpm during the exam. Left Ventricle: The left ventricle is normal in size and wall thickness. The ejection fraction is estimated to be 55-60%. Diastolic function could not be accurately assessed due to atrial fibrillation. Right Ventricle: The right ventricle grossly appears normal in size with probable normal systolic function. The right ventricular systolic function is normal. Atria: The left atrial size is normal. Right atrial size is normal. The interatrial septum grossly appears intact with no obvious evidence for an atrial septal defect. Mitral Valve: The mitral valve is normal in structure and function. There is no mitral valve stenosis. There is trace mitral regurgitation. Aortic Valve: The aortic valve is trileaflet. There is no aortic valve stenosis. There is trace aortic regurgitation. Tricuspid Valve: The tricuspid valve is normal in structure and function. There is no tricuspid stenosis. There is mild tricuspid regurgitation. The right ventricular systolic pressure is estimated to be at least 21 mmHg based on an estimated right atrial pressure of 3 mm Hg. Pulmonic Valve: The pulmonic valve is not well visualized. There is no pulmonic valvular stenosis. There is no pulmonic valvular regurgitation. Great Vessels: The aortic root is normal size. The dimensions of the ascending aorta are normal. The IVC is of normal diameter and collapses greater than 50% with a sniff. This suggests a low right atrial pressure of 3 mm Hg. Pericardium/ Pleura There is no pericardial effusion. There is no pleural effusion. MMode/2D Measurements & Calculations LVIDd: 4.0 cm LVOT diam: 1.9 cm LVIDs: 2.7 cm Ao root diam: 3.1 cm FS: 33.4 % asc Aorta Diam: 3.3 cm IVSd: 0.85 cm Ao Arch Diam (Prox Trans): 2.7 cm LVPWd: 0.87 cm LV hinton. diameter/BSA (cm/m^2): 2.5 LV sys. diameter/BSA (cm/m^2): 1.7 LA A2 area: 17.0 cm2 RA long axis: 4.3 cm LA A4 area: 13.3 cm2 RA area: 9.6 cm2 LA length (vol): 4.4 cm RA vol: 18.3 ml LA vol: 43.9 ml RA : 11.3 ml/m2 LA vol index: 27.2 ml/m2 IVC diam: 1.8 cm RVD1 (basal): 3.4 cm RVD2 (mid): 3.0 cm TAPSE: 2.0 cm Doppler Measurements & Calculations Ao V2 max: 140.2 cm/sec LVOT Max Odilon: 103.0 cm/sec Ao V2 mean: 90.4 cm/sec LV V1 max P.3 mmHg Ao max P.0 mmHg LV V1 VTI: 22.3 cm Ao mean P.8 mmHg KARI(I,D): 2.1 cm2 Ao V2 VTI: 29.0 cm KARI(V,D): 2.0 cm2 sev ratio: 0.77 KARI indexed to BSA (cm^2/m^2): 1.3 MV E max odilon: 82.7 cm/sec TR max odilon: 209.9 cm/sec MV A max odilon: 97.0 cm/sec TR max P.7 mmHg MV E/A: 0.85 PA V2 max: 85.2 cm/sec Med Peak E' Odilon: 5.3 cm/sec PA V2 mean: 67.9 cm/sec E/E' med: 15.5 PA mean P.9 mmHg Lat Peak E' Odilon: 7.7 cm/sec PA pr(Accel): 35.0 mmHg E/E' lat: 10.7 E/e' average: 13.1 MV dec time: 0.21 sec SVLVOT): 60.1 ml Reading Physician:SEEMA
== END ==
PROVIDERS: PCP Internal Medicine; Referring Provider Internal Medicine; Visit Provider Internal Medicine
DX: R60.0 Localized edema (principal); I07.1 Rheumatic tricuspid insufficiency
CPT/HCPCS: 93306

== ENCOUNTER → 2023-07-31 10:46 | Outpatient (CLI) | payer MEDICARE, OTHER, SELFPAY ==
[2018-06-06 08:55] VITALS: BMI 22.6
[2023-08-01 19:37] LABS: Fecal Immunochemical Test Negative (Negative)
== END ==
PROVIDERS: PCP Internal Medicine; Referring Provider Internal Medicine; Visit Provider Internal Medicine
DX: Z12.11 Encounter for screening for malignant neoplasm of colon (principal)
CPT/HCPCS: 82274

== ENCOUNTER → 2024-07-10 14:00 | Outpatient (CLI) | payer MEDICARE, OTHER, SELFPAY ==
[2018-06-06 08:55] VITALS: BMI 22.6
[2024-07-11 15:08] LABS: Fecal Immunochemical Test Negative (Negative)
== END ==
LOC: LAB 14:05
PROVIDERS: Family Provider Internal Medicine; PCP Internal Medicine; Referring Provider Internal Medicine; Visit Provider Internal Medicine
DX: Z12.11 Encounter for screening for malignant neoplasm of colon (principal)
CPT/HCPCS: 82274

== ENCOUNTER → 2024-08-12 14:00 | Outpatient (CLI) | payer MEDICARE, OTHER, SELFPAY ==
[2018-06-06 08:55] VITALS: BMI 22.6
[2024-08-12 15:29] LABS: Alanine Aminotransferase 14 IU/L (<35); Albumin 4.4 g/dL (3.5-5.0); Albumin Globulin Ratio 1.5 (1.0-2.8); Alkaline Phosphatase 81 U/L (38-126); Aspartate Aminotransferase 22 IU/L (14-36); BUN Creatinine Ratio 22.1 (6-22); Bilirubin Total 0.6 mg/dL (0.2-1.3); Blood Urea Nitrogen 19 mg/dL (7-17); Carbon Dioxide 24 mmol/L (22-32); Chloride 101 mmol/L (98-107); Estimated Glomerular Filt Rate > 60 mL/min (>60); Globulin 2.9 g/dL (1.7-4.1); Glucose 89 mg/dL (80-110); HEMOLYSIS < 15 (0-50); Potassium 4.2 mmol/L (3.4-5.1); Sodium 135 mmol/L (137-145); Total Protein 7.3 g/dL (6.3-8.2)
[2024-08-12 16:29] LABS: Hemoglobin A1C% w Est Avg Glu 5.5 % (4.0-6.0)
== END ==
PROVIDERS: Family Provider Internal Medicine; PCP Internal Medicine; Referring Provider Internal Medicine; Visit Provider Internal Medicine
DX: R73.02 Impaired glucose tolerance (oral) (principal); G62.9 Polyneuropathy, unspecified
CPT/HCPCS: 36415; 80053; 83036

== ENCOUNTER → 2024-11-06 10:27 | Outpatient (CLI) | payer MEDICARE, OTHER, SELFPAY ==
[2018-06-06 08:55] VITALS: BMI 22.6
--- NOTE | 2024-11-06 10:28 | DI.RAD.S_ITS ---
PROCEDURE: XR HIP W PEL IF DONE LT 2V INDICATIONS: left hip pain TECHNIQUE: 2 view(s) of the hip acquired. COMPARISON: [facility], CR, XR HIP W PEL IF DONE LT 2V, 06/06/2018, 6:46. FINDINGS: Bones: Patient is status post left hip arthroplasty. There is evidence of protrusion of the acetabular prosthetic component with approximately 2.5 cm of linear surface of the prosthesis on covered by bone. Hardware components are otherwise in expected positions. The hip joint appears congruent. The visualized bony structures appear intact. Surgical clips overlie the right lower quadrant/hemipelvis. Soft tissues: Overlying postoperative changes are noted. No suspicious soft tissue densities. IMPRESSION: Protrusion of the acetabular prosthetic component resulting in uncovering of the hardware at this location. Otherwise, no evidence of hardware complication or acute osseous abnormality. Dictated by: Frederic Benitez M.D. on 11/09/2024 at 2:53 Approved by: Frederic Benitez M.D. on 11/09/2024 at 2:56
== END ==
PROVIDERS: Family Provider Internal Medicine; PCP Internal Medicine; Referring Provider Internal Medicine; Visit Provider Internal Medicine
DX: T84.091A Other mechanical complication of internal left hip prosthesis, initial encounter (principal); M25.552 Pain in left hip
CPT/HCPCS: 73502

== ENCOUNTER → 2024-11-11 12:27 | Outpatient (CLI) | payer MEDICARE, OTHER, SELFPAY ==
[2018-06-06 08:55] VITALS: BMI 22.6
== END ==
PROVIDERS: Family Provider Internal Medicine; PCP Internal Medicine; Referring Provider Orthopaedic Surgery Adult Reconstructive Orthopaedic Surgery; Visit Provider Orthopaedic Surgery Adult Reconstructive Orthopaedic Surgery
DX: M24.7 Protrusio acetabuli (principal); Z96.642 Presence of left artificial hip joint
CPT/HCPCS: 36415; 85651; 86140; 99214

== ENCOUNTER → 2024-11-12 10:13 | Outpatient (CLI) | payer MEDICARE, OTHER, SELFPAY ==
[2018-06-06 08:55] VITALS: BMI 22.6
--- NOTE | 2024-11-12 10:16 | DI.CT.S_ITS ---
PROCEDURE: CT PEL WO CON INDICATIONS: Evaluate left ANGELO TECHNIQUE: Noncontrast 3 mm axial sections acquired through the bony pelvis, with coronal and sagittal reformatting. For radiation dose reduction, the following was used: automated exposure control, adjustment of mA and/or kV according to patient size. COMPARISON: [facility], CR, XR PELVIS WITH LATERAL HIP LEFT, 10/16/2022, 9:12. [facility], CR, XR HIP W PEL LT 2V, 11/06/2024, 10:34. FINDINGS: Image quality: Excellent. Bones: Axial joint space narrowing and remodeling of the right hip with mild protrusion of the prosthesis component into the left pelvis, which has progressed compared to the prior exam from 10/16/2022. No loosening of the femoral stem component is seen. No acute osseous fracture. Moderate right hip osteoarthrosis. Degenerative changes are seen at the pubic symphysis, sacroiliac joints, and included spine. Suspected pubic symphysis effusion. No aggressive osseous lesion. Soft tissues: No large left hip effusion or periarticular mass is seen. The visualized musculature is symmetric and age-appropriate in bulk. Status post hysterectomy. Numerous diverticula in the colon without signs of acute diverticulitis. Surgical clips are seen in the right pericolic region. IMPRESSION: 1. Postsurgical changes from left hip hemiarthroplasty with progressive remodeling of the medial of the acetabulum resulting in the femoral head component mildly protruding into the pelvis. No large joint effusion or periarticular mass. 2. Degenerative changes in the right hip, pubic symphysis, sacroiliac joints, and included spine. Approved by: Constantine Kothari M.D. on 11/12/2024 at 12:52
== END ==
PROVIDERS: Family Provider Internal Medicine; PCP Internal Medicine; Referring Provider Orthopaedic Surgery Adult Reconstructive Orthopaedic Surgery; Visit Provider Orthopaedic Surgery Adult Reconstructive Orthopaedic Surgery
DX: T84.091A Other mechanical complication of internal left hip prosthesis, initial encounter (principal); Z96.642 Presence of left artificial hip joint; M16.11 Unilateral primary osteoarthritis, right hip; K57.90 Diverticulosis of intestine, part unspecified, without perforation or abscess without bleeding; Z90.710 Acquired absence of both cervix and uterus
CPT/HCPCS: 72192